=== PATIENT | female | born 1940 | race Caucasian/White ===

== ENCOUNTER → 2016-05-16 | Outpatient (REF) | payer MEDICARE ==
[~2016-05-16] MED LIST: /ALEN70TA OR; /CELE20CA; /CELE20CA OR; /CELE20CA PO; /DULO30CA; /DULO30CA OR; /ESOM40CA; /HALO2TA OR; /LAMO10TA; /LAMO10TA OR; /METO5TA PO; /PANT40TA OR; /QUET10TA PO; /WARF25TA PO; /ZOLP6ER; ABIL2TAB PO; ABIL5TAB OR; ADDE10CA3 OR; ALLE25CA OR; AMBI10TA; AMBI10TA OR; AMBI10TA PO; AMBI12.52 PO; AMBI5TAB; ANEX7.5T PO; ASPI1TAB PO; ASPI81TA83 OR; ATARAX; ATARAX OR; ATIV0.5T OR; ATIV1TAB2; ATIV1TAB2 OR; ATOR1TAB19 PO; BUPR15TA; BUSP30TA; CALC600T7 PO; CALCCHW12 OR; CALCTAB23 PO; CIPR25SS OR; CLON0.5T PO; COLA100C2 OR; CYMB1CAP PO; CYMBALTA OR; DEPA250T3 OR; DEPA500T OR; DEXTROAMPHETAMINE; DIPH2.5L OR; DOXE25CA2; DULO1CAP3 PO; DULO20CA; EC-N500T OR; EFFE75CA75 OR; FERR324T5 OR; FLEXERIL; FLEXERIL PO; GABA-279 PO; GABA800T3 OR; GEOD60CA; HYDR1CRE89 TOP; INVE6TAB3; KLON0.5T OR; KLON1TAB; KLON1TAB OR; KLON1TAB PO; KLON2TAB; KLONOPIN OR; LACT10SO8 OR; LAMI25TA; LAMI25TA OR; LAMICTAL; LAMICTAL PO; LEVO100T PO; LEVO100T5 PO; LIDO5DIS EX; LUNE2TAB OR; LYRI75CA PO; LYRICA PO; METO10TA2 OR; MILKSUS OR; MIRALEX OR; MODA200T PO; MS C15TA2 PO; MS C200T PO; MULTIVIT OR; MULTIVIT PO; NABU750T OR; NEUR600T OR; NEUR800T; NEUR800T OR; NITR0.4S SL; OPAN10TA16 OR; OXYC10TA12 OR; OXYC10TA97 OR; OXYCONTIN; OXYCONTIN OR; PERC5TAB6 PO; PERC5TAB8 OR; PLAV75TA2 OR; PROZ20CA OR; RISP0.5T20 OR; RISP1TAB OR; RISP3TAB16 OR; ROSU10TA OR; SENO8.6T2 PO; SENO8.6T9 PO; SERO1TAB3 PO; SERO200T; SERO50TA PO; SIMV40TA2 OR; SUCR1TA PO; SYNT88TA; SYNT88TA OR; TOPI25TA2 OR; TRAM100T; TRAM50TA2; TRAM50TA2 OR; TRAZ100T; TRAZ100T OR; TRIL150T PO; TYLE325T5 PO; VENL37.5 OR; VIST25CA; VIST25CA OR; VIST50CA OR; VITA100037 PO; VITA250T OR; VITAMIN B COMPLEX WI OR; VITMTA PO; WELL100T2; XANA1TAB2 OR; ZIPR80CAP; ZITH500T PO; ZYPR10TA; ZYPR15TA OR; ZYPR20TA; ZYPR5TAB; [UNRECOGNIZED DRUG - CODE] PO; [UNRECOGNIZED DRUG - OTHER] OR; [UNRECOGNIZED DRUG - OTHER] PO; cymbalta PO; haldol PO
== END ==
LOC: M SMT 17:06
PROVIDERS: ATTEND Urology
DX: Z85.51 Personal history of malignant neoplasm of bladder (principal)

== ENCOUNTER → 2016-06-06 | Outpatient (CLI) | payer MEDICARE ==
[2016-06-06 12:48] LABS: BLOOD UREA NITROGEN 19 MG/DL (7-18); CREATININE FOR GFR 0.64 MG/DL (0.55-1.02); GLOMERULAR FILTRATION RATE > 60.0 (>39)
== END ==
LOC: M SMT 10:17
PROVIDERS: ATTEND Psychiatry & Neurology Neurology
DX: G62.9 Polyneuropathy, unspecified (principal)

== ENCOUNTER → 2016-06-17 | Outpatient (REF) | payer MEDICARE | LOC: M LAB REF 12:17 | PROVIDERS: ATTEND Physician Assistant Medical | DX: R30.0 Dysuria (principal) ==

== ENCOUNTER 2016-08-06 15:06 | Inpatient (IN) | payer MEDICARE ==
[~2016-08-06] VITALS: Ht 154.9 cm; Wt 83.0 kg
[2016-08-06] MEDS ORDERED: LEVO112T2 PO (15:25)
[2016-08-06] MEDS ORDERED: GABA-283 PO (15:25)
[2016-08-06] MEDS ORDERED: DULO30CA PO (15:25)
[2016-08-06] MEDS ORDERED: PRAM0.252 PO (15:25)
[2016-08-06] MEDS ORDERED: ABIL5TAB5 PO (15:25)
[2016-08-06 15:55] LABS: MEAN CORPUSCULAR HGB CONC 31.8 g/dl (32.0-36.5); MEAN CORPUSCULAR VOLUME 91.2 fl (80.0-96.0); RED CELL DISTRIBUTION WIDTH 13.5 % (11.5-14.5); WHITE BLOOD COUNT 7.7 K/mm3 (4.0-10.0)
[2016-08-06 16:06] LABS: METHADONE URINE NEGATIVE (NEGATIVE)
[2016-08-06 16:25] LABS: ALBUMIN 3.3 GM/DL (3.2-5.2); ALBUMIN/GLOBULIN RATIO 1.18 (1.00-1.93); ALKALINE PHOSPHATASE 118 U/L (45-117); ALT/SGPT 45 U/L (12-78); ANION GAP 5 MEQ/L (8-16); AST/SGOT 27 U/L (15-37); BILIRUBIN,DIRECT 0.1 MG/DL (0.0-0.2); BILIRUBIN,TOTAL 0.4 MG/DL (0.2-1.0); BLOOD UREA NITROGEN 19 MG/DL (7-18); CALCIUM LEVEL 8.2 MG/DL (8.8-10.2); CARBON DIOXIDE LEVEL 31 MEQ/L (21-32); CHLORIDE LEVEL 110 MEQ/L (98-107); CREATININE FOR GFR 0.78 MG/DL (0.55-1.02); GLOMERULAR FILTRATION RATE > 60.0 (>39); GLUCOSE, FASTING 115 MG/DL (83-110); POTASSIUM SERUM 3.8 MEQ/L (3.5-5.1); SODIUM LEVEL 146 MEQ/L (136-145); TOTAL PROTEIN 6.1 GM/DL (6.4-8.2)
[2016-08-06] MEDS ORDERED: NS 500 ML IV ONE (16:30)
[2016-08-06] MEDS ORDERED: KETOROLAC 30 MG/ML VIAL (J1885) IV ONE (18:00)
[2016-08-06] MEDS ORDERED: LORazepam 1 MG TAB PO STA (20:40)
[2016-08-06] MEDS ORDERED: clonazePAM 1 MG TAB PO SCH (21:00)
[2016-08-06] MEDS ORDERED: MOM 30ML SUSPENSION UDC PO PRN (21:45)
[2016-08-06] MEDS ORDERED: MAALOX 30 ML SUSP *UDC PO PRN (21:45)
[2016-08-06 22:41] VITALS: BP 123/63
[2016-08-06] MEDS: ATORVASTATIN 10 MG TAB PO SCH (23:43)
[2016-08-06] MEDS: GABAPENTIN 300 MG CAP PO SCH (23:43)
[2016-08-06] MEDS: DULoxetine 30 MG CAP (CYMBALTA) PO SCH (23:43)
[2016-08-06] MEDS: CALCIUM/VITAMIN D 500 MG TAB PO SCH (23:44)
[2016-08-06] MEDS: traZODone 50 MG TAB PO PRN (23:44)
[2016-08-06] MEDS: PRAMIPEXOLE 0.25 MG TAB PO SCH (23:44)
[2016-08-07 00:33] VITALS: BP 126/91
[2016-08-07] MEDS: LEVOTHYROXINE 0.112 MG TAB (112 MCG) PO SCH (06:22)
[2016-08-07 06:53] VITALS: BP 144/67
[2016-08-07] MEDS: PRAMIPEXOLE 0.25 MG TAB PO SCH ×2 (08:48→20:37)
[2016-08-07] MEDS: ACETAMINOPHEN TAB 650MG DOSE (2X325MG) PO PRN ×2 (08:48→20:38)
[2016-08-07] MEDS: ASPIRIN 81 MG ENTERIC TAB PO SCH (08:49)
[2016-08-07] MEDS: MULTIVITAMINS/MINERALS THERAP 1 TAB PO SCH (08:49)
[2016-08-07] MEDS: GABAPENTIN 300 MG CAP PO SCH (08:49)
[2016-08-07] MEDS: DULoxetine 30 MG CAP (CYMBALTA) PO SCH ×2 (08:49→20:36)
[2016-08-07] MEDS: CALCIUM/VITAMIN D 500 MG TAB PO SCH ×2 (08:49→20:36)
[2016-08-07] MEDS ORDERED: clonazePAM 1 MG TAB PO SCH (09:00)
--- NOTE | 2016-08-07 09:20 | ECGEPIP ---
Stationary ECG Study [facility] - ED Test Date: 2016-08-06 Pat Name: JOHN MCCARTHY Department: Room: - Gender: F Patient Accounts Manager: jenna : 1940 Requested By: Treasure Weaver Order Number: [id number] Reading MD: Jacque Gonzalez Measurements Intervals [place] Rate: 75 P: 57 MD: 162 QRS: -50 QRSD: 104 T: 56 QT: 395 QTc: 442 Interpretive Statements SINUS RHYTHM PATTERN CONSISTENT WITH PULMONARY DISEASE LEFT ANTERIOR FASCICULAR BLOCK MINIMAL ST DEPRESSION LESS PRONOUNCED ST CHANGES/DECREASED RATE 10/25/15 Electronically Signed On 08-07-2016 9:19:42 EDT by Jacque Gonzalez
[2016-08-07] MEDS: clonazePAM 0.5 MG TAB PO SCH ×2 (14:01→20:36)
[2016-08-07] MEDS: GABAPENTIN 400 MG CAP PO SCH ×2 (14:01→20:37)
[2016-08-07 18:00] VITALS: BP 128/60
[2016-08-07] MEDS: ATORVASTATIN 10 MG TAB PO SCH (20:35)
[2016-08-08] MEDS: LEVOTHYROXINE 0.112 MG TAB (112 MCG) PO SCH (05:48)
[2016-08-08 06:40] VITALS: BP 109/52
[2016-08-08] MEDS: PRAMIPEXOLE 0.25 MG TAB PO SCH ×2 (08:22→20:00)
[2016-08-08] MEDS: CALCIUM/VITAMIN D 500 MG TAB PO SCH ×2 (08:22→20:00)
[2016-08-08] MEDS: DULoxetine 30 MG CAP (CYMBALTA) PO SCH ×2 (08:22→20:00)
[2016-08-08] MEDS: GABAPENTIN 400 MG CAP PO SCH ×3 (08:22→20:00)
[2016-08-08] MEDS: ASPIRIN 81 MG ENTERIC TAB PO SCH (08:22)
[2016-08-08] MEDS: MULTIVITAMINS/MINERALS THERAP 1 TAB PO SCH (08:23)
[2016-08-08] MEDS: clonazePAM 0.5 MG TAB PO SCH ×2 (08:23→15:29)
--- NOTE | 2016-08-08 10:20 | MHHPE ---
DATE OF ADMISSION: 08/06/2016 The patient states she came to the emergency department because her feet hurt with numbness and tingling. She made numerous statements to staff that she had wanted to and would not continue like this. The patient stated that she took more medicine than usual and her keeps track of her medication because she has a history of overdosing. He discovered the patient had taken one to two extra of her medication and when confronted she stated she took them hoping to . The patient stated she was "going crazy" at home because she cannot physically do things like keep up on housework, drive or go anywhere. She feels she is stressing her . The patient states to me, "I have neuropathy, my feet are tingling and numb". The neuropathy had diminished for a long time, but returned approximately four to five months ago. The patient states many of her admissions are due to her "feeling like she is going to crazy" and stress over her neuropathy. The patient states, "I got worn out and came in to have my medication adjustment". The patient states she also has burning mouth syndrome. She states previously her physician put her on "something else", but it seemed to make things worse and he put her back on Neurontin. She is on Neurontin 300 mg three times a day. She states she took the extra medication just to sleep and now denies suicidal statements. She feels she is causing her a great deal of stress. EDUCATION HISTORY: The patient has a high school education. 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 The patient has 2 children, 46 and 52 years old. MARITAL HISTORY: 54 years. MEDICAL PROBLEMS: She states she has had neuropathy since she was in her 30s. PSYCHIATRIC HISTORY: States she has been in mental hospitals approximately seven times. Review of her medications showed she was on: - Cymbalta 60 mg twice a day - Neurontin 300 mg three times a day The patient states Dr. Tello who was treating her was planning to put her on Elavil, but did not order it. NEUROLOGICAL HISTORY: Positive for neuropathy. DRUG HISTORY: Negative. ALCOHOL HISTORY: Negative. LEGAL HISTORY: Negative. The patient denies hallucinations, delusions, obsessions, compulsions and phobias. No disturbance of speech. No disturbance of thought process. No loose associations. No psychotic thoughts. Judgment and insight are fair. The patient is fully oriented. Mood is low. Affect is tearful. Full fund of knowledge. No disturbance of language. No disturbance of attention or concentration. Recent and remote memory are intact. IMPRESSION: Major depression with neuropathy. PLAN: Increase Neurontin to a higher dose. Consider use of Elavil as per Dr. Tello's suggestion according to patient.
--- NOTE | 2016-08-08 14:09 | IPNPDOC ---
[facility] Progress Note Progress Note DATE OF SERVICE: 08/08/16 HISTORY: 76-year-old female with history of major depression and neuropathy. Complaints about tingling and numbing of her feet and she claims that this problem causes her depression and her anxiety because she feels useless since she is not been able to do anything around the house (house chores) and for that reason she also feels guilty because her is the one who is taking care over those tasks. She says that she hasn't been able to sleep well for a long time, states that she eats well, blames herself constantly for being ill, has poor attention and concentration, psychomotor retardation and she feels that she should end her life because "I cannot go on like this". She is currently on Neurontin 400 mg by mouth 3 times a day and Cymbalta 60 mg by mouth twice a day, Klonopin 1 mg by mouth 3 times a day and aripiprazole 5 mg by mouth daily VITAL SIGNS: See below. NEW TEST RESULTS: None CURRENT MEDICATIONS: See below. MENTAL STATUS EXAMINATION: Patient is a 76-year old female, who is alert, cooperative with interview, with poor eye contact and fair hygiene Speech: Is slow, structured. No tangential and circumstantial Language skills are fair. Thought processes including: Linear, coherent. Thought content: Negative for delusional thoughts, auditory and visual hallucinations, negative for thought insertion. Positive for passive suicidal thoughts negative for homicidal thoughts. Abstract reasoning, and computation: Fair. Description of associations: No loosening of associations. Description of abnormal or psychotic thoughts: Not present. Judgment: For. Insight: Poor. Orientation: Oriented 3. Recent and remote memory: Intact. Attention span and concentration: Poor. Language: Fluid, slow. Average vocabulary. Fund of knowledge: Fair. Mood: "I'm anxious and depressed". Affect: Depressed, sad, anxious. DIAGNOSES: 1. Major depressive disorder with passive suicidal thoughts. 2. Neuropathy. 3. Rule out personality disorder ASSESSMENT: Patient is most likely somatizing. She is extremely concerned about the tingling and numbness in her feet and not much about her depression and anxiety. She will certainly improve with psychotherapy and group attendance, besides medications. MANAGEMENT PLAN: We will contact her neurologist in order to get more information and to be able to help her with her neuropathy problem. TIME SPENT: 30 minutes. Vital Signs Vital Signs Date Time Temp Pulse Resp B/P Pulse Ox O2 Delivery O2 Flow Rate FiO2 08/08/16 06:40 97.8 52 18 109/52 08/06/16 22:41 94 Room Air Current Medications Current Medications Acetaminophen (Tylenol Tab) 650 mg Q6HP PRN PO HEADACHE or DISCOMFORT Last administered on 08/07/16 20:38; Start 08/06/16 at 21:45; Stop 09/05/16 at 21:44 Al Hydrox/Mg Hydrox/Simethicone (Mylanta) 30 ml Q4HP PRN PO HEARTBURN/ INDIGESTION; Start 08/06/16 at 21:45; Stop 09/05/16 at 21:44 Aripiprazole (AbiLIFY) 5 mg DAILY PO Last administered on 08/08/16 08:23; Start 08/07/16 at 09:00; Stop 09/06/16 at 08:59 Aspirin (Ecotrin) 81 mg DAILY PO Last administered on 08/08/16 08:22; Start at 09:00; Stop 09/06/16 at 08:59 Atorvastatin Calcium (Lipitor) 10 mg QHS PO Last administered on 08/07/16 20: 35; Start 08/06/16 at 21:00; Stop 09/05/16 at 20:59 Calcium/Vitamin D (Oscal D) 500 mg BID PO Last administered on 08/08/16 08:22 ; Start 08/06/16 at 21:00; Stop 09/05/16 at 20:59 Clonazepam (KlonoPIN) 1 mg TID PO ; Start 08/06/16 at 21:00; Stop 08/06/16 at 23 :24; Status DC Clonazepam (KlonoPIN) 1 mg TID PO Last administered on 08/07/16 08:49; Start 08/07/16 at 09:00; Stop 08/07/16 at 13:43; Status DC Clonazepam (KlonoPIN) 1.5 mg TID PO Last administered on 08/08/16 08:23; Start 08/07/16 at 16:00; Stop 08/14/16 at 15:59 Duloxetine HCl (Cymbalta) 60 mg BID PO Last administered on 08/08/16 08:22; Start 08/06/16 at 21:00; Stop 09/05/16 at 20:59 Gabapentin (Neurontin) 300 mg TID PO Last administered on 08/07/16 08:49; Start 08/06/16 at 21:00; Stop 08/07/16 at 12:13; Status DC Gabapentin (Neurontin) 400 mg TID PO Last administered on 08/08/16 08:22; Start 08/07/16 at 16:00; Stop 09/06/16 at 15:59 Levothyroxine Sodium (Synthroid) 0.112 mg DAILY@06 PO Last administered on 08/08 05:48; Start 08/07/16 at 06:00; Stop 09/06/16 at 05:59 Magnesium Hydroxide (Milk Of Magnesia) 30 ml DAILYPRN PRN PO CONSTIPATION; Start 08/06/16 at 21:45; Stop 09/05/16 at 21:44 Multivitamins (Theragram-M) 1 tab DAILY PO Last administered on 08/08/16 08:23 ; Start 08/07/16 at 09:00; Stop 09/06/16 at 08:59 Pramipexole Dihydrochloride (Mirapex) 0.25 mg BID PO Last administered on 08:22; Start 08/06/16 at 21:00; Stop 09/05/16 at 20:59 Trazodone HCl (Desyrel) 50 mg QHSP PRN PO INSOMNIA Last administered on 23:44; Start 08/06/16 at 21:45; Stop 09/05/16 at 21:44 Allergies Coded Allergies: Codeine (Verified Adverse Reaction, Mild, NAUSEA, 07/28/12) BEATRICE SNYDER MD Aug 08, 2016 14:09
[2016-08-08 18:00] VITALS: BP 128/86
[2016-08-08] MEDS: ACETAMINOPHEN TAB 650MG DOSE (2X325MG) PO PRN (20:00)
[2016-08-08] MEDS: ATORVASTATIN 10 MG TAB PO SCH (20:00)
[2016-08-08] MEDS: traZODone 50 MG TAB PO PRN (20:02)
--- NOTE | 2016-08-08 21:49 | HPE ---
DATE OF ADMISSION: 08/06/2016 HISTORY OF PRESENT ILLNESS: Please refer to the psychiatric history and evaluation for further details on this admission. This examination and history performed is intended for medical issues which may need treatment, followup or consultation on this 76-year-old female. HPI is being done today. The patient has declined the previous two days. She was either too tired. She was cooperative today. PRIMARY CARE PROVIDER: ALLERGIES: CODEINE. SOCIAL HISTORY: She lives with her . ETOH - she does not drink alcohol. Smokes - she no longer smokes cigarettes. Recreational drug use - none. PAST MEDICAL HISTORY: Bladder cancer. Status post resection. Hyperlipidemia, hyperthyroidism, pelvic fracture, depression. PAST SURGICAL HISTORY: 2015, transurethral resection of bladder tumor (TURBT). Tonsillectomy. Knee replacement. Bilateral cataract surgery. FAMILY HISTORY: Noncontributory. CURRENT MEDICATIONS: - Abilify 5 mg by mouth daily - aspirin 81 mg by mouth daily - atorvastatin 10 mg by mouth at bedtime - calcium with vitamin D one by mouth twice a day - Klonopin 1 mg by mouth three times a day as needed for anxiety - duloxetine 60 mg by mouth twice a day - gabapentin 300 mg by mouth three times a day - levothyroxine sodium 112 mcg by mouth daily - multivitamin one by mouth daily - Mirapex 0.25 mg by mouth twice a day LABORATORY DATA: WBC 7.7, hemoglobin 13, hematocrit 40.9, platelets 287, sodium 146, potassium 3.8, chloride 110, CO2 31, BUN 19, creatinine 0.78, TSH slightly high at 7.16. Will recheck the thyroid profile. May need to adjust her levothyroxine. Urine was positive for benzodiazepines. REVIEW OF SYSTEMS: No complaint of headache. No blurry or double vision. No fever, no chills. No tinnitus, nausea, or difficulty swallowing. No lightheadedness, vertigo. Breasts: No masses. Cardiovascular: No complains of chest pain, shortness of breath, palpitations. Respiratory: No chronic cough, no sputum production. No hemoptysis, no orthopnea, no wheeze. GI: No nausea, no diarrhea, no hematochezia, no melena. No complaints of abdominal pain. No rectal bleeding. : No hematuria, dysuria. Musculoskeletal: Has multijoint arthirtis. Occasional arthritic pain. Ambulates with a walker. Hematological: No history of anemia. Neurological: No history of seizures. Psychological: See psychiatric HPI. PHYSICAL EXAMINATION: 76-year-old cooperative female. No acute distress. Vital signs stable. Height 62.1 inches, weight 83.1 kg, body mass index (BMI) 34.6. Blood pressure 128/60, pulse 62, respirations 18. The patient is alert and oriented times three. Pupils equal and reactive to light. Extraocular movements intact. Cornea and sclera clear. Conjunctiva normal. No facial asymmetry. Pharynx, tongue, and gums pink and moist. Tongue is midline. Neck is supple, without lymphadenopathy. No thyromegaly. No goiter. Carotids 2+ without bruit. Chest clear to auscultation, without wheeze or retraction. Heart is regular. Abdomen benign. Bowel sounds positive. /Rectal: Not done. Extremities: No cyanosis, clubbing, or edema. Peripheral pulses equal and palpable bilaterally. Skin is warm and dry. IMPRESSION AND PLAN: 1. Psychiatric: Plan per psychiatry. 2. History of hypothyroidism. TSH slightly elevated. Check thyroid profile. May no need to adjust her levothyroxine. 3. Hypercholesterolemia. Continue on Lipitor. 4. History of bladder cancer. Continue to followup as outpatient with Dr. Ramos. 5. No acute medical issues.
[2016-08-09] MEDS: LEVOTHYROXINE 0.112 MG TAB (112 MCG) PO SCH (06:11)
[2016-08-09 06:32] VITALS: BP 128/59
[2016-08-09] MEDS: DULoxetine 30 MG CAP (CYMBALTA) PO SCH ×2 (08:00→20:04)
[2016-08-09] MEDS: PRAMIPEXOLE 0.25 MG TAB PO SCH ×2 (08:00→20:04)
[2016-08-09] MEDS: GABAPENTIN 400 MG CAP PO SCH (08:00)
[2016-08-09] MEDS: MULTIVITAMINS/MINERALS THERAP 1 TAB PO SCH (08:00)
[2016-08-09] MEDS: ASPIRIN 81 MG ENTERIC TAB PO SCH (08:00)
[2016-08-09] MEDS: CALCIUM/VITAMIN D 500 MG TAB PO SCH ×2 (08:00→20:04)
[2016-08-09] MEDS: ACETAMINOPHEN TAB 650MG DOSE (2X325MG) PO PRN (09:26)
--- NOTE | 2016-08-09 10:06 | IPNPDOC ---
Subjective Date Seen Subjective Chief Complaint/HPI The patient is a 76-year-old female admitted with a reason for visit of Schizophrenia. Patient reports vaginal pruritus and has reportedly had it in the past. Nurse reports that she done well with this symptom with miconazole vaginal cream. Assessment /Plan Plan/VTE VTE Prophylaxis Ordered?: No Plan Will order miconzaole vaginal cream and do a UA to rule out UTI, do to concern of UTI in her age group, if abnormal or continues despite treatment will reevaluate. GME ATTESTATION My preceptor for this patient encounter was physically present in the building during the encounter and was fully available. As needed, all aspects of the patient interview, examination, medical decision making process, and medical care plan development were reviewed and approved by the preceptor. Preceptor is aware and concurs with the plan as stated in the body of this note and will attest to such by his/her cosignature. VS, I&O, 24H, Fishbone Vital Signs/I&O Vital Signs Date Time Temp Pulse Resp B/P Pulse Ox O2 Delivery O2 Flow Rate FiO2 08/09/16 06:32 97.2 51 20 128/59 08/06/16 22:41 94 Room Air JOSE LUIS ABDALLA DO Aug 09, 2016 10:06
[2016-08-09] MEDS: MICONAZOLE-7 VAGINAL 2% CREAM 47.7 GM PV SCH (10:50)
[2016-08-09] MEDS: GABAPENTIN 300 MG CAP PO SCH ×2 (14:07→21:00)
[2016-08-09 18:00] VITALS: BP 136/94
--- NOTE | 2016-08-09 18:11 | IPNPDOC ---
[facility] Progress Note Progress Note DATE OF SERVICE: 08/09/16 Weight is 76-year-old female with diagnoses of major depressive disorder with suicidal ideation and neuropathy who continues to complain of numbness and tingling in her feet. Today she requested to increase the dose of her medications because she feels uncomfortable. She was dressed in hospital clothes , alert, oriented 3, anxious and demanding. Her mood is depressed and so is her affect. She is not suicidal or homicidal, she is not responding to internal stimuli, she is not hearing voices, she denies thought insertion and denies obsessions and compulsions. She has low energy, anhedonia, lack of interest, poor attention and concentration. She has hopelessness, helplessness, feelings of guilt and worthlessness. The dose of gabapentin was increased to 600 mg by mouth 3 times a day. DIAGNOSES: 1. Major depressive disorder, unspecified 2. Neuropathy 3. . ASSESSMENT: The patient is extremely anxious and agitated because she isn't comfortable with her neuropathy. The dose of gabapentin was increased and hoping that this will help her with this problem. MANAGEMENT PLAN: We will try to establish contact with her , who hasn't been answering her phone calls. Apparently the reason is because they're not in terms of this time. Arrangements will be made for her to follow up as an outpatient and in the meantime she will continue with medications, attending groups and psychotherapy. TIME SPENT: 20 minutes. Vital Signs Vital Signs Date Time Temp Pulse Resp B/P Pulse Ox O2 Delivery O2 Flow Rate FiO2 08/09/16 06:32 97.2 51 20 128/59 08/06/16 22:41 94 Room Air Laboratory Data 24H Labs Laboratory Tests 2 08/09/16 12:43: Urine Amorphous Sediment MODERATEH, Urine Appearance TURBIDH, Urine Color YELLOW , Urine pH 8.0, Urine Specific [place] 1.013, Urine Protein NEGATIVE, Urine Glucose (UA) NEGATIVE, Urine Ketones NEGATIVE, Urine Urobilinogen 0.2, Urine Bilirubin NEGATIVE, Urine Leukocyte Esterase NEGATIVE, Urine Bacteria (Auto) 1+H , Urine Blood NEGATIVE, Urine Calcium Carbonate Cryst(Auto) , Urine Calcium Oxalate Cryst (Auto) , Urine Calcium Phosphate Carole (Auto) , Urine Cellular Casts , Urine Cystine Crystals , Urine Granular Casts (Auto) , Urine Hyaline Casts (Auto) 0, Urine Leucine Crystals , Urine Mucus (Auto) SMALL, Urine Nitrite NEGATIVE, Urine Oval Fat Bodies (Auto) , Urine RBC (Auto) 0, Urine Renal Epithelial Cells , Urine Sperm (Auto) , Urine Squamous Epithelial Cells 0 , Urine Transitional Epithelial Cells , Urine Trichomonas (Auto) , Urine Triple Phosphate Cryst (Auto) , Urine Tyrosine Crystals , Urine Uric Acid Crystals ( Auto) , Urine WBC (Auto) 0, Urine Waxy Casts (Auto) , Urine Yeast-Like Cells ( Auto) Current Medications Current Medications Acetaminophen (Tylenol Tab) 650 mg Q6HP PRN PO HEADACHE or DISCOMFORT Last administered on 08/09/16 09:26; Start 08/06/16 at 21:45; Stop 09/05/16 at 21:44 Al Hydrox/Mg Hydrox/Simethicone (Mylanta) 30 ml Q4HP PRN PO HEARTBURN/ INDIGESTION; Start 08/06/16 at 21:45; Stop 09/05/16 at 21:44 Aripiprazole (AbiLIFY) 5 mg DAILY PO Last administered on 08/09/16 08:00; Start 08/07/16 at 09:00; Stop 09/06/16 at 08:59 Aspirin (Ecotrin) 81 mg DAILY PO Last administered on 08/09/16 08:00; Start at 09:00; Stop 09/06/16 at 08:59 Atorvastatin Calcium (Lipitor) 10 mg QHS PO Last administered on 08/08/16 20: 00; Start 08/06/16 at 21:00; Stop 09/05/16 at 20:59 Calcium/Vitamin D (Oscal D) 500 mg BID PO Last administered on 08/09/16 08:00 ; Start 08/06/16 at 21:00; Stop 09/05/16 at 20:59 Clonazepam (KlonoPIN) 1 mg TID PO ; Start 08/06/16 at 21:00; Stop 08/06/16 at 23 :24; Status DC Clonazepam (KlonoPIN) 1 mg TID PO Last administered on 08/07/16 08:49; Start 08/07/16 at 09:00; Stop 08/07/16 at 13:43; Status DC Clonazepam (KlonoPIN) 1.5 mg TID PO Last administered on 08/08/16 15:29; Start 08/07/16 at 16:00; Stop 08/08/16 at 17:37; Status DC Duloxetine HCl (Cymbalta) 60 mg BID PO Last administered on 08/09/16 08:00; Start 08/06/16 at 21:00; Stop 09/05/16 at 20:59 Gabapentin (Neurontin) 300 mg TID PO Last administered on 08/07/16 08:49; Start 08/06/16 at 21:00; Stop 08/07/16 at 12:13; Status DC Gabapentin (Neurontin) 400 mg TID PO Last administered on 08/09/16 08:00; Start 08/07/16 at 16:00; Stop 08/09/16 at 13:35; Status DC Gabapentin (Neurontin) 600 mg Q8H PO Last administered on 08/09/16 14:07; Start 08/09/16 at 14:00; Stop 09/08/16 at 13:59 Levothyroxine Sodium (Synthroid) 0.112 mg DAILY@06 PO Last administered on 08/09 06:11; Start 08/07/16 at 06:00; Stop 09/06/16 at 05:59 Lorazepam (Ativan) 1 mg Q8HP PRN PO ANXIETY; Start 08/08/16 at 17:45; Stop at 17:44 Magnesium Hydroxide (Milk Of Magnesia) 30 ml DAILYPRN PRN PO CONSTIPATION; Start 08/06/16 at 21:45; Stop 09/05/16 at 21:44 Miconazole Nitrate (Monistat-7) 1 dose DAILY PV Last administered on 08/09/16 10:50; Start 08/09/16 at 09:00; Stop 08/16/16 at 08:59 Multivitamins (Theragram-M) 1 tab DAILY PO Last administered on 08/09/16 08:00 ; Start 08/07/16 at 09:00; Stop 09/06/16 at 08:59 Pramipexole Dihydrochloride (Mirapex) 0.25 mg BID PO Last administered on 08:00; Start 08/06/16 at 21:00; Stop 09/05/16 at 20:59 Trazodone HCl (Desyrel) 50 mg QHSP PRN PO INSOMNIA Last administered on t 20:02; Start 08/06/16 at 21:45; Stop 09/05/16 at 21:44 Allergies Coded Allergies: Codeine (Verified Adverse Reaction, Mild, NAUSEA, 07/28/12) BEATRICE SNYDER MD Aug 09, 2016 18:11
[2016-08-09] MEDS: LORazepam 1 MG TAB PO PRN (19:12)
[2016-08-09] MEDS: ATORVASTATIN 10 MG TAB PO SCH (20:04)
[2016-08-09] MEDS: traZODone 50 MG TAB PO PRN (21:03)
[2016-08-10 06:14] VITALS: BP 113/68
[2016-08-10] MEDS: LEVOTHYROXINE 0.112 MG TAB (112 MCG) PO SCH (06:17)
[2016-08-10] MEDS: GABAPENTIN 300 MG CAP PO SCH ×3 (06:18→20:09)
[2016-08-10] MEDS: PRAMIPEXOLE 0.25 MG TAB PO SCH ×2 (08:34→20:08)
[2016-08-10] MEDS: MULTIVITAMINS/MINERALS THERAP 1 TAB PO SCH (08:34)
[2016-08-10] MEDS: DULoxetine 30 MG CAP (CYMBALTA) PO SCH (08:34)
[2016-08-10] MEDS: CALCIUM/VITAMIN D 500 MG TAB PO SCH ×2 (08:34→20:08)
[2016-08-10] MEDS: ASPIRIN 81 MG ENTERIC TAB PO SCH (08:34)
[2016-08-10] MEDS: MICONAZOLE-7 VAGINAL 2% CREAM 47.7 GM PV SCH (08:36)
[2016-08-10] MEDS: VENLAFAXINE **XR** 75MG CAPSULE PO SCH (13:09)
[2016-08-10] MEDS: LORazepam 1 MG TAB PO PRN (15:37)
--- NOTE | 2016-08-10 16:34 | IPNPDOC ---
[facility] Progress Note Progress Note DATE OF SERVICE: 08/10/16 Evaluated 76-year-old female with history of major depressive disorder and neuropathy. Patient has a long-standing history of depression, has been treated with multiple antidepressants and pain medication. She has a tendency to complain about her physical pain and focus in this subject. She admits that she doesn't talk much about her emotional pain, but that she feels very depressed because she feels useless around her house. She states she blames herself for having her do all the house chores. She cries easily, has depressed mood and affect, fair eye contact, good hygiene. Her speech is not pressured, not tangential and not circumstantial. She is alert and oriented 3, cooperative with interview. Her energy levels are low, she states that she has lost interest in what she used to like doing, reports anhedonia, poor attention and concentration, trouble sleeping mostly because of pain in her pelvic area, psychomotor retardation and anxiety. Denies altered perceptions, delusional thoughts, homicidal thoughts but admits that she has passive suicidal thoughts. Her insight and judgment are poor. Attention span is poor. She is not impulsive. She is not dangerous to others that she could be dangerous to herself because she is very depressed and her judgment and insight are impaired. CURRENT MEDICATIONS: Started tapering bouncing ball, in order to start her on Effexor XR. Gabapentin has been increased to 600 mg by mouth 3 times a day. DIAGNOSES: 1. Major depressive disorder 2. Neuropathy ASSESSMENT: The patient is very dependent and seeks constant attention. She is depressed and anxious and is used to the sick role because that's the way that she has been getting attention throughout the years. MANAGEMENT PLAN: We will contact her neurologist. Her was contacted today and he was the one who provided her neurologist phone number. TIME SPENT: 30 minutes. Vital Signs Vital Signs Date Time Temp Pulse Resp B/P Pulse Ox O2 Delivery O2 Flow Rate FiO2 08/10/16 06:14 97.2 52 18 113/68 Room Air 08/06/16 22:41 94 Current Medications Current Medications Acetaminophen (Tylenol Tab) 650 mg Q6HP PRN PO HEADACHE or DISCOMFORT Last administered on 08/09/16t 09:26; Start 08/06/16 at 21:45; Stop 09/05/16 at 21:44 Al Hydrox/Mg Hydrox/Simethicone (Mylanta) 30 ml Q4HP PRN PO HEARTBURN/ INDIGESTION; Start 08/06/16 at 21:45; Stop 09/05/16 at 21:44 Aripiprazole (AbiLIFY) 5 mg DAILY PO Last administered on 08/10/16 08:34; Start 08/07/16 at 09:00; Stop 09/06/16 at 08:59 Aspirin (Ecotrin) 81 mg DAILY PO Last administered on 08/10/16 08:34; Start at 09:00; Stop 09/06/16 at 08:59 Atorvastatin Calcium (Lipitor) 10 mg QHS PO Last administered on 08/09/16 20: 04; Start 08/06/16 at 21:00; Stop 09/05/16 at 20:59 Calcium/Vitamin D (Oscal D) 500 mg BID PO Last administered on 08/10/16 08:34 ; Start 08/06/16 at 21:00; Stop 09/05/16 at 20:59 Clonazepam (KlonoPIN) 1 mg TID PO ; Start 08/06/16 at 21:00; Stop 08/06/16 at 23 :24; Status DC Clonazepam (KlonoPIN) 1 mg TID PO Last administered on 08/07/16 08:49; Start 08/07/16 at 09:00; Stop 08/07/16 at 13:43; Status DC Clonazepam (KlonoPIN) 1.5 mg TID PO Last administered on 08/08/16 15:29; Start 08/07/16 at 16:00; Stop 08/08/16 at 17:37; Status DC Duloxetine HCl (Cymbalta) 60 mg BID PO Last administered on 08/10/16 08:34; Start 08/06/16 at 21:00; Stop 08/10/16 at 10:14; Status DC Gabapentin (Neurontin) 300 mg TID PO Last administered on 08/07/16 08:49; Start 08/06/16 at 21:00; Stop 08/07/16 at 12:13; Status DC Gabapentin (Neurontin) 400 mg TID PO Last administered on 08/09/16 08:00; Start 08/07/16 at 16:00; Stop 08/09/16 at 13:35; Status DC Gabapentin (Neurontin) 600 mg Q8H PO Last administered on 08/10/16 13:50; Start 08/09/16 at 14:00; Stop 09/08/16 at 13:59 Levothyroxine Sodium (Synthroid) 0.112 mg DAILY@06 PO Last administered on 08/10 06:17; Start 08/07/16 at 06:00; Stop 09/06/16 at 05:59 Lorazepam (Ativan) 1 mg Q8HP PRN PO ANXIETY Last administered on 08/10/16 15: 37; Start 08/08/16 at 17:45; Stop 08/15/16 at 17:44 Magnesium Hydroxide (Milk Of Magnesia) 30 ml DAILYPRN PRN PO CONSTIPATION; Start 08/06/16 at 21:45; Stop 09/05/16 at 21:44 Miconazole Nitrate (Monistat-7) 1 dose DAILY PV Last administered on 08/09/16 10:50; Start 08/09/16 at 09:00; Stop 08/16/16 at 08:59 Multivitamins (Theragram-M) 1 tab DAILY PO Last administered on 08/10/16 08:34 ; Start 08/07/16 at 09:00; Stop 09/06/16 at 08:59 Pramipexole Dihydrochloride (Mirapex) 0.25 mg BID PO Last administered on 08:34; Start 08/06/16 at 21:00; Stop 09/05/16 at 20:59 Trazodone HCl (Desyrel) 50 mg QHSP PRN PO INSOMNIA Last administered on 21:03; Start 08/06/16 at 21:45; Stop 09/05/16 at 21:44 Venlafaxine HCl (Effexor Xr) 150 mg QAM PO Last administered on 08/10/16 13:09; Start 08/10/16 at 09:00; Stop 09/09/16 at 08:59 Allergies Coded Allergies: Codeine (Verified Adverse Reaction, Mild, NAUSEA, 07/28/12) BEATRICE SNYDER MD Aug 10, 2016 16:34
[2016-08-10 18:00] VITALS: BP 120/72
[2016-08-10] MEDS: ATORVASTATIN 10 MG TAB PO SCH (20:09)
[2016-08-10] MEDS: traZODone 50 MG TAB PO PRN (20:09)
[2016-08-11] MEDS: LORazepam 1 MG TAB PO PRN ×2 (02:20→11:26)
[2016-08-11] MEDS: LEVOTHYROXINE 0.112 MG TAB (112 MCG) PO SCH (06:00)
[2016-08-11] MEDS: GABAPENTIN 300 MG CAP PO SCH ×3 (06:00→20:45)
[2016-08-11 06:29] VITALS: BP 148/97
[2016-08-11] MEDS: MICONAZOLE-7 VAGINAL 2% CREAM 47.7 GM PV SCH (08:51)
[2016-08-11] MEDS: ASPIRIN 81 MG ENTERIC TAB PO SCH (08:54)
[2016-08-11] MEDS: VENLAFAXINE **XR** 75MG CAPSULE PO SCH (08:54)
[2016-08-11] MEDS: MULTIVITAMINS/MINERALS THERAP 1 TAB PO SCH (08:54)
[2016-08-11] MEDS: CALCIUM/VITAMIN D 500 MG TAB PO SCH ×2 (08:54→20:45)
[2016-08-11] MEDS: PRAMIPEXOLE 0.25 MG TAB PO SCH ×2 (08:54→20:45)
--- NOTE | 2016-08-11 11:33 | IPNPDOC ---
[facility] Progress Note Progress Note DATE OF SERVICE: 08/11/16 Evaluated 76-year-old female with history of major depressive disorder and neuropathy. She has been previously and multiple medications and when she was admitted she was on Cymbalta 60 mg by mouth twice a day. Yesterday the medication was discontinued and she was started on venlafaxine 150 mg by mouth every morning. She complains of pain in her pelvic and her back. She stated that she started with the neuropathy when she was 32 years old and then the problem disappeared for 8 years and he came back and then, she had a pelvic fracture which has caused a lot of distress in her life, both, physically and emotionally. According to her history she has had a tendency to focus on her physical pain and discomfort and not on her emotional problems. Currently she admits that she feels very guilty because she has not been able to do the house chores are on the house and her is the one who has to do everything. Yesterday she was very sad because it was one of her granddaughter's birthday and she was wondering if she was going to be able to see her or be with her granddaughter again. She has had constant feelings of helplessness, hopelessness and worthlessness besides guilt. CURRENT MEDICATIONS: See below. MENTAL STATUS EXAMINATION: Patient is a 76-year old female, who is dressed in hospital clothes, cooperative with interview, fair eye contact, anxious. Speech: Is not tangential and not circumstantial. Normal in volume, tone and speed.. Language skills are fair. Thought processes including: Linear. Thought content: Positive for negative thoughts about herself and her life and the future. She denies active suicidal ideation but she has passive suicidal ideation like for example: "I wish I wouldn't be here to be a burden to my " . She doesn't have delusional thoughts , she denies any kind of hallucinations and thought insertion . Abstract reasoning, and computation: Difficult because she has problems with keeping up her attention and concentration. Description of associations: No loosening of associations Description of abnormal or psychotic thoughts: Not present Judgment: Poor. Insight: Poor. Orientation: Oriented 3. Recent and remote memory: Fair. Attention span and concentration: Poor. Language: Normal. Fund of knowledge: Fair. Mood: "And very depressed". Affect: Sad, depressed. DIAGNOSES: 1. Major depressive disorder. 2. Neuropathy. . ASSESSMENT: Patient needs to continue hospitalization for psychotherapy and treatment with medications. We will need to titrate dose of venlafaxine and increase her and increase the dose. MANAGEMENT PLAN: Continue hospitalization, contact her neurologist. TIME SPENT: 15 minutes. Vital Signs Vital Signs Date Time Temp Pulse Resp B/P Pulse Ox O2 Delivery O2 Flow Rate FiO2 08/11/16 06:29 96.1 100 18 148/97 08/10/16 06:14 Room Air 08/06/16 22:41 94 Current Medications Current Medications Acetaminophen (Tylenol Tab) 650 mg Q6HP PRN PO HEADACHE or DISCOMFORT Last administered on 08/09/16 09:26; Start 08/06/16 at 21:45; Stop 09/05/16 at 21:44 Al Hydrox/Mg Hydrox/Simethicone (Mylanta) 30 ml Q4HP PRN PO HEARTBURN/ INDIGESTION; Start 08/06/16 at 21:45; Stop 09/05/16 at 21:44 Aripiprazole (AbiLIFY) 5 mg DAILY PO Last administered on 08/11/16 08:54; Start 08/07/16 at 09:00; Stop 09/06/16 at 08:59 Aspirin (Ecotrin) 81 mg DAILY PO Last administered on 08/11/16 08:54; Start at 09:00; Stop 09/06/16 at 08:59 Atorvastatin Calcium (Lipitor) 10 mg QHS PO Last administered on 08/10/16 20: 09; Start 08/06/16 at 21:00; Stop 09/05/16 at 20:59 Calcium/Vitamin D (Oscal D) 500 mg BID PO Last administered on 08/11/16 08:54 ; Start 08/06/16 at 21:00; Stop 09/05/16 at 20:59 Clonazepam (KlonoPIN) 1 mg TID PO ; Start 08/06/16 at 21:00; Stop 08/06/16 at 23 :24; Status DC Clonazepam (KlonoPIN) 1 mg TID PO Last administered on 08/07/16 08:49; Start 08/07/16 at 09:00; Stop 08/07/16 at 13:43; Status DC Clonazepam (KlonoPIN) 1.5 mg TID PO Last administered on 08/08/16 15:29; Start 08/07/16 at 16:00; Stop 08/08/16 at 17:37; Status DC Duloxetine HCl (Cymbalta) 60 mg BID PO Last administered on 08/10/16 08:34; Start 08/06/16 at 21:00; Stop 08/10/16 at 10:14; Status DC Gabapentin (Neurontin) 300 mg TID PO Last administered on 08/07/16 08:49; Start 08/06/16 at 21:00; Stop 08/07/16 at 12:13; Status DC Gabapentin (Neurontin) 400 mg TID PO Last administered on 08/09/16 08:00; Start 08/07/16 at 16:00; Stop 08/09/16 at 13:35; Status DC Gabapentin (Neurontin) 600 mg Q8H PO Last administered on 08/11/16 06:00; Start 08/09/16 at 14:00; Stop 09/08/16 at 13:59 Levothyroxine Sodium (Synthroid) 0.112 mg DAILY@06 PO Last administered on 08/11 06:00; Start 08/07/16 at 06:00; Stop 09/06/16 at 05:59 Lorazepam (Ativan) 1 mg Q8HP PRN PO ANXIETY Last administered on 08/11/16 02: 20; Start 08/08/16 at 17:45; Stop 08/15/16 at 17:44 Magnesium Hydroxide (Milk Of Magnesia) 30 ml DAILYPRN PRN PO CONSTIPATION; Start 08/06/16 at 21:45; Stop 09/05/16 at 21:44 Miconazole Nitrate (Monistat-7) 1 dose DAILY PV Last administered on 08/09/16 10:50; Start 08/09/16 at 09:00; Stop 08/16/16 at 08:59 Multivitamins (Theragram-M) 1 tab DAILY PO Last administered on 08/11/16 08:54 ; Start 08/07/16 at 09:00; Stop 09/06/16 at 08:59 Pramipexole Dihydrochloride (Mirapex) 0.25 mg BID PO Last administered on 08:54; Start 08/06/16 at 21:00; Stop 09/05/16 at 20:59 Trazodone HCl (Desyrel) 50 mg QHSP PRN PO INSOMNIA Last administered on 20:09; Start 08/06/16 at 21:45; Stop 09/05/16 at 21:44 Venlafaxine HCl (Effexor Xr) 150 mg QAM PO Last administered on 08/11/16 08:54; Start 08/10/16 at 09:00; Stop 09/09/16 at 08:59 Allergies Coded Allergies: Codeine (Verified Adverse Reaction, Mild, NAUSEA, 07/28/12) BEATRICE SNYDER MD Aug 11, 2016 11:33
[2016-08-11 16:26] VITALS: BP 118/73
[2016-08-11] MEDS: hydrOXYzine 10 MG TAB PO SCH (18:20)
[2016-08-11] MEDS: LORazepam 1 MG TAB PO SCH (18:20)
[2016-08-11] MEDS: traZODone 50 MG TAB PO PRN (20:44)
[2016-08-11] MEDS: ATORVASTATIN 10 MG TAB PO SCH (20:44)
[2016-08-11] MEDS: ACETAMINOPHEN TAB 650MG DOSE (2X325MG) PO PRN (20:52)
[2016-08-12] MEDS: LORazepam 1 MG TAB PO SCH ×3 (05:44→12:05)
[2016-08-12] MEDS: LEVOTHYROXINE 0.112 MG TAB (112 MCG) PO SCH (05:44)
[2016-08-12] MEDS: GABAPENTIN 300 MG CAP PO SCH ×3 (05:44→20:07)
[2016-08-12] MEDS: ACETAMINOPHEN TAB 650MG DOSE (2X325MG) PO PRN (05:48)
[2016-08-12] MEDS: MICONAZOLE-7 VAGINAL 2% CREAM 47.7 GM PV SCH (08:21)
[2016-08-12] MEDS: hydrOXYzine 10 MG TAB PO SCH (08:23)
[2016-08-12] MEDS: CALCIUM/VITAMIN D 500 MG TAB PO SCH ×2 (08:24→20:07)
[2016-08-12] MEDS: PRAMIPEXOLE 0.25 MG TAB PO SCH ×2 (08:24→20:07)
[2016-08-12] MEDS: ASPIRIN 81 MG ENTERIC TAB PO SCH (08:24)
[2016-08-12] MEDS: MULTIVITAMINS/MINERALS THERAP 1 TAB PO SCH (08:24)
[2016-08-12] MEDS: VENLAFAXINE **XR** 75MG CAPSULE PO SCH (08:24)
--- NOTE | 2016-08-12 10:48 | IPNPDOC ---
[facility] Progress Note Progress Note DATE OF SERVICE: 08/12/16 HISTORY: 76-year-old female who was admitted for depression, suicidal thoughts and neuropathy. The patient has a long-standing history of neuropathy which is a major cause of stress to her. She states that she has neuropathy since she was very young but when she was 32 years old, it disappeared and it came back when she was 40 years old. She suffered a pelvic fracture which is another cause of pain and burning mouth syndrome. VITAL SIGNS: See below. NEW TEST RESULTS: None CURRENT MEDICATIONS: See below. MENTAL STATUS EXAMINATION: Patient is a said before-year old female, who is cooperative with interview, with better eye contact, more cooperative, more verbal, dressed in hospital clothes Speech: Is fluid, structured. Not circumstantial and not tangential Language skills are fair. Thought processes including: Linear. Thought content: Positive for passive suicidal thoughts, helplessness, hopelessness and worthlessness. There is no delusions, no hallucinations. Positive for obsessions around her neuropathy. Abstract reasoning, and computation: Abstract reasoning is fair, computation is poor because she has problems with concentration. Description of associations: There is no loosening of associations. Description of abnormal or psychotic thoughts:Psychotic thoughts are present. Judgment: Poor. Insight: Poor. Orientation: , 3. Recent and remote memory: Recent memory is fair and for the most part of it, her remote memory is good. Attention span and concentration: Poor. Language: Fluid, . Fund of knowledge: Fair Mood: "I'm still very depressed". Affect: Sad, anxious. DIAGNOSES: 1. Major depressive disorder. 2. generalized anxiety disorder. 3. Neuropathy. ASSESSMENT: She needs to continue treatment at the mental health unit. Her antidepressant dose will be increased (Effexor XR 300 mg). Currently she is on 150 mg. Once we increased the dose of her antidepressant, will be able to assess her response to it. MANAGEMENT PLAN: Once she gets stabilized she will be ready for discharge and will continue outpatient treatment with medications and psychotherapy TIME SPENT: 15 minutes. Vital Signs Vital Signs Date Time Temp Pulse Resp B/P Pulse Ox O2 Delivery O2 Flow Rate FiO2 08/12/16 06:57 98.0 78 18 08/11/16 16:26 118/73 08/10/16 06:14 Room Air 08/06/16 22:41 94 Current Medications Current Medications Acetaminophen (Tylenol Tab) 650 mg Q6HP PRN PO HEADACHE or DISCOMFORT Last administered on 08/12/16 05:48; Start 08/06/16 at 21:45; Stop 09/05/16 at 21:44 Al Hydrox/Mg Hydrox/Simethicone (Mylanta) 30 ml Q4HP PRN PO HEARTBURN/ INDIGESTION; Start 08/06/16 at 21:45; Stop 09/05/16 at 21:44 Aripiprazole (AbiLIFY) 5 mg DAILY PO Last administered on 08/12/16 08:23; Start 08/07/16 at 09:00; Stop 09/06/16 at 08:59 Aspirin (Ecotrin) 81 mg DAILY PO Last administered on 08/12/16 08:24; Start at 09:00; Stop 09/06/16 at 08:59 Atorvastatin Calcium (Lipitor) 10 mg QHS PO Last administered on 08/11/16 20: 44; Start 08/06/16 at 21:00; Stop 09/05/16 at 20:59 Calcium/Vitamin D (Oscal D) 500 mg BID PO Last administered on 08/12/16 08:24 ; Start 08/06/16 at 21:00; Stop 09/05/16 at 20:59 Clonazepam (KlonoPIN) 1 mg TID PO ; Start 08/06/16 at 21:00; Stop 08/06/16 at 23 :24; Status DC Clonazepam (KlonoPIN) 1 mg TID PO Last administered on 08/07/16 08:49; Start 08/07/16 at 09:00; Stop 08/07/16 at 13:43; Status DC Clonazepam (KlonoPIN) 1.5 mg TID PO Last administered on 08/08/16 15:29; Start 08/07/16 at 16:00; Stop 08/08/16 at 17:37; Status DC Duloxetine HCl (Cymbalta) 60 mg BID PO Last administered on 08/10/16 08:34; Start 08/06/16 at 21:00; Stop 08/10/16 at 10:14; Status DC Gabapentin (Neurontin) 300 mg TID PO Last administered on 08/07/16 08:49; Start 08/06/16 at 21:00; Stop 08/07/16 at 12:13; Status DC Gabapentin (Neurontin) 400 mg TID PO Last administered on 08/09/16 08:00; Start 08/07/16 at 16:00; Stop 08/09/16 at 13:35; Status DC Gabapentin (Neurontin) 600 mg Q8H PO Last administered on 08/12/16 05:44; Start 08/09/16 at 14:00; Stop 09/08/16 at 13:59 Hydroxyzine HCl (Atarax) 10 mg DAILY PO Last administered on 08/12/16 08:23; Start 08/11/16 at 09:00; Stop 09/10/16 at 08:59 Levothyroxine Sodium (Synthroid) 0.112 mg DAILY@06 PO Last administered on 08/12 05:44; Start 08/07/16 at 06:00; Stop 09/06/16 at 05:59 Lorazepam (Ativan) 1 mg Q6H PO Last administered on 08/12/16 05:44; Start at 18:00; Stop 08/18/16 at 17:59 Lorazepam (Ativan) 1 mg Q8HP PRN PO ANXIETY Last administered on 08/11/16 11: 26; Start 08/08/16 at 17:45; Stop 08/11/16 at 17:29; Status DC Magnesium Hydroxide (Milk Of Magnesia) 30 ml DAILYPRN PRN PO CONSTIPATION; Start 08/06/16 at 21:45; Stop 09/05/16 at 21:44 Miconazole Nitrate (Monistat-7) 1 dose DAILY PV Last administered on 08/09/16 10:50; Start 08/09/16 at 09:00; Stop 08/16/16 at 08:59 Multivitamins (Theragram-M) 1 tab DAILY PO Last administered on 08/12/16 08:24 ; Start 08/07/16 at 09:00; Stop 09/06/16 at 08:59 Pramipexole Dihydrochloride (Mirapex) 0.25 mg BID PO Last administered on 08:24; Start 08/06/16 at 21:00; Stop 09/05/16 at 20:59 Trazodone HCl (Desyrel) 50 mg QHSP PRN PO INSOMNIA Last administered on 20:44; Start 08/06/16 at 21:45; Stop 09/05/16 at 21:44 Venlafaxine HCl (Effexor Xr) 150 mg QAM PO Last administered on 08/12/16 08:24; Start 08/10/16 at 09:00; Stop 09/09/16 at 08:59 Allergies Coded Allergies: Codeine (Verified Adverse Reaction, Mild, NAUSEA, 07/28/12) BEATRICE SNYDER MD Aug 12, 2016 10:48
[2016-08-12] MEDS: LORazepam 0.5 MG TAB PO SCH ×2 (16:26→20:07)
[2016-08-12 18:00] VITALS: BP 133/68
[2016-08-12] MEDS: ATORVASTATIN 10 MG TAB PO SCH (20:07)
[2016-08-12] MEDS: traZODone 50 MG TAB PO PRN (20:07)
[2016-08-13] MEDS: GABAPENTIN 300 MG CAP PO SCH ×3 (06:03→20:01)
[2016-08-13] MEDS: LEVOTHYROXINE 0.112 MG TAB (112 MCG) PO SCH (06:03)
[2016-08-13 06:17] VITALS: BP 120/67
[2016-08-13] MEDS: ASPIRIN 81 MG ENTERIC TAB PO SCH (08:50)
[2016-08-13] MEDS: LORazepam 0.5 MG TAB PO SCH (08:50)
[2016-08-13] MEDS: VENLAFAXINE **XR** 75MG CAPSULE PO SCH (08:50)
[2016-08-13] MEDS: CALCIUM/VITAMIN D 500 MG TAB PO SCH ×2 (08:51→19:59)
[2016-08-13] MEDS: PRAMIPEXOLE 0.25 MG TAB PO SCH ×2 (08:51→19:59)
[2016-08-13] MEDS: MULTIVITAMINS/MINERALS THERAP 1 TAB PO SCH (08:51)
[2016-08-13] MEDS: MICONAZOLE-7 VAGINAL 2% CREAM 47.7 GM PV SCH (09:00)
[2016-08-13] MEDS: ACETAMINOPHEN TAB 650MG DOSE (2X325MG) PO PRN (14:06)
[2016-08-13] MEDS: hydrOXYzine 10 MG TAB PO PRN (15:30)
[2016-08-13 18:00] VITALS: BP 135/78
[2016-08-13] MEDS: LORazepam 1 MG TAB PO SCH (19:59)
[2016-08-13] MEDS: ATORVASTATIN 10 MG TAB PO SCH (19:59)
[2016-08-13] MEDS: traZODone 50 MG TAB PO PRN (20:03)
[2016-08-14] MEDS: ACETAMINOPHEN TAB 650MG DOSE (2X325MG) PO PRN (02:18)
[2016-08-14] MEDS: hydrOXYzine 10 MG TAB PO PRN (04:54)
[2016-08-14] MEDS: GABAPENTIN 300 MG CAP PO SCH ×3 (06:08→20:30)
[2016-08-14] MEDS: LEVOTHYROXINE 0.112 MG TAB (112 MCG) PO SCH (06:08)
[2016-08-14 06:33] VITALS: BP 140/88
[2016-08-14] MEDS: VENLAFAXINE **XR** 75MG CAPSULE PO SCH (07:53)
[2016-08-14] MEDS: PRAMIPEXOLE 0.25 MG TAB PO SCH ×2 (07:53→20:30)
[2016-08-14] MEDS: ASPIRIN 81 MG ENTERIC TAB PO SCH (07:53)
[2016-08-14] MEDS: LORazepam 1 MG TAB PO SCH ×2 (07:54→20:29)
[2016-08-14] MEDS: CALCIUM/VITAMIN D 500 MG TAB PO SCH ×2 (07:54→20:29)
[2016-08-14] MEDS: MULTIVITAMINS/MINERALS THERAP 1 TAB PO SCH (07:54)
[2016-08-14] MEDS: MICONAZOLE-7 VAGINAL 2% CREAM 47.7 GM PV SCH (07:55)
[2016-08-14] MEDS: ARIPiprazole 15 MG TAB (AbiLIFY) PO SCH (07:55)
[2016-08-14] MEDS ORDERED: LIDOCAINE 5% (LIDODERM) PATCH TD ONE (09:45)
--- NOTE | 2016-08-14 11:50 | REP ---
PA and lateral chest: A comparison is 06/05/2014. There is chronic cardiomegaly. The lung velez are clear. The christoph, mediastinum, and bony thorax are unremarkable. There is grade II compression deformity of the L1 vertebral body, unchanged. Impression: Chronic cardiomegaly. Chronic L1 vertebral body compression. No acute cardiopulmonary findings. Signed by Filipe Moody MD 08/14/2016 11:42 A
[2016-08-14] MEDS ORDERED: IBUPROFEN 800 MG TAB PO PRN ×2 (14:15)
[2016-08-14] MEDS: IBUPROFEN 400 MG TAB PO SCH ×3 (14:51→22:32)
[2016-08-14 18:00] VITALS: BP 126/84
[2016-08-14] MEDS: ATORVASTATIN 10 MG TAB PO SCH (20:29)
--- NOTE | 2016-08-14 20:37 | IPNPDOC ---
[facility] Progress Note Progress Note DATE OF SERVICE: 08/14/16 HISTORY: Evaluated 76 bubba old patient with history of Depressive disorder, neuropathy and chronic pain. She stated this morning she had pain in her left upper chest, close to her rib cage. She stated she fell last week but she never reported it to me, not to her and apparently she didn't say anything to the staff. A chest x ray was ordered, a Lidoderm patch and she kept reporting pain. She was offered Ibuprofen for pain. Her states that this has been a long history of pain complaints from Mrs. Garcia. She denied having suicidal thoughts, homicidal thoughts, delusional thoughts, or hallucinations. She has depressed mood and affect. Her insight and judgment are very poor. VITAL SIGNS: See below. DIAGNOSES: 1. MDD 2. R/O conversion disorder 3. R/O Dependant Personality disorder ASSESSMENT:patient needs to gain insight into her illness but she is fixated in the sick role, attention seeking behavior. Needs to attend groups. MANAGEMENT PLAN: continue current treatment until she is stabilized TIME SPENT: 25 minutes. Vital Signs Vital Signs Date Time Temp Pulse Resp B/P Pulse Ox O2 Delivery O2 Flow Rate FiO2 08/14/16 06:33 98.3 84 16 140/88 08/10/16 06:14 Room Air Current Medications Current Medications Acetaminophen (Tylenol Tab) 650 mg Q6HP PRN PO HEADACHE or DISCOMFORT Last administered on 08/14/16 02:18; Start 08/06/16 at 21:45; Stop 08/14/16 at 14:07 ; Status DC Al Hydrox/Mg Hydrox/Simethicone (Mylanta) 30 ml Q4HP PRN PO HEARTBURN/ INDIGESTION Last administered on 08/14/16 12:04; Start 08/06/16 at 21:45; Stop 09/05/16 at 21:44 Aripiprazole (AbiLIFY) 5 mg DAILY PO Last administered on 08/13/16 08:51; Start 08/07/16 at 09:00; Stop 08/13/16 at 10:27; Status DC Aripiprazole (AbiLIFY) 7.5 mg QAM PO Last administered on 08/14/16 07:55; Start 08/14/16 at 09:00; Stop 09/13/16 at 08:59 Aspirin (Ecotrin) 81 mg DAILY PO Last administered on 08/14/16 07:53; Start at 09:00; Stop 09/06/16 at 08:59 Atorvastatin Calcium (Lipitor) 10 mg QHS PO Last administered on 08/13/16 19: 59; Start 08/06/16 at 21:00; Stop 09/05/16 at 20:59 Calcium/Vitamin D (Oscal D) 500 mg BID PO Last administered on 08/14/16 07:54 ; Start 08/06/16 at 21:00; Stop 09/05/16 at 20:59 Clonazepam (KlonoPIN) 1 mg TID PO ; Start 08/06/16 at 21:00; Stop 08/06/16 at 23 :24; Status DC Clonazepam (KlonoPIN) 1 mg TID PO Last administered on 08/07/16 08:49; Start 08/07/16 at 09:00; Stop 08/07/16 at 13:43; Status DC Clonazepam (KlonoPIN) 1.5 mg TID PO Last administered on 08/08/16 15:29; Start 08/07/16 at 16:00; Stop 08/08/16 at 17:37; Status DC Duloxetine HCl (Cymbalta) 60 mg BID PO Last administered on 08/10/16 08:34; Start 08/06/16 at 21:00; Stop 08/10/16 at 10:14; Status DC Gabapentin (Neurontin) 300 mg TID PO Last administered on 08/07/16 08:49; Start 08/06/16 at 21:00; Stop 08/07/16 at 12:13; Status DC Gabapentin (Neurontin) 400 mg TID PO Last administered on 08/09/16 08:00; Start 08/07/16 at 16:00; Stop 08/09/16 at 13:35; Status DC Gabapentin (Neurontin) 600 mg Q8H PO Last administered on 08/14/16 14:04; Start 08/09/16 at 14:00; Stop 09/08/16 at 13:59 Hydroxyzine HCl (Atarax) 10 mg BIDP PRN PO ANXIETY/AGITATION Last administered on 08/14/16 04:54; Start 08/12/16 at 12:45; Stop 09/11/16 at 12:44 Hydroxyzine HCl (Atarax) 10 mg DAILY PO Last administered on 08/12/16 08:23; Start 08/11/16 at 09:00; Stop 08/12/16 at 12:39; Status DC Ibuprofen (Advil) 400 mg 5XD PO Last administered on 08/14/16 18:03; Start at 13:00; Stop 09/13/16 at 12:59 Ibuprofen (Advil) 800 mg Q8HP PRN PO MODERATE PAIN (PS 5-7); Start 08/14/16 at 14:15; Stop 08/14/16 at 14:15; Status DC Ibuprofen (Advil) 800 mg TID PRN PO MODERATE PAIN (PS 5-7); Start 08/14/16 at 14:15; Stop 09/13/16 at 14:14; Status Cancel Levothyroxine Sodium (Synthroid) 0.112 mg DAILY@06 PO Last administered on 08/14 06:08; Start 08/07/16 at 06:00; Stop 09/06/16 at 05:59 Lorazepam (Ativan) 0.5 mg TID PO Last administered on 08/13/16 08:50; Start at 16:00; Stop 08/13/16 at 11:04; Status DC Lorazepam (Ativan) 1 mg BID PO Last administered on 08/14/16 07:54; Start at 21:00; Stop 08/20/16 at 20:59 Lorazepam (Ativan) 1 mg Q6H PO Last administered on 08/12/16 12:05; Start at 18:00; Stop 08/12/16 at 12:40; Status DC Lorazepam (Ativan) 1 mg Q8HP PRN PO ANXIETY Last administered on 08/11/16 11: 26; Start 08/08/16 at 17:45; Stop 08/11/16 at 17:29; Status DC Magnesium Hydroxide (Milk Of Magnesia) 30 ml DAILYPRN PRN PO CONSTIPATION; Start 08/06/16 at 21:45; Stop 09/05/16 at 21:44 Miconazole Nitrate (Monistat-7) 1 dose DAILY PV Last administered on 08/09/16 10:50; Start 08/09/16 at 09:00; Stop 08/16/16 at 08:59 Multivitamins (Theragram-M) 1 tab DAILY PO Last administered on 08/14/16 07:54 ; Start 08/07/16 at 09:00; Stop 09/06/16 at 08:59 Pramipexole Dihydrochloride (Mirapex) 0.25 mg BID PO Last administered on 07:53; Start 08/06/16 at 21:00; Stop 09/05/16 at 20:59 Trazodone HCl (Desyrel) 50 mg QHSP PRN PO INSOMNIA Last administered on 20:03; Start 08/06/16 at 21:45; Stop 09/05/16 at 21:44 Venlafaxine HCl (Effexor Xr) 150 mg QAM PO Last administered on 08/12/16 08:24; Start 08/10/16 at 09:00; Stop 08/12/16 at 12:35; Status DC Venlafaxine HCl (Effexor Xr) 300 mg DAILY PO Last administered on 07:53; Start 08/13/16 at 09:00; Stop 09/12/16 at 08:59 Allergies Coded Allergies: Codeine (Verified Adverse Reaction, Mild, NAUSEA, 07/28/12) BEATRICE SNYDER MD Aug 14, 2016 20:37
[2016-08-14] MEDS: traZODone 50 MG TAB PO PRN (22:31)
[2016-08-15] MEDS: LEVOTHYROXINE 0.112 MG TAB (112 MCG) PO SCH (05:42)
[2016-08-15] MEDS: GABAPENTIN 300 MG CAP PO SCH ×3 (05:42→20:14)
[2016-08-15] MEDS: IBUPROFEN 400 MG TAB PO SCH ×5 (05:43→20:15)
[2016-08-15 06:41] VITALS: BP 120/77
--- NOTE | 2016-08-15 08:19 | REP ---
Left ribs and PA chest: Comparison is from 09:54 a.m. earlier today. Left ribs three views: No rib fracture or other abnormality is identified. 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 This is unchanged. There is atelectasis above the right hemidiaphragm as an interval change. Left lung is clear. There is no pneumothorax, hemothorax or pulmonary contusion. Chronic cardiomegaly is again noted. Thoracic scoliosis convex right is again noted. Impression: Atelectasis above the right hemidiaphragm. Signed by Filipe Moody MD 08/15/2016 08:10 A
[2016-08-15] MEDS: ASPIRIN 81 MG ENTERIC TAB PO SCH (08:39)
[2016-08-15] MEDS: MULTIVITAMINS/MINERALS THERAP 1 TAB PO SCH (08:39)
[2016-08-15] MEDS: CALCIUM/VITAMIN D 500 MG TAB PO SCH ×2 (08:40→20:14)
[2016-08-15] MEDS: ARIPiprazole 15 MG TAB (AbiLIFY) PO SCH (08:41)
[2016-08-15] MEDS: VENLAFAXINE **XR** 75MG CAPSULE PO SCH (08:41)
[2016-08-15] MEDS: LORazepam 1 MG TAB PO SCH ×2 (08:41→20:14)
[2016-08-15] MEDS: MICONAZOLE-7 VAGINAL 2% CREAM 47.7 GM PV SCH (08:41)
[2016-08-15] MEDS: PRAMIPEXOLE 0.25 MG TAB PO SCH ×2 (08:43→20:14)
--- NOTE | 2016-08-15 11:25 | IPNPDOC ---
Subjective Date Seen The patient was seen on 08/15/16. Subjective Chief Complaint/HPI The patient is a 76-year-old female admitted with a reason for visit of Schizophrenia. Events since last encounter Pt has reported Left rib pain. Pt with h/o chronic back pain/pelvic pain, h/o pelvic fracture. Follows with Dr Shah- [facility]. Assessment /Plan Problems (1) Chronic pain Status: Chronic Problem Text: * Pt with h/o chronic back and pelvic pain. Also with h/o rib pain. * Pt w/ h/o pelvic fracture. * Rib XR No rib fracture or other abnormality is identified. * PA Chest. Chronic cardiomegaly. Chronic L1 vertebral body compression. No acute cardiopulmonary findings. * Pt following with SDN- Dr Shah will request copy of note. * Ibuprofen currently 400mg 5xper day as per attending. * Add lidoderm patch to ribs daily. * Request pain mgmt opinion. (2) Hyperlipidemia Status: Chronic Problem Text: * statin. (3) Hypothyroid Status: Chronic Problem Text: * supplement. * Thyroid profile pending. (4) Bladder neoplasm Status: Chronic Problem Text: * H/O TURBT 07/06 * Follows as outpt with Urology Plan/VTE VTE Prophylaxis Ordered?: No (ambulatory) VS, I&O, 24H, Fishbone Vital Signs/I&O Vital Signs Date Time Temp Pulse Resp B/P Pulse Ox O2 Delivery O2 Flow Rate FiO2 08/15/16 06:41 98.5 63 16 120/77 08/10/16 06:14 Room Air Griselda Shanks Aug 15, 2016 11:25
[2016-08-15] MEDS: LIDOCAINE 5% (LIDODERM) PATCH TD SCH (11:32)
[2016-08-15] MEDS: hydrOXYzine 10 MG TAB PO PRN (14:29)
--- NOTE | 2016-08-15 15:13 | IPNPDOC ---
[facility] Progress Note Progress Note DATE OF SERVICE: 08/15/16 HISTORY: 76-year-old female with history of major depressive disorder, neuropathy and conversion disorder. The patient was brought to the emergency room because she has been feeling progressively depressed and anxious over neuropathy problem. She has been on multiple medications previously, has seen multiple doctors for pain, depression, anxiety and neuropathy. She has never been able to achieve control of her symptoms, both psychiatric and physical. According to they are provided by her and her she had 4 miscarriages and they were very traumatic for her. Besides, patient stated that when her son was 14 years old, told her he hated her and that he said it again last year. She stated she had never told anybody about these statements made by her son, but she blames herself for his feelings. She says that her son hated her because whenever she had to be hospitalized he had to daycare of his youngest sister and he resented that because he couldn't be with his friends. The patient reported that her daughter is an adopted daughter because she miscarried her babies. She has a close relationship with her daughter but not with her son who has distanced himself from her. VITAL SIGNS: See below. NEW TEST RESULTS: Chest x-ray is and rib x rays are negative for fractures. CURRENT MEDICATIONS: See below. MENTAL STATUS EXAMINATION: Patient is a 76-year old female, who is alert, cooperative with interview,sad, with good eye contact. Speech: Is and slow, soft spoken. Language skills are fair. Thought processes including: Linear, coherent. Thought content: Negative for suicidal thoughts, negative for homicidal thoughts , negative for delusional thoughts, negative for auditory or visual hallucinations Abstract reasoning, and computation: Fair. Description of associations: Loosening of associations. Description of abnormal or psychotic thoughts: No psychotic thoughts. Judgment: Improving. Insight: Improving. Orientation: Oriented 3. Recent and remote memory: Intact. Attention span and concentration: Poor. She has difficulty concentrating because she states she cannot stop thinking about the numbness and tingling in her feet. Language: Normal. Fund of knowledge: Full. Mood: " I'm still depressed, my rib pain it's almost gone". Affect: Sad. DIAGNOSES: 1. Major depressive disorder, chronic, moderate without suicidal ideation. 2. Conversion disorder. 3. Rule out dependent personality. 4. Anxiety ASSESSMENT: Patient is not a danger to herself or others but she is still depressed, as she has been for several years. She is gaining insight to her illness and personality issues. MANAGEMENT PLAN: Continue with current treatment. Pain management consult was done by [facility]. Will wait for response and recommendations before discharging her home. TIME SPENT: 20 minutes. Vital Signs Vital Signs Date Time Temp Pulse Resp B/P Pulse Ox O2 Delivery O2 Flow Rate FiO2 08/15/16 06:41 98.5 63 16 120/77 08/10/16 06:14 Room Air Current Medications Current Medications Acetaminophen (Tylenol Tab) 650 mg Q6HP PRN PO HEADACHE or DISCOMFORT Last administered on 08/14/16 02:18; Start 08/06/16 at 21:45; Stop 08/14/16 at 14:07 ; Status DC Al Hydrox/Mg Hydrox/Simethicone (Mylanta) 30 ml Q4HP PRN PO HEARTBURN/ INDIGESTION Last administered on 08/14/16 12:04; Start 08/06/16 at 21:45; Stop 09/05/16 at 21:44 Aripiprazole (AbiLIFY) 5 mg DAILY PO Last administered on 08/13/16 08:51; Start 08/07/16 at 09:00; Stop 08/13/16 at 10:27; Status DC Aripiprazole (AbiLIFY) 7.5 mg QAM PO Last administered on 08/15/16 08:41; Start 08/14/16 at 09:00; Stop 09/13/16 at 08:59 Aspirin (Ecotrin) 81 mg DAILY PO Last administered on 08/15/16 08:39; Start at 09:00; Stop 09/06/16 at 08:59 Atorvastatin Calcium (Lipitor) 10 mg QHS PO Last administered on 08/14/16 20: 29; Start 08/06/16 at 21:00; Stop 09/05/16 at 20:59 Calcium/Vitamin D (Oscal D) 500 mg BID PO Last administered on 08/15/16 08:40 ; Start 08/06/16 at 21:00; Stop 09/05/16 at 20:59 Clonazepam (KlonoPIN) 1 mg TID PO ; Start 08/06/16 at 21:00; Stop 08/06/16 at 23 :24; Status DC Clonazepam (KlonoPIN) 1 mg TID PO Last administered on 08/07/16 08:49; Start 08/07/16 at 09:00; Stop 08/07/16 at 13:43; Status DC Clonazepam (KlonoPIN) 1.5 mg TID PO Last administered on 08/08/16 15:29; Start 08/07/16 at 16:00; Stop 08/08/16 at 17:37; Status DC Duloxetine HCl (Cymbalta) 60 mg BID PO Last administered on 08/10/16 08:34; Start 08/06/16 at 21:00; Stop 08/10/16 at 10:14; Status DC Gabapentin (Neurontin) 300 mg TID PO Last administered on 08/07/16 08:49; Start 08/06/16 at 21:00; Stop 08/07/16 at 12:13; Status DC Gabapentin (Neurontin) 400 mg TID PO Last administered on 08/09/16 08:00; Start 08/07/16 at 16:00; Stop 08/09/16 at 13:35; Status DC Gabapentin (Neurontin) 600 mg Q8H PO Last administered on 08/15/16 13:57; Start 08/09/16 at 14:00; Stop 09/08/16 at 13:59 Hydroxyzine HCl (Atarax) 10 mg BIDP PRN PO ANXIETY/AGITATION Last administered on 08/15/16 14:29; Start 08/12/16 at 12:45; Stop 09/11/16 at 12:44 Hydroxyzine HCl (Atarax) 10 mg DAILY PO Last administered on 08/12/16 08:23; Start 08/11/16 at 09:00; Stop 08/12/16 at 12:39; Status DC Ibuprofen (Advil) 400 mg 5XD PO Last administered on 08/15/16 12:34; Start at 13:00; Stop 09/13/16 at 12:59 Ibuprofen (Advil) 800 mg Q8HP PRN PO MODERATE PAIN (PS 5-7); Start 08/14/16 at 14:15; Stop 08/14/16 at 14:15; Status DC Ibuprofen (Advil) 800 mg TID PRN PO MODERATE PAIN (PS 5-7); Start 08/14/16 at 14:15; Stop 09/13/16 at 14:14; Status Cancel Levothyroxine Sodium (Synthroid) 0.112 mg DAILY@06 PO Last administered on 08/15 05:42; Start 08/07/16 at 06:00; Stop 09/06/16 at 05:59 Lidocaine (Lidoderm Patch) 1 patch DAILY TD Last administered on 08/15/16 11: 32; Start 08/15/16 at 09:00; Stop 09/14/16 at 08:59 Lorazepam (Ativan) 0.5 mg TID PO Last administered on 08/13/16 08:50; Start at 16:00; Stop 08/13/16 at 11:04; Status DC Lorazepam (Ativan) 1 mg BID PO Last administered on 08/15/16 08:41; Start at 21:00; Stop 08/20/16 at 20:59 Lorazepam (Ativan) 1 mg Q6H PO Last administered on 08/12/16 12:05; Start at 18:00; Stop 08/12/16 at 12:40; Status DC Lorazepam (Ativan) 1 mg Q8HP PRN PO ANXIETY Last administered on 08/11/16 11: 26; Start 08/08/16 at 17:45; Stop 08/11/16 at 17:29; Status DC Magnesium Hydroxide (Milk Of Magnesia) 30 ml DAILYPRN PRN PO CONSTIPATION; Start 08/06/16 at 21:45; Stop 09/05/16 at 21:44 Miconazole Nitrate (Monistat-7) 1 dose DAILY PV Last administered on 08/09/16 10:50; Start 08/09/16 at 09:00; Stop 08/16/16 at 08:59 Multivitamins (Theragram-M) 1 tab DAILY PO Last administered on 08/15/16 08:39 ; Start 08/07/16 at 09:00; Stop 09/06/16 at 08:59 Non-Formulary Medication ( See Comment Field Below ) REMOVE LIDODERM PATCH DAILY@21 XX ; Start 08/15/16 at 21:00; Stop 09/14/16 at 20:59 Pramipexole Dihydrochloride (Mirapex) 0.25 mg BID PO Last administered on 20:30; Start 08/06/16 at 21:00; Stop 09/05/16 at 20:59 Trazodone HCl (Desyrel) 50 mg QHSP PRN PO INSOMNIA Last administered on 22:31; Start 08/06/16 at 21:45; Stop 09/05/16 at 21:44 Venlafaxine HCl (Effexor Xr) 150 mg QAM PO Last administered on 08/12/16 08:24; Start 08/10/16 at 09:00; Stop 08/12/16 at 12:35; Status DC Venlafaxine HCl (Effexor Xr) 300 mg DAILY PO Last administered on 08:41; Start 08/13/16 at 09:00; Stop 09/12/16 at 08:59 Allergies Coded Allergies: Codeine (Verified Adverse Reaction, Mild, NAUSEA, 07/28/12) BEATRICE SNYDER MD Aug 15, 2016 15:13
[2016-08-15 18:00] VITALS: BP 132/69
[2016-08-15] MEDS: ATORVASTATIN 10 MG TAB PO SCH (20:14)
[2016-08-15] MEDS: traZODone 50 MG TAB PO PRN (20:16)
[2016-08-15] MEDS ORDERED: **NOTE PATIENT COMMENT** MISC XX SCH (21:00)
[2016-08-16] MEDS: hydrOXYzine 10 MG TAB PO PRN (03:49)
[2016-08-16] MEDS: GABAPENTIN 300 MG CAP PO SCH ×2 (05:30→13:27)
[2016-08-16] MEDS: LEVOTHYROXINE 0.112 MG TAB (112 MCG) PO SCH (05:30)
[2016-08-16] MEDS: IBUPROFEN 400 MG TAB PO SCH ×4 (05:31→13:27)
[2016-08-16 06:25] VITALS: BP 132/64
[2016-08-16] MEDS: LIDOCAINE 5% (LIDODERM) PATCH TD SCH (06:57)
[2016-08-16 08:08] LABS: THYROXINE (T4) 11.7 UG/DL (4.5-12.0)
[2016-08-16] MEDS: MICONAZOLE-7 VAGINAL 2% CREAM 47.7 GM PV SCH (08:39)
[2016-08-16] MEDS: CALCIUM/VITAMIN D 500 MG TAB PO SCH (08:41)
[2016-08-16] MEDS: ASPIRIN 81 MG ENTERIC TAB PO SCH (08:42)
[2016-08-16] MEDS: LORazepam 1 MG TAB PO SCH (08:42)
[2016-08-16] MEDS: ARIPiprazole 15 MG TAB (AbiLIFY) PO SCH (08:42)
[2016-08-16] MEDS: PRAMIPEXOLE 0.25 MG TAB PO SCH (08:44)
[2016-08-16] MEDS: MULTIVITAMINS/MINERALS THERAP 1 TAB PO SCH (08:45)
[2016-08-16] MEDS: VENLAFAXINE **XR** 75MG CAPSULE PO SCH (08:45)
[2016-08-16] MEDS ORDERED: ARIP15TAB PO (11:11)
[2016-08-16] MEDS ORDERED: GABA-282 PO (11:13)
[2016-08-16] MEDS ORDERED: VENL75CA PO ×2 (11:30→12:21)
[2016-08-16] MEDS ORDERED: HYDR10T PO (11:32)
[2016-08-16] MEDS ORDERED: TRAZO50TA PO (11:33)
[2016-08-16] MEDS ORDERED: MILKSUS PO (12:07)
[2016-08-16] MEDS ORDERED: MYLASUS16 PO (12:07)
--- NOTE | 2016-08-18 09:37 | DS.PDOC ---
[facility] Discharge Summary Discharge Summary DATE OF ADMISSION: Aug 06, 2016 at 21:36 DATE OF DISCHARGE: Aug 16, 2016 at 13:00 DISCHARGE DIAGNOSES: 1. Major Depressive Disorder, chronic, moderate 2. Anxiety Disorder. 3. Dependant Personality 4. Conversion Disorder REASON FOR ADMISSION: 76 year old female who was admitted for severe depression and suicidal ideation. She has had a longstanding history of neuropathy and chronic pain, due to a pelvic fracture. CONSULTANTS INVOLVED: She declined over a consult that was sent for Pain Mgmt. She said they had seen her before, when she was prteviously hospitalized here and it didn't helpe her. TREATMENT AND PROGRESS ON THE UNIT : According to her , she decompensates around Easter time because she miscarried years ago around this time. When she was admitted she was on 300 mgs. PO TID of Neurontin and she said it didn't help her, so, the dose was increased to 400 mgs. PO TId and she still verbalized she didn't feel relieved, so, it was increased to 600 mgs. PO TID. Her Neurologist was informed and he stated he had told her she had to be patient and git time to the medicne to start working. She came with 60 mgs. PO BID of Cymbalta but she felt very depressed, so it was discontinued and she was started on Effexor XR 150 mgs PO daily and then it was increased to 300 mgs. daily. She was on 4.5 mgs. of Klonopin when she was here and this was tapered and discontinued and left her with 1 mg. PO twice a day of Ativan. She received Trazodone 50 mgs. PO QHS and receive Atarax 10 mgs. PO BID. She was on Abilify 5 mgs PO QHS when she was admitted and this medication was increased to 7.5 mgs. PO QHS. On Monday the . she complained of pain located in her right hemithorax, next to her rib cage. Two imaging studies were ordered and both were negative for soft tissue/bone tissue injuries. She received a lidocaine patch and she said it was not working, so she was started on Motrin 400 mgs. PO x 5 and she reported some improvement. On Monday she requested to be discharged because she said, she understood she was not going to get any better and she had to go home. She had gained some insight into her illness and understood that her unresolved emotional issues also contributed to her pain and neuropathy. She was not suicidal, homicidal or psychotic. HOSPITAL COURSE: Please, see above DISCHARGE ASSESSMENT: She is still depressed and anxious, she still complaints of pain, but she has gained some insight into the connection of her physical and emotional pain. She has learned some tools to handle her anxiety and she has verbalized feelings, emotions and communicated past events that were closely related to her pain, depression and neuropathy. MENTAL STATUS EXAMINATION ON DISCHARGE: Patient is a 76-year old female, who is pleasant, good eye contact, cooperative , with good eye contact. Speech is normal. Language skills are good. Thought processes including: Linear, coherent. Thought content: Negative for suicidal ideation, for homicidal ideation or for psychosis. Positive for obsessions about the numbness and tingling in her feet. Abstract reasoning, and computation: Fair. Description of associations: No loosening. Description of abnormal or psychotic thoughts: No psychotic thoughts. Judgment: Improved. Insight: Improved. Orientation to Oriented x 3. Recent and remote memory: Intact. Attention span and concentration: Good. Language: Normal. Fund of knowledge: Full. Mood: Less depressed and anxious. Affect: Slightly sad and anxious. MEDICATIONS ON DISCHARGE: - Abilify 7.5 mgs. po qhs for depression, Effexor XR 300 mgs. PO QD, Gabapentin 600 mgs. PO TD, Trazodone 50 mgs p[o prn qhs for insomnia, atarax 10 mgs. po bid prn for anxiety. PLAN/FOLLOWUP ARRANGEMENTS: Will continue outpatient treatment The amount of time spent in the coordination of care for this patient was approximately 30 minutes. Vital Signs/I&Os Vital Signs Date Time Temp Pulse Resp B/P (MAP) Pulse Ox O2 Delivery O2 Flow Rate FiO2 08/16/ 06:25 97.2 66 16 132/64 (86) Medications Scheduled Aripiprazole (Aripiprazole) 15 Mg Tab, 7.5 MG PO QAM for MOOD, #10 Aspirin (Aspirin 81) 81 Mg Tab, 81 MG PO DAILY for SUPPLEMENT, (Reported) Atorvastatin Calcium (Atorvastatin Calcium) 10 Mg Tab, 10 MG PO QHS for HYPERLIPIDEMIA, (Reported) Calcium/Vitamin D (Calcium 600+D 600-200 mg-Unit) 1 Tab Tab, 1 TAB PO BID for SUPPLEMENT, (Reported) Gabapentin (Gabapentin) 300 Mg Cap, 600 MG PO Q8H for nuropathy, #14 Levothyroxine Sodium (Synthroid) 112 Mcg Tab, 112 MCG PO DAILY for HYPOTHYROIDISM, (Reported) Multivitamins *[facility] STOCKED* (Thera M Plus *[facility] STOCKED*) 1 Tab Tab, 1 TAB PO DAILY for SUPPLEMENT, (Reported) TAKES IN AFTERNOON Pramipexole Dihydrochloride (Pramipexole Dihydrochlori) 0.25 Mg Tab, 0.25 MG PO BID for RESTLESS LEGS, (Reported) Venlafaxine HCl (Venlafaxine HCl ER) 75 Mg Cap, 300 MG PO DAILY for MOOD, #14 Scheduled PRN Aluminum/Magnesium/Simeth (Mylanta 200-200-20 mg/5Ml) 1 Asiya Asiya, 30 ML PO Q4HP PRN for INDIGESTION, (Reported) Hydroxyzine HCl (Hydroxyzine HCl) 10 Mg Tab, 10 MG PO BIDP PRN for ANXIETY/ AGITATION, #14 Milk Of Magnesia (Milk of Magnesia) 1,200 Mg/15 Ml Asiya, 30 ML PO DAILYPRN PRN for BOWEL CARE/CONSTIPATION, (Reported) Trazodone HCl (Trazodone HCl) 50 Mg Tab, 50 MG PO QHSP PRN for INSOMNIA, #10 Allergies Coded Allergies: Codeine (Verified Adverse Reaction, Mild, NAUSEA, 07/28/12) BEATRICE SNYDER MD Aug 18, 2016 09:37
== END 2016-08-16 13:00 | disposition home or self-care (01) | DRG 885 ==
LOC: M ED 15:40 → M ED INP 21:36 → M PSY 22:41
PROVIDERS: ADMIT Psychiatry & Neurology Child & Adolescent Psychiatry; ATTEND Psychiatry & Neurology Psychiatry
DX: F33.1 Major depressive disorder, recurrent, moderate (principal); Z87.891 Personal history of nicotine dependence; Z88.5 Allergy status to narcotic agent; E78.5 Hyperlipidemia, unspecified; E03.9 Hypothyroidism, unspecified; Z85.51 Personal history of malignant neoplasm of bladder

== ENCOUNTER 2016-08-19 04:30 | Inpatient (IN) | payer MEDICARE ==
[~2016-08-19] VITALS: Ht 162.6 cm; Wt 79.5 kg
[~2016-08-19 04:30] MED LIST changes: +ABIL5TAB5 PO; +ARIP15TAB PO; +DULO30CA PO; +GABA-282 PO; +GABA-283 PO; +HYDR10T PO; +LEVO112T2 PO; +MILKSUS PO; +MYLASUS16 PO; +PRAM0.252 PO; +TRAZO50TA PO; +VENL75CA PO
[2016-08-19 05:58] LABS: MEAN CORPUSCULAR HEMOGLOBIN 31.6 pg (27.0-33.0); MEAN CORPUSCULAR HGB CONC 34.7 g/dl (32.0-36.5); MEAN CORPUSCULAR VOLUME 91.1 fl (80.0-96.0); RED CELL DISTRIBUTION WIDTH 13.8 % (11.5-14.5); WHITE BLOOD COUNT 8.4 K/mm3 (4.0-10.0)
[2016-08-19 06:26] LABS: METHADONE URINE NEGATIVE (NEGATIVE)
[2016-08-19] MEDS ORDERED: LORazepam 1 MG TAB PO ONE (06:30)
[2016-08-19 06:35] LABS: ALBUMIN 3.6 GM/DL (3.2-5.2); ALBUMIN/GLOBULIN RATIO 1.16 (1.00-1.93); ALKALINE PHOSPHATASE 133 U/L (45-117); ALT/SGPT 34 U/L (12-78); ANION GAP 9 MEQ/L (8-16); AST/SGOT 28 U/L (15-37); BILIRUBIN,DIRECT 0.2 MG/DL (0.0-0.2); BILIRUBIN,TOTAL 0.5 MG/DL (0.2-1.0); BLOOD UREA NITROGEN 14 MG/DL (7-18); CALCIUM LEVEL 8.7 MG/DL (8.8-10.2); CARBON DIOXIDE LEVEL 26 MEQ/L (21-32); CHLORIDE LEVEL 108 MEQ/L (98-107); CREATININE FOR GFR 0.68 MG/DL (0.55-1.02); GLOMERULAR FILTRATION RATE > 60.0 (>39); GLUCOSE, FASTING 100 MG/DL (83-110); POTASSIUM SERUM 3.9 MEQ/L (3.5-5.1); SODIUM LEVEL 143 MEQ/L (136-145); TOTAL PROTEIN 6.7 GM/DL (6.4-8.2)
[2016-08-19] MEDS ORDERED: LORazepam 1 MG TAB PO STA (11:22)
[2016-08-19] MEDS ORDERED: HYDR10T PO (14:20)
[2016-08-19] MEDS ORDERED: TRAZ50TA4 PO (14:20)
[2016-08-19] MEDS ORDERED: GABA600T PO (14:20)
[2016-08-19] MEDS ORDERED: VENL150C43 PO (14:20)
[2016-08-19] MEDS ORDERED: ABIL15TA2 PO (14:20)
[2016-08-19] MEDS ORDERED: hydrOXYzine 10 MG TAB PO PRN (14:30)
[2016-08-19] MEDS ORDERED: traZODone 50 MG TAB PO PRN (14:30)
[2016-08-19] MEDS ORDERED: MOM 30ML SUSPENSION UDC PO PRN (14:30)
[2016-08-19] MEDS ORDERED: MAALOX 30 ML SUSP *UDC PO PRN (14:30)
[2016-08-19] MEDS ORDERED: hydrOXYzine 50 MG TAB PO STA (17:00)
[2016-08-19] MEDS: MULTIVITAMINS/MINERALS THERAP 1 TAB PO SCH (17:59)
[2016-08-19] MEDS: VENLAFAXINE **XR** 75MG CAPSULE PO SCH (17:59)
[2016-08-19] MEDS: GABAPENTIN 300 MG CAP PO SCH ×2 (18:00→21:07)
[2016-08-19] MEDS: ASPIRIN 81 MG CHEW TABLET PO SCH (18:00)
[2016-08-19] MEDS: LEVOTHYROXINE 0.112 MG TAB (112 MCG) PO SCH (18:00)
[2016-08-19] MEDS: ARIPiprazole 15 MG TAB (AbiLIFY) PO SCH (18:00)
[2016-08-19] MEDS ORDERED: ARIPiprazole 15 MG TAB (AbiLIFY) PO SCH (21:00)
[2016-08-19] MEDS: PRAMIPEXOLE 0.25 MG TAB PO SCH (21:07)
[2016-08-19] MEDS: ATORVASTATIN 20 MG TAB PO SCH (21:07)
[2016-08-19] MEDS: traZODone 50 MG TAB PO PRN (21:24)
[2016-08-20] MEDS: ACETAMINOPHEN TAB 650MG DOSE (2X325MG) PO PRN (05:38)
[2016-08-20] MEDS: LEVOTHYROXINE 0.112 MG TAB (112 MCG) PO SCH (05:40)
[2016-08-20 06:28] VITALS: BP 121/67
[2016-08-20] MEDS: VENLAFAXINE **XR** 75MG CAPSULE PO SCH (08:04)
[2016-08-20] MEDS: ASPIRIN 81 MG CHEW TABLET PO SCH (08:04)
[2016-08-20] MEDS: GABAPENTIN 300 MG CAP PO SCH ×3 (08:05→20:30)
[2016-08-20] MEDS: ARIPiprazole 15 MG TAB (AbiLIFY) PO SCH (08:05)
[2016-08-20] MEDS: PRAMIPEXOLE 0.25 MG TAB PO SCH ×2 (08:05→20:29)
[2016-08-20] MEDS: MULTIVITAMINS/MINERALS THERAP 1 TAB PO SCH (08:05)
[2016-08-20] MEDS ORDERED: hydrOXYzine 50 MG TAB PO SCH (09:00)
[2016-08-20] MEDS: hydrOXYzine 50 MG TAB PO SCH ×2 (11:52→15:37)
--- NOTE | 2016-08-20 15:05 | MHHPE ---
DATE OF ADMISSION: 08/19/2016 HISTORY OF PRESENT ILLNESS: The patient was discharged from the hospital 08/16/2016, with a discharge diagnosis of major depressive disorder, anxiety disorder, dependent personality and conversion disorder. The patient states, "I've been out of the hospital for five days, actually it's three. I have pain in my pelvis, my feet are asleep, my two fingers are going to sleep. I am a nervous wreck." It was "driving me crazy. The medicine wasn't helping. I asked to leave the hospital." On her previous admission, she got admitted because she said she wanted to . She states she went home and "felt scared" that she would be sent to [place], and her pain had not decreased. She states she thought she could deal with it. She states Dr. Zamora increased her Neurontin, but she is too nervous. She rates it as a 10/10 with her pain as a 9/10. CONSULTANTS INVOLVED: The patient on last admission declined consult that was sent for pain management. Said she had seen her before and it did not help. TREATMENT ON THE UNIT: According to the , she decompensates around Easter time because she miscarried years ago around this time. When she was admitted on 300 mg of Neurontin three times a day, said it did not help, but the dose was increased by Dr. Zamora to 400 three times a day, and then increased to 600 three times a day. Her neurologist was informed, and he stated he had told her to be patient and give time for the medicine to start working. She came with 60 mg twice a day of Cymbalta, and was very depressed. It was discontinued and she was placed on Effexor 150 mg daily and it was increased to 300 mg daily. She was on 4.5 mg of Klonopin and this was tapered and left her with 1 mg twice a day of Ativan. She received trazodone 50 mg by mouth at bedtime and Atarax 10 mg twice a day. She was on Abilify 5 mg at bedtime when she was admitted, and this was increased to 7.5 mg at bedtime. She complained of pain in her right hemithorax next to her rib cage. Two imaging studies were ordered. Both were negative for soft tissue or bone tissue injuries. She received a lidocaine patch and said it was not working. She was started on Motrin 400 mg times five, and she reported some improvement. On Saturday 06/17, she asked to be discharged because she stated she understood she was not going to get any better and had to go home. She gained some insight according to Dr. Zamora that her unresolved emotional issues contributed to her pain and neuropathy. She was in discharge assessment as still being depressed and anxious, complaining of pain, but gaining some insight. She has learned some tools to handle her anxiety according to her discharge summary. MEDICATIONS ON DISCHARGE: - Abilify 15 mg, 7.5 in the morning for mood - aspirin 81 mg for supplement - atorvastatin calcium 10 mg at bedtime for hyperlipidemia - calcium/vitamin D 600/200 units one tablet twice a day for supplement - gabapentin 300 mg capsule 600 mg dosage every eight hours - Synthroid 112 mcg - multivitamin - pramipexole dihydrochloride 0.25 mg three times a day for restless legs - venlafaxine 300 mg daily for mood MENTAL STATUS EXAMINATION: Eye contact is good. Speech shows no abnormalities. Thought processes focus on her anxiety and her pain. No loose associations. No abnormal or psychotic thoughts. Judgment and insight are fair. She is fully oriented. Recent and remote memory intact. Attention and concentration are intact. No disturbance of language. She has a full fund of knowledge. Mood is low and affect is anxious. 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
[2016-08-20 18:00] VITALS: BP 126/72
[2016-08-20] MEDS: ATORVASTATIN 20 MG TAB PO SCH (20:29)
[2016-08-20] MEDS: traZODone 50 MG TAB PO PRN (20:32)
[2016-08-21] MEDS: LEVOTHYROXINE 0.112 MG TAB (112 MCG) PO SCH (06:15)
[2016-08-21 07:01] VITALS: BP 115/59
--- NOTE | 2016-08-21 09:46 | IPN ---
DATE: 08/20/2016 Numerous contacts with Armida Garcia today. I have started her on Atarax and increased it 50 mg three times a day. Patient immediately complaining that the medication does not work. She has done this with numerous other pharmacological interventions. Patient appears very needy and intrusive and constantly looking for more help. No other medications changed at this time. Will treat her as per Dr. Zamora and Dr. Martins. Speech is normal. Thought process intact. No loose associations. Abnormal or psychotic thoughts are absent. Judgment and insight poor. Fully oriented. No disturbance of recent and remote memory. No disturbance of attention and concentration. No disturbance of language. She has a full fund of knowledge. Mood is low. Affect is sad.
[2016-08-21] MEDS: MULTIVITAMINS/MINERALS THERAP 1 TAB PO SCH (10:54)
[2016-08-21] MEDS: ASPIRIN 81 MG CHEW TABLET PO SCH (10:54)
[2016-08-21] MEDS: GABAPENTIN 300 MG CAP PO SCH ×3 (10:54→20:51)
[2016-08-21] MEDS: PRAMIPEXOLE 0.25 MG TAB PO SCH ×2 (10:54→20:51)
[2016-08-21] MEDS: VENLAFAXINE **XR** 75MG CAPSULE PO SCH (10:55)
[2016-08-21] MEDS: ARIPiprazole 10 MG TAB PO SCH (10:56)
[2016-08-21] MEDS: hydrOXYzine 25 MG TAB PO SCH ×2 (10:58→15:13)
[2016-08-21 18:00] VITALS: BP 118/65
[2016-08-21] MEDS: ACETAMINOPHEN TAB 650MG DOSE (2X325MG) PO PRN (18:30)
--- NOTE | 2016-08-21 19:16 | IPN ---
DATE: 08/21/2016 This morning on entering the unit, Ms. Garcia was banging her cane on the nurses station, screaming for medication. She began screaming and cursing at me with numerous insults and accusations. Due to her behavior, I requested that she remain in her room. It is my impression that this patient for her various pain issues should be seen by her outpatient physicians as was planned for her discharge. I increased her Atarax yesterday to 50 mg three times a day as she claims it has not been effective for her anxiety. It is my understanding that she frequently complains about the effectiveness of medications. Due to her aggressive outbursts and screaming, I will also increase her Abilify today to 10 mg daily. It continues to be my impression that this patient should not have been readmitted to the mental health unit, but no other alternative treatment plan was able to be done from the emergency room. MENTAL STATUS EXAMINATION: Speech loud, aggressive, cursing. Thought processes logical. No loose associations. No psychotic thoughts. Judgment poor. Insight poor. She is fully oriented. Recent and remote memory seem intact. Attention and concentration difficult to determine. Full fund of knowledge. Mood angry. Affect angry. IMPRESSION: 1. 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 2. Anxiety. 3. Personality disorder.
[2016-08-21] MEDS: traZODone 50 MG TAB PO PRN (20:51)
[2016-08-21] MEDS: ATORVASTATIN 20 MG TAB PO SCH (20:52)
[2016-08-22] MEDS: LEVOTHYROXINE 0.112 MG TAB (112 MCG) PO SCH (05:04)
[2016-08-22] MEDS: ACETAMINOPHEN TAB 650MG DOSE (2X325MG) PO PRN (05:05)
[2016-08-22 06:36] VITALS: BP 95/55
--- NOTE | 2016-08-22 06:53 | HPE ---
DATE OF ADMISSION: 08/19/2016 HISTORY OF PRESENT ILLNESS: Please refer to psychiatric history and evaluation for further details on this admission. This examination and history is intended for medical issues, which may need treatment, followup or consult on this 76-year-old female who was recently discharged from the inpatient mental health unit on 08/16. ALLERGIES: CODEINE. SOCIAL HISTORY: She lives with her . Ethyl alcohol (EtOH) she states she does not drink alcohol. She no longer smokes cigarettes. She does not use recreational drugs. PAST MEDICAL HISTORY: 1. Bladder cancer status post resection. 2. Hyperlipidemia. 3. Hypothyroidism. 4. History of pelvic fracture. 5. History of peripheral neuropathy. 6. History of depression. 7. History of anxiety. 8. History of hypothyroidism. PAST SURGICAL HISTORY: 1. 2015: Transurethral resection of bladder tumor. 2. Tonsillectomy. 3. Knee replacement. 4. Bilateral cataract surgery. FAMILY HISTORY: Noncontributory. REVIEW OF SYSTEMS: 10-system review was done. Her main complaints were of peripheral neuropathy, for which she takes gabapentin. LABORATORY DATA: CBC was normal. CMP: Sodium was 143, potassium 3.9, chloride 108, CO2 26, BUN 14, creatinine 0.68. TSH was 4.96. OBJECTIVE: A 76-year-old cooperative female in no acute distress. Height 64 inches, weight 81.64 kg. Body mass index (BMI) 30.9. VITAL SIGNS: Blood pressure is 130/72, pulse 90, respirations 20, temperature 96.9. GENERAL: The patient is alert and oriented times three. HEENT: Pupils equal and react to light. Extraocular movement intact. Sclerae clear. Conjunctivae normal. No facial asymmetry. Pharynx, tongue gums pink and moist. Tongue is midline. NECK: Supple without lymphadenopathy. No thyromegaly. No goiter. CHEST: Clear to auscultation without wheeze or retraction. HEART: Regular. ABDOMEN: Benign. Bowel sounds are positive. GENITOURINARY/RECTAL: Not done. EXTREMITIES: Show equal strength, full range of motion. Trace bilateral lower extremity edema. Peripheral pulses positive, equal and palpable bilaterally. IMPRESSION AND PLAN: 1. Psychiatric plan per psychiatry. 2. Hypercholesterolemia. Continue Lipitor. 3. Peripheral neuropathy. Continue Neurontin. It has been increased to 600 three times a day. 4. Hypothyroidism. Continue on 0.112 mg daily. 5. History of bladder cancer. Continue followup as outpatient with Dr. Ramos. No acute medical issues.
[2016-08-22] MEDS: MULTIVITAMINS/MINERALS THERAP 1 TAB PO SCH (08:06)
[2016-08-22] MEDS: ARIPiprazole 10 MG TAB PO SCH (08:06)
[2016-08-22] MEDS: PRAMIPEXOLE 0.25 MG TAB PO SCH ×2 (08:06→20:48)
[2016-08-22] MEDS: VENLAFAXINE **XR** 75MG CAPSULE PO SCH (08:06)
[2016-08-22] MEDS: GABAPENTIN 300 MG CAP PO SCH ×3 (08:06→20:47)
[2016-08-22] MEDS: ASPIRIN 81 MG CHEW TABLET PO SCH (08:06)
[2016-08-22] MEDS: hydrOXYzine 25 MG TAB PO SCH ×3 (08:06→15:50)
[2016-08-22 18:00] VITALS: BP 110/56
[2016-08-22] MEDS: traZODone 50 MG TAB PO PRN (20:48)
[2016-08-22] MEDS: ATORVASTATIN 20 MG TAB PO SCH (20:48)
--- NOTE | 2016-08-22 21:24 | IPNPDOC ---
[facility] Progress Note Progress Note DATE OF SERVICE: 08/22/16 HISTORY: Evaluated 76 year old female with history of Depression, Dependant Personality Disorder, Conversion Disorder. She was dsicharged on Monday, August 15 and re admitted on August 19 because she stated she felt very nervous by being at home. she couldnt think on anything else that was not related to her neuropathy (numbing and tingling on her feet), and she couldnt sleep, was not able to sit at one place, had to get up and pace. Reportedly she said at the Emergency Room she was suicidal. This morning she was evaluated and she said she feels very nervous, she cant sleep, has poor appetite, her attention and concentration are poor, blames herself for being a burden on her , for not being able to drive, to clean the house. Continues to focus on her medical problem and wants an increase on her medication dose. Denies active suicidal thoughts, but admits to passive suicidal thoughts. Denies auditory or visual hallucinations. She says that if she is not going to get increase in her medications, she might as well go home, because she doesnt want to go to [place] for intermodal customer service treatment. The only medication that was increased, was Trazodone, to 150 mgs PO QHS and the dose of Atarax was decreased from 75 mgs. PO TID to 25 mgs. po tid. VITAL SIGNS: See below. NEW TEST RESULTS: None CURRENT MEDICATIONS: See below. MENTAL STATUS EXAMINATION: Patient is a 76-year old female, who is alert, poor eye contact, good hygiene. Speech: Is normal. Language skills are fair. Thought processes including: goal directed. Thought content: Positive for obsessive thoughts about her neuropathy. Passive suicidal thoughts. Abstract reasoning, and computation: Fair. Description of associations: Not loose. Description of abnormal or psychotic thoughts: Not present. Judgment: Poor. Insight: Poor. Orientation: Oriented x 3. Recent and remote memory: Fair. Attention span and concentration: Fair. Language: Normal. Fund of knowledge: Full. Mood:"Im scared". Affect: Anxious. DIAGNOSES: 1. Major Depressive Disorder. 2. Dependant Personality Disorder. 3. Conversion Disorder. ASSESSMENT:Patient is not actively suicidal. She has had thoughts for years and never has acted upon them. Shes very anxious and continues to focus on her neuropathy. She has developed tolerance to many medications because she s been on them for several years. Wont increase the dose, except for Trazodone that was increased to 150 mgs. PO QHS. and Atarax was dereased to 25 mgs. PO TID. MANAGEMENT PLAN: Will encourage patient to continue treatment as an out patient once she overcomes this crisis. TIME SPENT: 25 minutes. Vital Signs Vital Signs Date Time Temp Pulse Resp B/P (MAP) Pulse Ox O2 Delivery O2 Flow Rate FiO2 08/22/16 06:36 96.8 76 20 95/55 (68) 08/19/16 16:07 95 Room Air Current Medications Current Medications Acetaminophen (Tylenol Tab) 650 mg Q6HP PRN PO HEADACHE or DISCOMFORT Last administered on 08/22/16 05:05; Start 08/19/16 at 14:30; Stop 09/18/16 at 14:29 Al Hydrox/Mg Hydrox/Simethicone (Mylanta) 30 ml Q4HP PRN PO HEARTBURN/ INDIGESTION; Start 08/19/16 at 14:30; Stop 09/18/16 at 14:29 Aripiprazole (AbiLIFY) 7.5 mg DAILY PO Last administered on 08/20/16 08:05; Start 08/19/16 at 09:00; Stop 08/21/16 at 09:12; Status DC Aripiprazole (AbiLIFY) 7.5 mg QHS PO ; Start 08/19/16 at 21:00; Stop 08/19/16 at 21:00; Status DC Aripiprazole (AbiLIFY) 10 mg DAILY PO Last administered on 08/22/16 08:06; Start 08/21/16 at 09:00; Stop 09/20/16 at 08:59 Aspirin (Aspirin Chewable) 81 mg DAILY PO Last administered on 08/22/16 08:06; Start 08/19/16 at 09:00; Stop 09/18/16 at 08:59 Atorvastatin Calcium (Lipitor) 10 mg QHS PO Last administered on 08/22/16 20:48 ; Start 08/19/16 at 21:00; Stop 09/18/16 at 20:59 Gabapentin (Neurontin) 600 mg TID PO Last administered on 08/22/16 20:47; Start 08/19/16 at 16:00; Stop 09/18/16 at 15:59 Home Med (Med Rec Complete!) ASDIRECTED XX ; Start 08/19/16 at 14:30; Stop at 14:30; Status DC Hydroxyzine HCl (Atarax) 10 mg BIDP PRN PO ANXIETY/AGITATION Last administered on 08/20/16 14:50; Start 08/19/16 at 14:30; Stop 09/18/16 at 14:29 Hydroxyzine HCl (Atarax) 25 mg TID@0900,1200,1600 PO Last administered on 15:50; Start 08/22/16 at 12:00; Stop 09/21/16 at 11:59 Hydroxyzine HCl (Atarax) 50 mg STAT STAT PO Last administered on 08/19/16 18: 00; Start 08/19/16 at 17:00; Stop 08/19/16 at 17:05; Status DC Hydroxyzine HCl (Atarax) 50 mg TID PO Last administered on 08/20/16 08:42; Start 08/20/16 at 09:00; Stop 08/20/16 at 09:00; Status DC Hydroxyzine HCl (Atarax) 50 mg TID@0900,1200,1600 PO Last administered on 15:37; Start 08/20/16 at 12:00; Stop 08/21/16 at 10:53; Status DC Hydroxyzine HCl (Atarax) 75 mg TID@0900,1200,1600 PO Last administered on 08:06; Start 08/21/16 at 12:00; Stop 08/22/16 at 11:53; Status DC Levothyroxine Sodium (Synthroid) 0.112 mg DAILY@06 PO Last administered on 05:04; Start 08/19/16 at 06:00; Stop 09/18/16 at 05:59 Lorazepam (Ativan) 1 mg STAT STAT PO Last administered on 08/19/16 11:29; Start 08/19/16 at 11:22; Stop 08/19/16 at 11:24; Status DC Magnesium Hydroxide (Milk Of Magnesia) 30 ml DAILYPRN PRN PO CONSTIPATION; Start 08/19/16 at 14:30; Stop 09/18/16 at 14:29 Multivitamins (Theragram-M) 1 tab DAILY PO Last administered on 08/22/16 08:06 ; Start 08/19/16 at 09:00; Stop 09/18/16 at 08:59 Pramipexole Dihydrochloride (Mirapex) 0.25 mg BID PO Last administered on 20:48; Start 08/19/16 at 21:00; Stop 09/18/16 at 20:59 Trazodone HCl (Desyrel) 50 mg QHSP PRN PO INSOMNIA; Start 08/19/16 at 14:30; Stop 08/19/16 at 17:06; Status DC Trazodone HCl (Desyrel) 100 mg QHSP PRN PO INSOMNIA Last administered on 20:51; Start 08/19/16 at 17:15; Stop 08/22/16 at 11:48; Status DC Trazodone HCl (Desyrel) 150 mg QHSP PRN PO INSOMNIA Last administered on 20:48; Start 08/22/16 at 12:00; Stop 09/21/16 at 11:59 Venlafaxine HCl (Effexor Xr) 300 mg DAILY PO Last administered on 08/22/16 08:06; Start 08/19/16 at 09:00; Stop 09/18/16 at 08:59 Allergies Coded Allergies: Codeine (Verified Adverse Reaction, Mild, NAUSEA, 07/28/12) BEATRICE SNYDER MD August 22, 2016 21:24
[2016-08-23 06:28] VITALS: BP 126/69
[2016-08-23] MEDS: LEVOTHYROXINE 0.112 MG TAB (112 MCG) PO SCH (06:32)
[2016-08-23] MEDS: ARIPiprazole 10 MG TAB PO SCH (08:52)
[2016-08-23] MEDS: GABAPENTIN 300 MG CAP PO SCH ×3 (08:52→20:27)
[2016-08-23] MEDS: VENLAFAXINE **XR** 75MG CAPSULE PO SCH (08:52)
[2016-08-23] MEDS: ASPIRIN 81 MG CHEW TABLET PO SCH (08:52)
[2016-08-23] MEDS: MULTIVITAMINS/MINERALS THERAP 1 TAB PO SCH (08:52)
[2016-08-23] MEDS: hydrOXYzine 25 MG TAB PO SCH ×3 (08:52→16:07)
[2016-08-23] MEDS: PRAMIPEXOLE 0.25 MG TAB PO SCH ×2 (08:52→20:27)
[2016-08-23] MEDS: ACETAMINOPHEN TAB 650MG DOSE (2X325MG) PO PRN (13:26)
[2016-08-23 18:00] VITALS: BP 115/77
--- NOTE | 2016-08-23 20:22 | IPNPDOC ---
[facility] Progress Note Progress Note DATE OF SERVICE: 08/23/16 HISTORY: Evaluated 76 year old female with longstanding history of depression, anxiety, conversion disorder, dependant personality and neuropathy. Ptt. was readmitted monday (28) after being discharged 4 days before. She stated feeling suicidal and extremely anxious. she has requested to have her medications dosage increased and the author of this document has told her it is not possible, because she is already on high doses of different medications. She said she wanted to be discharged because all the medication she is taking is not helping her to control the neuropathy and she says she feels depressed because she cant get rid of her neuropathy. On her previous hospitalization, her stated they have been going to different doctors, that she has taken multiple medications in very high doses over the years, and nothing seems to help. Engine Head Repairer was notifies of patients desires of being discharged, but the patient never signed a release of information for SW or any other staff member to have a conversation with her . This afternoon she signed the release and SW was able to speak with who will meet with team tomorrow to discuss patients case. VITAL SIGNS: See below. NEW TEST RESULTS: None CURRENT MEDICATIONS: See below. MENTAL STATUS EXAMINATION: Patient is a 76-year old female, who is alert, oriented, cooperative with poor eye contact,. Speech: Is soft spoken normal in tone, volume and rate Language skills are Normal. Thought processes including: Linear, goal directed. Thought content: Negative fo active suicidal ideation, negative for homicidal ideation, negative for psychotic thoughts, positive for obsessive thoughts about tingling and numbing in her feet. Abstract reasoning, and computation: Fair. Description of associations: Not loose. Description of abnormal or psychotic thoughts: Not present. Judgment: Poor. Insight: Poor. Orientation: Oriented x 3. Recent and remote memory: Intact. Attention span and concentration: Fair. Language: Normal. Fund of knowledge: Full. Mood: "Im depressed. I cant stay still. Im anxious". Affect: sad, anxious. DIAGNOSES: 1. Major Depressive D/ econdary to medical condition. 2. Conversion Disorder. 3. Dependant Personality Disorder. ASSESSMENT:Pt. needs to be stabilized. I dont think shes ready to be discharged but she is not doing what it takes to get better, for example, shes not attending groups. She doenst have the insight to comprehend that she is somatizing her emotional pain and converting it in a series of physical complaints. MANAGEMENT PLAN: Will meet with oncology social work and patients tomorrow to discuss patients situation. TIME SPENT: 20 minutes. Vital Signs Vital Signs Date Time Temp Pulse Resp B/P (MAP) Pulse Ox O2 Delivery O2 Flow Rate FiO2 08/23/16 06:28 97.5 73 18 126/69 (88) 08/19/16 16:07 95 Room Air Laboratory Data 24H Labs Laboratory Tests 2 08/23/16 07:42: Thyroid Stimulating Hormone (TSH) 2.120, Free Thyroxine Index 5.6H, Thyroxine ( T4) 15.0H, Triiodothyronine (T3) Uptake 37 Current Medications Current Medications Acetaminophen (Tylenol Tab) 650 mg Q6HP PRN PO HEADACHE or DISCOMFORT Last administered on 08/23/16 13:26; Start 08/19/16 at 14:30; Stop 09/18/16 at 14:29 Al Hydrox/Mg Hydrox/Simethicone (Mylanta) 30 ml Q4HP PRN PO HEARTBURN/ INDIGESTION; Start 08/19/16 at 14:30; Stop 09/18/16 at 14:29 Aripiprazole (AbiLIFY) 7.5 mg DAILY PO Last administered on 08/20/16 08:05; Start 08/19/16 at 09:00; Stop 08/21/16 at 09:12; Status DC Aripiprazole (AbiLIFY) 7.5 mg QHS PO ; Start 08/19/16 at 21:00; Stop 08/19/16 at 21:00; Status DC Aripiprazole (AbiLIFY) 10 mg DAILY PO Last administered on 08/23/16 08:52; Start 08/21/16 at 09:00; Stop 09/20/16 at 08:59 Aspirin (Aspirin Chewable) 81 mg DAILY PO Last administered on 08/23/16 08:52; Start 08/19/16 at 09:00; Stop 09/18/16 at 08:59 Atorvastatin Calcium (Lipitor) 10 mg QHS PO Last administered on 08/22/16 20:48 ; Start 08/19/16 at 21:00; Stop 09/18/16 at 20:59 Gabapentin (Neurontin) 600 mg TID PO Last administered on 08/23/16 16:07; Start 08/19/16 at 16:00; Stop 09/18/16 at 15:59 Home Med (Med Rec Complete!) ASDIRECTED XX ; Start 08/19/16 at 14:30; Stop at 14:30; Status DC Hydroxyzine HCl (Atarax) 10 mg BIDP PRN PO ANXIETY/AGITATION Last administered on 08/20/16 14:50; Start 08/19/16 at 14:30; Stop 09/18/16 at 14:29 Hydroxyzine HCl (Atarax) 25 mg TID@0900,1200,1600 PO Last administered on 16:07; Start 08/22/16 at 12:00; Stop 09/21/16 at 11:59 Hydroxyzine HCl (Atarax) 50 mg STAT STAT PO Last administered on 08/19/16 18: 00; Start 08/19/16 at 17:00; Stop 08/19/16 at 17:05; Status DC Hydroxyzine HCl (Atarax) 50 mg TID PO Last administered on 08/20/16 08:42; Start 08/20/16 at 09:00; Stop 08/20/16 at 09:00; Status DC Hydroxyzine HCl (Atarax) 50 mg TID@0900,1200,1600 PO Last administered on 15:37; Start 08/20/16 at 12:00; Stop 08/21/16 at 10:53; Status DC Hydroxyzine HCl (Atarax) 75 mg TID@0900,1200,1600 PO Last administered on 08:06; Start 08/21/16 at 12:00; Stop 08/22/16 at 11:53; Status DC Levothyroxine Sodium (Synthroid) 0.112 mg DAILY@06 PO Last administered on 06:32; Start 08/19/16 at 06:00; Stop 09/18/16 at 05:59 Lorazepam (Ativan) 1 mg STAT STAT PO Last administered on 08/19/16 11:29; Start 08/19/16 at 11:22; Stop 08/19/16 at 11:24; Status DC Magnesium Hydroxide (Milk Of Magnesia) 30 ml DAILYPRN PRN PO CONSTIPATION; Start 08/19/16 at 14:30; Stop 09/18/16 at 14:29 Multivitamins (Theragram-M) 1 tab DAILY PO Last administered on 08/23/16 08:52 ; Start 08/19/16 at 09:00; Stop 09/18/16 at 08:59 Pramipexole Dihydrochloride (Mirapex) 0.25 mg BID PO Last administered on 08:52; Start 08/19/16 at 21:00; Stop 09/18/16 at 20:59 Trazodone HCl (Desyrel) 50 mg QHSP PRN PO INSOMNIA; Start 08/19/16 at 14:30; Stop 08/19/16 at 17:06; Status DC Trazodone HCl (Desyrel) 100 mg QHSP PRN PO INSOMNIA Last administered on 20:51; Start 08/19/16 at 17:15; Stop 08/22/16 at 11:48; Status DC Trazodone HCl (Desyrel) 150 mg QHSP PRN PO INSOMNIA Last administered on 20:48; Start 08/22/16 at 12:00; Stop 09/21/16 at 11:59 Venlafaxine HCl (Effexor Xr) 300 mg DAILY PO Last administered on 08/23/16 08:52; Start 08/19/16 at 09:00; Stop 09/18/16 at 08:59 Allergies Coded Allergies: Codeine (Verified Adverse Reaction, Mild, NAUSEA, 07/28/12) BEATRICE SNYDER MD August 23, 2016 20:22
[2016-08-23] MEDS: ATORVASTATIN 20 MG TAB PO SCH (20:28)
[2016-08-23] MEDS: traZODone 50 MG TAB PO PRN (20:29)
[2016-08-24] MEDS: LEVOTHYROXINE 0.112 MG TAB (112 MCG) PO SCH (05:34)
[2016-08-24 07:01] VITALS: BP 123/72
[2016-08-24] MEDS: hydrOXYzine 25 MG TAB PO SCH ×2 (08:17→12:38)
[2016-08-24] MEDS: PRAMIPEXOLE 0.25 MG TAB PO SCH (08:17)
[2016-08-24] MEDS: ASPIRIN 81 MG CHEW TABLET PO SCH (08:17)
[2016-08-24] MEDS: ARIPiprazole 10 MG TAB PO SCH (08:17)
[2016-08-24] MEDS: GABAPENTIN 300 MG CAP PO SCH (08:17)
[2016-08-24] MEDS: VENLAFAXINE **XR** 75MG CAPSULE PO SCH (08:17)
[2016-08-24] MEDS: MULTIVITAMINS/MINERALS THERAP 1 TAB PO SCH (08:17)
[2016-08-24] MEDS ORDERED: HYDR25T PO (13:18)
[2016-08-24] MEDS ORDERED: ARIP10TAB PO (13:18)
[2016-08-24] MEDS ORDERED: VENL75CA PO (13:18)
[2016-08-24] MEDS ORDERED: TRAZO50TA PO (13:18)
--- NOTE | 2016-08-25 11:03 | MHDS ---
DATE OF ADMISSION: 08/19/2016 DATE OF DISCHARGE: 08/24/2016 DISCHARGE DIAGNOSES: 1. 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 2. Dependent personality disorder. 3. Conversion disorder. 4. Generalized anxiety disorder related to major depressive disorder. REASON FOR ADMISSION: The patient was seen at the emergency room on Friday, August 19, 2016 because she claimed she was having suicidal thoughts. She said she was severely depressed and extremely anxious since she was discharged 4 days prior to her admission. The patient has a history of neuropathy that has been treated with gabapentin and many other medications with many other doctors throughout the years, she has a history of burning mouth syndrome, which is also being treated by a neurologist with gabapentin. She has a history of a pelvic fracture that causes her much pain and disables her in a way that she is not able to attend her daily life activities in many ways. For example, she is not able to do all the house chores at home and she constantly blames herself for that because she feels guilty that her has to do it. The patient is not able to realize that much of her physical problems are due to her unresolved emotional problems and she is constantly seeking for attention and has developed a dependency upon people that are close to her, physicians, and medications. She got started with all of these problems more than 50 years ago. She stated that she started feeling that her feet were numb and tingling when she was approximately in her 20s and then it disappeared when she was 32 years old and then the numbness and the tingling came back when she was 40 years old. She is unable to relate those symptoms to her emotional distress but as her , per patient, and according to the history that was provided by her , she had four miscarriages that were very painful to her and all of them were around Easter time. Her states that whenever she gets depressed, it is usually at that time of the year and it happens very frequently. She also stated on a previous visit that she was very hurt when her son was 14 years old and he told her that he hated her. He also told her that last year. She says that she has been holding that pain for several years and that she resents very much that he has not been able to forgive her for being constantly hospitalized and him having to take care of his youngest sister. Mrs. Garcia has requested, on several occasions to increase the dose of her medications but she has been told that it is very risky to increase the dose of all of those medications because we will be putting her health at risk in many ways and it is not recommended. Then she stated that if the rfp writer of this document was not going to increase the dose of those medications, she will be leaving because she did not want to go to [facility] and instead of going to [facility], she preferred to go home. She realized, by herself, that if a short-term hospitalization at the inpatient mental health unit at [facility] was not helping her, she would probably need long-term psychiatric and neurological treatment and she thought that probably the only thing that was available for her was to go to [facility]. But she has been there before and she does not want to go back because she states that she would not be able to keep the pace that they have at [facility] being that is very fast and she is not capable of doing many things because of her pelvic pain and neuropathy. She has stated that she is not suicidal anymore and that she feels that she will not thrive at the inpatient mental health unit and she also says that she does not feel any relief from any medication that she takes even before she ever came to the inpatient mental health unit when she was being seen as an outpatient. Today, the author if this document attended a meeting with her and her after they had already had spoken with the criminal justice social worker. Her was agreeable and supportive and he told her that he will support her if she wanted to stay for two more days at the hospital. But she said that she did not want to. The author of this document and her insisted on the importance of hospitalization for her to learn how to cope with her emotions and to learn how to use certain tools, for example, meditation and yoga in order for her to have better control of pain, emotions and her mind. But she refused to stay. She says she could do those things at home. Her compromised on taking her to a place close to home where they teach how to meditate and how to do yoga, and she compromised to do all what he is able to do in order to stay away from negative thoughts, negative feelings and depression and engage in activities that she finds pleasurable and make her feel well. At the time of her discharge, she was alert, oriented times three, pleasant, cooperative, with good eye contact with good hygiene. Her speech was soft, normal in tone, volume, and rate. Her thought process was linear and coherent. She was goal directed. Her thought content was negative for suicidal ideation, homicidal ideation and delusional thoughts, auditory or visual hallucinations, but continues to be positive for obsessive thoughts regarding the numbing and tingling in her feet. She has no loosening of associations. Her abstract thinking and her attention span was good. Her abstract thinking and computation were good. Her insight and judgment were still poor, but her impulse control was normal and although her insight was still poor, she has gained a little bit of insight during the last couple of days and she has realized that there is no point in increasing the medication dose because no medications have helped her throughout the years and that has made her realize that there is something that she is doing mentally in order to trigger those physical symptoms. She is aware that she has physical illness that justify these symptoms, but she realized that maybe she stays alone at home for longer periods than she should and she keeps thinking about all her depression and illness and realized that makes her feel worse. Her judgment has improved and her insight has improved, although both are still poor, but they have improved in relation to how she was upon admission. At the time of her discharge, she was not a danger to herself or others, she was not suicidal, not homicidal, not psychotic. She was alert and oriented times three. She was discharged on the same medications that she was discharged on the previous date and those medications were Abilify 10 mg by mouth nightly, Atarax 25 mg by mouth twice a day, gabapentin 600 mg by mouth three times a day, Effexor 300 mg daily, trazodone 150 mg by mouth nightly, and her usual medications for her medical illness. She will continue her outpatient treatment with her outside providers, her nearest appointment, her closet appointment is this upcoming Monday, August 29, 2016. She was discharged in stable condition.
== END 2016-08-24 14:00 | disposition home or self-care (01) | DRG 881 ==
LOC: EDBD 04:30 → M ED 05:40 → M ED INP 14:16 → M PSY 16:26 → M ED INP 08-20 15:14 → M PSY 08-20 15:15
PROVIDERS: ADMIT Psychiatry & Neurology Child & Adolescent Psychiatry; ATTEND Psychiatry & Neurology Psychiatry
DX: F32.9 Major depressive disorder, single episode, unspecified (principal); F41.1 Generalized anxiety disorder; F60.7 Dependent personality disorder; F44.6 Conversion disorder with sensory symptom or deficit; E03.9 Hypothyroidism, unspecified; E78.5 Hyperlipidemia, unspecified; Z85.51 Personal history of malignant neoplasm of bladder; G50.9 Disorder of trigeminal nerve, unspecified

== ENCOUNTER 2016-08-28 03:40 | Inpatient (IN) | payer MEDICARE, OTHER ==
[~2016-08-28] VITALS: Ht 152.4 cm; Wt 75.5 kg
[~2016-08-28 03:40] MED LIST changes: +ABIL15TA2 PO; +ARIP10TAB PO; +GABA600T PO; +HYDR25T PO; +TRAZ50TA4 PO; +VENL150C43 PO
[2016-08-28] MEDS ORDERED: LORazepam 2 MG/ML VIAL (J2060) IV STA (07:19)
[2016-08-28] MEDS ORDERED: NS 1,000 ML IV ONE (07:30)
[2016-08-28 07:59] LABS: MEAN CORPUSCULAR HEMOGLOBIN 30.2 pg (27.0-33.0); MEAN CORPUSCULAR HGB CONC 34.2 g/dl (32.0-36.5); MEAN CORPUSCULAR VOLUME 88.3 fl (80.0-96.0); RED CELL DISTRIBUTION WIDTH 13.5 % (11.5-14.5); WHITE BLOOD COUNT 7.6 K/mm3 (4.0-10.0)
[2016-08-28 08:30] LABS: ALBUMIN 3.7 GM/DL (3.2-5.2); ALBUMIN/GLOBULIN RATIO 1.32 (1.00-1.93); ALKALINE PHOSPHATASE 144 U/L (45-117); ALT/SGPT 47 U/L (12-78); ANION GAP 11 MEQ/L (8-16); AST/SGOT 30 U/L (15-37); BILIRUBIN,DIRECT 0.2 MG/DL (0.0-0.2); BILIRUBIN,TOTAL 0.8 MG/DL (0.2-1.0); BLOOD UREA NITROGEN 14 MG/DL (7-18); CALCIUM LEVEL 8.7 MG/DL (8.8-10.2); CARBON DIOXIDE LEVEL 23 MEQ/L (21-32); CHLORIDE LEVEL 107 MEQ/L (98-107); GLOMERULAR FILTRATION RATE > 60.0 (>39); GLUCOSE, FASTING 90 MG/DL (83-110); POTASSIUM SERUM 3.7 MEQ/L (3.5-5.1); SODIUM LEVEL 141 MEQ/L (136-145); TOTAL PROTEIN 6.5 GM/DL (6.4-8.2)
--- NOTE | 2016-08-28 09:34 | REP ---
CT ABDOMEN: HISTORY: Abdominal pain. COMPARISON: 10/26/2015 The opacity seen previously in the lung bases have cleared. There is mild pericardial thickening, status quo. Limited evaluation of the solid intra-abdominal organs and gallbladder show no gross abnormalities. Limited evaluation of the pancreas, adrenal glands and kidneys show no gross abnormalities or significant changes from the prior exam. There is no nephroureterolithiasis, hydronephrosis, or hydroureter. There are no urinary bladder calcifications. There is no free fluid or free air in the abdomen or pelvis. Limited evaluation of the intra-abdominal and intrapelvic bowel loops and their mesenteries show no gross abnormalities. The appendix is well visualized and is unremarkable. Once again, there is an incidental lipoma/increased amount of fat in the right inguinal region, possibly an adipose containing inguinal hernia, but this needs to be correlated clinically. It is for the most part obscured by spray artifact from previous pelvic ORIF. IMPRESSION: No evidence of acute disease. Signed by Eliazar Hernandez DO 08/28/2016 09:59 A
[2016-08-28 09:55] LABS: METHADONE URINE NEGATIVE (NEGATIVE)
--- NOTE | 2016-08-28 10:15 | REP ---
ABDOMEN, FLAT PLATE, KUB: HISTORY: Pain. COMPARISON: 10/30/2013 FINDINGS: KUB shows the intestinal gas pattern to be nonspecific. The organ silhouettes insofar as delineated are unremarkable. There is no evidence of free intraperitoneal air. IMPRESSION: Nonspecific. Signed by Eliazar Hernandez DO 08/28/2016 10:24 A
[2016-08-28] MEDS ORDERED: LORazepam 0.5 MG TAB PO ONE ×2 (12:00→14:30)
[2016-08-28] MEDS ORDERED: ABIL1TAB5 PO (12:50)
[2016-08-28] MEDS ORDERED: TRAZ150T14 PO (12:50)
[2016-08-28] MEDS ORDERED: VENL75CA PO (12:50)
[2016-08-28] MEDS ORDERED: HYDR25T PO (12:50)
[2016-08-28 15:47] VITALS: BP 107/69
[2016-08-28] MEDS: CALCIUM/VITAMIN D 500 MG TAB PO SCH (20:45)
[2016-08-28] MEDS: ATORVASTATIN 10 MG TAB PO SCH (20:47)
[2016-08-28] MEDS: traZODone 50 MG TAB PO SCH (20:48)
[2016-08-28] MEDS: hydrOXYzine 25 MG TAB PO SCH (20:51)
[2016-08-28] MEDS: PRAMIPEXOLE 0.25 MG TAB PO SCH (20:52)
[2016-08-28] MEDS: GABAPENTIN 300 MG CAP PO SCH (20:52)
[2016-08-29] MEDS: LEVOTHYROXINE 0.112 MG TAB (112 MCG) PO SCH (06:19)
[2016-08-29 07:00] VITALS: BP 128/73
[2016-08-29] MEDS: MULTIVITAMINS/MINERALS THERAP 1 TAB PO SCH (08:05)
[2016-08-29] MEDS: CALCIUM/VITAMIN D 500 MG TAB PO SCH ×2 (08:06→21:16)
[2016-08-29] MEDS: GABAPENTIN 300 MG CAP PO SCH ×3 (08:06→21:00)
[2016-08-29] MEDS: ASPIRIN 81 MG ENTERIC TAB PO SCH (08:06)
[2016-08-29] MEDS: hydrOXYzine 25 MG TAB PO SCH ×2 (08:06→21:16)
[2016-08-29] MEDS: PRAMIPEXOLE 0.25 MG TAB PO SCH ×2 (08:06→21:00)
[2016-08-29] MEDS: VENLAFAXINE **XR** 75MG CAPSULE PO SCH (08:06)
[2016-08-29] MEDS ORDERED: LORazepam 2 MG TAB PO STA (08:49)
[2016-08-29] MEDS ORDERED: ARIPiprazole 10 MG TAB PO SCH (09:00)
[2016-08-29] MEDS: **PENDING PPD ENTRY XX SCH (09:00)
[2016-08-29] MEDS: LORazepam 1 MG TAB PO PRN ×2 (14:51→20:48)
[2016-08-29 18:00] VITALS: BP 116/56
[2016-08-29] MEDS: MAALOX 30 ML SUSP *UDC PO PRN (18:55)
--- NOTE | 2016-08-29 19:43 | MHHPEPDOC ---
[facility] History & Physical History and Physical DATE OF ADMISSION: August 28, 2016 at 14:36 LEGAL STATUS AT ADMISSION: 9.39 CHIEF COMPLAINT: Patient states she cant stand the tingling and numbness in her hands and feet. Cries and screams, displays angry and agitated behavior. HISTORY OF THE PRESENT ILLNESS: Patient is a 76-year-old female, who is known for Major Depression, Anxiety, Conversion Disorder, Dependant Personality Disorder, who has been recently discharged from the Unit because she wanted to go. The same thing happened previously, when she decided to leave. Twice she has refused the pain management consult and she has stated she is not going to take any drugs, "because thats the only thing they offer to you". Patient is manipulative, has attention seeking behavior, medication seeking behavior, poor insight, poor judgement. PSYCHIATRIC REVIEW OF SYSTEMS: Affective: Hopeless, helpless, tearful, angry, irritable Anxiety: High Trauma: History of multiple miscarriages. Psychosis: Negative. Personally: Dependant personality. PAST PSYCHIATRIC HISTORY: Prior Psychiatric Disorder: History of multiple psychiatric admissions for the same complaints. She has had three admissions during the last month. Uses her physical complaints to come into the Unit. She has been diagnosed as a schizophrenic previously but she doesnt meet the criteria. She has very poor coping skills and is very emotionally inmature. Outpatient Treatment: . Suicidal/Self injurious: . Psychotropic Medication History: Abilify; Trazodone, Venlafaxine, Ativan, Atarax ALLERGIES: Please see below. FAMILY PSYCHIATRIC HISTORY: Negative as per patient SOCIAL HISTORY: Early Relations/development: She denies previous trauma/childhood abuse. Sibling order: Not assessed Paternal relationships: Close to both parents. Denies neglect or abuse. Education: High school diploma Occupational: Is not currently working. Disability. Legal: Denies Martial: . Economic: her works and supports her. She is disabled. Supports: Spouse Abuse/trauma: Denies SUBSTANCE ABUSE HISTORY: Denies. PAST MEDICAL/SURGICAL HISTORY: 1. History of pelvic fracture. 2. History of neuropathy. VITAL SIGNS: Stable MENTAL STATUS EXAMINATION: General appearance: Patient is a 76-year old female, who is alert, uncooperative , agitated/aggressive/demanding, laying on the floor Speech: Normal. Thought processes: Linear, coherent. Not disorganized. Thought content: Positivve for ideas of helplessness, hopelessness, guilt, worthlessness, obsessive thoughts regarding pain in her pelvis and tingling and numbness in her hands and feet.. Abstract reasoning and computation: Unable to assess. Patient is too agitated. Description of associations: Not loose. Description of abnormal or psychotic thoughts: Obsessions present about numbness and tingling in her hands and feet. Judgment: Extremely poo Insight: Extremely poor. Orientation: Oriented to place and persona but not to date and time. Recent and remote memory: Poor. Attention span and concentration: Poor. Fund of knowledge: Unable to assess. Mood: "I dont know what do do about this (pointing at her hands and feet, yelling)." Affect: Depressed, angry, anxious. DIAGNOSES: 1. 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 Conversion Disorder. 3. Dependant Personality Disorder. 4. R/O Delusional Disorder ASSESSMENT: Patient is displaying very inmature coping skills, has regressed and certainly she is behaving like a young child. This morning she lowered herself to the floor and sat at a corner in the middle of the hallway, for no reason at all. Feliciano she was prompted to stand up, she decided to lay on the floor. She has been extremely angry. She was told she is going to [place] as she was told on her previous admission. She requires a higher level of care and half-way treatment for therapy. her insight is extremely poor and so is her judgement. today, she displayed very poor impulse control. through the years she has been with multiple Doctors, and has taken many medication on very juan carlos doses, always for neuropathy, pain and anxiety. Most likely she has become tolerant to all these medications and even on high doses, she doesnt respond well. PROBLEM LIST: 1. Depression. 2. Anxiety 3. Poor coping skills INITIAL TREATMENT PLAN: 1. Patient was admitted on a 9.39 2. Complete history was obtained. 3. With patients permission, family will be contacted and database will be expanded. 4. Patients medication regimen will be reviewed and changed accordingly. 5. Patient will be provided with protected environment. 6. Patient will be treated with individual, group, and milieu therapies. 7. Patient will receive supportive psych-education. 8. Discharge planning will commence immediately. 9. Outpatient follow-up treatment will be strongly recommended. 10. The initial treatment plan will focus initially on: * Depression. * Risk for suicide. * Substance abuse. ESTIMATED LENGTH OF STAY: - DAYS. TIME SPENT COUNSELING AND COORDINATING INITIAL CARE: minutes. Medications Scheduled Aripiprazole (Abilify) 10 Mg Tab, 10 MG PO DAILY, (Reported) Aspirin (Aspirin 81) 81 Mg Tab, 81 MG PO DAILY for SUPPLEMENT, (Reported) Atorvastatin Calcium (Atorvastatin Calcium) 10 Mg Tab, 10 MG PO QHS for HYPERLIPIDEMIA, (Reported) Calcium/Vitamin D (Calcium 600+D 600-200 mg-Unit) 1 Tab Tab, 1 TAB PO BID for SUPPLEMENT, (Reported) Gabapentin (Gabapentin) 600 Mg Tab, 600 MG PO TID, (Reported) Hydroxyzine HCl (Hydroxyzine HCl) 25 Mg Tab, 75 MG PO TID, (Reported) Levothyroxine Sodium (Synthroid) 112 Mcg Tab, 112 MCG PO DAILY for HYPOTHYROIDISM, (Reported) Multivitamins *[facility] STOCKED* (Thera M Plus *[facility] STOCKED*) 1 Tab Tab, 1 TAB PO DAILY for SUPPLEMENT, (Reported) TAKES IN AFTERNOON Pramipexole Dihydrochloride (Pramipexole Dihydrochlori) 0.25 Mg Tab, 0.25 MG PO BID for RESTLESS LEGS, (Reported) Venlafaxine HCl (Venlafaxine HCl ER) 75 Mg Cap, 300 MG PO DAILY, (Reported) Scheduled PRN Trazodone HCl (Trazodone HCl) 150 Mg Tab, 150 MG PO QHS PRN for INSOMNIA, ( Reported) Allergies Coded Allergies: Codeine (Verified Adverse Reaction, Mild, NAUSEA, 07/28/12) BEATRICE SNYDER MD August 29, 2016 19:43
[2016-08-29] MEDS: traZODone 50 MG TAB PO SCH (20:48)
[2016-08-29] MEDS: ATORVASTATIN 10 MG TAB PO SCH (21:15)
[2016-08-29] MEDS: ARIPiprazole 10 MG TAB PO SCH (21:16)
[2016-08-30] MEDS: LEVOTHYROXINE 0.112 MG TAB (112 MCG) PO SCH (05:42)
[2016-08-30 06:27] VITALS: BP 125/56
[2016-08-30] MEDS: GABAPENTIN 300 MG CAP PO SCH ×3 (08:58→20:40)
[2016-08-30] MEDS: MULTIVITAMINS/MINERALS THERAP 1 TAB PO SCH (08:58)
[2016-08-30] MEDS: ASPIRIN 81 MG ENTERIC TAB PO SCH (08:58)
[2016-08-30] MEDS: ARIPiprazole 10 MG TAB PO SCH ×2 (08:58→20:40)
[2016-08-30] MEDS: VENLAFAXINE **XR** 75MG CAPSULE PO SCH (08:58)
[2016-08-30] MEDS: LORazepam 1 MG TAB PO PRN ×2 (08:59→15:53)
[2016-08-30] MEDS: CALCIUM/VITAMIN D 500 MG TAB PO SCH ×2 (08:59→20:40)
[2016-08-30] MEDS: hydrOXYzine 25 MG TAB PO SCH ×2 (09:00→20:40)
[2016-08-30] MEDS: PRAMIPEXOLE 0.25 MG TAB PO SCH ×2 (09:00→20:40)
[2016-08-30] MEDS: **PENDING PPD ENTRY XX SCH (09:03)
[2016-08-30] MEDS ORDERED: TUBERCULIN PPD 5 UNITS/0.1 ML ID ONE (10:00)
--- NOTE | 2016-08-30 12:15 | MHIPNPDOC ---
[facility] Progress Note Progress Note DATE OF SERVICE: 08/30/16 INTERVAL HISTORY: Medication Side effects: She denies medication side effects but she claims that these don't help her with her pain and neuropathy. She states that she is anxious. Behavior: Has been calm, laying in bed for most of the time, quiet. Group Attendance: Irregular group attendance Psychiatric Symptom change: Continues to be depressed but she hasn't complained much about her pain and neuropathy VITAL SIGNS: See below. NEW TEST RESULTS: See below CURRENT MEDICATIONS: See below. MENTAL STATUS EXAMINATION: General: Alert, laying in bed, dressed in hospital clothes, disheveled with poor eye contact Speech: Normal, soft spoken Thought processes: Organized, coherent. Thought content: Negative for suicidal ideation, negative for homicidal ideation , negative for delusional thoughts, negative for auditory or visual hallucinations, positive for obsessive thoughts regarding her neuropathy and with a question that she asks herself constantly "how am I going to go to [place]" Abstract reasoning, and computation: Fair Description of associations:Not loose Description of abnormal or psychotic thoughts:Not presents Judgment: Poor Insight: Poor Orientation:Oriented x 3 Recent and remote memory: Intact Attention span and concentration: Poor Fund of knowledge: Full Mood: "I feel depressed" Affect: Sad, depressed. DIAGNOSES: 1. Major Depressive disorder secondary to Medical condition. 2. Conversion Disorder. 3. Dependant Personality D/O. ASSESSMENT:Patient is complaining less of her physical ailments, but she still says she has an upset stomach, although she denies pain, nausea, vomiting or diarrhea. She continues to be depressed but she is not suicidal, she is beginning to realize that she will have to go to [place] and she doesn't like that idea. MANAGEMENT PLAN: will continue on same medications and will continue arrangements to transfer her to [place] for shelter treatment. Medications:Abilify, Venlafaxine, Ativan, Trazodone, Gabapentin. Psychotherapy:Will encourage her to attend groups regularly Social: will encourage her to engage more with her peers. Misc: None Disposition: Will continue with the same medications and transfer plan to [place]. TIME SPENT: 15 minutes. Vital Signs Vital Signs Date Time Temp Pulse Resp B/P (MAP) Pulse Ox O2 Delivery O2 Flow Rate FiO2 08/30/16 06:27 98.9 78 18 125/56 (79) 08/28/16 15:22 93 08/28/16 08:10 Room Air Current Medications Current Medications Acetaminophen (Tylenol Tab) 650 mg Q6HP PRN PO HEADACHE or DISCOMFORT; Start at 16:45; Stop 09/27/16 at 16:44 Al Hydrox/Mg Hydrox/Simethicone (Mylanta) 30 ml Q4HP PRN PO HEARTBURN/ INDIGESTION Last administered on 08/29/16 18:55; Start 08/28/16 at 16:45; Stop at 16:44 Aripiprazole (AbiLIFY) 10 mg BID PO Last administered on 08/30/16 08:58; Start 08/29/16 at 21:00; Stop 09/28/16 at 08:59 Aripiprazole (AbiLIFY) 10 mg DAILY PO ; Start 08/29/16 at 09:00; Stop 08/29/16 at 10:06; Status DC Aspirin (Ecotrin) 81 mg DAILY PO Last administered on 08/30/16 08:58; Start 08/29/16 at 09:00; Stop 09/28/16 at 08:59 Atorvastatin Calcium (Lipitor) 10 mg QHS PO Last administered on 08/29/16 21:15 ; Start 08/28/16 at 21:00; Stop 09/27/16 at 20:59 Calcium/Vitamin D (Oscal D) 500 mg BID PO Last administered on 08/30/16 08:59; Start 08/28/16 at 21:00; Stop 09/27/16 at 20:59 Gabapentin (Neurontin) 600 mg TID PO Last administered on 08/30/16 08:58; Start 08/28/16 at 21:00; Stop 09/27/16 at 20:59 Home Med (Med Rec Complete!) ASDIRECTED XX ; Start 08/28/16 at 13:00; Stop at 13:00; Status DC Hydroxyzine HCl (Atarax) 75 mg BID PO Last administered on 08/29/16 21:16; Start 08/28/16 at 21:00; Stop 09/27/16 at 20:59 Levothyroxine Sodium (Synthroid) 0.112 mg DAILY@06 PO Last administered on 05:42; Start 08/29/16 at 06:00; Stop 09/28/16 at 05:59 Lorazepam (Ativan) 1 mg Q6HP PRN PO ANXIETY Last administered on 08/30/16 08:59 ; Start 08/29/16 at 09:00; Stop 09/05/16 at 08:59 Lorazepam (Ativan) 1 mg STAT STAT IV Last administered on 08/28/16 08:00; Start 08/28/16 at 07:19; Stop 08/28/16 at 07:21; Status DC Lorazepam (Ativan) 2 mg STAT STAT PO Last administered on 08/29/16 09:01; Start 08/29/16 at 08:49; Stop 08/29/16 at 08:51; Status DC Magnesium Hydroxide (Milk Of Magnesia) 30 ml DAILYPRN PRN PO CONSTIPATION; Start 08/28/16 at 16:45; Stop 09/27/16 at 16:44 Multivitamins (Theragram-M) 1 tab DAILY PO Last administered on 08/30/16 08:58 ; Start 08/29/16 at 09:00; Stop 09/28/16 at 08:59 Non-Formulary Medication ( See Comment Field Below ) SEE COMMENTS SECTION 1T @10 XX ; Start 08/31/16 at 10:00; Stop 08/31/16 at 10:00; Status DC Non-Formulary Medication ( See Comment Field Below ) SEE LABEL COMMENTS DAILY XX ; Start 08/29/16 at 09:00; Stop 09/28/16 at 08:59 Polyethylene Glycol (Miralax) 1 pkt DAILYPRN PRN PO CONSTIPATION; Start at 21:30; Stop 09/27/16 at 21:29 Pramipexole Dihydrochloride (Mirapex) 0.25 mg BID PO ; Start 08/28/16 at 21:00; Stop 09/27/16 at 20:59 Trazodone HCl (Desyrel) 150 mg QHS PO Last administered on 08/29/16 20:48; Start 08/28/16 at 21:00; Stop 09/27/16 at 20:59 Venlafaxine HCl (Effexor Xr) 300 mg DAILY PO Last administered on 08/30/16 08:58; Start 08/29/16 at 09:00; Stop 09/28/16 at 08:59 Allergies Coded Allergies: Codeine (Verified Adverse Reaction, Mild, NAUSEA, 07/28/12) BEATRICE SNYDER MD August 30, 2016 12:15
[2016-08-30 18:29] VITALS: BP 108/57
[2016-08-30] MEDS: ATORVASTATIN 10 MG TAB PO SCH (20:38)
[2016-08-30] MEDS: traZODone 50 MG TAB PO SCH (20:40)
[2016-08-31 06:13] VITALS: BP 101/51
[2016-08-31] MEDS: LEVOTHYROXINE 0.112 MG TAB (112 MCG) PO SCH (07:07)
[2016-08-31] MEDS: CALCIUM/VITAMIN D 500 MG TAB PO SCH ×2 (08:25→20:24)
[2016-08-31] MEDS: GABAPENTIN 300 MG CAP PO SCH ×3 (08:25→20:24)
[2016-08-31] MEDS: hydrOXYzine 25 MG TAB PO SCH ×2 (08:25→20:24)
[2016-08-31] MEDS: MULTIVITAMINS/MINERALS THERAP 1 TAB PO SCH (08:25)
[2016-08-31] MEDS: ASPIRIN 81 MG ENTERIC TAB PO SCH (08:25)
[2016-08-31] MEDS: ARIPiprazole 10 MG TAB PO SCH (08:26)
[2016-08-31] MEDS: LORazepam 1 MG TAB PO PRN ×2 (08:26→16:22)
[2016-08-31] MEDS: VENLAFAXINE **XR** 75MG CAPSULE PO SCH (08:27)
[2016-08-31] MEDS: PRAMIPEXOLE 0.25 MG TAB PO SCH ×2 (08:27→20:24)
[2016-08-31] MEDS: **PENDING PPD ENTRY XX SCH (09:00)
[2016-08-31] MEDS ORDERED: PPD DOCUMENTATION ENTRY MISC XX SCH (10:00)
[2016-08-31 11:30] VITALS: BP 101/51
--- NOTE | 2016-08-31 13:36 | MHIPNPDOC ---
[facility] Progress Note Progress Note DATE OF SERVICE: 08/31/16 INTERVAL HISTORY: Medication Side effects: Continues reporting that she has no relief with pain medications, antidepressants and anti-anxiety medications. Behavior: She has been calmer, less demanding, less angry and aggressive Group Attendance: She fails to attend groups and although sometimes she attends , she leaves before the group and Psychiatric Symptom change: Continues to be depressed and anxious, and although she is still complaining about aches and pains, the frequency of those complaints has decreased. She continues to feel hopeless, helpless, worthless, guilty, low energy levels and suicidal thoughts. VITAL SIGNS: See below. NEW TEST RESULTS: See below CURRENT MEDICATIONS: See below. MENTAL STATUS EXAMINATION: General: Alert, dressed in hospital clothes, good eye contact, cooperative Speech: Normal, soft spoken Thought processes: Intact, organized Thought content: Negative for auditory and visual hallucinations, negative for suicidal thoughts, positive for passive suicidal ideation. Abstract reasoning, and computation: Poor Description of associations: Not loose Description of abnormal or psychotic thoughts: Not present Judgment: Poor Insight: Poor Orientation: Oriented 3 Recent and remote memory: Fair Attention span and concentration: Poor Fund of knowledge: Fair Mood: "I'm very depressed" Affect: Sad, depressed, anxious DIAGNOSES: 1. 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 Conversion disorder. 3. Dependent personality disorder. ASSESSMENT: Patient continues to be very depressed and expressed passive suicidal ideation, her level of anxiety is extremely high, she is tearful, worries all the time about her future, blames herself for not being able to live a normal life. Will increase Abilify today to 15 mg by mouth daily at bedtime but she will continue taking 10 mg by mouth every morning. Will continue to make arrangements for her to be transferred to [place]. MANAGEMENT PLAN: Medications: Abilify 15 mg by mouth daily at bedtime and 10 mg by mouth every morning, Venlafaxine 300 mgs. PO QD, Gabapentin 600 mg by mouth 3 times a day, Ativan 1 mg by mouth 3 times a day when necessary for anxiety and agitation, Atarax 75 mg by mouth twice a day, Trazodone 50 mgs. PO BID Psychotherapy: We'll continue to encourage her to attend groups Social: Will continue encouraging to interact with peers and staff Misc: None Disposition: Will continue at the inpatient mental health unit until a bed becomes available at [place] TIME SPENT: 20 minutes. Vital Signs Vital Signs Date Time Temp Pulse Resp B/P (MAP) Pulse Ox O2 Delivery O2 Flow Rate FiO2 08/31/16 06:13 98.2 61 18 101/51 (68) Room Air 08/28/16 15:22 93 Current Medications Current Medications Acetaminophen (Tylenol Tab) 650 mg Q6HP PRN PO HEADACHE or DISCOMFORT; Start at 16:45; Stop 09/27/16 at 16:44 Al Hydrox/Mg Hydrox/Simethicone (Mylanta) 30 ml Q4HP PRN PO HEARTBURN/ INDIGESTION Last administered on 08/29/16 18:55; Start 08/28/16 at 16:45; Stop at 16:44 Aripiprazole (AbiLIFY) 10 mg BID PO Last administered on 08/31/16 08:26; Start 08/29/16 at 21:00; Stop 09/28/16 at 08:59 Aripiprazole (AbiLIFY) 10 mg DAILY PO ; Start 08/29/16 at 09:00; Stop 08/29/16 at 10:06; Status DC Aspirin (Ecotrin) 81 mg DAILY PO Last administered on 08/31/16 08:25; Start at 09:00; Stop 09/28/16 at 08:59 Atorvastatin Calcium (Lipitor) 10 mg QHS PO Last administered on 08/30/16 20:38 ; Start 08/28/16 at 21:00; Stop 09/27/16 at 20:59 Calcium/Vitamin D (Oscal D) 500 mg BID PO Last administered on 08/31/16 08:25 ; Start 08/28/16 at 21:00; Stop 09/27/16 at 20:59 Gabapentin (Neurontin) 600 mg TID PO Last administered on 08/31/16 08:25; Start 08/28/16 at 21:00; Stop 09/27/16 at 20:59 Home Med (Med Rec Complete!) ASDIRECTED XX ; Start 08/28/16 at 13:00; Stop at 13:00; Status DC Hydroxyzine HCl (Atarax) 75 mg BID PO Last administered on 08/31/16 08:25; Start 08/28/16 at 21:00; Stop 09/27/16 at 20:59 Levothyroxine Sodium (Synthroid) 0.112 mg DAILY@06 PO Last administered on 08/31 07:07; Start 08/29/16 at 06:00; Stop 09/28/16 at 05:59 Lorazepam (Ativan) 1 mg Q6HP PRN PO ANXIETY Last administered on 08/31/16 08: 26; Start 08/29/16 at 09:00; Stop 09/05/16 at 08:59 Lorazepam (Ativan) 1 mg STAT STAT IV Last administered on 08/28/16 08:00; Start 08/28/16 at 07:19; Stop 08/28/16 at 07:21; Status DC Lorazepam (Ativan) 2 mg STAT STAT PO Last administered on 08/29/16 09:01; Start 08/29/16 at 08:49; Stop 08/29/16 at 08:51; Status DC Magnesium Hydroxide (Milk Of Magnesia) 30 ml DAILYPRN PRN PO CONSTIPATION; Start 08/28/16 at 16:45; Stop 09/27/16 at 16:44 Multivitamins (Theragram-M) 1 tab DAILY PO Last administered on 08/31/16 08:25 ; Start 08/29/16 at 09:00; Stop 09/28/16 at 08:59 Non-Formulary Medication ( See Comment Field Below ) SEE COMMENTS SECTION 1T @10 XX ; Start 08/31/16 at 10:00; Stop 08/31/16 at 10:00; Status DC Non-Formulary Medication ( See Comment Field Below ) SEE LABEL COMMENTS DAILY XX ; Start 08/29/16 at 09:00; Stop 09/28/16 at 08:59 Polyethylene Glycol (Miralax) 1 pkt DAILYPRN PRN PO CONSTIPATION; Start at 21:30; Stop 09/27/16 at 21:29 Pramipexole Dihydrochloride (Mirapex) 0.25 mg BID PO Last administered on 08:27; Start 08/28/16 at 21:00; Stop 09/27/16 at 20:59 Trazodone HCl (Desyrel) 150 mg QHS PO Last administered on 08/30/16 20:40; Start 08/28/16 at 21:00; Stop 09/27/16 at 20:59 Venlafaxine HCl (Effexor Xr) 300 mg DAILY PO Last administered on 08:27; Start 08/29/16 at 09:00; Stop 09/28/16 at 08:59 Allergies Coded Allergies: Codeine (Verified Adverse Reaction, Mild, NAUSEA, 07/28/12) BEATRICE SNYDER MD August 31, 2016 13:36
[2016-08-31 18:00] VITALS: BP 98/56
[2016-08-31] MEDS: ARIPiprazole 15 MG TAB (AbiLIFY) PO SCH (20:23)
[2016-08-31] MEDS: ATORVASTATIN 10 MG TAB PO SCH (20:23)
[2016-08-31] MEDS: traZODone 50 MG TAB PO SCH (20:24)
[2016-08-31] MEDS: MIRALAX *UNIT DOSE* 17GM PACKET PO PRN (20:52)
[2016-09-01] MEDS: ACETAMINOPHEN TAB 650MG DOSE (2X325MG) PO PRN ×2 (06:09→19:43)
[2016-09-01] MEDS: LEVOTHYROXINE 0.112 MG TAB (112 MCG) PO SCH (06:28)
[2016-09-01 06:37] VITALS: BP 157/70
--- NOTE | 2016-09-01 07:08 | HPE ---
DATE OF ADMISSION: 08/28/2016 HISTORY OF PRESENT ILLNESS: Please refer to psychiatric history and evaluation for further details on this admission. This examination and history performed 08/28/2016 is intended for medical issues which may need treatment, followup, or consultation on this 76-year-old female who was recently discharged from the inpatient mental health unit. ALLERGIES: CODEINE. SOCIAL HISTORY: She lives with her . ETOH: She does not drink alcohol. She no longer smokes cigarettes. She does not use recreational drugs. PAST MEDICAL HISTORY: 1. Bladder cancer status post resection. 2. Hyperlipidemia. 3. Hypothyroidism. 4. History of pelvic fracture. 5. History of peripheral neuropathy. 6. History of depression. 7. History of anxiety. 8. History of hypothyroidism. 9. History of constipation. PAST SURGICAL HISTORY: 1. In 2014, transurethral resection of bladder tumor. 2. Tonsillectomy. 3. Knee replacement. 4. Bilateral cataract surgery. FAMILY HISTORY: Noncontributory. LABORATORY STUDIES: CBC was normal. Electrolytes were normal. BUN and creatinine were 14 and 0.70. TSH was 1.39. Toxicology was negative. CT of the abdomen and pelvis was negative. HOME MEDICATIONS: - Abilify 10 mg by mouth daily - aspirin 81 mg by mouth daily - atorvastatin 10 mg by mouth daily - calcium with vitamin D 600 one by mouth twice a day - gabapentin 600 mg by mouth three times a day - hydroxyzine 75 mg by mouth three times a day - levothyroxine 112 mcg by mouth daily - multivitamin one by mouth daily - pramipexole dihydrochloride 0.25 mg by mouth twice a day for restless legs - trazodone 150 mg by mouth at bedtime as needed for insomnia - Effexor ER 300 mg by mouth daily REVIEW OF SYSTEMS: Ten systems review was done. Her main complaints were of her continued peripheral neuropathy for which she takes gabapentin, and intermittent constipation and she would like MiraLAX which we will order. PHYSICAL EXAMINATION: A 76-year-old female in no acute distress. VITAL SIGNS: Height 64 inches, weight 81 kg, body mass index (BMI) 30.9. Blood pressure 128/70, pulse 88, respirations 18, temperature 98. GENERAL: The patient is awake, alert and oriented times three. HEENT: Pupils are equal and reactive to light. Extraocular muscles intact. Cornea and sclerae clear. Conjunctiva is normal. No facial asymmetry. Pharynx, tongue and gums pink and moist. Tongue is midline. NECK: Supple without lymphadenopathy. No thyromegaly. No goiter. Carotids 2+ without bruit. CHEST: Clear to auscultation without wheeze or retraction. HEART: Regular. ABDOMEN: Benign. Bowel sounds positive. GENITOURINARY/RECTAL: Not done. EXTREMITIES: Show equal strength with full range of motion. No clubbing, cyanosis, and edema. Peripheral pulses are equal and palpable bilaterally. SKIN: Warm and dry. IMPRESSION AND PLAN: 1. Psychiatric plan per psychiatry. 2. Peripheral neuropathy. Continue Neurontin. 3. Hypercholesterolemia. Continue Lipitor. 4. Hypothyroidism. Continue levothyroxine. 5. Constipation. MiraLAX 17 grams by mouth daily as needed for constipation. 6. History of bladder cancer. Continues to followup as outpatient with Dr. Ramos. No acute medical issues.
[2016-09-01] MEDS: MULTIVITAMINS/MINERALS THERAP 1 TAB PO SCH (08:44)
[2016-09-01] MEDS: ASPIRIN 81 MG ENTERIC TAB PO SCH (08:45)
[2016-09-01] MEDS: hydrOXYzine 25 MG TAB PO SCH ×2 (08:45→21:54)
[2016-09-01] MEDS: ARIPiprazole 10 MG TAB PO SCH (08:45)
[2016-09-01] MEDS: PRAMIPEXOLE 0.25 MG TAB PO SCH ×2 (08:45→21:53)
[2016-09-01] MEDS: VENLAFAXINE **XR** 75MG CAPSULE PO SCH (08:45)
[2016-09-01] MEDS: GABAPENTIN 300 MG CAP PO SCH ×3 (08:45→21:53)
[2016-09-01] MEDS: **PENDING PPD ENTRY XX SCH (08:46)
[2016-09-01] MEDS: CALCIUM/VITAMIN D 500 MG TAB PO SCH ×2 (08:47→21:00)
--- NOTE | 2016-09-01 10:09 | MHIPNPDOC ---
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 She has had 3 admissions in less than one month and during the last 2 admissions she insisted on being discharged and she came back 3 days later with the same complaints but more depressed. She constantly blames herself for not being able to do what she has to do at home due to her pain and neuropathy. She requires long-term treatment hospitalization, because she needs psychotherapy and she is currently on a waiting list in order to be transferred to [place]. VITAL SIGNS: See below. NEW TEST RESULTS: None. CURRENT MEDICATIONS: See below. MENTAL STATUS EXAMINATION: Patient is a 76-year old female, who is alert, with good eye contact, dressed in hospital clothes. Speech: Is normal. Language skills are fair. Thought processes including: Intact. Thought content: Negative for auditory or visual hallucinations, negative for delusions, positive for passive suicidal ideation, positive for obsessive thoughts regarding her medical problems, negative for homicidal ideation . Abstract reasoning, and computation: Fair. Description of associations: Not loose. Description of abnormal or psychotic thoughts: Not present. Judgment: Poor. Insight: Poor. Orientation: Oriented 3. Recent and remote memory: Intact. Attention span and concentration: Limited. Language: Normal. Fund of knowledge: Full. Mood: Depressed. Affect: And sad, anxious, depressed. DIAGNOSES: 1. 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 2. Conversion disorder. 3. Dependent personality disorder. ASSESSMENT: Patient is very depressed and anxious, because she worries about how her life is going to be at [place]. She can't stop worrying, and multiple efforts have been made to teach her about cognitive distortions and learn how to control, low and change negative thoughts, but she doesn't give credit to therapy, she refuses to attend groups in a regular fashion and everything she wants our medications, although she already has noticed medications are not helping her control her pain, depression and anxiety. For that reason is that she needs to go for long-term treatment and hospitalization at [place], for her to receive psychotherapy daily. MANAGEMENT PLAN: Continue to make arrangements to transfer her to [place]. Will continue current medication treatment and will encourage her to attend groups once again. TIME SPENT: 20 minutes. Vital Signs Vital Signs Date Time Temp Pulse Resp B/P (MAP) Pulse Ox O2 Delivery O2 Flow Rate FiO2 09/01/16 06:37 97.2 89 20 157/70 (99) 08/31/16 18:00 Room Air 08/31/16 11:30 93 Current Medications Current Medications Acetaminophen (Tylenol Tab) 650 mg Q6HP PRN PO HEADACHE or DISCOMFORT Last administered on 09/01/16 06:09; Start 08/28/16 at 16:45; Stop 09/27/16 at 16:44 Al Hydrox/Mg Hydrox/Simethicone (Mylanta) 30 ml Q4HP PRN PO HEARTBURN/ INDIGESTION Last administered on 08/29/16 18:55; Start 08/28/16 at 16:45; Stop at 16:44 Aripiprazole (AbiLIFY) 10 mg BID PO Last administered on 08/31/16 08:26; Start 08/29/16 at 21:00; Stop 08/31/16 at 13:38; Status DC Aripiprazole (AbiLIFY) 10 mg DAILY PO ; Start 08/29/16 at 09:00; Stop 08/29/16 at 10:06; Status DC Aripiprazole (AbiLIFY) 10 mg QAM PO Last administered on 09/01/16 08:45; Start 09/01/16 at 09:00; Stop 09/28/16 at 08:59 Aripiprazole (AbiLIFY) 15 mg QHS PO Last administered on 08/31/16 20:23; Start 08/31/16 at 21:00; Stop 09/30/16 at 20:59 Aspirin (Ecotrin) 81 mg DAILY PO Last administered on 09/01/16 08:45; Start at 09:00; Stop 09/28/16 at 08:59 Atorvastatin Calcium (Lipitor) 10 mg QHS PO Last administered on 08/31/16 20: 23; Start 08/28/16 at 21:00; Stop 09/27/16 at 20:59 Calcium/Vitamin D (Oscal D) 500 mg BID PO Last administered on 09/01/16 08:47 ; Start 08/28/16 at 21:00; Stop 09/27/16 at 20:59 Gabapentin (Neurontin) 600 mg TID PO Last administered on 09/01/16 08:45; Start 08/28/16 at 21:00; Stop 09/27/16 at 20:59 Home Med (Med Rec Complete!) ASDIRECTED XX ; Start 08/28/16 at 13:00; Stop at 13:00; Status DC Hydroxyzine HCl (Atarax) 75 mg BID PO Last administered on 09/01/16 08:45; Start 08/28/16 at 21:00; Stop 09/27/16 at 20:59 Levothyroxine Sodium (Synthroid) 0.112 mg DAILY@06 PO Last administered on 09/01 06:28; Start 08/29/16 at 06:00; Stop 09/28/16 at 05:59 Lorazepam (Ativan) 1 mg Q6HP PRN PO ANXIETY Last administered on 08/31/16 16: 22; Start 08/29/16 at 09:00; Stop 09/05/16 at 08:59 Lorazepam (Ativan) 1 mg STAT STAT IV Last administered on 08/28/16 08:00; Start 08/28/16 at 07:19; Stop 08/28/16 at 07:21; Status DC Lorazepam (Ativan) 2 mg STAT STAT PO Last administered on 08/29/16 09:01; Start 08/29/16 at 08:49; Stop 08/29/16 at 08:51; Status DC Magnesium Hydroxide (Milk Of Magnesia) 30 ml DAILYPRN PRN PO CONSTIPATION; Start 08/28/16 at 16:45; Stop 09/27/16 at 16:44 Multivitamins (Theragram-M) 1 tab DAILY PO Last administered on 09/01/16 08:44 ; Start 08/29/16 at 09:00; Stop 09/28/16 at 08:59 Non-Formulary Medication ( See Comment Field Below ) SEE COMMENTS SECTION 1T @10 XX ; Start 08/31/16 at 10:00; Stop 08/31/16 at 10:00; Status DC Non-Formulary Medication ( See Comment Field Below ) SEE LABEL COMMENTS DAILY XX ; Start 08/29/16 at 09:00; Stop 09/28/16 at 08:59 Polyethylene Glycol (Miralax) 1 pkt DAILYPRN PRN PO CONSTIPATION Last administered on 08/31/16 20:52; Start 08/28/16 at 21:30; Stop 09/27/16 at 21:29 Pramipexole Dihydrochloride (Mirapex) 0.25 mg BID PO Last administered on 08:45; Start 08/28/16 at 21:00; Stop 09/27/16 at 20:59 Trazodone HCl (Desyrel) 150 mg QHS PO Last administered on 08/31/16 20:24; Start 08/28/16 at 21:00; Stop 09/27/16 at 20:59 Venlafaxine HCl (Effexor Xr) 300 mg DAILY PO Last administered on 08:45; Start 08/29/16 at 09:00; Stop 09/28/16 at 08:59 Allergies Coded Allergies: Codeine (Verified Adverse Reaction, Mild, NAUSEA, 07/28/12) BEATRICE SNYDER MD September 01, 2016 10:09
[2016-09-01] MEDS: LORazepam 1 MG TAB PO PRN ×2 (15:36→21:56)
[2016-09-01 18:00] VITALS: BP 121/73
[2016-09-01] MEDS: MOM 30ML SUSPENSION UDC PO PRN (19:23)
[2016-09-01] MEDS: ATORVASTATIN 10 MG TAB PO SCH (21:54)
[2016-09-01] MEDS: traZODone 50 MG TAB PO SCH (21:54)
[2016-09-01] MEDS: ARIPiprazole 15 MG TAB (AbiLIFY) PO SCH (21:54)
[2016-09-02] MEDS: LEVOTHYROXINE 0.112 MG TAB (112 MCG) PO SCH (06:14)
[2016-09-02 06:16] VITALS: BP 98/53
[2016-09-02] MEDS: hydrOXYzine 25 MG TAB PO SCH ×2 (08:58→20:24)
[2016-09-02] MEDS: VENLAFAXINE **XR** 75MG CAPSULE PO SCH (08:58)
[2016-09-02] MEDS: MULTIVITAMINS/MINERALS THERAP 1 TAB PO SCH (08:58)
[2016-09-02] MEDS: GABAPENTIN 300 MG CAP PO SCH ×3 (08:58→20:23)
[2016-09-02] MEDS: ARIPiprazole 10 MG TAB PO SCH (08:58)
[2016-09-02] MEDS: PRAMIPEXOLE 0.25 MG TAB PO SCH ×2 (08:58→20:23)
[2016-09-02] MEDS: ASPIRIN 81 MG ENTERIC TAB PO SCH (08:58)
[2016-09-02] MEDS: LORazepam 1 MG TAB PO PRN ×2 (08:59→15:28)
[2016-09-02] MEDS: **PENDING PPD ENTRY XX SCH (09:00)
--- NOTE | 2016-09-02 09:29 | IPNPDOC ---
Subjective Date Seen The patient was seen on 09/02/16. Subjective Chief Complaint/HPI The patient is a 76-year-old female admitted with a reason for visit of Unspecified Depressive Disorder. Events since last encounter I am requested to reevaluate the patient as per nursing in regards to constipation and urinary incontinence. The patient has been complaining of constipation, according to nursing she had an episode of incontinence. She also had an episode of urinary incontinence. She has been using bowel care including magnesia and MiraLAX. She states she does have some lower abdominal discomfort. She has chronic pelvic pain with h/o pelvic fracture. She follows with Dr Shah for LE pain and is taking Gabapentin. She has been eating and drinking. No nausea, vomiting. No urinary complaints, dysuria, hematuria, frequency or urgency. Pulmonary: Denies: Dyspnea, Cough Cardiovascular: Denies: Chest Pain, Palpitations, Orthopnea, Paroxysmal Noc. Dyspnea, Lt Headedness Gastrointestinal: Reports: Abdominal Pain (chronic pelvic pain. ), Denies: Nausea, Vomiting, Diarrhea, Constipation Genitourinary: Reports: Incontinence Objective Physical Examination General Exam: Positive: Alert Eye Exam: Positive: PERRLA ENT Exam: Positive: Atraumatic Neck Exam: Positive: Supple, Negative: JVD, thyromegaly Chest Exam: Positive: Clear to auscultation, Normal air movement Heart Exam: Positive: Rate Normal, Regular Rhythm, Normal S1, Normal S2, Negative: Murmurs, Rubs Abdomen Exam: Positive: Normal bowel sounds, Soft, Tenderness (mild TTP suprapubic area. ), Negative: Hepatospenomegaly Skin Exam: Positive: Nl turgor and temperature Assessment /Plan Problems (1) Constipation Status: Chronic Problem Text: * AXR 08/28/16 KUB shows the intestinal gas pattern to be nonspecific. The organ silhouettes insofar as delineated are unremarkable. There is no evidence of free intraperitoneal air. * CT A/P 08/28/16 No evidence of acute disease. * Continue with MiraLAX daily as needed * Add Colace 100 mg by mouth twice a day * Continue with milk of magnesia daily as needed. * Check abdominal x-ray. (2) Chronic pain Status: Chronic Problem Text: * Patient remains on gabapentin 600 mg 3 times a day. * Pt continues to report chronic pain. * Continue with Tylenol as needed. * Request pain mgmt opinion. (3) Hypothyroid Status: Chronic Problem Text: * Continue supplement (4) Bladder neoplasm Status: Chronic Problem Text: * H/O Bladder Ca. * Follows as outpatient with urology, Dr. Bradford. * Urine cytology negative 05/10 (5) Urinary incontinence Problem Text: * UA/urine culture * Update CBC/CMP (6) Hyperlipidemia Status: Chronic Problem Text: * Continue statin/ASA Plan/VTE VTE Prophylaxis Ordered?: No (ambulatory) VS, I&O, 24H, Fishbone Vital Signs/I&O Vital Signs Date Time Temp Pulse Resp B/P (MAP) Pulse Ox O2 Delivery O2 Flow Rate FiO2 09/02/16 06:16 97.8 57 20 98/53 (68) 08/31/16 18:00 Room Air 08/31/16 11:30 93 Griselda Shanks September 02, 2016 09:29
[2016-09-02] MEDS ORDERED: LR 1,000 ML IV ONE (10:00)
[2016-09-02] MEDS: MIRALAX *UNIT DOSE* 17GM PACKET PO PRN (10:26)
[2016-09-02] MEDS: DOCUSATE SODIUM 100 MG CAP PO SCH ×2 (10:26→20:23)
[2016-09-02 10:41] LABS: MEAN CORPUSCULAR HEMOGLOBIN 30.4 pg (27.0-33.0); MEAN CORPUSCULAR HGB CONC 33.4 g/dl (32.0-36.5); MEAN CORPUSCULAR VOLUME 91.3 fl (80.0-96.0); RED CELL DISTRIBUTION WIDTH 13.7 % (11.5-14.5); WHITE BLOOD COUNT 5.4 K/mm3 (4.0-10.0)
[2016-09-02 10:57] LABS: ALBUMIN 3.3 GM/DL (3.2-5.2); ALBUMIN/GLOBULIN RATIO 1.18 (1.00-1.93); ALKALINE PHOSPHATASE 119 U/L (45-117); ALT/SGPT 46 U/L (12-78); ANION GAP 7 MEQ/L (8-16); AST/SGOT 38 U/L (15-37); BILIRUBIN,TOTAL 0.3 MG/DL (0.2-1.0); BLOOD UREA NITROGEN 20 MG/DL (7-18); CALCIUM LEVEL 8.8 MG/DL (8.8-10.2); CARBON DIOXIDE LEVEL 27 MEQ/L (21-32); CHLORIDE LEVEL 109 MEQ/L (98-107); GLOMERULAR FILTRATION RATE > 60.0 (>39); GLUCOSE, FASTING 101 MG/DL (83-110); POTASSIUM SERUM 4.4 MEQ/L (3.5-5.1); SODIUM LEVEL 143 MEQ/L (136-145); TOTAL PROTEIN 6.1 GM/DL (6.4-8.2)
[2016-09-02] MEDS: CALCIUM/VITAMIN D 500 MG TAB PO SCH ×2 (11:44→20:23)
--- NOTE | 2016-09-02 11:49 | REP ---
KUB: Two views. HISTORY: Constipation and abdominal pain. COMPARISON STUDY: Aug 28 2016. FINDINGS: Bowel gas pattern is unremarkable with air and stool in a nondistended colon. No small bowel dilation is seen. There is a levoconvex curvature in the lumbar spine along with degenerative spondylosis changes as before. Psoas margins are symmetric. Old post-traumatic changes are noted in the anterior pelvis with orthopedic fixation devices in place as before. IMPRESSION: Unremarkable bowel gas pattern. No evidence of obstruction. Signed by Mario Franco MD 09/02/2016 12:57 P
[2016-09-02 18:00] VITALS: BP 97/52
--- NOTE | 2016-09-02 19:50 | REP ---
CT study of the lumbar spine without contrast: History: Back pain. New onset of loss of bowel and bladder control. Comparison MRI study is from 10/28/2013. Technique: Helical scanning is acquired and 4 mm axial images are reviewed at bone and soft-tissue window settings. Coronal and sagittal multiplanar re-formation images are generated and reviewed. CT findings: There is a moderate levoconvex rotoscoliotic curve in the lumbar spine. There is advanced degenerative spondylosis with degenerative disc narrowing and multilevel vacuum phenomena. There is anterior wedging at L1 and T12 with approximately 40% loss of vertebral body height at these two levels. This is unchanged from the comparison MRI study of 10/28/2013. No new compression fracture deformity is seen. No bony destructive lesion is appreciated. There is osteoarthritic facet disease in the lumbar spine at L5-S1, L4-55, and L3-4. At L4-5, there is moderate degree of central canal stenosis. This is due to diffuse disc bulging, developmentally short pedicles, and facet and ligamentum flavum hypertrophy. This appears more prominent at L4-5 than on the comparison MRI study 2013. At L3-4, there are similar but less pronounced changes with mild central canal stenosis. At L2-3, there is mild central canal stenosis due to the same factors. L1-2, there is posterior disc bulging and calcification. Canal size is borderline. At T12-L1, there is some posterior osteophytic ridging and disc bulging producing mild central canal stenosis unchanged. There is neural foraminal narrowing on the left at L5-S1. There is a mild grade 1 L5-S1 spondylolisthesis measuring 5 mm unchanged from the prior study. Impression: Advanced degenerative spondylosis changes with multi level central canal stenosis most pronounced at L4-5. This appears more prominent than on the prior MRI study of 10/28/2013. Scoliosis is seen. Mild stable wedge compression deformities are noted at T12 and L1. Signed by Mario Franco MD 09/02/2016 08:53 P
[2016-09-02] MEDS: traZODone 50 MG TAB PO SCH (20:23)
[2016-09-02] MEDS: AMITRIPTYLINE 10 MG TAB PO SCH (20:23)
[2016-09-02] MEDS: ATORVASTATIN 10 MG TAB PO SCH (20:23)
[2016-09-02] MEDS: ACETAMINOPHEN TAB 650MG DOSE (2X325MG) PO PRN (20:23)
[2016-09-02] MEDS: ARIPiprazole 15 MG TAB (AbiLIFY) PO SCH (20:24)
--- NOTE | 2016-09-02 21:44 | IPN ---
DATE: 09/02/2016 SUBJECTIVE: The patient is a 76-year-old female with history of major depressive disorder secondary to medical condition, conversion disorder, and dependent personality who tends to focus on her physical problems which are neuropathy and pelvic pain. This morning, the physician research program assistant ([employer]) ordered x-rays from her pelvis because she was complaining that she was incontinent and that she has been constipated. Her x-rays are normal, and it was recommended that she will use Colace for that, but she continues to complain about her physical problems including constipation, incontinence, tingling, numbing, pelvic pain, back pain. She says that she does not want to go to [place] to her long treatment hospitalization, but when she had her administrative hearing a couple of days ago, she stated that she was going to go because she knew that she could not go back home. Today, she says that she has not spoken to her because she is embarrassed and she feels that she has deceived him because she could not stay longer at home and ended up coming back to the hospital. She says she does not have any psychiatric problems and she does not need to go to [place], that her problems are physical or medical, the numbing, the tingling and the pain. She refuses to acknowledge that there is a connection between her physical and medical problems and her psychiatric problems. She states that her depression and her anxiety are a consequence of her medical problems and that can certainly happen, but the problem is that she does not want to attend groups. She does not want to do psychotherapy, and she believes that only medications are going to help her. All the medications that she has taken and that she continues to take are not helping her much with pain. During the last two hospitalizations, consults were going to be sent for pain management, but she refused during the last hospitalization because she said that she has seen them before and they have not done other things that offer her "drugs" and that she was not going to take that type of medication. She reports sleeping well, eating as much as she can, and she explains that she is forcing herself to eat although she does not eat everything that is in the tray. She reports feelings of guilt, blame, and this is in regards to her condition because she feels responsible of her 's happiness and him having to do all the house chores that she should be helping him do. She denies active suicidal ideation, but she says that sometimes she would prefer not to exist because she feels like a burden to her . She asks if she can be transferred to a group home instead of going to [place], and the author of this document explained to her that she needs to go to [place] because her anxiety level is extremely high and her depression is very strong, and that she needs long-term treatment in order to benefit from daily psychotherapy which cannot be provided here because this is a short-term treatment. When the author of this document asked her why does she want to go to a group home, she said that they will be able to take care of her. When I asked her why a group home and why not home as a choice, she kept silent and then started crying. Today, she was seen in her room, lying in bed, disheveled, and with poor eye contact. Her speech was normal. Her mood was depressed. Her affect was depressed. Her thought content was intact. Her thought content was positive for feelings of worthlessness, helplessness, hopelessness, guilt, shame, and positive for passive suicidal thoughts. It was negative for auditory, visual hallucinations or for delusions. Her attention and concentration are fair. Her insight, judgment are very poor. Her impulse control has improved. Her recent and remote memory are intact. Her fund of knowledge is full. At this time, she does not present with homicidal ideation. She is not delusional and she is not psychotic, but continues to be severely depressed, and for that reason she needs to continue to be at the hospital until she gets transferred to [place]. Her lack of insight and poor judgment make her a candidate for long-term treatment and hospitalization because she does not see the connection between depression, anxiety and physical illness or vice-versa. She is extremely depressed, and she is still saying that she does not have a psychiatric problem. She will continue on the same medications and we will reevaluate over the weekend, and we will see how continues to be on Monday, and will continue to arrange transfer to [place] for long-term treatment.
[2016-09-03 06:37] VITALS: BP 123/53
[2016-09-03] MEDS: LEVOTHYROXINE 0.112 MG TAB (112 MCG) PO SCH (06:41)
[2016-09-03] MEDS: MULTIVITAMINS/MINERALS THERAP 1 TAB PO SCH (08:30)
[2016-09-03] MEDS: ASPIRIN 81 MG ENTERIC TAB PO SCH (08:30)
[2016-09-03] MEDS: ARIPiprazole 10 MG TAB PO SCH (08:30)
[2016-09-03] MEDS: GABAPENTIN 300 MG CAP PO SCH ×3 (08:30→20:11)
[2016-09-03] MEDS: DOCUSATE SODIUM 100 MG CAP PO SCH ×2 (08:30→20:11)
[2016-09-03] MEDS: VENLAFAXINE **XR** 75MG CAPSULE PO SCH (08:30)
[2016-09-03] MEDS: PRAMIPEXOLE 0.25 MG TAB PO SCH ×2 (08:31→20:11)
[2016-09-03] MEDS: LORazepam 1 MG TAB PO PRN ×2 (08:31→14:52)
[2016-09-03] MEDS: hydrOXYzine 25 MG TAB PO SCH ×2 (08:31→20:11)
[2016-09-03] MEDS: AMITRIPTYLINE 10 MG TAB PO SCH ×2 (08:31→20:11)
[2016-09-03] MEDS: CALCIUM/VITAMIN D 500 MG TAB PO SCH ×2 (08:31→20:11)
[2016-09-03] MEDS: **PENDING PPD ENTRY XX SCH (08:33)
[2016-09-03] MEDS: MOM 30ML SUSPENSION UDC PO PRN (11:22)
[2016-09-03 18:00] VITALS: BP 95/54
[2016-09-03 19:01] LABS: ANION GAP 8 MEQ/L (8-16); BLOOD UREA NITROGEN 20 MG/DL (7-18); CALCIUM LEVEL 8.6 MG/DL (8.8-10.2); CARBON DIOXIDE LEVEL 27 MEQ/L (21-32); CHLORIDE LEVEL 107 MEQ/L (98-107); CREATININE FOR GFR 0.91 MG/DL (0.55-1.02); GLOMERULAR FILTRATION RATE > 60.0 (>39); GLUCOSE, FASTING 139 MG/DL (83-110); POTASSIUM SERUM 3.9 MEQ/L (3.5-5.1); SODIUM LEVEL 142 MEQ/L (136-145)
[2016-09-03 19:33] LABS: BASO % 0.3 % (0.0-1.0); EOS # 0.3 K/mm3 (0.0-0.50); EOS % 2.6 % (0.0-3.0); LARGE UNSTAINED CELL # 0.1 K/mm3 (0.0-0.4); LARGE UNSTAINED CELL % 0.6 % (0.0-4.0); LYMPH # 1.8 K/mm3 (1.5-4.5); LYMPH % 14.5 % (24.0-44.0); MEAN CORPUSCULAR HEMOGLOBIN 30.7 pg (27.0-33.0); MEAN CORPUSCULAR HGB CONC 33.1 g/dl (32.0-36.5); MEAN CORPUSCULAR VOLUME 92.9 fl (80.0-96.0); MONO # 0.5 K/mm3 (0.0-0.8); MONO % 3.8 % (0.0-5.0); NEUTROPHILS # 9.8 K/mm3 (1.8-7.7); NEUTROPHILS % 78.1 % (36.0-66.0); PLATELET COUNT, AUTOMATED 384 k/mm3 (150-450); RED CELL DISTRIBUTION WIDTH 13.6 % (11.5-14.5); WHITE BLOOD COUNT 12.5 K/mm3 (4.0-10.0)
[2016-09-03] MEDS: ARIPiprazole 15 MG TAB (AbiLIFY) PO SCH (20:11)
[2016-09-03] MEDS: traZODone 50 MG TAB PO SCH (20:11)
[2016-09-03] MEDS: ATORVASTATIN 10 MG TAB PO SCH (20:11)
[2016-09-03] MEDS: AUGMENTIN 500 MG TAB PO SCH (20:13)
[2016-09-03 20:17] LABS: ERYTHROCYTE SEDIMENTATION RATE 8 mm/hr (0-30)
--- NOTE | 2016-09-03 22:53 | IPN ---
DATE: 09/03/2016 I was called by inpatient mental health unit nursing staff regarding patient's new hematuria. The patient is a 76-year-old female admitted to inpatient mental health unit for depressive disorder. The patient developed abdominal pain. On the day of admission, 08/28/2016, CT of the abdomen and pelvis were performed, which did not show any significant abnormalities. For the past few days, the patient has been complaining about urinary symptoms. UA was obtained on 09/02/2016, which showed positive for 26 WBC and 1+ bacteria, negative nitrates, and there is no blood and no significant red blood cells noted. After I went to see the patient and examine the patient, the patient still has some visible blood on the tissue after urination. There is no gross hematuria in the toilet bowl, there is some pinkish color from the urine. Repeat UA to see for hematuria evaluation, which came back too many to count WBC. Repeat urine culture was also obtained. I also reviewed the patient's medical record and the patient has had urinary tract infections multiple times in the past. Most recent positive urine culture was from October 2015. The patient grew Proteus and Staphylococcus epidermidis. The bacteria showed some significant resistance. After evaluating the patient's sensitivities, I started the patient on Augmentin for empiric treatment while following the most current urinary cultures. The patient does have a history of bladder cancer, which was followed by Dr. Bradford in the past. I ordered urine cytology; however, currently we do not have pathology available to read the samples. During the encounter, the patient has a temperature of 98.4, pulse is 52, respirations 18, blood pressure is 123/53. Yesterday, around 6:00 p.m., the patient had a temperature of 100.4 with a blood pressure of 97/52. We will follow the renal ultrasound. The patient is not on any type of anticoagulation.
[2016-09-04] MEDS: LEVOTHYROXINE 0.112 MG TAB (112 MCG) PO SCH (06:00)
[2016-09-04] MEDS: AUGMENTIN 500 MG TAB PO SCH ×2 (06:00→17:29)
[2016-09-04 06:42] VITALS: BP 112/57
[2016-09-04] MEDS: GABAPENTIN 300 MG CAP PO SCH ×3 (08:26→20:34)
[2016-09-04] MEDS: PRAMIPEXOLE 0.25 MG TAB PO SCH ×2 (08:26→20:33)
[2016-09-04] MEDS: hydrOXYzine 25 MG TAB PO SCH ×2 (08:26→20:33)
[2016-09-04] MEDS: ASPIRIN 81 MG ENTERIC TAB PO SCH (08:26)
[2016-09-04] MEDS: DOCUSATE SODIUM 100 MG CAP PO SCH ×2 (08:26→20:33)
[2016-09-04] MEDS: AMITRIPTYLINE 10 MG TAB PO SCH ×2 (08:26→20:33)
[2016-09-04] MEDS: VENLAFAXINE **XR** 75MG CAPSULE PO SCH (08:26)
[2016-09-04] MEDS: MULTIVITAMINS/MINERALS THERAP 1 TAB PO SCH (08:26)
[2016-09-04] MEDS: ARIPiprazole 10 MG TAB PO SCH (08:26)
[2016-09-04] MEDS: CALCIUM/VITAMIN D 500 MG TAB PO SCH ×2 (08:26→20:33)
[2016-09-04] MEDS: LORazepam 1 MG TAB PO PRN ×2 (09:23→15:40)
[2016-09-04] MEDS ORDERED: TUBERCULIN PPD 5 UNITS/0.1 ML ID SCH (10:00)
--- NOTE | 2016-09-04 10:49 | REP ---
RENAL ULTRASOUND: Real-time sonographic evaluation of the kidneys performed. The study is somewhat limited due to patient body habitus. Right kidney measures 10.0 x 4.9 x 4.6 cm and left kidney 11.2 x 5.2 x 4.4 cm. The kidneys are somewhat echogenic suggesting medical renal disease. There is no hydronephrosis bilaterally. There is no gross mass or calculus. IMPRESSION: Limited exam due to patient body habitus. No hydronephrosis or definite mass. No definite calculus. Signed by Filipe Burr MD 09/04/2016 07:53 P
[2016-09-04 18:00] VITALS: BP 105/58
[2016-09-04] MEDS ORDERED: NYSTATIN 100,000 UNITS/GM TOPICAL PWD 15 GM TOP PRN (18:30)
[2016-09-04] MEDS: ATORVASTATIN 10 MG TAB PO SCH (20:33)
[2016-09-04] MEDS: ARIPiprazole 15 MG TAB (AbiLIFY) PO SCH (20:33)
[2016-09-04] MEDS: traZODone 50 MG TAB PO SCH (20:34)
[2016-09-05] MEDS: AUGMENTIN 500 MG TAB PO SCH (06:07)
[2016-09-05] MEDS: LEVOTHYROXINE 0.112 MG TAB (112 MCG) PO SCH (06:07)
[2016-09-05 07:03] VITALS: BP 121/63
[2016-09-05] MEDS: MULTIVITAMINS/MINERALS THERAP 1 TAB PO SCH (08:12)
[2016-09-05] MEDS: ASPIRIN 81 MG ENTERIC TAB PO SCH (08:12)
[2016-09-05] MEDS: CALCIUM/VITAMIN D 500 MG TAB PO SCH ×2 (08:12→20:00)
[2016-09-05] MEDS: ARIPiprazole 10 MG TAB PO SCH (08:12)
[2016-09-05] MEDS: hydrOXYzine 25 MG TAB PO SCH ×2 (08:12→20:00)
[2016-09-05] MEDS: GABAPENTIN 300 MG CAP PO SCH ×3 (08:12→20:00)
[2016-09-05] MEDS: DOCUSATE SODIUM 100 MG CAP PO SCH ×2 (08:12→20:01)
[2016-09-05] MEDS: AMITRIPTYLINE 10 MG TAB PO SCH ×2 (08:12→20:00)
[2016-09-05] MEDS: VENLAFAXINE **XR** 75MG CAPSULE PO SCH (08:12)
[2016-09-05] MEDS: PRAMIPEXOLE 0.25 MG TAB PO SCH ×2 (08:12→20:00)
[2016-09-05] MEDS: LORazepam 1 MG TAB PO PRN (09:32)
[2016-09-05] MEDS: CEFDINIR 300 MG CAP (OMNICEF) PO SCH ×2 (13:08→20:00)
[2016-09-05 14:06] VITALS: BP 100/68
--- NOTE | 2016-09-05 14:51 | IPNPDOC ---
Subjective Date Seen The patient was seen on 09/05/16. Subjective Chief Complaint/HPI The patient is a 76-year-old female admitted with a reason for visit of Unspecified Depressive Disorder. Events since last encounter Following up with Pt re urinary issues. No concerns from Pt at this time. ENT: Denies: Head Aches, Dysphagia Pulmonary: Denies: Dyspnea, Cough Cardiovascular: Denies: Chest Pain, Palpitations, Orthopnea, Paroxysmal Noc. Dyspnea, Lt Headedness Gastrointestinal: Denies: Nausea, Vomiting, Abdominal Pain, Diarrhea, Constipation Genitourinary: Denies: Dysuria, Frequency, Incontinence, Retention Objective Physical Examination General Exam: Positive: Alert Eye Exam: Positive: PERRLA ENT Exam: Positive: Atraumatic Neck Exam: Positive: Supple, Negative: JVD, thyromegaly Chest Exam: Positive: Clear to auscultation, Normal air movement Heart Exam: Positive: Rate Normal, Regular Rhythm, Normal S1, Normal S2, Negative: Murmurs, Rubs Abdomen Exam: Positive: Normal bowel sounds, Soft, Negative: Tenderness, Hepatospenomegaly, Mass, Hernia Skin Exam: Positive: Nl turgor and temperature Assessment /Plan Problems (1) Constipation Status: Chronic Problem Text: * AXR 08/28/16 KUB shows the intestinal gas pattern to be nonspecific. The organ silhouettes insofar as delineated are unremarkable. There is no evidence of free intraperitoneal air. * CT A/P 08/28/16 No evidence of acute disease. * Continue with MiraLAX daily as needed * Colace 100 mg by mouth twice a day * Continue with milk of magnesia daily as needed. * abdominal x-ray 09/02 Unremarkable bowel gas pattern. No evidence of obstruction. . (2) Chronic pain Status: Chronic Problem Text: * Patient remains on gabapentin 600 mg 3 times a day. * Pt continues to report chronic pain. * Continue with Tylenol as needed. * Appreciate pain mgmt opinion. 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 This appears more prominent than on the prior MRI study of 10/28/2013. Scoliosis is seen. Mild stable wedge compression deformities are noted at T12 and L1 (3) Hypothyroid Status: Chronic Problem Text: * Continue supplement (4) Bladder neoplasm Status: Chronic Problem Text: * H/O Bladder Ca. * Follows as outpatient with urology, Dr. Bradford. * Urine cytology negative 05/10 (5) Hyperlipidemia Status: Chronic Problem Text: * Continue statin/ASA (6) UTI (urinary tract infection) Status: Acute Problem Text: * UC 09/05 * Sensitivities reviewed. Augmentin d/cd. Pt started on Cefdinir 300mg BID D1/10 Organism 1 ESCHERICHIA COLI COLONY COUNT >100,000 CFU/ml Organism 2 PROTEUS MIRABILIS COLONY COUNT >100,000 CFU/ml Plan/VTE VTE Prophylaxis Ordered?: No (ambulatory) VS, I&O, 24H, Fishbone Vital Signs/I&O Vital Signs Date Time Temp Pulse Resp B/P (MAP) Pulse Ox O2 Delivery O2 Flow Rate FiO2 09/05/16 14:06 98.8 80 16 100/68 (79) 08/31/16 18:00 Room Air 08/31/16 11:30 93 Laboratory Data Microbiology Microbiology 09/03/16 Urine Culture - Preliminary, Resulted Escherichia Coli Proteus Mirabilis 09/02/16 Urine Culture - Preliminary, Resulted Escherichia Coli Proteus Mirabilis Griselda Shanks September 05, 2016 14:51
[2016-09-05] MEDS: traZODone 50 MG TAB PO SCH (20:00)
[2016-09-05] MEDS: ARIPiprazole 15 MG TAB (AbiLIFY) PO SCH (20:00)
[2016-09-05] MEDS: ATORVASTATIN 10 MG TAB PO SCH (20:00)
--- NOTE | 2016-09-05 21:11 | MHIPNPDOC ---
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 Patient states she doesntwant to go to [place] because "I want to go home, I dont want to leave my of 54 years, I know what is to be there, I wont bee able to keep up with their demands". Patient says she doesnt have psychiatric disorder, has never been depressed, is not depressed, is not anxious. Patient was reminded she has come in numerous occasions to the Emergency Department saying that she is very depressed and suicidal and has said numerous times that she is depressed and anxious. She has denied today that she has been crying, while all the staff has seen her depressed, laying in bed, crying and sobbing since she realized she was going to [place] and has tried to convince the author of this document that she doesnt need to go there, that she is not depressed. She has been told she is going to be transferred there because she needs a higher level of care but she perseverates on how mean they are there. She asked about her rights and that she needs to talk to the charge master analyst and she was told that she was here and that she (patient) told her she accepted going to [place] because she had no other place to go. This time, she denied seeing the Electrical Designer and then, she said she doesnt remember seeing her ( twice). Patient continues to be in denial of her psychiatric problems, her mood is depressed, her affect is angry/irritable/ depressed. Her insight and judgment are extremely poor. Her atention and concentration are very poor, her memory is fair, shes oriented x 3 and continues to complaint of her medical problems. ASSESSMENT:Patient is very ill, she continues to focus on her medical problems, doesnt want to acknowledge her psychiatric problems, continues to worry about her future with cognitive distortions and negative thoughts. MANAGEMENT PLAN: Will continue to encourage her to attend groups and participate until her mood and affect improve. If she really improves, she could be discharged home but if she doesnt try her best, if she doesnt attend groups and if her mood and affect do not improve, she will need to be transferred to [place] TIME SPENT: 30 minutes. Vital Signs Vital Signs Date Time Temp Pulse Resp B/P (MAP) Pulse Ox O2 Delivery O2 Flow Rate FiO2 09/05/16 14:06 98.8 80 16 100/68 (79) 08/31/16 18:00 Room Air 08/31/16 11:30 93 Current Medications Current Medications Acetaminophen (Tylenol Tab) 650 mg Q6HP PRN PO HEADACHE or DISCOMFORT Last administered on 09/02/16 20:23; Start 08/28/16 at 16:45; Stop 09/27/16 at 16:44 Al Hydrox/Mg Hydrox/Simethicone (Mylanta) 30 ml Q4HP PRN PO HEARTBURN/ INDIGESTION Last administered on 08/29/16 18:55; Start 08/28/16 at 16:45; Stop at 16:44 Amitriptyline HCl (Elavil) 10 mg BID PO Last administered on 09/05/16 20:00; Start 09/02/16 at 21:00; Stop 10/02/16 at 20:59 Amoxicillin/ Clavulanate Potassium (Augmentin) 500 mg Q12H PO Last administered on 09/05/16 06:07; Start 09/03/16 at 18:00; Stop 09/05/16 at 12:05 ; Status DC Aripiprazole (AbiLIFY) 10 mg BID PO Last administered on 08/31/16 08:26; Start 08/29/16 at 21:00; Stop 08/31/16 at 13:38; Status DC Aripiprazole (AbiLIFY) 10 mg DAILY PO ; Start 08/29/16 at 09:00; Stop 08/29/16 at 10:06; Status DC Aripiprazole (AbiLIFY) 10 mg QAM PO Last administered on 09/05/16 08:12; Start 09/01/16 at 09:00; Stop 09/28/16 at 08:59 Aripiprazole (AbiLIFY) 15 mg QHS PO Last administered on 09/05/16 20:00; Start 08/31/16 at 21:00; Stop 09/30/16 at 20:59 Aspirin (Ecotrin) 81 mg DAILY PO Last administered on 09/05/16 08:12; Start at 09:00; Stop 09/28/16 at 08:59 Atorvastatin Calcium (Lipitor) 10 mg QHS PO Last administered on 09/05/16 20: 00; Start 08/28/16 at 21:00; Stop 09/27/16 at 20:59 Calcium/Vitamin D (Oscal D) 500 mg BID PO Last administered on 09/05/16 20:00 ; Start 08/28/16 at 21:00; Stop 09/27/16 at 20:59 Cefdinir (Omnicef) 300 mg BID PO Last administered on 09/05/16 20:00; Start at 09:00; Stop 09/09/16 at 08:59 Docusate Sodium (Colace) 100 mg BID PO Last administered on 09/05/16 08:12; Start 09/02/16 at 09:00; Stop 10/02/16 at 08:59 Gabapentin (Neurontin) 600 mg TID PO Last administered on 09/05/16 20:00; Start 08/28/16 at 21:00; Stop 09/27/16 at 20:59 Home Med (Med Rec Complete!) ASDIRECTED XX ; Start 08/28/16 at 13:00; Stop at 13:00; Status DC Hydroxyzine HCl (Atarax) 75 mg BID PO Last administered on 09/05/16 20:00; Start 08/28/16 at 21:00; Stop 09/27/16 at 20:59 Levothyroxine Sodium (Synthroid) 0.112 mg DAILY@06 PO Last administered on 09/05 06:07; Start 08/29/16 at 06:00; Stop 09/28/16 at 05:59 Lorazepam (Ativan) 1 mg Q6HP PRN PO ANXIETY Last administered on 09/05/16 09: 32; Start 08/29/16 at 09:00; Stop 09/11/16 at 08:59 Lorazepam (Ativan) 1 mg STAT STAT IV Last administered on 08/28/16 08:00; Start 08/28/16 at 07:19; Stop 08/28/16 at 07:21; Status DC Lorazepam (Ativan) 2 mg STAT STAT PO Last administered on 08/29/16 09:01; Start 08/29/16 at 08:49; Stop 08/29/16 at 08:51; Status DC Magnesium Hydroxide (Milk Of Magnesia) 30 ml DAILYPRN PRN PO CONSTIPATION Last administered on 09/03/16 11:22; Start 08/28/16 at 16:45; Stop 09/27/16 at 16:44 Multivitamins (Theragram-M) 1 tab DAILY PO Last administered on 09/05/16 08:12 ; Start 08/29/16 at 09:00; Stop 09/28/16 at 08:59 Non-Formulary Medication ( See Comment Field Below ) SEE COMMENTS SECTION 1T @10 XX ; Start 08/31/16 at 10:00; Stop 08/31/16 at 10:00; Status DC Non-Formulary Medication ( See Comment Field Below ) SEE LABEL COMMENTS DAILY XX ; Start 08/29/16 at 09:00; Stop 09/04/16 at 08:31; Status DC Non-Formulary Medication ( See Comment Field Below ) SEE LABEL COMMENTS SECTION 1T@10 XX ; Start 09/06/16 at 10:00; Stop 09/06/16 at 23:59 Nystatin (Mycostatin Powder, Nystop) 1 dose BIDP PRN TOP RASH Last administered on 09/04/16 20:36; Start 09/04/16 at 18:30; Stop 10/04/16 at 18:29 Polyethylene Glycol (Miralax) 1 pkt DAILYPRN PRN PO CONSTIPATION Last administered on 09/02/16 10:26; Start 08/28/16 at 21:30; Stop 09/27/16 at 21:29 Pramipexole Dihydrochloride (Mirapex) 0.25 mg BID PO Last administered on 20:00; Start 08/28/16 at 21:00; Stop 09/27/16 at 20:59 Trazodone HCl (Desyrel) 150 mg QHS PO Last administered on 09/05/16 20:00; Start 08/28/16 at 21:00; Stop 09/27/16 at 20:59 Tuberculin PPD (Aplisol, Ppd) 5 units 1T@10 ID Last administered on 09/04/16 09:21; Start 09/04/16 at 10:00; Stop 09/04/16 at 23:59; Status DC Venlafaxine HCl (Effexor Xr) 300 mg DAILY PO Last administered on t 08:12; Start 08/29/16 at 09:00; Stop 09/28/16 at 08:59 Allergies Coded Allergies: Codeine (Verified Adverse Reaction, Mild, NAUSEA, 07/28/12) BEATRICE SNYDER MD September 05, 2016 21:11
[2016-09-06] MEDS: LEVOTHYROXINE 0.112 MG TAB (112 MCG) PO SCH (06:02)
[2016-09-06 06:46] VITALS: BP 97/53
[2016-09-06] MEDS: hydrOXYzine 25 MG TAB PO SCH ×2 (08:20→20:17)
[2016-09-06] MEDS: ARIPiprazole 10 MG TAB PO SCH ×2 (08:20→20:17)
[2016-09-06] MEDS: ASPIRIN 81 MG ENTERIC TAB PO SCH (08:20)
[2016-09-06] MEDS: PRAMIPEXOLE 0.25 MG TAB PO SCH ×2 (08:20→20:16)
[2016-09-06] MEDS: GABAPENTIN 300 MG CAP PO SCH ×3 (08:20→20:17)
[2016-09-06] MEDS: CALCIUM/VITAMIN D 500 MG TAB PO SCH ×2 (08:20→20:16)
[2016-09-06] MEDS: CEFDINIR 300 MG CAP (OMNICEF) PO SCH ×2 (08:20→20:17)
[2016-09-06] MEDS: VENLAFAXINE **XR** 75MG CAPSULE PO SCH (08:20)
[2016-09-06] MEDS: LORazepam 1 MG TAB PO PRN ×2 (08:20→15:49)
[2016-09-06] MEDS: MULTIVITAMINS/MINERALS THERAP 1 TAB PO SCH (08:20)
[2016-09-06] MEDS: AMITRIPTYLINE 10 MG TAB PO SCH ×2 (08:20→20:17)
[2016-09-06] MEDS: DOCUSATE SODIUM 100 MG CAP PO SCH ×2 (08:23→20:19)
--- NOTE | 2016-09-06 09:14 | CR.PDOC ---
[facility] Pain Clinic Consultation General Date of Consultation: 09/02/16 Consultation Report For: Griselda Shanks Chief Complaint The patient is a 76-year-old female admitted with a reason for visit of Unspecified Depressive Disorder. Pain management is asked to see Mrs. العراقي for further evaluation of pelvic area pain and back pain. History of Present Illness Armida Garcia is a 76-year-old female who has been readmitted to inpatient mental health. Mrs. Garcia has a long-standing history of back and pelvic area pain. I did review her last admission notes, and the discussion regarding her fixation upon her pain. Upon meeting the patient today. She is seated at the edge of her bed and has been incontinent of urine. She reports that her pain is centered at the low back and across the hips as well as at the Center pubic bone. She also reports a burning numbness in both feet. He states that this pain makes it difficult for her to walk and to go about activities of daily living. She reports she has been having increasing difficulty with loss of bladder control. States that she cannot tell when she needs to urinate. Denies any loss of bowel control. Rates her pain level as a 6-8/10 depending on activity. States that walking makes the pain worse. Home Medications Scheduled Aripiprazole (Abilify) 10 Mg Tab, 10 MG PO DAILY, (Reported) Aspirin (Aspirin 81) 81 Mg Tab, 81 MG PO DAILY for SUPPLEMENT, (Reported) Atorvastatin Calcium (Atorvastatin Calcium) 10 Mg Tab, 10 MG PO QHS for HYPERLIPIDEMIA, (Reported) Calcium/Vitamin D (Calcium 600+D 600-200 mg-Unit) 1 Tab Tab, 1 TAB PO BID for SUPPLEMENT, (Reported) Gabapentin (Gabapentin) 600 Mg Tab, 600 MG PO TID, (Reported) Hydroxyzine HCl (Hydroxyzine HCl) 25 Mg Tab, 75 MG PO TID, (Reported) Levothyroxine Sodium (Synthroid) 112 Mcg Tab, 112 MCG PO DAILY for HYPOTHYROIDISM, (Reported) Multivitamins *[facility] STOCKED* (Thera M Plus *[facility] STOCKED*) 1 Tab Tab, 1 TAB PO DAILY for SUPPLEMENT, (Reported) TAKES IN AFTERNOON Pramipexole Dihydrochloride (Pramipexole Dihydrochlori) 0.25 Mg Tab, 0.25 MG PO BID for RESTLESS LEGS, (Reported) Venlafaxine HCl (Venlafaxine HCl ER) 75 Mg Cap, 300 MG PO DAILY, (Reported) Scheduled PRN Trazodone HCl (Trazodone HCl) 150 Mg Tab, 150 MG PO QHS PRN for INSOMNIA, ( Reported) Allergies Coded Allergies: Codeine (Verified Adverse Reaction, Mild, NAUSEA, 07/28/12) Past Medical History Medical History 1. Lower extremity peripheral neuropathy 2. History of pelvic fracture Social History Social History Denies tobacco, alcohol, or illicit substance abuse. Lives with her who is reported as supportive Review of Systems Subjective Constitutional: Reports: weakness HEENT: Denies: head aches Pulmonary: Denies: cough, dyspnea Cardiovascular: Denies: chest pain, edema, palpitations Gastrointestinal: Denies: loss of bowel control Genitourinary: Reports: urinary incontinence, loss of bladder control Endocrine: Denies: Diabetes mellitus Musculoskeletal: Reports: other (back pain with radiation to hips) Neurological: Reports: other (loss of sensation and burning in the feet) Physical Examination Physical Examination Vital Signs/I&O Vital Signs Date Time Temp Pulse Resp B/P (MAP) Pulse Ox O2 Delivery O2 Flow Rate FiO2 09/06/16 06:46 98.2 64 20 97/53 (68) 08/31/16 18:00 Room Air 08/31/16 11:30 93 General Exam: Positive: other (seated at edge of the bed, pajamas soaked with urine) ENT EXAM: Positive: normocephalic Neck Exam: Positive: Full range of motion Abdominal Exam: Positive: Normal bowel sounds, Nondistended, Other (tender over suprapubic region) Extremity Exam: Positive: Edema (none) Skin Exam: Positive: Warm, Dry Neuro Exam: Positive: Other (poor balance. GAit is stepping in nature) Psych Exam: Positive: Alert and oriented x 3 (intermittantly weepy) Musculoskeletal able to rise to standing position. Reports mild tenderness with palpation over lumbosacral axis. No tenderness over bilateral sacraliliac joints. Muscle strength 5/5 bilateral upper and lower extremities Assessment 1. Chronic low back pain/lumbago 2. lower extremity peripheral neuropathy Recommendation and Plan Will order CT of lumbar spine to evaluate for spondylithesis and any new lumbar pathology. Discussed with the patient the need to participate in her mental health therapy and various nonpharmacological therapies for pain control, such as meditation and Yoga. Recommend use of gabapentin for neuropathy control. Thank you CAMI Caldwell, for allowing us to participate in the care of your patient, Armida Garcia. Should you have any questions we will be glad to discuss this with you at any time please contact us here at the pain center at [phone]. Carolann Villanueva September 06, 2016 09:14
[2016-09-06] MEDS ORDERED: PPD DOCUMENTATION ENTRY MISC XX SCH (10:00)
[2016-09-06 11:42] VITALS: BP 123/69
--- NOTE | 2016-09-06 16:15 | MHIPNPDOC ---
[facility] Progress Note Progress Note DATE OF SERVICE: 09/06/16 HISTORY: Mrs. Miranda is a 76-year-old female with history of major depressive disorder secondary to medical condition, conversion disorder and dependent personality disorder. The patient was seen in her room, dressed in hospital clothes, with fair eye contact and a more cooperative attitude than yesterday. Her speech is normal. Her thought process is intact and her thought content is negative for homicidal ideation, negative for delusions, negative for auditory and visual hallucinations, negative for active suicidal thoughts, positive for hopelessness , helplessness, worthlessness, shame, guilt and passive suicidal thoughts. Attention and concentration are fair, recent and remote memory are fair, abstract thinking is limited, computation is limited, insight and judgment are poor. Impulse control is fair. She has requested to stop all her medications because she doesn't feel any better and she received counseling as of why it is not possible to discontinue all her medications at once, because she needs them and because she could go into withdrawal by abrupt discontinuation. She accepted that the author of this document will slowly decrease some of the medications that she is taking to wean her off and will introduce other medications instead for her neuropathy. DIAGNOSES: As above ASSESSMENT: She needs to continue on the inpatient mental health unit until she gets transferred to [place]. If she consistently attends groups and improves her mood and attitude, and decision could be taken not to send her to [place]. She was counseled one more time that if she is consistent with group attendance, behavior modification, therapy and if the depression symptoms subside, he will be discharged home instead of being discharged to [place]. MANAGEMENT PLAN: As above. T minutes. Vital Signs Vital Signs Date Time Temp Pulse Resp B/P (MAP) Pulse Ox O2 Delivery O2 Flow Rate FiO2 09/06/16 11:42 98.6 90 18 123/69 (87) 08/31/16 18:00 Room Air 08/31/16 11:30 93 Current Medications Current Medications Acetaminophen (Tylenol Tab) 650 mg Q6HP PRN PO HEADACHE or DISCOMFORT Last administered on 09/02/16t 20:23; Start 08/28/16 at 16:45; Stop 09/27/16 at 16:44 Al Hydrox/Mg Hydrox/Simethicone (Mylanta) 30 ml Q4HP PRN PO HEARTBURN/ INDIGESTION Last administered on 08/29/16 18:55; Start 08/28/16 at 16:45; Stop at 16:44 Amitriptyline HCl (Elavil) 10 mg BID PO Last administered on 09/06/16 08:20; Start 09/02/16 at 21:00; Stop 10/02/16 at 20:59 Amoxicillin/ Clavulanate Potassium (Augmentin) 500 mg Q12H PO Last administered on 09/05/16 06:07; Start 09/03/16 at 18:00; Stop 09/05/16 at 12:05 ; Status DC Aripiprazole (AbiLIFY) 5 mg QAM PO ; Start 09/07/16 at 09:00; Stop 10/07/16 at 08:59 Aripiprazole (AbiLIFY) 10 mg BID PO Last administered on 08/31/16 08:26; Start 08/29/16 at 21:00; Stop 08/31/16 at 13:38; Status DC Aripiprazole (AbiLIFY) 10 mg DAILY PO ; Start 08/29/16 at 09:00; Stop 08/29/16 at 10:06; Status DC Aripiprazole (AbiLIFY) 10 mg QAM PO Last administered on 09/06/16 08:20; Start 09/01/16 at 09:00; Stop 09/06/16 at 13:44; Status DC Aripiprazole (AbiLIFY) 10 mg QHS PO ; Start 09/06/16 at 21:00; Stop 10/06/16 at 20:59 Aripiprazole (AbiLIFY) 15 mg QHS PO Last administered on 09/05/16 20:00; Start 08/31/16 at 21:00; Stop 09/06/16 at 13:42; Status DC Aspirin (Ecotrin) 81 mg DAILY PO Last administered on 09/06/16 08:20; Start at 09:00; Stop 09/28/16 at 08:59 Atorvastatin Calcium (Lipitor) 10 mg QHS PO Last administered on 09/05/16 20: 00; Start 08/28/16 at 21:00; Stop 09/27/16 at 20:59 Calcium/Vitamin D (Oscal D) 500 mg BID PO Last administered on 09/06/16 08:20 ; Start 08/28/16 at 21:00; Stop 09/27/16 at 20:59 Cefdinir (Omnicef) 300 mg BID PO Last administered on 09/06/16 08:20; Start at 09:00; Stop 09/09/16 at 08:59 Docusate Sodium (Colace) 100 mg BID PO Last administered on 09/05/16 08:12; Start 09/02/16 at 09:00; Stop 10/02/16 at 08:59 Gabapentin (Neurontin) 300 mg TID PO Last administered on 09/06/16 15:37; Start 09/06/16 at 16:00; Stop 10/06/16 at 15:59 Gabapentin (Neurontin) 600 mg TID PO Last administered on 09/06/16 08:20; Start 08/28/16 at 21:00; Stop 09/06/16 at 13:42; Status DC Home Med (Med Rec Complete!) ASDIRECTED XX ; Start 08/28/16 at 13:00; Stop at 13:00; Status DC Hydroxyzine HCl (Atarax) 75 mg BID PO Last administered on 09/06/16 08:20; Start 08/28/16 at 21:00; Stop 09/27/16 at 20:59 Levothyroxine Sodium (Synthroid) 0.112 mg DAILY@06 PO Last administered on 09/06 06:02; Start 08/29/16 at 06:00; Stop 09/28/16 at 05:59 Lorazepam (Ativan) 1 mg Q6HP PRN PO ANXIETY Last administered on 09/06/16 15: 49; Start 08/29/16 at 09:00; Stop 09/11/16 at 08:59 Lorazepam (Ativan) 1 mg STAT STAT IV Last administered on 08/28/16 08:00; Start 08/28/16 at 07:19; Stop 08/28/16 at 07:21; Status DC Lorazepam (Ativan) 2 mg STAT STAT PO Last administered on 08/29/16 09:01; Start 08/29/16 at 08:49; Stop 08/29/16 at 08:51; Status DC Magnesium Hydroxide (Milk Of Magnesia) 30 ml DAILYPRN PRN PO CONSTIPATION Last administered on 09/03/16 11:22; Start 08/28/16 at 16:45; Stop 09/27/16 at 16:44 Multivitamins (Theragram-M) 1 tab DAILY PO Last administered on 09/06/16 08:20 ; Start 08/29/16 at 09:00; Stop 09/28/16 at 08:59 Non-Formulary Medication ( See Comment Field Below ) SEE COMMENTS SECTION 1T @10 XX ; Start 08/31/16 at 10:00; Stop 08/31/16 at 10:00; Status DC Non-Formulary Medication ( See Comment Field Below ) SEE LABEL COMMENTS DAILY XX ; Start 08/29/16 at 09:00; Stop 09/04/16 at 08:31; Status DC Non-Formulary Medication ( See Comment Field Below ) SEE LABEL COMMENTS SECTION 1T@10 XX Last administered on 09/06/16 10:00; Start 09/06/16 at 10:00 ; Stop 09/06/16 at 23:59 Nystatin (Mycostatin Powder, Nystop) 1 dose BIDP PRN TOP RASH Last administered on 09/04/16 20:36; Start 09/04/16 at 18:30; Stop 10/04/16 at 18:29 Polyethylene Glycol (Miralax) 1 pkt DAILYPRN PRN PO CONSTIPATION Last administered on 09/02/16 10:26; Start 08/28/16 at 21:30; Stop 09/27/16 at 21:29 Pramipexole Dihydrochloride (Mirapex) 0.25 mg BID PO Last administered on 08:20; Start 08/28/16 at 21:00; Stop 09/27/16 at 20:59 Trazodone HCl (Desyrel) 150 mg QHS PO Last administered on 09/05/16 20:00; Start 08/28/16 at 21:00; Stop 09/27/16 at 20:59 Tuberculin PPD (Aplisol, Ppd) 5 units 1T@10 ID Last administered on 09/04/16 09:21; Start 09/04/16 at 10:00; Stop 09/04/16 at 23:59; Status DC Venlafaxine HCl (Effexor Xr) 300 mg DAILY PO Last administered on t 08:20; Start 08/29/16 at 09:00; Stop 09/28/16 at 08:59 Allergies Coded Allergies: Codeine (Verified Adverse Reaction, Mild, NAUSEA, 07/28/12) BEATRICE SNYDER MD September 06, 2016 16:15
[2016-09-06 18:28] VITALS: BP 128/72
[2016-09-06] MEDS: ATORVASTATIN 10 MG TAB PO SCH (20:16)
[2016-09-06] MEDS: traZODone 50 MG TAB PO SCH (20:17)
[2016-09-07] MEDS: LEVOTHYROXINE 0.112 MG TAB (112 MCG) PO SCH (06:05)
[2016-09-07 06:45] VITALS: BP 110/53
[2016-09-07] MEDS: CEFDINIR 300 MG CAP (OMNICEF) PO SCH ×2 (08:05→20:14)
[2016-09-07] MEDS: AMITRIPTYLINE 10 MG TAB PO SCH ×2 (08:05→20:14)
[2016-09-07] MEDS: CALCIUM/VITAMIN D 500 MG TAB PO SCH ×2 (08:05→20:14)
[2016-09-07] MEDS: GABAPENTIN 300 MG CAP PO SCH ×3 (08:06→20:15)
[2016-09-07] MEDS: ASPIRIN 81 MG ENTERIC TAB PO SCH (08:06)
[2016-09-07] MEDS: hydrOXYzine 25 MG TAB PO SCH ×2 (08:06→20:14)
[2016-09-07] MEDS: PRAMIPEXOLE 0.25 MG TAB PO SCH ×2 (08:06→20:15)
[2016-09-07] MEDS: VENLAFAXINE **XR** 75MG CAPSULE PO SCH (08:06)
[2016-09-07] MEDS: DOCUSATE SODIUM 100 MG CAP PO SCH ×2 (08:06→20:15)
[2016-09-07] MEDS: MULTIVITAMINS/MINERALS THERAP 1 TAB PO SCH (08:06)
[2016-09-07] MEDS: LORazepam 1 MG TAB PO PRN ×2 (08:06→15:49)
[2016-09-07 14:00] VITALS: BP 112/60
[2016-09-07] MEDS: ATORVASTATIN 10 MG TAB PO SCH (20:14)
[2016-09-07] MEDS: traZODone 50 MG TAB PO SCH (20:15)
[2016-09-07] MEDS: ARIPiprazole 10 MG TAB PO SCH (20:16)
--- NOTE | 2016-09-07 22:30 | IPN ---
DATE: 09/07/2016 76-year-old female with history of major depressive disorder secondary to medical condition, conversion disorder, and dependent personality disorder. As per patient, she stated being very upset because someone told her that she was not attending all groups and sometimes she left them. She wanted to know who has said something like that to her , because she perseverates is going regularly to all groups. She says that now her will not believe her because he thought she was attending groups and now he will think that she is a liar. She was told that she is not attending yoga groups and she is not attending the meditation group, but she says that that is nonsense, that she does not find any reason to attend them. She was educated once again as to the benefits of meditation and yoga, not only for her mental problems, but also for her physical and medical problems since yoga and meditation will decrease the level of pain that effects her. She continues to manifest severe preoccupation as to when she is going to be transferred to [place] and she was told, once again, that this is a process and it depends if she improves her mood, her affect, and also her medical problems through group attendance and having a more cooperative and positive outlook to her current hospitalization. Since yesterday, she has been on gabapentin 300 mg by mouth three times a day, her Abilify was also decreased, and Atarax was decreased because she said yesterday that she did not feel that the medications were helping her at all. She has stated this several times, but unfortunately she becomes aware of that fact and then she has changed her mind after 24-48 hours. Today, she did not complain about pain, but she expressed that she is extremely stressed out about the possibility of going to [place]. She was reminded once again that if she attends groups and if she improves, she can be discharged home instead of going to [place], but that we need to see that these changes are consistent and that she is doing this over a several week period of time. She was seen dressed in hospital clothes, less depressed than previous days, less angry, less irritable. Her eye contact is good, her speech is normal, her thought process is intact, and her thought content is positive for helplessness, hopelessness, worthlessness, and continuous preoccupation about her transfer to [place]. She has stopped focusing on her tingling and numbness in her feet and has switched to worrying about her transfer to [place]. Her attention and concentration are poor because she is anxious and she cannot keep her mind away from her current situation, her remote and recent memory are intact, her fund of knowledge is good, she is not responding to internal stimuli, she has no delusional thoughts. Her insight and judgment continues to be extremely poor, but her impulse control is slowly improving. She has denied suicidal ideation, homicidal ideation, and psychotic thoughts, but she is still very depressed and her poor judgment and her poor insight certainly contribute to her being a danger to herself. She will continue on the same treatment plan. Will try to decrease her medications slowly, will continue to provide her with supportive psychotherapy, and will continue to encourage her to attend groups and interact more with staff and peers. As per management, arrangements are still being made for her to be transferred to [place] if she does not show consistency with her group attendance and if she does not improve in regards to her psychiatric and medical condition. Will followup.
[2016-09-08] MEDS: LEVOTHYROXINE 0.112 MG TAB (112 MCG) PO SCH (05:52)
[2016-09-08 06:46] VITALS: BP 136/55
[2016-09-08 07:05] VITALS: BP 136/55
[2016-09-08] MEDS: GABAPENTIN 300 MG CAP PO SCH ×3 (08:17→21:00)
[2016-09-08] MEDS: MULTIVITAMINS/MINERALS THERAP 1 TAB PO SCH (08:17)
[2016-09-08] MEDS: ASPIRIN 81 MG ENTERIC TAB PO SCH (08:17)
[2016-09-08] MEDS: VENLAFAXINE **XR** 75MG CAPSULE PO SCH (08:17)
[2016-09-08] MEDS: hydrOXYzine 25 MG TAB PO SCH ×2 (08:18→21:00)
[2016-09-08] MEDS: LORazepam 1 MG TAB PO PRN ×3 (08:18→23:47)
[2016-09-08] MEDS: AMITRIPTYLINE 10 MG TAB PO SCH ×2 (08:18→21:00)
[2016-09-08] MEDS: CEFDINIR 300 MG CAP (OMNICEF) PO SCH ×2 (08:18→21:00)
[2016-09-08] MEDS: CALCIUM/VITAMIN D 500 MG TAB PO SCH ×2 (08:18→21:00)
[2016-09-08] MEDS: PRAMIPEXOLE 0.25 MG TAB PO SCH ×2 (08:18→21:00)
[2016-09-08] MEDS: DOCUSATE SODIUM 100 MG CAP PO SCH ×2 (08:19→21:00)
[2016-09-08 14:46] VITALS: BP 125/77
[2016-09-08 18:00] VITALS: BP 112/56
[2016-09-08] MEDS: traZODone 50 MG TAB PO SCH (19:58)
[2016-09-08] MEDS: ATORVASTATIN 10 MG TAB PO SCH (21:00)
[2016-09-08] MEDS: ARIPiprazole 10 MG TAB PO SCH (21:00)
[2016-09-09] MEDS: LEVOTHYROXINE 0.112 MG TAB (112 MCG) PO SCH (05:45)
[2016-09-09 06:39] VITALS: BP 111/66
[2016-09-09] MEDS: LORazepam 1 MG TAB PO PRN ×3 (07:15→20:28)
[2016-09-09] MEDS: ASPIRIN 81 MG ENTERIC TAB PO SCH (09:08)
[2016-09-09] MEDS: carBAMazepine XR 200 MG TAB PO SCH ×2 (09:08→15:48)
[2016-09-09] MEDS: DOCUSATE SODIUM 100 MG CAP PO SCH ×3 (09:08→20:29)
[2016-09-09] MEDS: SERTRALINE HCL 25 MG TABLET PO SCH (09:08)
[2016-09-09] MEDS: CALCIUM/VITAMIN D 500 MG TAB PO SCH ×2 (09:08→20:21)
[2016-09-09] MEDS: hydrOXYzine 25 MG TAB PO SCH ×2 (09:08→20:21)
[2016-09-09] MEDS: MULTIVITAMINS/MINERALS THERAP 1 TAB PO SCH (09:08)
[2016-09-09 13:53] VITALS: BP 107/59
[2016-09-09] MEDS ORDERED: LORazepam 1 MG TAB PO STA (16:26)
[2016-09-09] MEDS: IBUPROFEN 600 MG TAB PO SCH (17:26)
[2016-09-09] MEDS: ARIPiprazole 15 MG TAB (AbiLIFY) PO SCH (20:21)
[2016-09-09] MEDS: ATORVASTATIN 10 MG TAB PO SCH (20:21)
[2016-09-09] MEDS: MIRTAZAPINE 15 MG TAB PO SCH (20:22)
[2016-09-09] MEDS: carBAMazepine XR 100 MG TAB PO SCH (20:24)
[2016-09-10 06:11] VITALS: BP 106/64
[2016-09-10] MEDS: IBUPROFEN 600 MG TAB PO SCH ×4 (06:18→18:02)
[2016-09-10] MEDS: LEVOTHYROXINE 0.112 MG TAB (112 MCG) PO SCH (06:18)
[2016-09-10 06:47] VITALS: BP 106/64
[2016-09-10] MEDS: ASPIRIN 81 MG ENTERIC TAB PO SCH (08:33)
[2016-09-10] MEDS: MULTIVITAMINS/MINERALS THERAP 1 TAB PO SCH (08:33)
[2016-09-10] MEDS: carBAMazepine XR 100 MG TAB PO SCH ×3 (08:33→20:16)
[2016-09-10] MEDS: ARIPiprazole 10 MG TAB PO SCH (08:33)
[2016-09-10] MEDS: DOCUSATE SODIUM 100 MG CAP PO SCH ×2 (08:33→20:15)
[2016-09-10] MEDS: SERTRALINE HCL 25 MG TABLET PO SCH (08:34)
[2016-09-10] MEDS: CALCIUM/VITAMIN D 500 MG TAB PO SCH ×2 (08:34→20:16)
[2016-09-10] MEDS: hydrOXYzine 25 MG TAB PO SCH ×2 (08:34→20:16)
[2016-09-10] MEDS ORDERED: LORazepam 0.5 MG TAB PO ONE (09:45)
[2016-09-10 10:26] VITALS: BP 106/64
--- NOTE | 2016-09-10 12:37 | IPN ---
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 The patient was evaluated this afternoon in her bedroom, and she stated that this author was right, that she could not go home, as she was in terrible pain, that her feet were aching more than ever. She requested to have one more dose of Ativan, because she was extremely anxious. She said that she has not been able to sleep well, because she continues to think about her transfer to [place], and she cannot bear the idea of going to "that place." At the time of the evaluation, the patient was sitting on her bed with good eye contact, dressed in hospital clothes with normal speech, intact thought process, and thought content perseverating around physical pain, tingling, numbness in her feet. Her mood and affect were anxious/depressed. Her memory, remote and recent are intact. Her attention and concentration are fair. Her fund of knowledge is fair. Her insight and judgment continue to be very poor. ASSESSMENT: The patient continues to be extremely anxious, slightly less depressed, and manipulative. Her medications were adjusted last night, and venlafaxine was discontinued, and she was started on Zoloft. Instead of gabapentin, she is taking now Tegretol 300 mg by mouth three times a day. She continues to take Ativan for anxiety, and trazodone was discontinued, and instead Remeron was added to her regimen. In spite of all these medication adjustments, she continues to complain of pain and continues to be continuously focused on her pain problem. From what this author is concerned, she attended groups today, and she stated that she is determined to attend groups to avoid being transferred to [place]. The patient's case is difficult, because she does not want to think that her physical pain is in part caused by her unresolved emotional problems, and she does not want to work on her emotional problems, so if she continues with this attitude, the most likely outcome is that her physical and medical problems will increase, and she will continue to feel depressed and anxious. It is for that reason that this author has insisted that she has to continue attending groups, not only one or two, but all of them. dairy husbandry worker has also made emphasis on this aspect, and she has been told that if she improves, if she attends groups, if her depression and anxiety decrease, then this will be taken into consideration in order to avoid the transfer to [place], but if she continues to not attend groups and not willing to work on her emotional issues, and there is no improvement, then she will be transferred to [place]. At this time of this evaluation, the patient was not in danger to others, but she continues to be a danger to herself, because she is not able to control her thoughts, and she goes from severe anxiety to severe depression. We will continue to observe and monitor closely, provide support, encourage her to continue attending groups, and to work on her emotional problems. Will follow.
[2016-09-10 14:36] VITALS: BP 132/77
[2016-09-10] MEDS: LORazepam 1 MG TAB PO PRN ×2 (16:51→22:53)
[2016-09-10] MEDS: ARIPiprazole 15 MG TAB (AbiLIFY) PO SCH (20:16)
[2016-09-10] MEDS: MIRTAZAPINE 15 MG TAB PO SCH (20:16)
[2016-09-10] MEDS: ATORVASTATIN 10 MG TAB PO SCH (20:16)
[2016-09-11] MEDS: LEVOTHYROXINE 0.112 MG TAB (112 MCG) PO SCH (06:00)
[2016-09-11] MEDS: IBUPROFEN 600 MG TAB PO SCH ×4 (06:00→18:00)
[2016-09-11 06:26] VITALS: BP 148/88
[2016-09-11] MEDS: DOCUSATE SODIUM 100 MG CAP PO SCH ×2 (08:04→20:05)
[2016-09-11] MEDS: carBAMazepine XR 100 MG TAB PO SCH ×3 (08:07→20:05)
[2016-09-11] MEDS: SERTRALINE HCL 25 MG TABLET PO SCH (08:07)
[2016-09-11] MEDS: MULTIVITAMINS/MINERALS THERAP 1 TAB PO SCH (08:07)
[2016-09-11] MEDS: ARIPiprazole 10 MG TAB PO SCH (08:07)
[2016-09-11] MEDS: CALCIUM/VITAMIN D 500 MG TAB PO SCH ×2 (08:07→20:05)
[2016-09-11] MEDS: ASPIRIN 81 MG ENTERIC TAB PO SCH (08:07)
[2016-09-11] MEDS: hydrOXYzine 25 MG TAB PO SCH ×2 (08:07→20:05)
[2016-09-11] MEDS: LORazepam 1 MG TAB PO PRN ×2 (09:03→15:02)
[2016-09-11 14:12] VITALS: BP 130/86
[2016-09-11] MEDS: ATORVASTATIN 10 MG TAB PO SCH (20:05)
[2016-09-11] MEDS: MIRTAZAPINE 15 MG TAB PO SCH (20:06)
[2016-09-11] MEDS: ARIPiprazole 15 MG TAB (AbiLIFY) PO SCH (20:06)
[2016-09-11 21:42] VITALS: BP 118/74
[2016-09-12] MEDS: ACETAMINOPHEN TAB 650MG DOSE (2X325MG) PO PRN ×2 (03:03→09:55)
[2016-09-12] MEDS: IBUPROFEN 600 MG TAB PO SCH ×5 (05:00→23:17)
[2016-09-12] MEDS: LEVOTHYROXINE 0.112 MG TAB (112 MCG) PO SCH (05:01)
[2016-09-12 06:26] VITALS: BP 136/81
--- NOTE | 2016-09-12 07:54 | IPN ---
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 This morning, Mrs. Garcia was seen in her room because she was screaming and yelling complaining that she had a lot of pain. But instead of asking for pain medication, she kept asking for Ativan. This author explained to her that Ativan is not a pain medication. However, she kept sobbing, crying, and yelling and saying that her has given up on her, that he has been at the inpatient mental health unit on Monday night and he had told her that he has had it. That he was leaving and that she was sure that this time he was not going to come back to see her. She kept wondering when was she going to go to [place] and complaining about it and trying to persuade me not to send her to [place]. She became so agitated that this author had to administer 1.5 mg of Ativan. She was able to calm down with the medication, she fell asleep, but again at 3-o'clock in the afternoon, she kept insisting on having another Ativan and this author explained to her that she was not going to get another pill, that these pills were only when somebody was extremely anxious and that they were not meant to treat pain. This author explained once again she is taking Tegretol for the neuropathy and she is also having Ibuprofen every 6 hours for pain. Her impulse control, judgment and insight are extremely poor, she has continued to regress in order to seek attention and in order to manipulate the staff to give her medications. But she does not realize that by doing all of this, she is just putting herself in a very bad position because if she so unstable, she will end up going to [place], which is what she does not want. This author and social work associate has explained to her that if she tried her best and if she improved, she could avoid going to [place], but she is not trying her best, she is getting more and more anxious and more depressed and unfortunately she cannot receive more medications because of her age and because she is frail and because the medications that she is asking for are not indicated for pain. They are indicated for anxiety. Will followup.
[2016-09-12 07:57] VITALS: BP 177/129
[2016-09-12 08:10] VITALS: BP 111/70
[2016-09-12] MEDS ORDERED: ONDANSETRON 4 MG TAB (S0181) PO ONE (08:15)
--- NOTE | 2016-09-12 08:35 | IPNPDOC ---
Subjective Date Seen The patient was seen on 09/12/16. Subjective Chief Complaint/HPI The patient is a 76-year-old female admitted with a reason for visit of Unspecified Depressive Disorder. Events since last encounter Requested to evaluate the patient related to left wrist pain. The patient states she got out of bed to go to the bathroom and she lost her balance in the bathroom and fell. She is currently sitting in a wheelchair at the bedside. She is complaining of left sided/frontal head pain. She denies loss of consciousness. She states she did hit her head. She is reporting nausea, no vomiting. No vision changes, dizziness, vertigo, dysarthria or dysphagia. She states she fell on her left side and she is complaining of left wrist pain. She denies any pain otherwise. She reports no neck pain or low back pain. No hip pain. She is able to get out of the wheelchair with assistance and lie down in bed. She denies shortness of breath, chest pain and heaviness tightness or pressure. She denies abdominal pain. She has not had any diarrhea. As per nursing, she had apparently refused some of her medications for the past 2 days over the weekend. She did not eat yesterday. Objective Physical Examination General Exam: Positive: Alert Eye Exam: Positive: PERRLA ENT Exam: Positive: Atraumatic, Mucous membr. moist/pink, Pharynx Normal, Tongue Midline Neck Exam: Positive: Supple, Negative: JVD, thyromegaly Chest Exam: Positive: Clear to auscultation, Normal air movement Heart Exam: Positive: Rate Normal, Regular Rhythm, Normal S1, Normal S2, Negative: Murmurs, Rubs Abdomen Exam: Positive: Normal bowel sounds, Soft, Negative: Tenderness, Hepatospenomegaly, Mass, Hernia Extremity Exam: Positive: Normal pulses, Negative: Clubbing, Cyanosis, Edema Skin Exam: Positive: Nl turgor and temperature Psych Exam: Positive: Oriented x 3 Assessment /Plan Problems (1) Fall Status: Acute Problem Text: * Pt apparently refusing some of her meds over the weekend, and did not eat yesterday per nursing. * VS this AM 136/81, HR 83, RR 18 T 97.4 * VS after getting back to bed: BP 111/70, HR 76, O2 sat 95% RA, T 97.5. * Update CBC/CMP * UA/urine culture * Update EKG. * Request x-ray of left forearm/left wrist. Results indicate Colles fracture- Spoke to Quentin Parra NP, Dr March will evaluate Pt. * Check CT scan brain. * Fall precautions. * I/O * Orthostatic vital signs every shift. * PT eval and treat for unsteady gait. Patient does not use any assistive devices at this time. (2) UTI (urinary tract infection) Status: Acute Problem Text: * UC 09/05 * Sensitivities reviewed. Augmentin d/cd. Pt started on Cefdinir 300mg BID 09/05- 09/08 * Changed to Nitrofurantoin 09/11. Organism 1 ESCHERICHIA COLI COLONY COUNT >100,000 CFU/ml Organism 2 PROTEUS MIRABILIS COLONY COUNT >100,000 CFU/ml (3) Constipation Status: Chronic Problem Text: * AXR 08/28/16 KUB shows the intestinal gas pattern to be nonspecific. The organ silhouettes insofar as delineated are unremarkable. There is no evidence of free intraperitoneal air. * CT A/P 08/28/16 No evidence of acute disease. * Continue with MiraLAX daily as needed * Colace 100 mg by mouth twice a day * Continue with milk of magnesia daily as needed. * abdominal x-ray 09/02 Unremarkable bowel gas pattern. No evidence of obstruction. . (4) Chronic pain Status: Chronic Problem Text: * Patient remains on gabapentin 600 mg 3 times a day. * Pt continues to report chronic pain. * Continue with Tylenol as needed. * Appreciate pain mgmt opinion. 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 This appears more prominent than on the prior MRI study of 10/28/2013. Scoliosis is seen. Mild stable wedge compression deformities are noted at T12 and L1 (5) Hypothyroid Status: Chronic Problem Text: * Continue supplement (6) Bladder neoplasm Status: Chronic Problem Text: * H/O Bladder Ca. * Follows as outpatient with urology, Dr. Bradford. * Urine cytology negative 05/10 (7) Hyperlipidemia Status: Chronic Problem Text: * Continue statin/ASA Plan/VTE VTE Prophylaxis Ordered?: No (ambulatory) VS, I&O, 24H, Fishbone Vital Signs/I&O Vital Signs Date Time Temp Pulse Resp B/P (MAP) Pulse Ox O2 Delivery O2 Flow Rate FiO2 09/12/16 08:10 76 18 111/70 (84) 95 Room Air 09/12/16 07:57 97.5 Laboratory Data 24H LABS Laboratory Tests 2 09/12/16 08:18: Microbiology Microbiology 09/03/16 Urine Culture - Final, Complete Escherichia Coli Proteus Mirabilis Enterococcus Faecalis Aerococcus Urinae 09/02/16 Urine Culture - Final, Complete Escherichia Coli Proteus Mirabilis Enterococcus Faecalis Griselda Shanks September 12, 2016 08:35
--- NOTE | 2016-09-12 09:07 | REP ---
Clinical: Trauma. Fall. Technique: AP and lateral views of the left forearm. Findings: Comminuted Colles' fracture of the distal radius is appreciated with posterior angulation. Remainder of the forearm appears relatively normal and without further acute fracture dislocation. Impression: Comminuted Colles' fracture of the distal radius. Signed by Humble Mckinley MD 09/12/2016 08:58 A
--- NOTE | 2016-09-12 09:09 | REP ---
Clinical: Trauma. Fall. Technique: AP, lateral, bilateral oblique views of the left wrist. Findings: A comminuted Colles' fracture of the distal radius is appreciated with posterior angulation. Acute ulnar styloid fracture is also identified. Overlying soft tissue swelling noted. The carpal bones appear intact. Underline age-related osteopenia and degenerative changes noted. Impression: Acute comminuted Colles' fracture of the distal radius and ulnar styloid fracture. Signed by Humble Mckinley MD 09/12/2016 08:59 A
--- NOTE | 2016-09-12 09:15 | REP ---
CT HEAD WITHOUT CONTRAST: HISTORY: Fall. COMPARISON: 10/25/2015. An area of decreased attentuation is present in the left basal ganglia. This presents an old lacunar infarction. Areas of decreased attentuation are present in the periventricular white matter. This represents small vessel ischemic disease. There is no intraparenchymal hemorrhage, mass, or midline shift. The ventricular system and cortical sulci are dilated consistent with minimal volume loss. There is no extracerebral collection. There is no fracture. The visualized sinuses are clear. IMPRESSION: 1. Old left basal ganglia lacunar infarction. 2. Small vessel ischemic disease. 3. Minimal volume loss. Signed by Mason Coronel MD 09/12/2016 10:44 A
[2016-09-12 09:32] LABS: ALBUMIN 3.6 GM/DL (3.2-5.2); ALBUMIN/GLOBULIN RATIO 1.38 (1.00-1.93); ALKALINE PHOSPHATASE 114 U/L (45-117); ALT/SGPT 39 U/L (12-78); ANION GAP 12 MEQ/L (8-16); AST/SGOT 26 U/L (15-37); BILIRUBIN,TOTAL 0.6 MG/DL (0.2-1.0); BLOOD UREA NITROGEN 18 MG/DL (7-18); CALCIUM LEVEL 8.9 MG/DL (8.8-10.2); CARBON DIOXIDE LEVEL 23 MEQ/L (21-32); CHLORIDE LEVEL 109 MEQ/L (98-107); CREATININE FOR GFR 0.72 MG/DL (0.55-1.02); GLOMERULAR FILTRATION RATE > 60.0 (>39); GLUCOSE, FASTING 112 MG/DL (83-110); POTASSIUM SERUM 3.9 MEQ/L (3.5-5.1); SODIUM LEVEL 144 MEQ/L (136-145); TOTAL PROTEIN 6.2 GM/DL (6.4-8.2)
[2016-09-12] MEDS: MULTIVITAMINS/MINERALS THERAP 1 TAB PO SCH (09:35)
[2016-09-12] MEDS: ARIPiprazole 10 MG TAB PO SCH (09:35)
[2016-09-12] MEDS: NITROFURANTOIN (MACROBID) 100 MG CAP PO SCH ×2 (09:35→20:02)
[2016-09-12] MEDS: DOCUSATE SODIUM 100 MG CAP PO SCH ×2 (09:36→20:02)
[2016-09-12] MEDS: SERTRALINE HCL 25 MG TABLET PO SCH (09:36)
[2016-09-12] MEDS: ASPIRIN 81 MG ENTERIC TAB PO SCH (09:36)
[2016-09-12] MEDS: CALCIUM/VITAMIN D 500 MG TAB PO SCH ×2 (09:36→20:02)
[2016-09-12] MEDS: hydrOXYzine 25 MG TAB PO SCH ×2 (09:36→20:03)
[2016-09-12] MEDS: carBAMazepine XR 100 MG TAB PO SCH ×3 (09:37→20:02)
[2016-09-12] MEDS ORDERED: LORazepam 0.5 MG TAB PO ONE (09:45)
[2016-09-12 09:48] LABS: BASO % 0.9 % (0.0-1.0); EOS # 0.2 K/mm3 (0.0-0.50); EOS % 3.1 % (0.0-3.0); LARGE UNSTAINED CELL # 0.1 K/mm3 (0.0-0.4); LARGE UNSTAINED CELL % 1.9 % (0.0-4.0); LYMPH # 1.1 K/mm3 (1.5-4.5); LYMPH % 22.4 % (24.0-44.0); MEAN CORPUSCULAR HEMOGLOBIN 30.1 pg (27.0-33.0); MEAN CORPUSCULAR HGB CONC 32.8 g/dl (32.0-36.5); MONO # 0.3 K/mm3 (0.0-0.8); NEUTROPHILS # 3.4 K/mm3 (1.8-7.7); NEUTROPHILS % 66.6 % (36.0-66.0); PLATELET COUNT, AUTOMATED 325 k/mm3 (150-450); RED CELL DISTRIBUTION WIDTH 13.2 % (11.5-14.5); WHITE BLOOD COUNT 5.1 K/mm3 (4.0-10.0)
--- NOTE | 2016-09-12 10:03 | IPNPDOC ---
Subjective Date Seen The patient was seen on 09/12/16. Subjective Chief Complaint/HPI The patient is a 76-year-old female admitted with a reason for visit of Unspecified Depressive Disorder. Events since last encounter Discussing with Pt regarding left wrist fracture. Orthopedics consulted. Pt states she is now having pain Left lateral rib area. Painful to touch. Denies any hip, LE pain. Objective Physical Examination General Exam: Positive: Alert Eye Exam: Positive: PERRLA ENT Exam: Positive: Atraumatic, Mucous membr. moist/pink, Pharynx Normal, Tongue Midline Neck Exam: Positive: Supple, Negative: JVD, thyromegaly Chest Exam: Positive: Clear to auscultation, Normal air movement Heart Exam: Positive: Rate Normal, Regular Rhythm, Normal S1, Normal S2, Negative: Murmurs, Rubs Abdomen Exam: Positive: Normal bowel sounds, Soft, Negative: Tenderness, Hepatospenomegaly, Mass, Hernia Extremity Exam: Positive: Normal pulses, Negative: Clubbing, Cyanosis, Edema Skin Exam: Positive: Nl turgor and temperature Psych Exam: Positive: Oriented x 3 Assessment /Plan Problems (1) Wrist fracture, left Problem Text: * XR results discussed with pt, attending aware. * Orthopedics consulted. Dr March will evaluate, spoke with Quentin Parra NP. * temporary splint applied, Tylenol given, ice applied. * Pt resting in bed. (2) Fall Status: Acute Problem Text: * Pt apparently refusing some of her meds over the weekend, and did not eat yesterday per nursing. * VS this AM 136/81, HR 83, RR 18 T 97.4 * VS after getting back to bed: BP 111/70, HR 76, O2 sat 95% RA, T 97.5. * Update CBC/CMP * UA/urine culture * Update EKG. * Check XR ribs B/L. * XR left wrist. Results indicate Colles fracture- Spoke to Quentin Parra NP, Dr March will evaluate Pt. See above. * CT scan brain. No acute changes. * Also check XR ribs as pt c/o Left lateral rib pain currently. * Fall precautions. * I/O * Orthostatic vital signs every shift. * PT eval and treat for unsteady gait. Patient does not use any assistive devices at this time. (3) UTI (urinary tract infection) Status: Acute Problem Text: * UC 09/05 * Sensitivities reviewed. Augmentin d/cd. Pt started on Cefdinir 300mg BID 09/05- 09/08 * Changed to Nitrofurantoin 09/11. Organism 1 ESCHERICHIA COLI COLONY COUNT >100,000 CFU/ml Organism 2 PROTEUS MIRABILIS COLONY COUNT >100,000 CFU/ml (4) Constipation Status: Chronic Problem Text: * AXR 08/28/16 KUB shows the intestinal gas pattern to be nonspecific. The organ silhouettes insofar as delineated are unremarkable. There is no evidence of free intraperitoneal air. * CT A/P 08/28/16 No evidence of acute disease. * Continue with MiraLAX daily as needed * Colace 100 mg by mouth twice a day * Continue with milk of magnesia daily as needed. * abdominal x-ray 09/02 Unremarkable bowel gas pattern. No evidence of obstruction. . (5) Chronic pain Status: Chronic Problem Text: * Pt continues to report chronic pain. * Continue with Tylenol as needed. * Appreciate pain mgmt opinion. 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 This appears more prominent than on the prior MRI study of 10/28/2013. Scoliosis is seen. Mild stable wedge compression deformities are noted at T12 and L1 (6) Hypothyroid Status: Chronic Problem Text: * Continue supplement (7) Bladder neoplasm Status: Chronic Problem Text: * H/O Bladder Ca. * Follows as outpatient with urology, Dr. Bradford. * Urine cytology negative 05/10 (8) Hyperlipidemia Status: Chronic Problem Text: * Continue statin/ASA (9) Rib pain Problem Text: * XR ribs requested. * XR indicates non displaced left 7th rib fracture * Possible Rt fifth rib fracture. * Fall precautions * sitter * Add I/S * above discussed with Dr Bangura Plan/VTE VTE Prophylaxis Ordered?: No (ambulatory) VS, I&O, 24H, Fishbone Vital Signs/I&O Vital Signs Date Time Temp Pulse Resp B/P (MAP) Pulse Ox O2 Delivery O2 Flow Rate FiO2 09/12/16 08:10 76 18 111/70 (84) 95 Room Air 09/12/16 07:57 97.5 Laboratory Data 24H LABS Laboratory Tests 2 09/12/16 08:18: Bedside Glucose (Misc Panel) 114H 5/22/17 08:31: White Blood Count 5.1, Red Blood Count 4.57, Hemoglobin 13.8, Hematocrit 42.0, Mean Corpuscular Volume 92.0, Mean Corpuscular Hemoglobin 30.1, Mean Corpuscular Hemoglobin Concent 32.8, Red Cell Distribution Width 13.2, Platelet Count 325, Neutrophils (%) (Auto) 66.6H, Lymphocytes (%) (Auto) 22.4L, Monocytes (%) (Auto) 5.0, Eosinophils (%) (Auto) 3.1H, Basophils (%) (Auto) 0.9 , Neutrophils # (Auto) 3.4, Lymphocytes # (Auto) 1.1L, Monocytes # (Auto) 0.3, Eosinophils # (Auto) 0.2, Basophils # (Auto) 0.0, Large Unclassified Cells % 1.9 , Large Unclassified Cells # 0.1, Anion Gap 12, Glomerular Filtration Rate > 60.0, Blood Urea Nitrogen 18, Creatinine 0.72, Sodium Level 144, Potassium Level 3.9, Chloride Level 109H, Carbon Dioxide Level 23, Calcium Level 8.9, Aspartate Amino Transf (AST/SGOT) 26, Alanine Aminotransferase (ALT/SGPT) 39, Alkaline Phosphatase 114, Total Bilirubin 0.6, Total Protein 6.2L, Albumin 3.6, Albumin/Globulin Ratio 1.38 CBC/BMP Laboratory Tests 09/12/16 08:31 Red Blood Count 4.57, Mean Corpuscular Volume 92.0, Mean Corpuscular Hemoglobin 30.1, Mean Corpuscular Hemoglobin Concent 32.8, Red Cell Distribution Width 13.2 , Neutrophils (%) (Auto) 66.6 H, Lymphocytes (%) (Auto) 22.4 L, Monocytes (%) ( Auto) 5.0, Eosinophils (%) (Auto) 3.1 H, Basophils (%) (Auto) 0.9, Neutrophils # (Auto) 3.4, Lymphocytes # (Auto) 1.1 L, Monocytes # (Auto) 0.3, Eosinophils # (Auto) 0.2, Basophils # (Auto) 0.0, Calcium Level 8.9, Aspartate Amino Transf ( AST/SGOT) 26, Alanine Aminotransferase (ALT/SGPT) 39, Alkaline Phosphatase 114, Total Bilirubin 0.6, Total Protein 6.2 L, Albumin 3.6 Microbiology Microbiology 09/03/16 Urine Culture - Final, Complete Escherichia Coli Proteus Mirabilis Enterococcus Faecalis Aerococcus Urinae 09/02/16 Urine Culture - Final, Complete Escherichia Coli Proteus Mirabilis Enterococcus Faecalis Griselda Shanks September 12, 2016 10:03
--- NOTE | 2016-09-12 11:06 | REP ---
Clinical: Status post fall. Rib pain. Technique: Frontal view of the chest with multiple views of the bilateral hemithoraces. Findings: There is a nondisplaced fracture involving the lateral aspect of the left seventh rib. There is a suspected nondisplaced fracture involving the lateral aspect of the right fifth rib. More subtle injuries cannot be excluded. Trace basilar atelectasis (left greater than right) is suggested. No pneumothorax. Mediastinum and cardiac silhouette are stable. Impression: Nondisplaced left 7th rib fracture and possible nondisplaced right fifth rib fracture. Trace basilar atelectasis. Signed by Humble Mckinley MD 09/12/2016 10:57 A
[2016-09-12] MEDS: LORazepam 1 MG TAB PO PRN ×2 (12:25→22:51)
--- NOTE | 2016-09-12 13:20 | CR ---
DATE OF CONSULTATION: 09/12/2016 Consultation for Griselda Shanks. This is a 76-year-old woman who had a fall earlier today while in the inpatient psychiatric unit. She sustained a left distal radius fracture that was displaced and angulated. I was asked to evaluate her for this. Her past medical history includes bladder cancer resection, hyperlipidemia, hypothyroidism, pelvic fracture, peripheral neuropathy, depression, anxiety, hypothyroidism, and constipation. PAST SURGICAL HISTORY: Includes bladder tumor resection, tonsillectomy, knee replacement, bilateral cataract surgery. FAMILY HISTORY: Is noncontributory. REVIEW OF SYSTEMS: Is as noted above. HOME MEDICATIONS: Include: - Abilify - aspirin - atorvastatin - calcium - gabapentin - hydroxyzine - levothyroxine - multivitamin - trazodone - Effexor - pramipexole dihydrochloride PHYSICAL EXAMINATION: She is alert, oriented, in no acute distress. She does have some deformity of her left wrist. She has significant decreased range of motion of her fingers but reports intact sensation throughout her fingertips. She has no open wounds. No obvious injury involving the forearm, elbow, upper arm, etc. She has significant tenderness around her distal radius. Radiographs are reviewed, and they demonstrate a dorsally angulated and displaced distal radius fracture with an ulnar styloid fracture. IMPRESSION: Is a 76-year-old with a the left Colles fracture, status post fall. Appears to be extraarticular. RECOMMENDATIONS: I talked to her about the options of pinning, plating, external fixator, or closed reduction. She did not want to go through any surgery. She wanted to try the closed reduction. So, I have consented her for this and explained the nature of it and the risks of malunion, nonunion, loss of reduction, stiffness, need for further surgery, among others. Under sterile conditions, I injected 10 mL of 1% plain lidocaine dorsally on the wrist and at the fracture site, performing a hematoma block. After several minutes, I put her fingers in finger traps and some weight over the upper arm and put some distraction across this. I then performed a reduction maneuver, putting volarly-directed force on the distal radius, and this seemed to clinically reduce the wrist quite well. She was able to move her fingers quite well after this. A long-arm sugar-tong splint was then applied and pinned, and this was molded with some volarly-directed force and ulnar deviation. Overall, the reduction seemed to be clinically quite good. She was more comfortable following this. She was moving her fingers quite normally. Had intact sensation. She has good perfusion of her fingers. X-ray is pending AP and lateral of the wrist. RECOMMENDATIONS: 1. Elevate. Range of motion of fingers but really no use of the hand for any pushing, pulling, lifting. 2. Followup in the orthopedic office in 7-10 days with repeat x-ray her wrist; and if she is still in the hospital, then please call us so I can take a look at her here and get a repeat x-ray here. 3. Pain medication has been ordered in the form of [place]. 4. If she has any further issues, please do not hesitate to contact us, if there are cast problems or neurovascular changes, etc.
--- NOTE | 2016-09-12 13:52 | ECGEPIP ---
Stationary ECG Study [facility] Test Date: 2016-09-12 Pat Name: JOHN MCCARTHY Department: Room: [place] [address] Gender: F Lab Specialist: NIRALI : [id number] Requested By: Griselda Shanks Order Number: [id number] Reading MD: Jose Aguilera Measurements Intervals [place] Rate: 84 P: 61 SC: 160 QRS: -46 QRSD: 101 T: 52 QT: 392 QTc: 465 Interpretive Statements SINUS RHYTHM LEFT ANTERIOR FASCICULAR BLOCK Low limb voltage with prominent R waves in the right precordial leads, and persistent S waves in V5 and V6; pulmonary disease. Rule out prior posterior wall [place]. Nonspecific ST/T-wave abnormalities Other than faster rate, no significant change from 08/06/16. Electronically Signed On 09-12-2016 13:51:33 EDT by Jose Aguilera
--- NOTE | 2016-09-12 13:54 | REP ---
Clinical: Post reduction. Technique: AP and lateral views of the left wrist. Findings: The patient is status post closed reduction for comminuted Colles' fracture of the distal radius and ulnar styloid fracture. Underlying age-related osteopenia and degenerative changes noted. Impression: Status post reduction. Signed by Humble Mckinley MD 09/12/2016 01:46 P
[2016-09-12] MEDS: NORCO, ANEXSIA 5/325MG TABLET (HYDROcodone/ACETAMINOPHEN) PO PRN ×2 (14:00→18:35)
--- NOTE | 2016-09-12 14:31 | MHIPNPDOC ---
[facility] Progress Note Progress Note DATE OF SERVICE: 09/12/16 INTERVAL HISTORY: Medication Side effects: Denies medication side effects except for the fact that she says that they're not working but she has been on different medications and she always states that they're working. Behavior: She has been compliant, and she has been following directions after she fell this morning in the shower. Initially she was extremely agitated and she was in pain, but after the pain medication and tranquilizer was administered , she was able to calm down, relax and sleep Group Attendance: She has been attending groups although today she couldn't because she had to go for x-rays and then she went for a closed reduction of any over for her fractured wrist (Colle's fracture) Psychiatric Symptom change: Her anxiety level increased today after she fell in the shower because she was being severe pain due to her wrist and ribs fractured VITAL SIGNS: See below. NEW TEST RESULTS: See below CURRENT MEDICATIONS: See below. MENTAL STATUS EXAMINATION: General: Appears disheveled, dressed in hospital clothes, tearful, in distress with good eye contact Speech: Normal after she was able to calm down. Initially due to agitation she was extremely loud and Yelling. Thought processes: Intact Thought content: Negative for homicidal ideation, negative for psychotic or delusional thoughts, negative for auditory and visual hallucinations and negative for active suicidal thoughts, but is positive for passive suicidal thoughts. Perseverates about feelings of hopelessness, helplessness, pain and worries continuously about [facility] transfer plan. Abstract reasoning, and computation: Fair Description of associations: Not loose Description of abnormal or psychotic thoughts: Not present Judgment: Poor Insight: Poor Orientation: Oriented 3 Recent and remote memory: Fair Attention span and concentration: Distractible today due to pain secondary to wrist and ribs fractures Fund of knowledge: Adequate Mood: Anxious Affect: And tearful DIAGNOSES: 1. 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 2. Conversion disorder. 3. 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 ASSESSMENT: Patient needs to be on one-to-one observation with a sitter because she continues to get up from bed in spite of being advised not to do so without asking for help. She recently fell in the shower and it is not safe for her to get up and pace in her room or around the hallway without somebody helping her. CT scan shows an old lacunar infarct and in her previous visits and reports it was never addressed. MANAGEMENT PLAN: Medications: Will continue current medications Psychotherapy: Will continue to encourage her to attend groups Social: Will encourage her to interact with other peers Misc: None Disposition: Pending transfer to [facility] unless patient becomes less depressed and less anxious and shows that she is capable of going home and coping with her medical illness that causes her some much distress. TIME SPENT: 25 minutes Vital Signs Vital Signs Date Time Temp Pulse Resp B/P (MAP) Pulse Ox O2 Delivery O2 Flow Rate FiO2 09/12/16 14:00 16 09/12/16 08:10 76 111/70 (84) 95 Room Air 09/12/16 07:57 97.5 Laboratory Data 24H Labs Laboratory Tests 2 09/12/16 08:18: Bedside Glucose ([facility]) 114H 09/12/16 08:31: White Blood Count 5.1, Red Blood Count 4.57, Hemoglobin 13.8, Hematocrit 42.0, Mean Corpuscular Volume 92.0, Mean Corpuscular Hemoglobin 30.1, Mean Corpuscular Hemoglobin Concent 32.8, Red Cell Distribution Width 13.2, Platelet Count 325, Neutrophils (%) (Auto) 66.6H, Lymphocytes (%) (Auto) 22.4L, Monocytes (%) (Auto) 5.0, Eosinophils (%) (Auto) 3.1H, Basophils (%) (Auto) 0.9 , Neutrophils # (Auto) 3.4, Lymphocytes # (Auto) 1.1L, Monocytes # (Auto) 0.3, Eosinophils # (Auto) 0.2, Basophils # (Auto) 0.0, Large Unclassified Cells % 1.9 , Large Unclassified Cells # 0.1, Anion Gap 12, Glomerular Filtration Rate > 60.0, Blood Urea Nitrogen 18, Creatinine 0.72, Sodium Level 144, Potassium Level 3.9, Chloride Level 109H, Carbon Dioxide Level 23, Calcium Level 8.9, Aspartate Amino Transf (AST/SGOT) 26, Alanine Aminotransferase (ALT/SGPT) 39, Total Creatine Kinase 107, Alkaline Phosphatase 114, Total Bilirubin 0.6, Total Protein 6.2L, Albumin 3.6, Creatine Kinase MB 1.8, Creatine Kinase MB Relative Index 1.68, Troponin I < 0.02, Albumin/Globulin Ratio 1.38 09/12/16 13:10: Urine Appearance HAZY, Urine Color HARPAL, Urine pH 6.0, Urine Specific [place] 1.023, Urine Protein NEGATIVE, Urine Glucose (UA) NEGATIVE, Urine Ketones 2+H, Urine Urobilinogen 0.2, Urine Bilirubin NEGATIVE, Urine Leukocyte Esterase TRACEH, Urine Blood NEGATIVE, Urine Nitrite NEGATIVE, Urine WBC (Auto) 6H, Urine RBC (Auto) 1, Urine Hyaline Casts (Auto) 0, Urine Bacteria (Auto) NEGATIVE , Urine Squamous Epithelial Cells 6, Urine Amorphous Sediment SMALLH, Urine Mucus (Auto) SMALL, Urine Sperm (Auto) CBC/BMP Laboratory Tests 09/12/16 08:31 Red Blood Count 4.57, Mean Corpuscular Volume 92.0, Mean Corpuscular Hemoglobin 30.1, Mean Corpuscular Hemoglobin Concent 32.8, Red Cell Distribution Width 13.2 , Neutrophils (%) (Auto) 66.6 H, Lymphocytes (%) (Auto) 22.4 L, Monocytes (%) ( Auto) 5.0, Eosinophils (%) (Auto) 3.1 H, Basophils (%) (Auto) 0.9, Neutrophils # (Auto) 3.4, Lymphocytes # (Auto) 1.1 L, Monocytes # (Auto) 0.3, Eosinophils # (Auto) 0.2, Basophils # (Auto) 0.0, Calcium Level 8.9, Aspartate Amino Transf ( AST/SGOT) 26, Alanine Aminotransferase (ALT/SGPT) 39, Total Creatine Kinase 107 , Alkaline Phosphatase 114, Total Bilirubin 0.6, Total Protein 6.2 L, Albumin 3.6 Current Medications Current Medications Acetaminophen (Tylenol Tab) 650 mg Q6HP PRN PO HEADACHE or DISCOMFORT Last administered on 09/12/16 09:55; Start 08/28/16 at 16:45; Stop 09/27/16 at 16:44 Acetaminophen/ Hydrocodone Bitart ([place], Anexsia 5/325) 1 tab Q4HP PRN PO MILD /MODERATE PAIN (PS 1-7) Last administered on 09/12/16 14:00; Start 09/12/16 at 12:45; Stop 09/19/16 at 12:44 Al Hydrox/Mg Hydrox/Simethicone (Mylanta) 30 ml Q4HP PRN PO HEARTBURN/ INDIGESTION Last administered on 08/29/16 18:55; Start 08/28/16 at 16:45; Stop at 16:44 Amitriptyline HCl (Elavil) 10 mg BID PO Last administered on 09/08/16 08:18; Start 09/02/16 at 21:00; Stop 09/08/16 at 23:30; Status DC Amoxicillin/ Clavulanate Potassium (Augmentin) 500 mg Q12H PO Last administered on 09/05/16 06:07; Start 09/03/16 at 18:00; Stop 09/05/16 at 12:05 ; Status DC Aripiprazole (AbiLIFY) 5 mg QAM PO Last administered on 09/09/16 09:08; Start 09/07/16 at 09:00; Stop 09/09/16 at 16:26; Status DC Aripiprazole (AbiLIFY) 10 mg BID PO Last administered on 08/31/16 08:26; Start 08/29/16 at 21:00; Stop 08/31/16 at 13:38; Status DC Aripiprazole (AbiLIFY) 10 mg DAILY PO ; Start 08/29/16 at 09:00; Stop 08/29/16 at 10:06; Status DC Aripiprazole (AbiLIFY) 10 mg QAM PO Last administered on 09/06/16 08:20; Start 09/01/16 at 09:00; Stop 09/06/16 at 13:44; Status DC Aripiprazole (AbiLIFY) 10 mg QAM PO Last administered on 09/12/16 09:35; Start 09/10/16 at 09:00; Stop 10/10/16 at 08:59 Aripiprazole (AbiLIFY) 10 mg QHS PO Last administered on 09/07/16 20:16; Start 09/06/16 at 21:00; Stop 09/08/16 at 23:30; Status DC Aripiprazole (AbiLIFY) 15 mg QHS PO Last administered on 09/05/16 20:00; Start 08/31/16 at 21:00; Stop 09/06/16 at 13:42; Status DC Aripiprazole (AbiLIFY) 15 mg QHS PO Last administered on 09/11/16 20:06; Start 09/09/16 at 21:00; Stop 10/09/16 at 20:59 Aspirin (Ecotrin) 81 mg DAILY PO Last administered on 09/12/16 09:36; Start at 09:00; Stop 09/28/16 at 08:59 Atorvastatin Calcium (Lipitor) 10 mg QHS PO Last administered on 09/11/16 20: 05; Start 08/28/16 at 21:00; Stop 09/27/16 at 20:59 Calcium/Vitamin D (Oscal D) 500 mg BID PO Last administered on 09/12/16 09:36 ; Start 08/28/16 at 21:00; Stop 09/27/16 at 20:59 Carbamazepine (TEGretol XR) 200 mg TID PO Last administered on 09/09/16 15:48 ; Start 09/09/16 at 09:00; Stop 09/09/16 at 16:39; Status DC Carbamazepine (TEGretol XR) 300 mg TID PO Last administered on 09/12/16 09:37 ; Start 09/09/16 at 21:00; Stop 10/09/16 at 20:59 Cefdinir (Omnicef) 300 mg BID PO Last administered on 09/08/16 08:18; Start at 09:00; Stop 09/09/16 at 08:59; Status DC Docusate Sodium (Colace) 100 mg BID PO Last administered on 09/12/16 09:36; Start 09/02/16 at 09:00; Stop 10/02/16 at 08:59 Gabapentin (Neurontin) 300 mg TID PO Last administered on 09/08/16 08:17; Start 09/06/16 at 16:00; Stop 09/08/16 at 23:39; Status DC Gabapentin (Neurontin) 600 mg TID PO Last administered on 09/06/16 08:20; Start 08/28/16 at 21:00; Stop 09/06/16 at 13:42; Status DC Home Med (Med Rec Complete!) ASDIRECTED XX ; Start 08/28/16 at 13:00; Stop at 13:00; Status DC Hydroxyzine HCl (Atarax) 75 mg BID PO Last administered on 09/12/16 09:36; Start 08/28/16 at 21:00; Stop 09/27/16 at 20:59 Ibuprofen (Advil) 600 mg Q6H PO Last administered on 09/12/16 11:20; Start at 18:00; Stop 10/09/16 at 17:59 Levothyroxine Sodium (Synthroid) 0.112 mg DAILY@06 PO Last administered on 09/12 05:01; Start 08/29/16 at 06:00; Stop 09/28/16 at 05:59 Lorazepam (Ativan) 1 mg Q6HP PRN PO ANXIETY Last administered on 09/12/16 12: 25; Start 08/29/16 at 09:00; Stop 09/17/16 at 08:59 Lorazepam (Ativan) 1 mg STAT STAT IV Last administered on 08/28/16 08:00; Start 08/28/16 at 07:19; Stop 08/28/16 at 07:21; Status DC Lorazepam (Ativan) 1 mg STAT STAT PO Last administered on 09/09/16 16:35; Start 09/09/16 at 16:26; Stop 09/09/16 at 16:27; Status DC Lorazepam (Ativan) 2 mg STAT STAT PO Last administered on 08/29/16 09:01; Start 08/29/16 at 08:49; Stop 08/29/16 at 08:51; Status DC Magnesium Hydroxide (Milk Of Magnesia) 30 ml DAILYPRN PRN PO CONSTIPATION Last administered on 09/03/16 11:22; Start 08/28/16 at 16:45; Stop 09/27/16 at 16:44 Mirtazapine (Remeron) 30 mg QHS PO Last administered on 09/11/16 20:06; Start 09/09/16 at 21:00; Stop 10/09/16 at 20:59 Multivitamins (Theragram-M) 1 tab DAILY PO Last administered on 09/12/16 09:35 ; Start 08/29/16 at 09:00; Stop 09/28/16 at 08:59 Nitrofurantoin Monoh/Nitrofur Macro (Macrobid) 100 mg BID PO Last administered on 09/12/16 09:35; Start 09/12/16 at 09:00; Stop 09/21/16 at 21:01 Non-Formulary Medication ( See Comment Field Below ) SEE COMMENTS SECTION 1T @10 XX ; Start 08/31/16 at 10:00; Stop 08/31/16 at 10:00; Status DC Non-Formulary Medication ( See Comment Field Below ) SEE LABEL COMMENTS DAILY XX ; Start 08/29/16 at 09:00; Stop 09/04/16 at 08:31; Status DC Non-Formulary Medication ( See Comment Field Below ) SEE LABEL COMMENTS SECTION 1T@10 XX Last administered on 09/06/16 10:00; Start 09/06/16 at 10:00 ; Stop 09/06/16 at 23:59; Status DC Nystatin (Mycostatin Powder, Nystop) 1 dose BIDP PRN TOP RASH Last administered on 09/04/16 20:36; Start 09/04/16 at 18:30; Stop 10/04/16 at 18:29 Polyethylene Glycol (Miralax) 1 pkt DAILYPRN PRN PO CONSTIPATION Last administered on 09/02/16 10:26; Start 08/28/16 at 21:30; Stop 09/27/16 at 21:29 Pramipexole Dihydrochloride (Mirapex) 0.25 mg BID PO Last administered on 08:18; Start 08/28/16 at 21:00; Stop 09/08/16 at 23:41; Status DC Sertraline HCl (Zoloft) 75 mg DAILY PO Last administered on 09/12/16 09:36; Start 09/09/16 at 09:00; Stop 10/09/16 at 08:59 Trazodone HCl (Desyrel) 150 mg QHS PO Last administered on 09/08/16 19:58; Start 08/28/16 at 21:00; Stop 09/08/16 at 23:30; Status DC Tuberculin PPD (Aplisol, Ppd) 5 units 1T@10 ID Last administered on 09/04/16 09:21; Start 09/04/16 at 10:00; Stop 09/04/16 at 23:59; Status DC Venlafaxine HCl (Effexor Xr) 300 mg DAILY PO Last administered on t 08:17; Start 08/29/16 at 09:00; Stop 09/08/16 at 23:37; Status DC Allergies Coded Allergies: Codeine (Verified Adverse Reaction, Mild, NAUSEA, 07/28/12) BEATRICE SNYDER MD September 12, 2016 14:31
[2016-09-12 18:00] VITALS: BP 121/75
[2016-09-12] MEDS: ATORVASTATIN 10 MG TAB PO SCH (20:02)
[2016-09-12] MEDS: MIRTAZAPINE 15 MG TAB PO SCH (20:02)
[2016-09-12] MEDS: ARIPiprazole 15 MG TAB (AbiLIFY) PO SCH (20:02)
[2016-09-13] MEDS: NORCO, ANEXSIA 5/325MG TABLET (HYDROcodone/ACETAMINOPHEN) PO PRN ×3 (01:15→12:47)
[2016-09-13] MEDS: ACETAMINOPHEN TAB 650MG DOSE (2X325MG) PO PRN ×2 (04:01→11:55)
[2016-09-13] MEDS: IBUPROFEN 600 MG TAB PO SCH (06:00)
[2016-09-13] MEDS: LEVOTHYROXINE 0.112 MG TAB (112 MCG) PO SCH (06:14)
[2016-09-13 06:53] VITALS: BP 136/78
[2016-09-13 07:56] LABS: ALBUMIN 3.2 GM/DL (3.2-5.2); ALBUMIN/GLOBULIN RATIO 1.03 (1.00-1.93); ALKALINE PHOSPHATASE 121 U/L (45-117); ALT/SGPT 33 U/L (12-78); ANION GAP 8 MEQ/L (8-16); AST/SGOT 23 U/L (15-37); BILIRUBIN,TOTAL 0.5 MG/DL (0.2-1.0); BLOOD UREA NITROGEN 17 MG/DL (7-18); CALCIUM LEVEL 8.4 MG/DL (8.8-10.2); CARBON DIOXIDE LEVEL 24 MEQ/L (21-32); CHLORIDE LEVEL 106 MEQ/L (98-107); CREATININE FOR GFR 0.71 MG/DL (0.55-1.02); GLOMERULAR FILTRATION RATE > 60.0 (>39); GLUCOSE, FASTING 136 MG/DL (83-110); POTASSIUM SERUM 3.6 MEQ/L (3.5-5.1); SODIUM LEVEL 138 MEQ/L (136-145); TOTAL PROTEIN 6.3 GM/DL (6.4-8.2)
[2016-09-13 08:04] LABS: MEAN CORPUSCULAR HEMOGLOBIN 30.2 pg (27.0-33.0); MEAN CORPUSCULAR HGB CONC 33.3 g/dl (32.0-36.5); MEAN CORPUSCULAR VOLUME 90.9 fl (80.0-96.0); RED CELL DISTRIBUTION WIDTH 13.4 % (11.5-14.5)
[2016-09-13] MEDS: CALCIUM/VITAMIN D 500 MG TAB PO SCH ×2 (08:32→21:47)
[2016-09-13] MEDS: hydrOXYzine 25 MG TAB PO SCH ×2 (08:32→21:47)
[2016-09-13] MEDS: SERTRALINE HCL 25 MG TABLET PO SCH (08:32)
[2016-09-13] MEDS: carBAMazepine XR 100 MG TAB PO SCH ×3 (08:32→21:47)
[2016-09-13] MEDS: MULTIVITAMINS/MINERALS THERAP 1 TAB PO SCH (08:32)
[2016-09-13] MEDS: ARIPiprazole 10 MG TAB PO SCH (08:32)
[2016-09-13] MEDS: NITROFURANTOIN (MACROBID) 100 MG CAP PO SCH ×2 (08:32→21:47)
[2016-09-13] MEDS: DOCUSATE SODIUM 100 MG CAP PO SCH ×2 (08:32→21:47)
[2016-09-13] MEDS: ASPIRIN 81 MG ENTERIC TAB PO SCH (08:32)
[2016-09-13] MEDS: LORazepam 1 MG TAB PO PRN ×2 (09:11→23:33)
--- NOTE | 2016-09-13 10:12 | IPNPDOC ---
Subjective Date Seen The patient was seen on 09/13/16. Subjective Chief Complaint/HPI The patient is a 76-year-old female admitted with a reason for visit of Unspecified Depressive Disorder. Events since last encounter Requested to reevaluate the patient related to left rib pain. She has had an episode of nausea this morning with vomiting 1. She is eating and drinking. She states she does have pain in the left breast and left rib area. She denies shortness of breath, chest pain, abdominal pain. No Urinary complaints at this time. Objective Physical Examination General Exam: Positive: Alert Eye Exam: Positive: PERRLA ENT Exam: Positive: Atraumatic, Mucous membr. moist/pink, Pharynx Normal, Tongue Midline Neck Exam: Positive: Supple, Negative: JVD, thyromegaly Chest Exam: Positive: Clear to auscultation, Normal air movement, Other (there is tenderness with palpation over the left rib area.) Heart Exam: Positive: Rate Normal, Regular Rhythm, Normal S1, Normal S2, Negative: Murmurs, Rubs Abdomen Exam: Positive: Normal bowel sounds, Soft, Negative: Tenderness, Hepatospenomegaly, Mass, Hernia Extremity Exam: Positive: Normal pulses, Other (splint and wrapping it is noted at the left wrist and forearm.), Negative: Clubbing, Cyanosis, Edema Skin Exam: Positive: Nl turgor and temperature Psych Exam: Positive: Oriented x 3 Assessment /Plan Problems (1) Wrist fracture, left Problem Text: * XR results discussed with pt, attending aware. * Orthopedics consulted. Dr March evaluated the patient, reduction performed. Follow-up x-ray completed. * Elevate left upper extremity, apply ice as needed. * Will discontinue scheduled ibuprofen as this may contribute to nausea/ vomiting. Add Zofran 4 mg every 8 as needed. * [place] as needed ordered as per orthopedics. * Plan is for follow-up with orthopedics in 7-10 days with repeat x-ray. (2) Fall Status: Acute Problem Text: * Pt apparently refusing some of her meds over the weekend, and did not eat per nursing. * CBC/CMP reviewed * urine culture pending * EKG updated. * CT scan brain. No acute changes. * Fall precautions. * I/O * Orthostatic vital signs every shift. * PT eval and treat for unsteady gait. Patient does not use any assistive devices at this time. Cane or hemiwalker recommended. (3) UTI (urinary tract infection) Status: Acute Problem Text: * UC 09/05 * Sensitivities reviewed. Augmentin d/cd. Pt started on Cefdinir 300mg BID 09/05- 09/08 * Changed to Nitrofurantoin 09/11. Organism 1 ESCHERICHIA COLI COLONY COUNT >100,000 CFU/ml Organism 2 PROTEUS MIRABILIS COLONY COUNT >100,000 CFU/ml (4) Constipation Status: Chronic Problem Text: * AXR 08/28/16 KUB shows the intestinal gas pattern to be nonspecific. The organ silhouettes insofar as delineated are unremarkable. There is no evidence of free intraperitoneal air. * CT A/P 08/28/16 No evidence of acute disease. * Continue with MiraLAX daily as needed * Colace 100 mg by mouth twice a day * Continue with milk of magnesia daily as needed. * abdominal x-ray 09/02 Unremarkable bowel gas pattern. No evidence of obstruction. . (5) Chronic pain Status: Chronic Problem Text: * Pt continues to report chronic pain. * Continue with Tylenol as needed. * Appreciate pain mgmt opinion. 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 This appears more prominent than on the prior MRI study of 10/28/2013. Scoliosis is seen. Mild stable wedge compression deformities are noted at T12 and L1 (6) Hypothyroid Status: Chronic Problem Text: * Continue supplement (7) Bladder neoplasm Status: Chronic Problem Text: * H/O Bladder Ca. * Follows as outpatient with urology, Dr. Bradford. * Urine cytology negative 05/10 (8) Hyperlipidemia Status: Chronic Problem Text: * Continue statin/ASA (9) Rib pain Problem Text: * XR indicates non displaced left 7th rib fracture * Possible Rt fifth rib fracture. * Fall precautions * sitter * I/S every hour while awake Pt verbalizes understanding. Plan/VTE VTE Prophylaxis Ordered?: No (ambulatory) VS, I&O, 24H, Fishbone Vital Signs/I&O Vital Signs Date Time Temp Pulse Resp B/P (MAP) Pulse Ox O2 Delivery O2 Flow Rate FiO2 09/13/16 09:17 16 09/13/16 06:53 97.8 69 136/78 (97) 09/12/16 08:10 95 Room Air I&O- Last 24 Hours up to 6 AM 09/13/16 06:00 Intake Total 200 ml Balance 200 ml Laboratory Data 24H LABS Laboratory Tests 2 09/12/16 13:10: Urine Appearance HAZY, Urine Color HARPAL, Urine pH 6.0, Urine Specific [place] 1.023, Urine Protein NEGATIVE, Urine Glucose (UA) NEGATIVE, Urine Ketones 2+H, Urine Urobilinogen 0.2, Urine Bilirubin NEGATIVE, Urine Leukocyte Esterase TRACEH, Urine Blood NEGATIVE, Urine Nitrite NEGATIVE, Urine WBC (Auto) 6H, Urine RBC (Auto) 1, Urine Hyaline Casts (Auto) 0, Urine Bacteria (Auto) NEGATIVE , Urine Squamous Epithelial Cells 6, Urine Amorphous Sediment SMALLH, Urine Mucus (Auto) SMALL, Urine Sperm (Auto) 09/12/16 15:13: Total Creatine Kinase 130, Creatine Kinase MB 1.9, Creatine Kinase MB Relative Index 1.46, Troponin I < 0.02 09/13/16 07:24: Anion Gap 8, Glomerular Filtration Rate > 60.0, Blood Urea Nitrogen 17, Creatinine 0.71, Sodium Level 138, Potassium Level 3.6, Chloride Level 106, Carbon Dioxide Level 24, Calcium Level 8.4L, Aspartate Amino Transf (AST/SGOT) 23, Alanine Aminotransferase (ALT/SGPT) 33, Alkaline Phosphatase 121H, Total Bilirubin 0.5, Total Protein 6.3L, Albumin 3.2, Albumin/Globulin Ratio 1.03 CBC/BMP Laboratory Tests 09/13/16 07:24 Red Blood Count 4.25, Mean Corpuscular Volume 90.9, Mean Corpuscular Hemoglobin 30.2, Mean Corpuscular Hemoglobin Concent 33.3, Red Cell Distribution Width 13.4 , Calcium Level 8.4 L, Aspartate Amino Transf (AST/SGOT) 23, Alanine Aminotransferase (ALT/SGPT) 33, Alkaline Phosphatase 121 H, Total Bilirubin 0.5 , Total Protein 6.3 L, Albumin 3.2 Microbiology Microbiology 09/12/16 Urine Culture, Received Pending 09/03/16 Urine Culture - Final, Complete Escherichia Coli Proteus Mirabilis Enterococcus Faecalis Aerococcus Urinae Griselda Shanks September 13, 2016 10:12
[2016-09-13] MEDS: LIDOCAINE 5% (LIDODERM) PATCH TD SCH (10:37)
--- NOTE | 2016-09-13 10:51 | CR ---
DATE: 09/13/2016 The patient was seen. Yesterday, closed reduction was performed of her wrist. Postreduction x-rays were done shortly after the reduction. I reviewed those films right after they were performed and they show excellent overall reduction and alignment of the wrist. The patient remains comfortable and moving her fingers well with intact sensation.
[2016-09-13] MEDS: ONDANSETRON 4 MG TAB (S0181) PO PRN ×2 (11:56→20:06)
[2016-09-13 13:50] VITALS: BP 137/67
--- NOTE | 2016-09-13 13:53 | MHIPNPDOC ---
[facility] Progress Note Progress Note Plan INTERVAL HISTORY: Medication Side effects: She reports she threw up her medications, but does not report medication side effects Behavior: Patient is more calm, is not yelling or screaming, not agitated, but continues to request to go home and she perseveres around that theme Group Attendance: She is not attending groups because she has fractured to of her ribs and her wrist. She has a Colles' fracture. It is hard for her to ambulate, she is unsteady and she is in pain. For that reason she is not attending groups. Psychiatric Symptom change: She is less agitated, less angry, slightly less anxious VITAL SIGNS: See below. NEW TEST RESULTS: See below CURRENT MEDICATIONS: See below. MENTAL STATUS EXAMINATION: General: Alert, cooperative with interview, dressed in hospital clothes, laying in bed. Speech: Normal Thought processes: Intact Thought content: Perseverates around her recent fractures, pain and going home Abstract reasoning, and computation: Fair Description of associations: Not loose Description of abnormal or psychotic thoughts: Not present Judgment: Poor Insight: Poor Orientation: Oriented 3 Recent and remote memory: Intact Attention span and concentration: Fair Fund of knowledge: Adequate Mood: "I'm so nervous" Affect: Anxious, depressed DIAGNOSES: 1. 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 2. Conversion disorder. 3. 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 She fell yesterday and broke 2 of her ribs and fractured her wrist. She has been in pain but she is receiving pain medication. She continues on one-to-one because she needs assistance to get up and walk around. A cane and a hospital bed Have been requested because she is at risk of falling again and by having a rail on her bed and again we will decrease the risk. MANAGEMENT PLAN: Medications: We will continue the same medications Psychotherapy: Will encourage her to attend groups although at this time she is not able to do it because she is in pain. Social: None Misc: --- Disposition: She still needs to continue at the inpatient mental health unit until she is able to be transferred to [facility] unless that she improves her behavior and that her symptoms of depression and anxiety and pain improve. Otherwise, if she continues to be unstable she will need to continue at the hospital until [facility] dates. TIME SPENT: 25 minutes.DATE OF SERVICE: 09/13/16 Vital Signs Vital Signs Date Time Temp Pulse Resp B/P (MAP) Pulse Ox O2 Delivery O2 Flow Rate FiO2 09/13/16 12:47 16 09/13/16 06:53 97.8 69 136/78 (97) 09/12/16 08:10 95 Room Air Laboratory Data 24H Labs Laboratory Tests 2 09/12/16 15:13: Total Creatine Kinase 130, Creatine Kinase MB 1.9, Creatine Kinase MB Relative Index 1.46, Troponin I < 0.02 09/13/16 07:24: Anion Gap 8, Glomerular Filtration Rate > 60.0, Blood Urea Nitrogen 17, Creatinine 0.71, Sodium Level 138, Potassium Level 3.6, Chloride Level 106, Carbon Dioxide Level 24, Calcium Level 8.4L, Aspartate Amino Transf (AST/SGOT) 23, Alanine Aminotransferase (ALT/SGPT) 33, Alkaline Phosphatase 121H, Total Bilirubin 0.5, Total Protein 6.3L, Albumin 3.2, Albumin/Globulin Ratio 1.03 CBC/BMP Laboratory Tests 09/13/16 07:24 Red Blood Count 4.25, Mean Corpuscular Volume 90.9, Mean Corpuscular Hemoglobin 30.2, Mean Corpuscular Hemoglobin Concent 33.3, Red Cell Distribution Width 13.4 , Calcium Level 8.4 L, Aspartate Amino Transf (AST/SGOT) 23, Alanine Aminotransferase (ALT/SGPT) 33, Alkaline Phosphatase 121 H, Total Bilirubin 0.5 , Total Protein 6.3 L, Albumin 3.2 Current Medications Current Medications Acetaminophen (Tylenol Tab) 650 mg Q6HP PRN PO HEADACHE or DISCOMFORT Last administered on 09/13/16 11:55; Start 08/28/16 at 16:45; Stop 09/27/16 at 16:44 Acetaminophen/ Hydrocodone Bitart ([place], [place]sia 5/325) 1 tab Q4HP PRN PO MILD /MODERATE PAIN (PS 1-7) Last administered on 09/13/16 12:47; Start 09/12/16 at 12:45; Stop 09/19/16 at 12:44 Al Hydrox/Mg Hydrox/Simethicone (Mylanta) 30 ml Q4HP PRN PO HEARTBURN/ INDIGESTION Last administered on 08/29/16 18:55; Start 08/28/16 at 16:45; Stop at 16:44 Amitriptyline HCl (Elavil) 10 mg BID PO Last administered on 09/08/16 08:18; Start 09/02/16 at 21:00; Stop 09/08/16 at 23:30; Status DC Amoxicillin/ Clavulanate Potassium (Augmentin) 500 mg Q12H PO Last administered on 09/05/16 06:07; Start 09/03/16 at 18:00; Stop 09/05/16 at 12:05 ; Status DC Aripiprazole (AbiLIFY) 5 mg QAM PO Last administered on 09/09/16 09:08; Start 09/07/16 at 09:00; Stop 09/09/16 at 16:26; Status DC Aripiprazole (AbiLIFY) 10 mg BID PO Last administered on 08/31/16 08:26; Start 08/29/16 at 21:00; Stop 08/31/16 at 13:38; Status DC Aripiprazole (AbiLIFY) 10 mg DAILY PO ; Start 08/29/16 at 09:00; Stop 08/29/16 at 10:06; Status DC Aripiprazole (AbiLIFY) 10 mg QAM PO Last administered on 09/06/16 08:20; Start 09/01/16 at 09:00; Stop 09/06/16 at 13:44; Status DC Aripiprazole (AbiLIFY) 10 mg QAM PO Last administered on 09/13/16 08:32; Start 09/10/16 at 09:00; Stop 10/10/16 at 08:59 Aripiprazole (AbiLIFY) 10 mg QHS PO Last administered on 09/07/16 20:16; Start 09/06/16 at 21:00; Stop 09/08/16 at 23:30; Status DC Aripiprazole (AbiLIFY) 15 mg QHS PO Last administered on 09/05/16 20:00; Start 08/31/16 at 21:00; Stop 09/06/16 at 13:42; Status DC Aripiprazole (AbiLIFY) 15 mg QHS PO Last administered on 09/12/16 20:02; Start 09/09/16 at 21:00; Stop 10/09/16 at 20:59 Aspirin (Ecotrin) 81 mg DAILY PO Last administered on 09/13/16 08:32; Start at 09:00; Stop 09/28/16 at 08:59 Atorvastatin Calcium (Lipitor) 10 mg QHS PO Last administered on 09/12/16 20: 02; Start 08/28/16 at 21:00; Stop 09/27/16 at 20:59 Calcium/Vitamin D (Oscal D) 500 mg BID PO Last administered on 09/13/16 08:32 ; Start 08/28/16 at 21:00; Stop 09/27/16 at 20:59 Carbamazepine (TEGretol XR) 200 mg TID PO Last administered on 09/09/16 15:48 ; Start 09/09/16 at 09:00; Stop 09/09/16 at 16:39; Status DC Carbamazepine (TEGretol XR) 300 mg TID PO Last administered on 09/13/16 08:32 ; Start 09/09/16 at 21:00; Stop 10/09/16 at 20:59 Cefdinir (Omnicef) 300 mg BID PO Last administered on 09/08/16 08:18; Start at 09:00; Stop 09/09/16 at 08:59; Status DC Docusate Sodium (Colace) 100 mg BID PO Last administered on 09/13/16 08:32; Start 09/02/16 at 09:00; Stop 10/02/16 at 08:59 Gabapentin (Neurontin) 300 mg TID PO Last administered on 09/08/16 08:17; Start 09/06/16 at 16:00; Stop 09/08/16 at 23:39; Status DC Gabapentin (Neurontin) 600 mg TID PO Last administered on 09/06/16 08:20; Start 08/28/16 at 21:00; Stop 09/06/16 at 13:42; Status DC Home Med (Med Rec Complete!) ASDIRECTED XX ; Start 08/28/16 at 13:00; Stop at 13:00; Status DC Hydroxyzine HCl (Atarax) 75 mg BID PO Last administered on 09/13/16 08:32; Start 08/28/16 at 21:00; Stop 09/27/16 at 20:59 Ibuprofen (Advil) 600 mg Q6H PO Last administered on 09/12/16 23:17; Start at 18:00; Stop 09/13/16 at 10:06; Status DC Levothyroxine Sodium (Synthroid) 0.112 mg DAILY@06 PO Last administered on 09/13 06:14; Start 08/29/16 at 06:00; Stop 09/28/16 at 05:59 Lidocaine (Lidoderm Patch) 1 patch DAILY TD Last administered on 09/13/16 10: 37; Start 09/13/16 at 09:00; Stop 10/13/16 at 08:59 Lorazepam (Ativan) 1 mg Q6HP PRN PO ANXIETY Last administered on 09/13/16 09: 11; Start 08/29/16 at 09:00; Stop 09/17/16 at 08:59 Lorazepam (Ativan) 1 mg STAT STAT IV Last administered on 08/28/16 08:00; Start 08/28/16 at 07:19; Stop 08/28/16 at 07:21; Status DC Lorazepam (Ativan) 1 mg STAT STAT PO Last administered on 09/09/16 16:35; Start 09/09/16 at 16:26; Stop 09/09/16 at 16:27; Status DC Lorazepam (Ativan) 2 mg STAT STAT PO Last administered on 08/29/16 09:01; Start 08/29/16 at 08:49; Stop 08/29/16 at 08:51; Status DC Magnesium Hydroxide (Milk Of Magnesia) 30 ml DAILYPRN PRN PO CONSTIPATION Last administered on 09/03/16 11:22; Start 08/28/16 at 16:45; Stop 09/27/16 at 16:44 Mirtazapine (Remeron) 30 mg QHS PO Last administered on 09/12/16 20:02; Start 09/09/16 at 21:00; Stop 10/09/16 at 20:59 Multivitamins (Theragram-M) 1 tab DAILY PO Last administered on 09/13/16 08:32 ; Start 08/29/16 at 09:00; Stop 09/28/16 at 08:59 Nitrofurantoin Monoh/Nitrofur Macro (Macrobid) 100 mg BID PO Last administered on 09/13/16 08:32; Start 09/12/16 at 09:00; Stop 09/21/16 at 21:01 Non-Formulary Medication ( See Comment Field Below ) REMOVE LIDODERM PATCH DAILY@21 XX ; Start 09/13/16 at 21:00; Stop 10/13/16 at 20:59 Non-Formulary Medication ( See Comment Field Below ) SEE COMMENTS SECTION 1T @10 XX ; Start 08/31/16 at 10:00; Stop 08/31/16 at 10:00; Status DC Non-Formulary Medication ( See Comment Field Below ) SEE LABEL COMMENTS DAILY XX ; Start 08/29/16 at 09:00; Stop 09/04/16 at 08:31; Status DC Non-Formulary Medication ( See Comment Field Below ) SEE LABEL COMMENTS SECTION 1T@10 XX Last administered on 09/06/16 10:00; Start 09/06/16 at 10:00 ; Stop 09/06/16 at 23:59; Status DC Nystatin (Mycostatin Powder, Nystop) 1 dose BIDP PRN TOP RASH Last administered on 09/04/16 20:36; Start 09/04/16 at 18:30; Stop 10/04/16 at 18:29 Ondansetron HCl (Zofran) 4 mg Q8HP PRN PO NAUSEA OR VOMITING Last administered on 09/13/16 11:56; Start 09/13/16 at 10:15; Stop 10/13/16 at 10:14 Polyethylene Glycol (Miralax) 1 pkt DAILYPRN PRN PO CONSTIPATION Last administered on 09/02/16 10:26; Start 08/28/16 at 21:30; Stop 09/27/16 at 21:29 Pramipexole Dihydrochloride (Mirapex) 0.25 mg BID PO Last administered on 08:18; Start 08/28/16 at 21:00; Stop 09/08/16 at 23:41; Status DC Sertraline HCl (Zoloft) 75 mg DAILY PO Last administered on 09/13/16 08:32; Start 09/09/16 at 09:00; Stop 10/09/16 at 08:59 Trazodone HCl (Desyrel) 150 mg QHS PO Last administered on 09/08/16 19:58; Start 08/28/16 at 21:00; Stop 09/08/16 at 23:30; Status DC Tuberculin PPD (Aplisol, Ppd) 5 units 1T@10 ID Last administered on 09/04/16 09:21; Start 09/04/16 at 10:00; Stop 09/04/16 at 23:59; Status DC Venlafaxine HCl (Effexor Xr) 300 mg DAILY PO Last administered on 08:17; Start 08/29/16 at 09:00; Stop 09/08/16 at 23:37; Status DC Allergies Coded Allergies: Codeine (Verified Adverse Reaction, Mild, NAUSEA, 07/28/12) BEATRICE SNYDER MD September 13, 2016 13:53
[2016-09-13 18:00] VITALS: BP 142/84
[2016-09-13] MEDS: MAALOX 30 ML SUSP *UDC PO PRN (19:00)
[2016-09-13] MEDS ORDERED: ONDANSETRON 4MG/2ML VIAL (J2405) IM ONE (20:45)
[2016-09-13] MEDS: MIRTAZAPINE 15 MG TAB PO SCH (21:47)
[2016-09-13] MEDS: ARIPiprazole 15 MG TAB (AbiLIFY) PO SCH (21:47)
[2016-09-13] MEDS: ATORVASTATIN 10 MG TAB PO SCH (21:47)
[2016-09-13] MEDS: **NOTE PATIENT COMMENT** MISC XX SCH (21:51)
[2016-09-14] MEDS: LEVOTHYROXINE 0.112 MG TAB (112 MCG) PO SCH (05:07)
[2016-09-14] MEDS: ONDANSETRON 4 MG TAB (S0181) PO PRN (05:08)
[2016-09-14] MEDS: NORCO, ANEXSIA 5/325MG TABLET (HYDROcodone/ACETAMINOPHEN) PO PRN (05:08)
[2016-09-14 06:45] VITALS: BP 149/75
[2016-09-14 07:49] LABS: MEAN CORPUSCULAR HEMOGLOBIN 29.9 pg (27.0-33.0); MEAN CORPUSCULAR VOLUME 90.9 fl (80.0-96.0); RED CELL DISTRIBUTION WIDTH 13.3 % (11.5-14.5); WHITE BLOOD COUNT 9.4 K/mm3 (4.0-10.0)
[2016-09-14 08:09] LABS: ANION GAP 8 MEQ/L (8-16); BLOOD UREA NITROGEN 16 MG/DL (7-18); CALCIUM LEVEL 8.5 MG/DL (8.8-10.2); CARBON DIOXIDE LEVEL 26 MEQ/L (21-32); CHLORIDE LEVEL 106 MEQ/L (98-107); CREATININE FOR GFR 0.67 MG/DL (0.55-1.02); GLOMERULAR FILTRATION RATE > 60.0 (>39); GLUCOSE, FASTING 116 MG/DL (83-110); POTASSIUM SERUM 3.4 MEQ/L (3.5-5.1); SODIUM LEVEL 140 MEQ/L (136-145)
[2016-09-14] MEDS ORDERED: POTASSIUM CHLORIDE 10 MEQ SR TABLET PO ONE (09:45)
--- NOTE | 2016-09-14 09:45 | IPNPDOC ---
Subjective Date Seen The patient was seen on 09/14/16. Subjective Chief Complaint/HPI The patient is a 76-year-old female admitted with a reason for visit of Unspecified Depressive Disorder. Events since last encounter Reevaluating patient in regards to left wrist fracture. She is seen in bed this morning. She states she had nausea this morning, vomiting as well. Zofran was given at 5 AM. She is teary and states she is still not feeling well. She reports some dizziness. She is requesting to see Dr. Zamora. Pain has been controlled. Objective Physical Examination General Exam: Positive: Alert Eye Exam: Positive: PERRLA ENT Exam: Positive: Atraumatic, Mucous membr. moist/pink, Pharynx Normal, Tongue Midline Neck Exam: Positive: Supple, Negative: JVD, thyromegaly Chest Exam: Positive: Clear to auscultation, Normal air movement, Other (there is tenderness with palpation over the left rib area.) Heart Exam: Positive: Rate Normal, Regular Rhythm, Normal S1, Normal S2, Negative: Murmurs, Rubs Abdomen Exam: Positive: Normal bowel sounds, Soft, Negative: Tenderness, Hepatospenomegaly, Mass, Hernia Extremity Exam: Positive: Normal pulses, Other (splint and wrapping it is noted at the left wrist and forearm.), Negative: Clubbing, Cyanosis, Edema Skin Exam: Positive: Nl turgor and temperature Psych Exam: Positive: Oriented x 3 Assessment /Plan Problems (1) Wrist fracture, left Problem Text: * XR results discussed with pt, attending aware. * Orthopedics consulted. Dr March evaluated the patient, reduction performed. Follow-up x-ray completed. * Elevate left upper extremity, apply ice as needed. * Continue Zofran 4 mg every 8 as needed. * Will discontinue [place] as this is possibly contributing to nausea and vomiting. * Continue Tylenol 650 mg every 4 hours as needed. * Resume ibuprofen 400 mg every 8 hours as needed. * Plan is for follow-up with orthopedics in 7-10 days with repeat x-ray. (2) Fall Status: Acute Problem Text: * Pt apparently refusing some of her meds over the weekend, and did not eat per nursing. * CBC/CMP reviewed * urine culture pending * EKG updated. * CT scan brain. No acute changes. * Fall precautions. * I/O * Orthostatic vital signs every shift. * PT eval and treat for unsteady gait. Patient does not use any assistive devices at this time. Cane or hemiwalker recommended. Nursing/PT aware assistive devices to be brought to the patient today. (3) UTI (urinary tract infection) Status: Acute Problem Text: * UC 09/12 Organism 1 ESCHERICHIA COLI COLONY COUNT >100,000 CFU/ml * Sensitivities reviewed. Augmentin d/cd. Pt started on Cefdinir 300mg BID 09/05- 09/08 * Changed to Nitrofurantoin 09/11-09/14. * Nitrofurantoin d/cd, Cefdinir 300mg BID x 7 days. (4) Constipation Status: Chronic Problem Text: * AXR 08/28/16 KUB shows the intestinal gas pattern to be nonspecific. The organ silhouettes insofar as delineated are unremarkable. There is no evidence of free intraperitoneal air. * CT A/P 08/28/16 No evidence of acute disease. * Continue with MiraLAX daily as needed * Colace 100 mg by mouth twice a day * Continue with milk of magnesia daily as needed. * abdominal x-ray 09/02 Unremarkable bowel gas pattern. No evidence of obstruction. . (5) Chronic pain Status: Chronic Problem Text: * Pt continues to report chronic pain. * Continue with Tylenol as needed. * Appreciate pain mgmt opinion. 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 This appears more prominent than on the prior MRI study of 10/28/2013. Scoliosis is seen. Mild stable wedge compression deformities are noted at T12 and L1 (6) Hypothyroid Status: Chronic Problem Text: * Continue supplement (7) Bladder neoplasm Status: Chronic Problem Text: * H/O Bladder Ca. * Follows as outpatient with urology, Dr. Bradford. * Urine cytology negative 05/10 (8) Hyperlipidemia Status: Chronic Problem Text: * Continue statin/ASA (9) Rib pain Problem Text: * XR indicates non displaced left 7th rib fracture * Possible Rt fifth rib fracture. * Fall precautions * sitter * I/S every hour while awake Pt verbalizes understanding. * Encourage po and OOB. Plan/VTE VTE Prophylaxis Ordered?: No (ambulatory) VS, I&O, 24H, Fishbone Vital Signs/I&O Vital Signs Date Time Temp Pulse Resp B/P (MAP) Pulse Ox O2 Delivery O2 Flow Rate FiO2 09/14/16 06:45 98.5 72 20 149/75 (99) 09/12/16 08:10 95 Room Air I&O- Last 24 Hours up to 6 AM 09/14/16 06:00 Intake Total 0 ml Output Total 200 ml Balance -200 ml Laboratory Data 24H LABS Laboratory Tests 2 09/14/16 07:35: Anion Gap 8, Glomerular Filtration Rate > 60.0, Blood Urea Nitrogen 16, Creatinine 0.67, Sodium Level 140, Potassium Level 3.4L, Chloride Level 106, Carbon Dioxide Level 26, Calcium Level 8.5L CBC/BMP Laboratory Tests 09/14/16 07:35 Red Blood Count 4.30, Mean Corpuscular Volume 90.9, Mean Corpuscular Hemoglobin 29.9, Mean Corpuscular Hemoglobin Concent 33.0, Red Cell Distribution Width 13.3 , Calcium Level 8.5 L Microbiology Microbiology 09/12/16 Urine Culture - Final, Complete Escherichia Coli Griselda Shanks September 14, 2016 09:45
[2016-09-14] MEDS: LORazepam 1 MG TAB PO PRN ×2 (12:01→18:44)
[2016-09-14] MEDS: ONDANSETRON 4 MG ORAL DISINTEGRATING TAB (S0181) PO PRN (13:22)
--- NOTE | 2016-09-14 13:29 | MHIPNPDOC ---
[facility] Progress Note Progress Note DATE OF SERVICE: 09/14/16 INTERVAL HISTORY: Medication Side effects: Patient is refusing to eat and for that reason on medications have been helpful. She has been vomiting and she has taken some from by mouth but she states that she wouldn't hold that. She is requesting her Ativan for anxiety. Zofran ODT was ordered for her today hoping this will help her reduce nausea and vomiting. Behavior: She is laying on her bed, isolated to her room, sleeping because she received her Ativan approximately one hour ago. In the computer systems software architect hours she was yelling and screaming because she wanted this medication. She has tried to persuade different staff members to contact her and tell him that she is doing well so that she can go home. Group Attendance: She hasn't been attending groups because she is in pain, she got 2 fractured ribs yesterday and a Colle's fracture. Psychiatric Symptom change: Patient is still seeking medications and attention in an immature way. Continues to be depressed and anxious. VITAL SIGNS: See below. NEW TEST RESULTS: See below CURRENT MEDICATIONS: See below. MENTAL STATUS EXAMINATION: General: Sleepy, laying on her bed with poor eye contact, dressed in hospital clothes. Speech: Slow, soft spoken, normal Thought processes: Not circumstantial and not tangential Thought content: And perseverates about pain, anxiety, worries about saying [facility] transfer, about going home, about her not willing to take her back. Cognitive distortions, anxious thoughts. Abstract reasoning, and computation: Could not be assessed because the patient is in pain and refused to cooperate Description of associations: Not loose Description of abnormal or psychotic thoughts: Not responding to internal stimuli, denies auditory and visual hallucinations, denies thought delusions, denies homicidal ideation and denies active suicidal ideation but she has passive suicidal ideation with statements such as "what do I want this life for the family never none see my again" Judgment: Poor Insight: Poor Orientation: Oriented to place and person only Recent and remote memory: Unable to assess due to patient's pain condition and refusal to cooperate with almost all mental status exam. Attention span and concentration: Poor Fund of knowledge: Fair Mood: "I'm very anxious" Affect: Anxious, depressed, irritable DIAGNOSES: 1. 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 Conversion disorder. 3. 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 ASSESSMENT: Patient's level of anxiety have increased since she fell down yesterday and fractured her ribs and her wrist THE pain medication (Vicodin), has kept her sleepy and her emotions have been more under control, but when she doesn't have her anxiety medication she becomes extremely irritable and demanding. She continues to manipulate the staff, the author of this document, to let her go home so that she won't have to go to [facility]. MANAGEMENT PLAN: Medications: We'll continue the same medications Psychotherapy: She is not able to attend groups because her gait is unsteady and she is at risk of falling again but she is also in pain. Once the pain subsides and she feels better she will be encouraged again to attend groups. Social: -- Misc: -- Disposition: Patient needs to continue hospitalization for stabilization and further transfer to [place]. She is refusing to eat and she refused to eat over the weekend and this probably has something to do with her fall yesterday, probably her blood sugar levels were low. She continues to refuse to eat and she said that she is nauseous and for that reason sublingual Zofran has been prescribed, 4 mg every 8 hours when necessary for nausea and vomiting. TIME SPENT: 15 minutes. Vital Signs Vital Signs Date Time Temp Pulse Resp B/P (MAP) Pulse Ox O2 Delivery O2 Flow Rate FiO2 09/14/16 06:45 98.5 72 20 149/75 (99) 09/12/16 08:10 95 Room Air Laboratory Data 24H Labs Laboratory Tests 2 09/14/16 07:35: Anion Gap 8, Glomerular Filtration Rate > 60.0, Blood Urea Nitrogen 16, Creatinine 0.67, Sodium Level 140, Potassium Level 3.4L, Chloride Level 106, Carbon Dioxide Level 26, Calcium Level 8.5L CBC/BMP Laboratory Tests 09/14/16 07:35 Red Blood Count 4.30, Mean Corpuscular Volume 90.9, Mean Corpuscular Hemoglobin 29.9, Mean Corpuscular Hemoglobin Concent 33.0, Red Cell Distribution Width 13.3 , Calcium Level 8.5 L Current Medications Current Medications Acetaminophen (Tylenol Tab) 650 mg Q6HP PRN PO HEADACHE or DISCOMFORT Last administered on 09/13/16t 11:55; Start 08/28/16 at 16:45; Stop 09/27/16 at 16:44 Acetaminophen/ Hydrocodone Bitart (Rector, Anexsia 5/325) 1 tab Q4HP PRN PO MILD /MODERATE PAIN (PS 1-7) Last administered on 09/14/16 05:08; Start 09/12/16 at 12:45; Stop 09/14/16 at 07:52; Status DC Al Hydrox/Mg Hydrox/Simethicone (Mylanta) 30 ml Q4HP PRN PO HEARTBURN/ INDIGESTION Last administered on 09/13/16 19:00; Start 08/28/16 at 16:45; Stop 09/27/16 at 16:44 Amitriptyline HCl (Elavil) 10 mg BID PO Last administered on 09/08/16 08:18; Start 09/02/16 at 21:00; Stop 09/08/16 at 23:30; Status DC Amoxicillin/ Clavulanate Potassium (Augmentin) 500 mg Q12H PO Last administered on 09/05/16 06:07; Start 09/03/16 at 18:00; Stop 09/05/16 at 12:05 ; Status DC Aripiprazole (AbiLIFY) 5 mg QAM PO Last administered on 09/09/16 09:08; Start 09/07/16 at 09:00; Stop 09/09/16 at 16:26; Status DC Aripiprazole (AbiLIFY) 10 mg BID PO Last administered on 08/31/16 08:26; Start 08/29/16 at 21:00; Stop 08/31/16 at 13:38; Status DC Aripiprazole (AbiLIFY) 10 mg DAILY PO ; Start 08/29/16 at 09:00; Stop 08/29/16 at 10:06; Status DC Aripiprazole (AbiLIFY) 10 mg QAM PO Last administered on 09/06/16 08:20; Start 09/01/16 at 09:00; Stop 09/06/16 at 13:44; Status DC Aripiprazole (AbiLIFY) 10 mg QAM PO Last administered on 09/13/16 08:32; Start 09/10/16 at 09:00; Stop 10/10/16 at 08:59 Aripiprazole (AbiLIFY) 10 mg QHS PO Last administered on 09/07/16 20:16; Start 09/06/16 at 21:00; Stop 09/08/16 at 23:30; Status DC Aripiprazole (AbiLIFY) 15 mg QHS PO Last administered on 09/05/16 20:00; Start 08/31/16 at 21:00; Stop 09/06/16 at 13:42; Status DC Aripiprazole (AbiLIFY) 15 mg QHS PO Last administered on 09/13/16 21:47; Start 09/09/16 at 21:00; Stop 10/09/16 at 20:59 Aspirin (Ecotrin) 81 mg DAILY PO Last administered on 09/13/16 08:32; Start at 09:00; Stop 09/28/16 at 08:59 Atorvastatin Calcium (Lipitor) 10 mg QHS PO Last administered on 09/13/16 21: 47; Start 08/28/16 at 21:00; Stop 09/27/16 at 20:59 Calcium/Vitamin D (Oscal D) 500 mg BID PO Last administered on 09/13/16 21:47 ; Start 08/28/16 at 21:00; Stop 09/27/16 at 20:59 Carbamazepine (TEGretol XR) 200 mg TID PO Last administered on 09/09/16 15:48 ; Start 09/09/16 at 09:00; Stop 09/09/16 at 16:39; Status DC Carbamazepine (TEGretol XR) 300 mg TID PO Last administered on 09/13/16 21:47 ; Start 09/09/16 at 21:00; Stop 10/09/16 at 20:59 Cefdinir (Omnicef) 300 mg BID PO Last administered on 09/08/16 08:18; Start at 09:00; Stop 09/09/16 at 08:59; Status DC Cefdinir (Omnicef) 300 mg BID PO ; Start 09/14/16 at 09:00; Stop 09/21/16 at 08: 59 Docusate Sodium (Colace) 100 mg BID PO Last administered on 09/13/16 21:47; Start 09/02/16 at 09:00; Stop 10/02/16 at 08:59 Gabapentin (Neurontin) 300 mg TID PO Last administered on 09/08/16 08:17; Start 09/06/16 at 16:00; Stop 09/08/16 at 23:39; Status DC Gabapentin (Neurontin) 600 mg TID PO Last administered on 09/06/16 08:20; Start 08/28/16 at 21:00; Stop 09/06/16 at 13:42; Status DC Home Med (Med Rec Complete!) ASDIRECTED XX ; Start 08/28/16 at 13:00; Stop at 13:00; Status DC Hydroxyzine HCl (Atarax) 75 mg BID PO Last administered on 09/13/16 21:47; Start 08/28/16 at 21:00; Stop 09/27/16 at 20:59 Ibuprofen (Advil) 400 mg Q8HP PRN PO PAIN; Start 09/14/16 at 08:00; Stop at 07:59 Ibuprofen (Advil) 600 mg Q6H PO Last administered on 09/12/16 23:17; Start at 18:00; Stop 09/13/16 at 10:06; Status DC Levothyroxine Sodium (Synthroid) 0.112 mg DAILY@06 PO Last administered on 09/14 05:07; Start 08/29/16 at 06:00; Stop 09/28/16 at 05:59 Lidocaine (Lidoderm Patch) 1 patch DAILY TD Last administered on 09/13/16 10: 37; Start 09/13/16 at 09:00; Stop 10/13/16 at 08:59 Lorazepam (Ativan) 1 mg Q6HP PRN PO ANXIETY Last administered on 09/14/16 12: 01; Start 08/29/16 at 09:00; Stop 09/17/16 at 08:59 Lorazepam (Ativan) 1 mg STAT STAT IV Last administered on 08/28/16 08:00; Start 08/28/16 at 07:19; Stop 08/28/16 at 07:21; Status DC Lorazepam (Ativan) 1 mg STAT STAT PO Last administered on 09/09/16 16:35; Start 09/09/16 at 16:26; Stop 09/09/16 at 16:27; Status DC Lorazepam (Ativan) 2 mg STAT STAT PO Last administered on 08/29/16 09:01; Start 08/29/16 at 08:49; Stop 08/29/16 at 08:51; Status DC Magnesium Hydroxide (Milk Of Magnesia) 30 ml DAILYPRN PRN PO CONSTIPATION Last administered on 09/03/16 11:22; Start 08/28/16 at 16:45; Stop 09/27/16 at 16:44 Mirtazapine (Remeron) 30 mg QHS PO Last administered on 09/13/16 21:47; Start 09/09/16 at 21:00; Stop 10/09/16 at 20:59 Multivitamins (Theragram-M) 1 tab DAILY PO Last administered on 09/13/16 08:32 ; Start 08/29/16 at 09:00; Stop 09/28/16 at 08:59 Nitrofurantoin Monoh/Nitrofur Macro (Macrobid) 100 mg BID PO Last administered on 09/13/16 21:47; Start 09/12/16 at 09:00; Stop 09/14/16 at 07:52; Status DC Non-Formulary Medication ( See Comment Field Below ) REMOVE LIDODERM PATCH DAILY@21 XX Last administered on 09/13/16 21:51; Start 09/13/16 at 21:00; Stop 10/13/16 at 20:59 Non-Formulary Medication ( See Comment Field Below ) SEE COMMENTS SECTION 1T @10 XX ; Start 08/31/16 at 10:00; Stop 08/31/16 at 10:00; Status DC Non-Formulary Medication ( See Comment Field Below ) SEE LABEL COMMENTS DAILY XX ; Start 08/29/16 at 09:00; Stop 09/04/16 at 08:31; Status DC Non-Formulary Medication ( See Comment Field Below ) SEE LABEL COMMENTS SECTION 1T@10 XX Last administered on 09/06/16 10:00; Start 09/06/16 at 10:00 ; Stop 09/06/16 at 23:59; Status DC Nystatin (Mycostatin Powder, Nystop) 1 dose BIDP PRN TOP RASH Last administered on 09/04/16 20:36; Start 09/04/16 at 18:30; Stop 10/04/16 at 18:29 Ondansetron HCl (Zofran Odt) 4 mg Q8HP PRN PO NAUSEA OR VOMITING; Start at 13:15; Stop 10/14/16 at 13:14 Ondansetron HCl (Zofran) 4 mg Q8HP PRN PO NAUSEA OR VOMITING Last administered on 09/14/16 05:08; Start 09/13/16 at 10:15; Stop 10/13/16 at 10:14 Polyethylene Glycol (Miralax) 1 pkt DAILYPRN PRN PO CONSTIPATION Last administered on 09/02/16 10:26; Start 08/28/16 at 21:30; Stop 09/27/16 at 21:29 Pramipexole Dihydrochloride (Mirapex) 0.25 mg BID PO Last administered on 08:18; Start 08/28/16 at 21:00; Stop 09/08/16 at 23:41; Status DC Sertraline HCl (Zoloft) 75 mg DAILY PO Last administered on 09/13/16 08:32; Start 09/09/16 at 09:00; Stop 10/09/16 at 08:59 Trazodone HCl (Desyrel) 150 mg QHS PO Last administered on 09/08/16 19:58; Start 08/28/16 at 21:00; Stop 09/08/16 at 23:30; Status DC Tuberculin PPD (Aplisol, Ppd) 5 units 1T@10 ID Last administered on 09/04/16 09:21; Start 09/04/16 at 10:00; Stop 09/04/16 at 23:59; Status DC Venlafaxine HCl (Effexor Xr) 300 mg DAILY PO Last administered on 08:17; Start 08/29/16 at 09:00; Stop 09/08/16 at 23:37; Status DC Allergies Coded Allergies: Codeine (Verified Adverse Reaction, Mild, NAUSEA, 07/28/12) BEATRICE SNYDER MD September 14, 2016 13:29
[2016-09-14] MEDS: carBAMazepine XR 100 MG TAB PO SCH ×3 (13:49→21:03)
[2016-09-14] MEDS: MULTIVITAMINS/MINERALS THERAP 1 TAB PO SCH (13:49)
[2016-09-14] MEDS: DOCUSATE SODIUM 100 MG CAP PO SCH ×2 (13:49→21:04)
[2016-09-14] MEDS: ASPIRIN 81 MG ENTERIC TAB PO SCH (13:49)
[2016-09-14] MEDS: CEFDINIR 300 MG CAP (OMNICEF) PO SCH ×2 (13:49→21:03)
[2016-09-14] MEDS: ARIPiprazole 10 MG TAB PO SCH (13:49)
[2016-09-14] MEDS: CALCIUM/VITAMIN D 500 MG TAB PO SCH ×2 (13:50→21:04)
[2016-09-14] MEDS: SERTRALINE HCL 25 MG TABLET PO SCH (13:50)
[2016-09-14] MEDS: hydrOXYzine 25 MG TAB PO SCH ×2 (13:50→21:04)
[2016-09-14] MEDS: LIDOCAINE 5% (LIDODERM) PATCH TD SCH (13:50)
[2016-09-14 18:00] VITALS: BP 113/67
[2016-09-14] MEDS: ARIPiprazole 15 MG TAB (AbiLIFY) PO SCH (21:03)
[2016-09-14] MEDS: ATORVASTATIN 10 MG TAB PO SCH (21:03)
[2016-09-14] MEDS: **NOTE PATIENT COMMENT** MISC XX SCH (21:04)
[2016-09-14] MEDS: MIRTAZAPINE 15 MG TAB PO SCH (21:04)
[2016-09-15] MEDS: IBUPROFEN 400 MG TAB PO PRN ×3 (02:21→20:19)
[2016-09-15] MEDS: LORazepam 1 MG TAB PO PRN (02:47)
[2016-09-15] MEDS: LEVOTHYROXINE 0.112 MG TAB (112 MCG) PO SCH (06:08)
[2016-09-15] MEDS: ACETAMINOPHEN TAB 650MG DOSE (2X325MG) PO PRN ×2 (06:41→18:52)
[2016-09-15 06:47] VITALS: BP_SYST 127; BP_SYST 130; BP_SYST 137; BP_DIAS 63; BP_DIAS 66; BP_DIAS 87
[2016-09-15 07:47] LABS: MEAN CORPUSCULAR HEMOGLOBIN 30.2 pg (27.0-33.0); MEAN CORPUSCULAR HGB CONC 34.1 g/dl (32.0-36.5); MEAN CORPUSCULAR VOLUME 88.8 fl (80.0-96.0); RED CELL DISTRIBUTION WIDTH 13.1 % (11.5-14.5); WHITE BLOOD COUNT 6.8 K/mm3 (4.0-10.0)
[2016-09-15] MEDS: DOCUSATE SODIUM 100 MG CAP PO SCH ×2 (08:10→20:18)
[2016-09-15] MEDS: CALCIUM/VITAMIN D 500 MG TAB PO SCH ×2 (08:10→20:19)
[2016-09-15] MEDS: CEFDINIR 300 MG CAP (OMNICEF) PO SCH ×2 (08:10→20:18)
[2016-09-15] MEDS: ARIPiprazole 10 MG TAB PO SCH (08:10)
[2016-09-15] MEDS: hydrOXYzine 25 MG TAB PO SCH ×2 (08:10→20:19)
[2016-09-15] MEDS: ASPIRIN 81 MG ENTERIC TAB PO SCH (08:10)
[2016-09-15] MEDS: carBAMazepine XR 100 MG TAB PO SCH ×3 (08:11→20:18)
[2016-09-15] MEDS: MULTIVITAMINS/MINERALS THERAP 1 TAB PO SCH (08:11)
[2016-09-15] MEDS: LIDOCAINE 5% (LIDODERM) PATCH TD SCH (08:11)
[2016-09-15] MEDS: SERTRALINE HCL 25 MG TABLET PO SCH (08:11)
[2016-09-15 08:21] LABS: ALKALINE PHOSPHATASE 130 U/L (45-117); ALT/SGPT 27 U/L (12-78); ANION GAP 10 MEQ/L (8-16); AST/SGOT 18 U/L (15-37); BILIRUBIN,TOTAL 0.5 MG/DL (0.2-1.0); BLOOD UREA NITROGEN 16 MG/DL (7-18); CALCIUM LEVEL 8.7 MG/DL (8.8-10.2); CARBON DIOXIDE LEVEL 25 MEQ/L (21-32); CHLORIDE LEVEL 106 MEQ/L (98-107); GLOMERULAR FILTRATION RATE > 60.0 (>39); GLUCOSE, FASTING 94 MG/DL (83-110); POTASSIUM SERUM 3.6 MEQ/L (3.5-5.1); SODIUM LEVEL 141 MEQ/L (136-145)
[2016-09-15] MEDS: LORazepam 0.5 MG TAB PO PRN ×2 (09:48→18:52)
--- NOTE | 2016-09-15 10:44 | IPNPDOC ---
Subjective Date Seen The patient was seen on 09/15/16. Subjective Chief Complaint/HPI The patient is a 76-year-old female admitted with a reason for visit of Unspecified Depressive Disorder. Objective Physical Examination General Exam: Positive: Alert Eye Exam: Positive: PERRLA ENT Exam: Positive: Atraumatic, Mucous membr. moist/pink, Pharynx Normal, Tongue Midline Neck Exam: Positive: Supple, Negative: JVD, thyromegaly Chest Exam: Positive: Clear to auscultation, Normal air movement, Other (there is tenderness with palpation over the left rib area.) Heart Exam: Positive: Rate Normal, Regular Rhythm, Normal S1, Normal S2, Negative: Murmurs, Rubs Abdomen Exam: Positive: Normal bowel sounds, Soft, Negative: Tenderness, Hepatospenomegaly, Mass, Hernia Extremity Exam: Positive: Normal pulses, Other (splint and wrapping it is noted at the left wrist and forearm.), Negative: Clubbing, Cyanosis, Edema Skin Exam: Positive: Nl turgor and temperature Psych Exam: Positive: Oriented x 3 Assessment /Plan Problems (1) Wrist fracture, left Problem Text: * XR results discussed with pt, attending aware. * Orthopedics consulted. Dr March evaluated the patient, reduction performed. Follow-up x-ray completed. * Elevate left upper extremity, apply ice as needed. * Continue Zofran 4 mg every 8 as needed. * [place] discontinued 09/14/16 as this was possibly contributing to nausea and vomiting. N/V improved/resolved today. * Continue Tylenol 650 mg every 4 hours as needed. * Continue ibuprofen 400 mg every 8 hours as needed. * Plan is for follow-up with orthopedics in 7-10 days with repeat x-ray. (2) Fall Status: Acute Problem Text: * Pt apparently refusing some of her meds over the weekend, and did not eat per nursing. * CBC/CMP reviewed * urine culture pending * EKG updated. * CT scan brain. No acute changes. * Fall precautions. * I/O requested but is not recorded. * Orthostatic vital signs every shift. * PT eval and treat for unsteady gait. Patient does not use any assistive devices at this time. Cane or norris walker recommended. Norris walker in pt room, PT has been cont'd. (3) UTI (urinary tract infection) Status: Acute Problem Text: * UC 09/12 Organism 1 ESCHERICHIA COLI COLONY COUNT >100,000 CFU/ml * Sensitivities reviewed. Augmentin d/cd. Pt started on Cefdinir 300mg BID 09/05- 09/08 * Changed to Nitrofurantoin 09/11-09/14. * Nitrofurantoin d/cd, Cefdinir 300mg BID x 7 days. (4) Constipation Status: Chronic Problem Text: * AXR 08/28/16 KUB shows the intestinal gas pattern to be nonspecific. The organ silhouettes insofar as delineated are unremarkable. There is no evidence of free intraperitoneal air. * CT A/P 08/28/16 No evidence of acute disease. * Continue with MiraLAX daily as needed * Colace 100 mg by mouth twice a day * Continue with milk of magnesia daily as needed. * abdominal x-ray 09/02 Unremarkable bowel gas pattern. No evidence of obstruction. . (5) Chronic pain Status: Chronic Problem Text: * Pt continues to report chronic pain. * Continue with Tylenol as needed. * Appreciate pain mgmt opinion 09/06/16. Patient is requesting to be evaluated by pain management. Call has been placed 09/15/16 to pain management, they are aware and reevaluate patient. 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 This appears more prominent than on the prior MRI study of 10/28/2013. Scoliosis is seen. Mild stable wedge compression deformities are noted at T12 and L1 (6) Hypothyroid Status: Chronic Problem Text: * Continue supplement (7) Bladder neoplasm Status: Chronic Problem Text: * H/O Bladder Ca. * Follows as outpatient with urology, Dr. Bradford. * Urine cytology negative 05/10 (8) Hyperlipidemia Status: Chronic Problem Text: * Continue statin/ASA (9) Rib pain Problem Text: * XR indicates non displaced left 7th rib fracture * Possible Rt fifth rib fracture. * Fall precautions * sitter * I/S every hour while awake Pt verbalizes understanding. * Lidoderm patch to left rib area. * Encourage po and OOB. (10) Poor nutrition Problem Text: * poor oral intake noted. * Sitter at bedside. * Monitor labs, BMP/CBC in AM. * request nutritional clt. * Encourage po intake. * Daily wt requested * I/O requested Plan/VTE VTE Prophylaxis Ordered?: No (ambulatory) VS, I&O, 24H, Fishbone Vital Signs/I&O Vital Signs Date Time Temp Pulse Resp B/P (MAP) Pulse Ox O2 Delivery O2 Flow Rate FiO2 09/15/16 06:48 97.6 20 09/15/16 06:47 66 130/63 (85) 77 137/66 (89) 84 127/87 (100) 09/14/16 18:00 Room Air 09/12/16 08:10 95 I&O- Last 24 Hours up to 6 AM 09/15/16 06:00 Intake Total 820 ml Output Total 570 ml Balance 250 ml Laboratory Data 24H LABS Laboratory Tests 2 09/15/16 07:33: Anion Gap 10, Glomerular Filtration Rate > 60.0, Blood Urea Nitrogen 16, Creatinine 0.70, Sodium Level 141, Potassium Level 3.6, Chloride Level 106, Carbon Dioxide Level 25, Calcium Level 8.7L, Aspartate Amino Transf (AST/SGOT) 18, Alanine Aminotransferase (ALT/SGPT) 27, Alkaline Phosphatase 130H, Total Bilirubin 0.5, Total Protein 6.0L, Albumin 3.0L, Albumin/Globulin Ratio 1.00 CBC/BMP Laboratory Tests 09/15/16 07:33 Red Blood Count 4.31, Mean Corpuscular Volume 88.8, Mean Corpuscular Hemoglobin 30.2, Mean Corpuscular Hemoglobin Concent 34.1, Red Cell Distribution Width 13.1 , Calcium Level 8.7 L, Aspartate Amino Transf (AST/SGOT) 18, Alanine Aminotransferase (ALT/SGPT) 27, Alkaline Phosphatase 130 H, Total Bilirubin 0.5 , Total Protein 6.0 L, Albumin 3.0 L Microbiology Microbiology 09/12/16 Urine Culture - Final, Complete Escherichia Coli Griselda Shanks September 15, 2016 10:44
[2016-09-15] MEDS: BALMEX CREAM 60GM TOP PRN ×2 (16:15→16:21)
[2016-09-15 18:00] VITALS: BP 127/83
--- NOTE | 2016-09-15 18:30 | IPNPDOC ---
General Date of Service/Time The patient was seen on 09/15/16 at 1630 Chief complaint The patient is a 76-year-old female admitted with a reason for visit of Unspecified Depressive Disorder. Pain management is asked to see in regards to patient's continued issue with pain. Patient reports that the worst pain and what is most troubling to her is the neuropathy that she is experiencing just in her toes. Progress Note SUBJECTIVE: Patient is a 76]-year-old [white female known to our practice. I have previously seen her this hospital stay. OBJECTIVE: PHYSICAL EXAMINATION: VITAL SIGNS: Please see below. GENERAL: [Lying recumbent in her hospital bed.] HEENT: CARDIOVASCULAR: . RESPIRATORY: . ABDOMINAL: EXTREMITIES: [Lower extremities are examined. Is able to take own shoes off. No lower extremity edema. Bunion noted right first metatarsal. Pulses 2+ dorsal Pedalis 1+ postibial bilaterally. No apparent sensory deficit to light touch. Is able to flex and extend the toes bilaterally. No tenderness noted over the dorsal or plantar surface of the feet. NEUROLOGICAL: PSYCHOLOGICAL: IMAGING: ASSESSMENT AND PLAN: 1. Lower extremity sensory alteration described by the patient as peripheral neuropathy. Discussed options of management of neuropathy with the patient. She states that it went away completely for many years and just comes back and it brings her to the mental health department. I did tell her that at this time we would not be looking to use any opioid medications or any medicines which might affect her mental status. Would recommend use of a B complex vitamin on a daily basis. Did also strongly recommend activity and ambulation. Also recommended that she work with the mental health team eval coping skills such as mindfulness to deal with this discomfort DISPOSITION: [All medications as per her mental health team and the medical staff hospitalist. Allergies Allergies: Coded Allergies: Codeine (Verified Adverse Reaction, Mild, NAUSEA, 07/28/12) VS,Fishbone, I+O VS, Fishbone, I+O Laboratory Tests 09/15/16 07:33 Red Blood Count 4.31, Mean Corpuscular Volume 88.8, Mean Corpuscular Hemoglobin 30.2, Mean Corpuscular Hemoglobin Concent 34.1, Red Cell Distribution Width 13.1 , Calcium Level 8.7 L, Aspartate Amino Transf (AST/SGOT) 18, Alanine Aminotransferase (ALT/SGPT) 27, Alkaline Phosphatase 130 H, Total Bilirubin 0.5 , Total Protein 6.0 L, Albumin 3.0 L Vital Signs Date Time Temp Pulse Resp B/P (MAP) Pulse Ox O2 Delivery O2 Flow Rate FiO2 09/15/16 18:00 99.2 91 16 127/83 (98) 09/14/16 18:00 Room Air 09/12/16 08:10 95 I&O- Last 24 Hours up to 6 AM 09/15/16 06:00 Intake Total 820 ml Output Total 570 ml Balance 250 ml Carolann Villanueva ACUTE DIALYSIS REGISTERED NURSE September 15, 2016 18:30
[2016-09-15 18:41] VITALS: BP_SYST 108; BP_SYST 109; BP_SYST 117; BP_DIAS 65; BP_DIAS 71; BP_DIAS 73
--- NOTE | 2016-09-15 20:03 | IPN ---
DATE: 09/15/2016 I evaluated a 76-year-old female with history of severe depression, severe anxiety, neuropathic pain in her feet, pelvic fracture, and recently fractured ribs and wrist. The patient continues to express severe anxiety and continues to feel depressed. She states that she has not been able to sleep well in spite of being on very high doses of medications. She also states that she is extremely anxious, that she fears that she will not be able to see her again, that she is afraid of dying, that she is afraid of going for long-term treatment hospitalization at [facility], that she is afraid of being in more pain. The patient perseverates about thoughts of anxiety and pain, several times she verbalizes that it is not worth living this way. She has constant seeking for attention and for medications, especially for benzodiazepines, and the dose has been reduced since today, and for that reason she has several behavioral problems, which she intended to manipulate this author by taking away the bandage that is covering her wrist, in an attempt to persuade me to continue giving her 1 mg instead of 0.5 mg of Ativan. The patient has very poor coping skills and she has regressed to previous stages of development, she is behaving like a 2 or 3-year-old that is having a tantrum, it is understandably a regression, she does not want to assume the role of an adult, and she does not have to deal with her emotions. The patient continues to be at high risk to hurting herself because her insight and judgment are extremely poor and even when she is in pain and when she is laying in bed, at this time she continues to be impulsive, it has been hard for the staff to make her stay in bed. Her levels of anxiety are extremely high and difficult to control and because she is extremely anxious she gets more and more depressed. The patient is alert and oriented times three, uncooperative with staff and this author, with poor eye contact, tearful, irritable, sad, aggressive. Her affect is extremely labile. Her thought process is not tangential and not circumstantial but is irrational. Her thought content is about depression, anxiety, and pain, those are the things that she perseverates about, and about feeling guilty, with her particularly, because he has been taking care of her and he is having to take care of the house and she has not been able to help him, she has stated that she feels worthless and useless, and for that reason she thinks that life is not worth living. Her recent and remote memory are fair, her attention and concentration are disruptive because she is constantly thinking about her problems and then she is not able to focus on one single subject. The patient is to continue at the inpatient mental health unit, she needs to continue to be hospitalized to help her control her anxiety, her depression, and her medical problems, now they have been complicated by her fall and the fractures that she has got since she fell 2 days ago. Will continue on the same medications but Abilify was increased to 15 mg by mouth every morning and hopefully this will help her with her impulsivity. Will followup.
[2016-09-15] MEDS: MIRTAZAPINE 15 MG TAB PO SCH (20:18)
[2016-09-15] MEDS: ATORVASTATIN 10 MG TAB PO SCH (20:19)
[2016-09-15] MEDS: ARIPiprazole 15 MG TAB (AbiLIFY) PO SCH (20:19)
[2016-09-15] MEDS: **NOTE PATIENT COMMENT** MISC XX SCH (21:03)
[2016-09-16] MEDS: ACETAMINOPHEN TAB 650MG DOSE (2X325MG) PO PRN ×2 (01:40→11:40)
[2016-09-16] MEDS: LORazepam 0.5 MG TAB PO PRN ×3 (03:15→20:43)
[2016-09-16] MEDS: IBUPROFEN 400 MG TAB PO PRN ×2 (05:07→18:42)
[2016-09-16] MEDS: LIDOCAINE 5% (LIDODERM) PATCH TD SCH (06:10)
[2016-09-16] MEDS: LEVOTHYROXINE 0.112 MG TAB (112 MCG) PO SCH (06:14)
[2016-09-16 06:53] VITALS: BP 120/85
[2016-09-16 06:55] VITALS: BP 120/85
[2016-09-16 07:15] LABS: MEAN CORPUSCULAR HEMOGLOBIN 30.1 pg (27.0-33.0); MEAN CORPUSCULAR HGB CONC 33.6 g/dl (32.0-36.5); MEAN CORPUSCULAR VOLUME 89.6 fl (80.0-96.0); WHITE BLOOD COUNT 6.8 K/mm3 (4.0-10.0)
[2016-09-16 07:34] LABS: ALBUMIN/GLOBULIN RATIO 1.03 (1.00-1.93); ALKALINE PHOSPHATASE 123 U/L (45-117); ALT/SGPT 28 U/L (12-78); ANION GAP 9 MEQ/L (8-16); AST/SGOT 20 U/L (15-37); BILIRUBIN,TOTAL 0.5 MG/DL (0.2-1.0); BLOOD UREA NITROGEN 20 MG/DL (7-18); CALCIUM LEVEL 8.2 MG/DL (8.8-10.2); CARBON DIOXIDE LEVEL 25 MEQ/L (21-32); CHLORIDE LEVEL 107 MEQ/L (98-107); CREATININE FOR GFR 0.59 MG/DL (0.55-1.02); GLOMERULAR FILTRATION RATE > 60.0 (>39); GLUCOSE, FASTING 95 MG/DL (83-110); POTASSIUM SERUM 3.3 MEQ/L (3.5-5.1); SODIUM LEVEL 141 MEQ/L (136-145); TOTAL PROTEIN 5.9 GM/DL (6.4-8.2)
[2016-09-16] MEDS: CEFDINIR 300 MG CAP (OMNICEF) PO SCH ×2 (09:04→20:45)
[2016-09-16] MEDS: carBAMazepine XR 100 MG TAB PO SCH (09:04)
[2016-09-16] MEDS: CALCIUM/VITAMIN D 500 MG TAB PO SCH ×2 (09:04→20:44)
[2016-09-16] MEDS: ASPIRIN 81 MG ENTERIC TAB PO SCH (09:04)
[2016-09-16] MEDS: MULTIVITAMINS/MINERALS THERAP 1 TAB PO SCH (09:04)
[2016-09-16] MEDS: DOCUSATE SODIUM 100 MG CAP PO SCH ×2 (09:04→20:42)
[2016-09-16] MEDS: hydrOXYzine 25 MG TAB PO SCH ×2 (09:05→20:42)
[2016-09-16] MEDS: SERTRALINE HCL 25 MG TABLET PO SCH (09:05)
[2016-09-16] MEDS: ARIPiprazole 10 MG TAB PO SCH (09:05)
--- NOTE | 2016-09-16 15:10 | MHIPNPDOC ---
[facility] Progress Note Progress Note DATE OF SERVICE: 09/16/16 INTERVAL HISTORY: Medication Side effects: Denies Behavior: Less impulsive, less demanding, less regressive, less agitated and less aggressive at this time Group Attendance: She has not been attending groups because she has mobility problems, she has recently got hurt when she fell down and history fractured ribs and her wrist. Psychiatric Symptom change: Today she has been observed slightly less anxious but she is more depressed. VITAL SIGNS: See below. NEW TEST RESULTS: See below CURRENT MEDICATIONS: See below. MENTAL STATUS EXAMINATION: General: Alert, cooperative with interview, poor eye contact, disheveled, with no facial expressed emotions. Speech: Soft spoken, sparse Thought processes: Irrational Thought content: Redundant about being extremely anxious and having pain at the fracture sites. Abstract reasoning, and computation: She is not able to concentrate at this time because she is extremely focused on her anxiety at the same anxiety gets on her way for thinking about something else, performing simple mathematical problems or interpreting popular proverbs. Description of associations: Not loose Description of abnormal or psychotic thoughts: Negative for homicidal ideation, positive for passive suicidal thoughts, obsessive thoughts about being abandoned by her if she stays longer at the hospital, obsessive thoughts about her anxiety and her pain. Denies auditory and visual hallucinations, denies paranoid, persecutory thoughts. Judgment: Poor Insight: Poor Orientation: Oriented 3 Recent and remote memory: Fair Attention span and concentration: Poor Fund of knowledge: Adequate Mood: "I'm very anxious" Affect: Anxious/depressed/angry DIAGNOSES: 1. Major depressive disorder. 2. Generalized anxiety disorder. 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 MANAGEMENT PLAN: Will continue with current medications. Follow recommendations from pain management clinic and added vitamin B6 for neuropathy. Will increase Tegretol to 400 mg by mouth 3 times a day. Medications: As above Psychotherapy: She will need to continue attending groups once she feels better from her recent trauma/fall Social: -- Misc: -- Disposition: Patient will continue at the inpatient mental health unit. Waiting for a bed to become available to transfer her to [place] for a higher level of care. TIME SPENT: 30 minutes.INTERVAL HISTORY: Medication Side effects: Behavior: Group Attendance: Psychiatric Symptom change: VITAL SIGNS: See below. NEW TEST RESULTS: See below CURRENT MEDICATIONS: See below. MENTAL STATUS EXAMINATION: General: Speech: Thought processes: Thought content: Abstract reasoning, and computation: Description of associations: Description of abnormal or psychotic thoughts: Judgment: Insight: Orientation: Recent and remote memory: Attention span and concentration: Fund of knowledge: Mood: Affect: DIAGNOSES: 1. . 2. . 3. . ASSESSMENT: MANAGEMENT PLAN: Medications: Psychotherapy: Social: Misc: Disposition: TIME SPENT: minutes. Vital Signs Vital Signs Date Time Temp Pulse Resp B/P (MAP) Pulse Ox O2 Delivery O2 Flow Rate FiO2 09/16/16 06:55 73 120/85 (97) 09/16/16 06:53 99.0 18 09/14/16 18:00 Room Air 09/12/16 08:10 95 Laboratory Data 24H Labs Laboratory Tests 2 09/16/16 06:47: Anion Gap 9, Glomerular Filtration Rate > 60.0, Blood Urea Nitrogen 20H, Creatinine 0.59, Sodium Level 141, Potassium Level 3.3L, Chloride Level 107, Carbon Dioxide Level 25, Calcium Level 8.2L, Aspartate Amino Transf (AST/SGOT) 20, Alanine Aminotransferase (ALT/SGPT) 28, Alkaline Phosphatase 123H, Total Bilirubin 0.5, Total Protein 5.9L, Albumin 3.0L, Albumin/Globulin Ratio 1.03 CBC/BMP Laboratory Tests 09/16/16 06:47 Red Blood Count 4.30, Mean Corpuscular Volume 89.6, Mean Corpuscular Hemoglobin 30.1, Mean Corpuscular Hemoglobin Concent 33.6, Red Cell Distribution Width 13.0 , Calcium Level 8.2 L, Aspartate Amino Transf (AST/SGOT) 20, Alanine Aminotransferase (ALT/SGPT) 28, Alkaline Phosphatase 123 H, Total Bilirubin 0.5 , Total Protein 5.9 L, Albumin 3.0 L Current Medications Current Medications Acetaminophen (Tylenol Tab) 650 mg Q6HP PRN PO HEADACHE or DISCOMFORT Last administered on 09/16/16t 11:40; Start 08/28/16 at 16:45; Stop 09/27/16 at 16:44 Acetaminophen/ Hydrocodone Bitart (Shunk, Anexsia 5/325) 1 tab Q4HP PRN PO MILD /MODERATE PAIN (PS 1-7) Last administered on 09/14/16 05:08; Start 09/12/16 at 12:45; Stop 09/14/16 at 07:52; Status DC Al Hydrox/Mg Hydrox/Simethicone (Mylanta) 30 ml Q4HP PRN PO HEARTBURN/ INDIGESTION Last administered on 09/13/16 19:00; Start 08/28/16 at 16:45; Stop 09/27/16 at 16:44 Amitriptyline HCl (Elavil) 10 mg BID PO Last administered on 09/08/16 08:18; Start 09/02/16 at 21:00; Stop 09/08/16 at 23:30; Status DC Amoxicillin/ Clavulanate Potassium (Augmentin) 500 mg Q12H PO Last administered on 09/05/16 06:07; Start 09/03/16 at 18:00; Stop 09/05/16 at 12:05 ; Status DC Aripiprazole (AbiLIFY) 5 mg QAM PO Last administered on 09/09/16 09:08; Start 09/07/16 at 09:00; Stop 09/09/16 at 16:26; Status DC Aripiprazole (AbiLIFY) 10 mg BID PO Last administered on 08/31/16 08:26; Start 08/29/16 at 21:00; Stop 08/31/16 at 13:38; Status DC Aripiprazole (AbiLIFY) 10 mg DAILY PO ; Start 08/29/16 at 09:00; Stop 08/29/16 at 10:06; Status DC Aripiprazole (AbiLIFY) 10 mg QAM PO Last administered on 09/06/16 08:20; Start 09/01/16 at 09:00; Stop 09/06/16 at 13:44; Status DC Aripiprazole (AbiLIFY) 10 mg QAM PO Last administered on 09/15/16 08:10; Start 09/10/16 at 09:00; Stop 09/15/16 at 17:38; Status DC Aripiprazole (AbiLIFY) 10 mg QHS PO Last administered on 09/07/16 20:16; Start 09/06/16 at 21:00; Stop 09/08/16 at 23:30; Status DC Aripiprazole (AbiLIFY) 15 mg QHS PO Last administered on 09/05/16 20:00; Start 08/31/16 at 21:00; Stop 09/06/16 at 13:42; Status DC Aripiprazole (AbiLIFY) 15 mg QHS PO Last administered on 09/15/16 20:19; Start 09/09/16 at 21:00; Stop 10/09/16 at 20:59 Aripiprazole (AbiLIFY) 20 mg QAM PO Last administered on 09/16/16 09:05; Start 09/16/16 at 09:00; Stop 10/16/16 at 08:59 Aspirin (Ecotrin) 81 mg DAILY PO Last administered on 09/16/16 09:04; Start at 09:00; Stop 09/28/16 at 08:59 Atorvastatin Calcium (Lipitor) 10 mg QHS PO Last administered on 09/15/16 20: 19; Start 08/28/16 at 21:00; Stop 09/27/16 at 20:59 Calcium/Vitamin D (Oscal D) 500 mg BID PO Last administered on 09/16/16 09:04 ; Start 08/28/16 at 21:00; Stop 09/27/16 at 20:59 Carbamazepine (TEGretol XR) 200 mg TID PO Last administered on 09/09/16 15:48 ; Start 09/09/16 at 09:00; Stop 09/09/16 at 16:39; Status DC Carbamazepine (TEGretol XR) 300 mg TID PO Last administered on 09/16/16 09:04 ; Start 09/09/16 at 21:00; Stop 10/09/16 at 20:59 Cefdinir (Omnicef) 300 mg BID PO Last administered on 09/08/16 08:18; Start at 09:00; Stop 09/09/16 at 08:59; Status DC Cefdinir (Omnicef) 300 mg BID PO Last administered on 09/16/16 09:04; Start at 09:00; Stop 09/21/16 at 08:59 Docusate Sodium (Colace) 100 mg BID PO Last administered on 09/16/16 09:04; Start 09/02/16 at 09:00; Stop 10/02/16 at 08:59 Gabapentin (Neurontin) 300 mg TID PO Last administered on 09/08/16 08:17; Start 09/06/16 at 16:00; Stop 09/08/16 at 23:39; Status DC Gabapentin (Neurontin) 600 mg TID PO Last administered on 09/06/16 08:20; Start 08/28/16 at 21:00; Stop 09/06/16 at 13:42; Status DC Home Med (Med Rec Complete!) ASDIRECTED XX ; Start 08/28/16 at 13:00; Stop at 13:00; Status DC Hydroxyzine HCl (Atarax) 75 mg BID PO Last administered on 09/16/16 09:05; Start 08/28/16 at 21:00; Stop 09/27/16 at 20:59 Ibuprofen (Advil) 400 mg Q8HP PRN PO PAIN Last administered on 09/16/16 05:07 ; Start 09/14/16 at 08:00; Stop 10/14/16 at 07:59 Ibuprofen (Advil) 600 mg Q6H PO Last administered on 09/12/16 23:17; Start at 18:00; Stop 09/13/16 at 10:06; Status DC Levothyroxine Sodium (Synthroid) 0.112 mg DAILY@06 PO Last administered on 09/16 06:14; Start 08/29/16 at 06:00; Stop 09/28/16 at 05:59 Lidocaine (Lidoderm Patch) 1 patch DAILY TD Last administered on 09/16/16 06: 10; Start 09/13/16 at 09:00; Stop 10/13/16 at 08:59 Lorazepam (Ativan) 0.5 mg Q8HP PRN PO ANXIETY Last administered on 09/16/16 11 :39; Start 09/15/16 at 09:15; Stop 09/22/16 at 09:14 Lorazepam (Ativan) 1 mg Q6HP PRN PO ANXIETY Last administered on 09/15/16 02: 47; Start 08/29/16 at 09:00; Stop 09/15/16 at 09:18; Status DC Lorazepam (Ativan) 1 mg STAT STAT IV Last administered on 08/28/16 08:00; Start 08/28/16 at 07:19; Stop 08/28/16 at 07:21; Status DC Lorazepam (Ativan) 1 mg STAT STAT PO Last administered on 09/09/16 16:35; Start 09/09/16 at 16:26; Stop 09/09/16 at 16:27; Status DC Lorazepam (Ativan) 2 mg STAT STAT PO Last administered on 08/29/16 09:01; Start 08/29/16 at 08:49; Stop 08/29/16 at 08:51; Status DC Magnesium Hydroxide (Milk Of Magnesia) 30 ml DAILYPRN PRN PO CONSTIPATION Last administered on 09/03/16 11:22; Start 08/28/16 at 16:45; Stop 09/27/16 at 16:44 Mirtazapine (Remeron) 30 mg QHS PO Last administered on 09/15/16 20:18; Start 09/09/16 at 21:00; Stop 10/09/16 at 20:59 Multivitamins (Theragram-M) 1 tab DAILY PO Last administered on 09/16/16 09:04 ; Start 08/29/16 at 09:00; Stop 09/28/16 at 08:59 Nitrofurantoin Monoh/Nitrofur Macro (Macrobid) 100 mg BID PO Last administered on 09/13/16 21:47; Start 09/12/16 at 09:00; Stop 09/14/16 at 07:52; Status DC Non-Formulary Medication ( See Comment Field Below ) REMOVE LIDODERM PATCH DAILY@21 XX Last administered on 09/15/16 21:03; Start 09/13/16 at 21:00; Stop 10/13/16 at 20:59 Non-Formulary Medication ( See Comment Field Below ) SEE COMMENTS SECTION 1T @10 XX ; Start 08/31/16 at 10:00; Stop 08/31/16 at 10:00; Status DC Non-Formulary Medication ( See Comment Field Below ) SEE LABEL COMMENTS DAILY XX ; Start 08/29/16 at 09:00; Stop 09/04/16 at 08:31; Status DC Non-Formulary Medication ( See Comment Field Below ) SEE LABEL COMMENTS SECTION 1T@10 XX Last administered on 09/06/16 10:00; Start 09/06/16 at 10:00 ; Stop 09/06/16 at 23:59; Status DC Nystatin (Mycostatin Powder, Nystop) 1 dose BIDP PRN TOP RASH Last administered on 09/04/16 20:36; Start 09/04/16 at 18:30; Stop 10/04/16 at 18:29 Ondansetron HCl (Zofran Odt) 4 mg Q8HP PRN PO NAUSEA OR VOMITING Last administered on 09/14/16 13:22; Start 09/14/16 at 13:15; Stop 10/14/16 at 13:14 Ondansetron HCl (Zofran) 4 mg Q8HP PRN PO NAUSEA OR VOMITING Last administered on 09/14/16 05:08; Start 09/13/16 at 10:15; Stop 09/14/16 at 13:12; Status DC Polyethylene Glycol (Miralax) 1 pkt DAILYPRN PRN PO CONSTIPATION Last administered on 09/02/16 10:26; Start 08/28/16 at 21:30; Stop 09/27/16 at 21:29 Pramipexole Dihydrochloride (Mirapex) 0.25 mg BID PO Last administered on 08:18; Start 08/28/16 at 21:00; Stop 09/08/16 at 23:41; Status DC Pyridoxine HCl (Vitamin B6) 25 mg DAILY PO ; Start 09/17/16 at 09:00; Stop 10/17 at 08:59 Sertraline HCl (Zoloft) 75 mg DAILY PO Last administered on 09/16/16 09:05; Start 09/09/16 at 09:00; Stop 10/09/16 at 08:59 Trazodone HCl (Desyrel) 150 mg QHS PO Last administered on 09/08/16 19:58; Start 08/28/16 at 21:00; Stop 09/08/16 at 23:30; Status DC Tuberculin PPD (Aplisol, Ppd) 5 units 1T@10 ID Last administered on 09/04/16 09:21; Start 09/04/16 at 10:00; Stop 09/04/16 at 23:59; Status DC Venlafaxine HCl (Effexor Xr) 300 mg DAILY PO Last administered on 08:17; Start 08/29/16 at 09:00; Stop 09/08/16 at 23:37; Status DC Zinc Oxide (Balmex Cream) 1 dose TIDP PRN TOP SEE LABEL COMMENTS Last administered on 09/15/16 16:15; Start 09/15/16 at 13:15; Stop 10/15/16 at 13:14 Allergies Coded Allergies: Codeine (Verified Adverse Reaction, Mild, NAUSEA, 07/28/12) BEATRICE SNYDER MD September 16, 2016 15:10
[2016-09-16] MEDS: carBAMazepine XR 200 MG TAB PO SCH ×2 (16:00→20:43)
[2016-09-16 18:00] VITALS: BP_SYST 137; BP_SYST 141; BP_SYST 144; BP_DIAS 66; BP_DIAS 69; BP_DIAS 93
[2016-09-16] MEDS ORDERED: POTASSIUM CHLORIDE 10 MEQ SR TABLET PO ONE (19:30)
[2016-09-16] MEDS: ARIPiprazole 15 MG TAB (AbiLIFY) PO SCH (20:43)
[2016-09-16] MEDS: MIRTAZAPINE 15 MG TAB PO SCH (20:43)
[2016-09-16] MEDS: ATORVASTATIN 10 MG TAB PO SCH (20:43)
[2016-09-16] MEDS: **NOTE PATIENT COMMENT** MISC XX SCH (21:00)
[2016-09-17] MEDS: IBUPROFEN 400 MG TAB PO PRN ×2 (03:16→11:33)
[2016-09-17] MEDS: LORazepam 0.5 MG TAB PO PRN ×3 (04:42→21:13)
[2016-09-17] MEDS: LEVOTHYROXINE 0.112 MG TAB (112 MCG) PO SCH (05:59)
[2016-09-17 06:31] VITALS: BP 125/71
[2016-09-17 06:50] LABS: ANION GAP 9 MEQ/L (8-16); BLOOD UREA NITROGEN 18 MG/DL (7-18); CALCIUM LEVEL 8.6 MG/DL (8.8-10.2); CARBON DIOXIDE LEVEL 26 MEQ/L (21-32); CHLORIDE LEVEL 108 MEQ/L (98-107); CREATININE FOR GFR 0.59 MG/DL (0.55-1.02); GLOMERULAR FILTRATION RATE > 60.0 (>39); GLUCOSE, FASTING 93 MG/DL (83-110); POTASSIUM SERUM 4.1 MEQ/L (3.5-5.1); SODIUM LEVEL 143 MEQ/L (136-145)
[2016-09-17] MEDS: ARIPiprazole 10 MG TAB PO SCH (08:10)
[2016-09-17] MEDS: ACETAMINOPHEN TAB 650MG DOSE (2X325MG) PO PRN ×2 (08:10→15:56)
[2016-09-17] MEDS: DOCUSATE SODIUM 100 MG CAP PO SCH ×2 (08:10→20:37)
[2016-09-17] MEDS: CEFDINIR 300 MG CAP (OMNICEF) PO SCH ×2 (08:11→20:36)
[2016-09-17] MEDS: SERTRALINE HCL 25 MG TABLET PO SCH (08:11)
[2016-09-17] MEDS: hydrOXYzine 25 MG TAB PO SCH ×2 (08:11→20:37)
[2016-09-17] MEDS: ASPIRIN 81 MG ENTERIC TAB PO SCH (08:11)
[2016-09-17] MEDS: MULTIVITAMINS/MINERALS THERAP 1 TAB PO SCH (08:11)
[2016-09-17] MEDS: CALCIUM/VITAMIN D 500 MG TAB PO SCH ×2 (08:11→20:37)
[2016-09-17] MEDS: carBAMazepine XR 200 MG TAB PO SCH ×3 (08:11→20:37)
[2016-09-17] MEDS: PYRIDOXINE 50 MG TAB PO SCH (08:12)
[2016-09-17] MEDS: LIDOCAINE 5% (LIDODERM) PATCH TD SCH (08:12)
[2016-09-17 18:00] VITALS: BP 143/80
[2016-09-17] MEDS: MIRTAZAPINE 15 MG TAB PO SCH (20:36)
[2016-09-17] MEDS: **NOTE PATIENT COMMENT** MISC XX SCH (20:37)
[2016-09-17] MEDS: ATORVASTATIN 10 MG TAB PO SCH (20:37)
[2016-09-17] MEDS: ARIPiprazole 15 MG TAB (AbiLIFY) PO SCH (20:37)
[2016-09-17 21:19] VITALS: BP 125/67
[2016-09-18] MEDS: IBUPROFEN 400 MG TAB PO PRN ×3 (00:51→18:41)
[2016-09-18] MEDS: LORazepam 0.5 MG TAB PO PRN ×3 (05:17→21:39)
[2016-09-18] MEDS: LEVOTHYROXINE 0.112 MG TAB (112 MCG) PO SCH (05:45)
[2016-09-18 06:00] VITALS: BP 151/64
[2016-09-18] MEDS: CEFDINIR 300 MG CAP (OMNICEF) PO SCH ×2 (09:34→21:42)
[2016-09-18] MEDS: SERTRALINE HCL 25 MG TABLET PO SCH (09:34)
[2016-09-18] MEDS: carBAMazepine XR 200 MG TAB PO SCH ×3 (09:35→21:40)
[2016-09-18] MEDS: ARIPiprazole 10 MG TAB PO SCH (09:35)
[2016-09-18] MEDS: PYRIDOXINE 50 MG TAB PO SCH (09:35)
[2016-09-18] MEDS: ASPIRIN 81 MG ENTERIC TAB PO SCH (09:35)
[2016-09-18] MEDS: hydrOXYzine 25 MG TAB PO SCH ×2 (09:35→21:40)
[2016-09-18] MEDS: MULTIVITAMINS/MINERALS THERAP 1 TAB PO SCH (09:35)
[2016-09-18] MEDS: DOCUSATE SODIUM 100 MG CAP PO SCH ×2 (09:35→21:40)
[2016-09-18] MEDS: CALCIUM/VITAMIN D 500 MG TAB PO SCH ×2 (09:35→21:39)
[2016-09-18] MEDS: LIDOCAINE 5% (LIDODERM) PATCH TD SCH (09:36)
--- NOTE | 2016-09-18 09:47 | REP ---
Clinical: Post reduction. Technique: Portable AP and lateral views. Findings: Boyle's fracture of the distal radius. Nondisplaced ulnar styloid fracture noted. Impression: Continued evidence for Boyle's fracture of the distal radius and ulnar styloid fracture. Signed by Humble Mckinley MD 09/18/2016 09:38 A
--- NOTE | 2016-09-18 10:06 | IPN ---
DATE OF SERVICE: 09/18/2016 SUBJECTIVE: The patient is approximately 6 days status post the left distal radius closed reduction and splinting done by Dr. March. Overnight, she has removed the splint in its entirety. I was consulted for evaluation. She has no other complaints. OBJECTIVE: Awake, alert, and oriented female. She is in some psychological distress, but apparently she is currently at her baseline. She is resting in bed. Examination of her left wrist shows a swelling ecchymosis about the distal radius with the skin intact. Distally, she is grossly neurovascularly intact. Ipsilateral fingers, forearm, and elbow are grossly atraumatic. Pre- and postreduction x-rays previously in the system were reviewed, show a displaced Colles fracture with satisfactory closed reduction and splinting. ASSESSMENT: Left distal radius fracture with self-removal of the splint, as above. PLAN: After obtaining her verbal consent with the nursing team present, a gentle repeat closed reduction and splinting was performed to satisfactory effect. Following this, she remained fully neurovascularly intact and comfortable in her splint and moving her fingers very well. Postreduction x-rays of the left wrist show satisfactory closed reduction. There is some slight interval displacement from her previous images. However, still should be capable of going forward with nonoperative management. At this point, she does have a sitter observing her to prevent her from removing the splint again. I placed her in a sling to further secure the splint, which was well secured. She will ultimately need to be transitioned to a cast, possibly a long-arm cast, to prevent her from removing it when she is able to tolerate that. I will coordinate that with the orthopedic team if she is still inpatient. This should be done within the next week or so ideally. Otherwise, if she is to be transferred within that time frame, then she can followup with orthopedics at her next hospital. Discussed all of the above with Dr. Bailey and the nursing team present and the patient. They understand and agree.
[2016-09-18] MEDS: ACETAMINOPHEN TAB 650MG DOSE (2X325MG) PO PRN ×2 (10:45→16:42)
[2016-09-18] MEDS: MAALOX 30 ML SUSP *UDC PO PRN (17:12)
[2016-09-18] MEDS: ATORVASTATIN 10 MG TAB PO SCH (21:40)
[2016-09-18] MEDS: ARIPiprazole 15 MG TAB (AbiLIFY) PO SCH (21:40)
[2016-09-18] MEDS: MIRTAZAPINE 15 MG TAB PO SCH (21:40)
[2016-09-18] MEDS: **NOTE PATIENT COMMENT** MISC XX SCH (21:54)
[2016-09-19] MEDS: ACETAMINOPHEN TAB 650MG DOSE (2X325MG) PO PRN ×3 (03:25→17:44)
[2016-09-19] MEDS: IBUPROFEN 400 MG TAB PO PRN (04:39)
[2016-09-19] MEDS: LEVOTHYROXINE 0.112 MG TAB (112 MCG) PO SCH (05:46)
[2016-09-19 06:00] VITALS: BP 128/59
[2016-09-19] MEDS: CEFDINIR 300 MG CAP (OMNICEF) PO SCH ×2 (08:43→20:48)
[2016-09-19] MEDS: PYRIDOXINE 50 MG TAB PO SCH (08:43)
[2016-09-19] MEDS: ASPIRIN 81 MG ENTERIC TAB PO SCH (08:43)
[2016-09-19] MEDS: SERTRALINE HCL 25 MG TABLET PO SCH (08:43)
[2016-09-19] MEDS: carBAMazepine XR 200 MG TAB PO SCH ×3 (08:43→20:47)
[2016-09-19] MEDS: ARIPiprazole 10 MG TAB PO SCH (08:43)
[2016-09-19] MEDS: CALCIUM/VITAMIN D 500 MG TAB PO SCH ×2 (08:43→20:47)
[2016-09-19] MEDS: hydrOXYzine 25 MG TAB PO SCH (08:43)
[2016-09-19] MEDS: DOCUSATE SODIUM 100 MG CAP PO SCH ×2 (08:44→21:24)
[2016-09-19] MEDS: MULTIVITAMINS/MINERALS THERAP 1 TAB PO SCH (08:44)
[2016-09-19] MEDS: LIDOCAINE 5% (LIDODERM) PATCH TD SCH (08:51)
[2016-09-19] MEDS: LORazepam 0.5 MG TAB PO PRN ×2 (09:35→17:40)
[2016-09-19 11:46] VITALS: BP 146/88
[2016-09-19 11:47] VITALS: BP_SYST 153; BP_SYST 155; BP_DIAS 82; BP_DIAS 92
--- NOTE | 2016-09-19 12:16 | REP ---
Clinical: Increasing pelvic pain. Technique: Axial noncontrast images from the lung bases to the pubic symphysis with coronal and sagittal re-formations. Comparison: 08/28/2016. Findings: Lung bases demonstrate chronic changes and small pericardial effusion unchanged from prior examination. Liver, spleen, pancreas, gallbladder, bilateral adrenal glands and kidneys are normal / stable. The enteric system is without obstruction or acute inflammatory process. Colonic and predominately sigmoid diverticulosis noted without acute diverticulitis. Pelvis demonstrates a normal bladder and age-appropriate uterus/adnexa. No pelvic fluid or ascites. No free air. No significant intraperitoneal or retroperitoneal adenopathy. Surrounding musculoskeletal structures are stable and again demonstrate advanced osteopenia and scoliosis with multilevel degenerative disc osteophyte complexes. Stable compression deformities at T12 and L1 are again noted. Stable postsurgical changes to the pelvis primarily involving the symphysis and right samina pelvis are unchanged through 10/26/2015. Impression: 1. No obvious acute intra-abdominal or pelvic pathology appreciated. 2. Colonic and sigmoid diverticulosis without acute diverticulitis. 3. No ascites. No inflammatory changes. No adenopathy. 4. Advanced degenerative and post traumatic/post surgical changes the musculoskeletal structures without acute findings. Signed by Humble Mckinley MD 09/19/2016 12:07 P
[2016-09-19] MEDS: HALOPERIDOL 2 MG TAB PO SCH ×2 (12:18→21:24)
[2016-09-19] MEDS: IBUPROFEN 600 MG TAB PO PRN ×2 (12:21→20:50)
[2016-09-19 18:00] VITALS: BP_SYST 135; BP_SYST 162; BP_SYST 164; BP_DIAS 70; BP_DIAS 75; BP_DIAS 76
--- NOTE | 2016-09-19 20:01 | IPN ---
DATE: 09/19/2016 Evaluated 76-year-old female with history of depression (severe), anxiety, suicidal ideation, neuropathy, history of pelvic fracture, and most recent rib fracture and wrist fracture. The patient reported pain in her pelvic area this morning and she stated she had the sensation to have a ball between her legs. On her previous CT scan of the pelvis dated 08/28/2016, it was noted that she has what looks like an inguinal hernia nd a lipoma. She was seen requesting more pain medication and none of it was given to her but the ibuprofen and it was increased to 600 mg by mouth every 6 hours for pain and she had it before at 400 mg by mouth every 6 hours for pain. The Atarax was discontinued and she was started on 2 mg of Haldol twice a day to decrease her anxiety and agitation. After she had her first dose of Haldol, she was seen more relaxed, sleeping, and before she went to sleep she ate her lunch. MENTAL STATUS EXAMINATION: The patient was seen lying in bed, disheveled, with good hygiene, with fair eye contact, with normal speech, and with a thought process that is intact. The thought content is positive for thoughts regarding pain, anxiety, and suicidal ideation, like for example, "I can't stand living like this, if this is what is living, I prefer not to be here, if I go home I will be a burden for my and if I go to the hospital the only option that I have is [place], so I will prefer not to be here." The patient denies homicidal ideation, denies auditory or visual hallucinations, and denies delusional thoughts, but she has obsessive thoughts regarding her pain problems. Her insight and judgment continue to be poor. Her attention and concentration are poor because she focuses too much on her pain and anxiety issues that she cannot pay attention to other subjects in a conversation. Her recent and remote memory are fair. Her impulse control continues to be poor. MANAGEMENT PLAN: She will continue to take her current medications with the adjustments that were explained above. She will be taking Haldol 2 mg by mouth twice a day, will not be taking anymore Atarax and will be taking more ibuprofen. Will follow her up, keep her on one-to-one observation fro risk for falls and will adjust medications if needed. ARIANNAD
[2016-09-19] MEDS: ARIPiprazole 15 MG TAB (AbiLIFY) PO SCH (20:47)
[2016-09-19] MEDS: ATORVASTATIN 10 MG TAB PO SCH (20:47)
[2016-09-19] MEDS: MIRTAZAPINE 15 MG TAB PO SCH (20:47)
[2016-09-19] MEDS: **NOTE PATIENT COMMENT** MISC XX SCH (20:48)
[2016-09-20] MEDS: ACETAMINOPHEN TAB 650MG DOSE (2X325MG) PO PRN ×2 (01:10→09:01)
[2016-09-20] MEDS: LORazepam 0.5 MG TAB PO PRN ×2 (02:53→10:58)
[2016-09-20] MEDS: IBUPROFEN 600 MG TAB PO PRN ×2 (02:54→15:41)
[2016-09-20] MEDS: LEVOTHYROXINE 0.112 MG TAB (112 MCG) PO SCH (06:08)
[2016-09-20 06:12] VITALS: BP_SYST 124; BP_SYST 125; BP_DIAS 71; BP_DIAS 75
[2016-09-20 06:14] VITALS: BP_SYST 20
[2016-09-20] MEDS: PYRIDOXINE 50 MG TAB PO SCH (08:59)
[2016-09-20] MEDS: HALOPERIDOL 2 MG TAB PO SCH ×2 (08:59→21:36)
[2016-09-20] MEDS: ARIPiprazole 10 MG TAB PO SCH (08:59)
[2016-09-20] MEDS: DOCUSATE SODIUM 100 MG CAP PO SCH ×3 (08:59→21:36)
[2016-09-20] MEDS: MULTIVITAMINS/MINERALS THERAP 1 TAB PO SCH (08:59)
[2016-09-20] MEDS: CEFDINIR 300 MG CAP (OMNICEF) PO SCH ×2 (08:59→21:37)
[2016-09-20] MEDS: carBAMazepine XR 200 MG TAB PO SCH ×3 (08:59→21:37)
[2016-09-20] MEDS: CALCIUM/VITAMIN D 500 MG TAB PO SCH ×2 (08:59→21:36)
[2016-09-20] MEDS: SERTRALINE HCL 25 MG TABLET PO SCH (08:59)
[2016-09-20] MEDS: ASPIRIN 81 MG ENTERIC TAB PO SCH (08:59)
[2016-09-20] MEDS: LIDOCAINE 5% (LIDODERM) PATCH TD SCH (09:00)
[2016-09-20] MEDS ORDERED: VENLAFAXINE **XR** 75MG CAPSULE PO ONE (10:30)
[2016-09-20 10:59] VITALS: BP 146/76
[2016-09-20 11:00] VITALS: BP 146/78
[2016-09-20] MEDS ORDERED: BENZTROPINE 1 MG TAB PO ONE (11:00)
[2016-09-20 11:01] VITALS: BP 134/68
--- NOTE | 2016-09-20 12:36 | MHIPNPDOC ---
[facility] Progress Note Progress Note DATE OF SERVICE: 09/20/16 HISTORY: 76-year-old female with history of severe depression, anxiety, chronic pain, neuropathy and recent history of rib and wrist fracture. She also has a previous history of pelvic fracture. Today the patient reported severe anxiety and that she couldn't sit still, but she has been seen sitting still 2 hours before her mind was BC and she was doing escobar. INTERVAL HISTORY: Medication Side effects: Denies Behavior: Attention seeking behavior, demanding, manipulative, agitated when she doesn't get what she wants Group Attendance: She hasn't been attending groups because she is at risk for falls Psychiatric Symptom change: She is being less agitated than previous days, but she still has periods during the day when she becomes more severely agitated. VITAL SIGNS: See below. NEW TEST RESULTS: See below CURRENT MEDICATIONS: See below. MENTAL STATUS EXAMINATION: General: Alert, dressed in hospital clothes, disheveled, with good hygiene and good eye contact Speech: Normal Thought processes: Intact Thought content: Redundant about her anxiety levels and physical complaints Abstract reasoning, and computation: Fair Description of associations: Not loose Description of abnormal or psychotic thoughts: There is no psychotic thoughts present, she denies auditory or visual hallucinations and is not responding to internal stimuli. She has passive suicidal thoughts, hopelessness, helplessness , worthlessness, guilt. She doesn't have positive homicidal thoughts Judgment: Poor Insight: Poor Orientation: Oriented 3 Recent and remote memory: Fair Attention span and concentration: Poor Fund of knowledge: Adequate Mood: "I am still very anxious, I cannot sit still" Affect: Anxious, irritable DIAGNOSES: 1. Major depressive disorder, severe with passive suicidal thoughts. 2. Anxiety disorder. 3. Borderline and dependent personality traits. ASSESSMENT: Patient continues to be depressed and anxious in spite of several medication changes. Zoloft was discontinued today and she was restarted on venlafaxine because she did better on that medication and her anxiety levels were lower. Since she has been taking alcohol since yesterday Cogentin was started today on 1 mg by mouth twice a day because of her extreme anxiety reported this morning couldn't have been exacerbated by the Haldol provoking akathisia. The dose for Tegretol was increased to 600 mg by mouth 3 times a day MANAGEMENT PLAN: Medications: As above Psychotherapy: She cannot attend groups now because she is unsteady and tends to get dizzy. Social:--- Misc: ---- Disposition: She will continue on the inpatient mental health unit until she gets transferred to [facility] for long-term treatment and a higher level of care. TIME SPENT: 25 minutes. Vital Signs Vital Signs Date Time Temp Pulse Resp B/P (MAP) Pulse Ox O2 Delivery O2 Flow Rate FiO2 09/20/16 11:01 83 16 134/68 (90) 09/20/16 10:59 97.0 09/14/16 18:00 Room Air Current Medications Current Medications Acetaminophen (Tylenol Tab) 650 mg Q6HP PRN PO HEADACHE or DISCOMFORT Last administered on 09/20/16 09:01; Start 08/28/16 at 16:45; Stop 09/27/16 at 16:44 Acetaminophen/ Hydrocodone Bitart ([place], Anexsia 5/325) 1 tab Q4HP PRN PO MILD /MODERATE PAIN (PS 1-7) Last administered on 09/14/16 05:08; Start 09/12/16 at 12:45; Stop 09/14/16 at 07:52; Status DC Al Hydrox/Mg Hydrox/Simethicone (Mylanta) 30 ml Q4HP PRN PO HEARTBURN/ INDIGESTION Last administered on 09/18/16 17:12; Start 08/28/16 at 16:45; Stop 09/27/16 at 16:44 Amitriptyline HCl (Elavil) 10 mg BID PO Last administered on 09/08/16 08:18; Start 09/02/16 at 21:00; Stop 09/08/16 at 23:30; Status DC Amoxicillin/ Clavulanate Potassium (Augmentin) 500 mg Q12H PO Last administered on 09/05/16 06:07; Start 09/03/16 at 18:00; Stop 09/05/16 at 12:05 ; Status DC Aripiprazole (AbiLIFY) 5 mg QAM PO Last administered on 09/09/16 09:08; Start 09/07/16 at 09:00; Stop 09/09/16 at 16:26; Status DC Aripiprazole (AbiLIFY) 10 mg BID PO Last administered on 08/31/16 08:26; Start 08/29/16 at 21:00; Stop 08/31/16 at 13:38; Status DC Aripiprazole (AbiLIFY) 10 mg DAILY PO ; Start 08/29/16 at 09:00; Stop 08/29/16 at 10:06; Status DC Aripiprazole (AbiLIFY) 10 mg QAM PO Last administered on 09/06/16 08:20; Start 09/01/16 at 09:00; Stop 09/06/16 at 13:44; Status DC Aripiprazole (AbiLIFY) 10 mg QAM PO Last administered on 09/15/16 08:10; Start 09/10/16 at 09:00; Stop 09/15/16 at 17:38; Status DC Aripiprazole (AbiLIFY) 10 mg QAM PO ; Start 09/21/16 at 09:00; Stop 10/21/16 at 08:59 Aripiprazole (AbiLIFY) 10 mg QHS PO Last administered on 09/07/16 20:16; Start 09/06/16 at 21:00; Stop 09/08/16 at 23:30; Status DC Aripiprazole (AbiLIFY) 10 mg QHS PO ; Start 09/20/16 at 21:00; Stop 10/20/16 at 20:59 Aripiprazole (AbiLIFY) 15 mg QHS PO Last administered on 09/05/16 20:00; Start 08/31/16 at 21:00; Stop 09/06/16 at 13:42; Status DC Aripiprazole (AbiLIFY) 15 mg QHS PO Last administered on 09/19/16 20:47; Start 09/09/16 at 21:00; Stop 09/20/16 at 10:26; Status DC Aripiprazole (AbiLIFY) 20 mg QAM PO Last administered on 09/20/16 08:59; Start 09/16/16 at 09:00; Stop 09/20/16 at 10:27; Status DC Aspirin (Ecotrin) 81 mg DAILY PO Last administered on 09/20/16 08:59; Start at 09:00; Stop 09/28/16 at 08:59 Atorvastatin Calcium (Lipitor) 10 mg QHS PO Last administered on 09/19/16 20: 47; Start 08/28/16 at 21:00; Stop 09/27/16 at 20:59 Benztropine Mesylate (Cogentin) 1 mg BID PO ; Start 09/20/16 at 21:00; Stop at 20:59 Calcium/Vitamin D (Oscal D) 500 mg BID PO Last administered on 09/20/16 08:59 ; Start 08/28/16 at 21:00; Stop 09/27/16 at 20:59 Carbamazepine (TEGretol XR) 200 mg TID PO Last administered on 09/09/16 15:48 ; Start 09/09/16 at 09:00; Stop 09/09/16 at 16:39; Status DC Carbamazepine (TEGretol XR) 300 mg TID PO Last administered on 09/16/16 09:04 ; Start 09/09/16 at 21:00; Stop 09/16/16 at 15:11; Status DC Carbamazepine (TEGretol XR) 400 mg TID PO Last administered on 09/20/16 08:59 ; Start 09/16/16 at 16:00; Stop 09/20/16 at 10:35; Status DC Carbamazepine (TEGretol XR) 600 mg TID PO ; Start 09/20/16 at 16:00; Stop at 15:59 Cefdinir (Omnicef) 300 mg BID PO Last administered on 09/08/16 08:18; Start at 09:00; Stop 09/09/16 at 08:59; Status DC Cefdinir (Omnicef) 300 mg BID PO Last administered on 09/20/16 08:59; Start at 09:00; Stop 09/21/16 at 08:59 Docusate Sodium (Colace) 100 mg BID PO Last administered on 09/20/16 08:59; Start 09/02/16 at 09:00; Stop 10/02/16 at 08:59 Gabapentin (Neurontin) 300 mg TID PO Last administered on 09/08/16 08:17; Start 09/06/16 at 16:00; Stop 09/08/16 at 23:39; Status DC Gabapentin (Neurontin) 600 mg TID PO Last administered on 09/06/16 08:20; Start 08/28/16 at 21:00; Stop 09/06/16 at 13:42; Status DC Haloperidol (Haldol) 2 mg BID PO Last administered on 09/20/16 08:59; Start at 09:00; Stop 10/19/16 at 08:59 Home Med (Med Rec Complete!) ASDIRECTED XX ; Start 08/28/16 at 13:00; Stop at 13:00; Status DC Hydroxyzine HCl (Atarax) 75 mg BID PO Last administered on 09/19/16 08:43; Start 08/28/16 at 21:00; Stop 09/19/16 at 11:44; Status DC Ibuprofen (Advil) 400 mg Q8HP PRN PO PAIN Last administered on 09/19/16 04:39 ; Start 09/14/16 at 08:00; Stop 09/19/16 at 11:44; Status DC Ibuprofen (Advil) 600 mg Q6H PO Last administered on 09/12/16 23:17; Start at 18:00; Stop 09/13/16 at 10:06; Status DC Ibuprofen (Advil) 600 mg Q6HP PRN PO PAIN Last administered on 09/20/16 02:54 ; Start 09/19/16 at 12:00; Stop 10/14/16 at 07:59 Levothyroxine Sodium (Synthroid) 0.112 mg DAILY@06 PO Last administered on 09/20 06:08; Start 08/29/16 at 06:00; Stop 09/28/16 at 05:59 Lidocaine (Lidoderm Patch) 1 patch DAILY TD Last administered on 09/18/16 09: 36; Start 09/13/16 at 09:00; Stop 10/13/16 at 08:59 Lorazepam (Ativan) 0.5 mg Q8HP PRN PO ANXIETY Last administered on 09/20/16 10 :58; Start 09/15/16 at 09:15; Stop 09/22/16 at 09:14 Lorazepam (Ativan) 1 mg Q6HP PRN PO ANXIETY Last administered on 09/15/16 02: 47; Start 08/29/16 at 09:00; Stop 09/15/16 at 09:18; Status DC Lorazepam (Ativan) 1 mg STAT STAT IV Last administered on 08/28/16 08:00; Start 08/28/16 at 07:19; Stop 08/28/16 at 07:21; Status DC Lorazepam (Ativan) 1 mg STAT STAT PO Last administered on 09/09/16 16:35; Start 09/09/16 at 16:26; Stop 09/09/16 at 16:27; Status DC Lorazepam (Ativan) 2 mg STAT STAT PO Last administered on 08/29/16 09:01; Start 08/29/16 at 08:49; Stop 08/29/16 at 08:51; Status DC Magnesium Hydroxide (Milk Of Magnesia) 30 ml DAILYPRN PRN PO CONSTIPATION Last administered on 09/03/16 11:22; Start 08/28/16 at 16:45; Stop 09/27/16 at 16:44 Mirtazapine (Remeron) 30 mg QHS PO Last administered on 09/19/16 20:47; Start 09/09/16 at 21:00; Stop 10/09/16 at 20:59 Multivitamins (Theragram-M) 1 tab DAILY PO Last administered on 09/20/16 08:59 ; Start 08/29/16 at 09:00; Stop 09/28/16 at 08:59 Nitrofurantoin Monoh/Nitrofur Macro (Macrobid) 100 mg BID PO Last administered on 09/13/16 21:47; Start 09/12/16 at 09:00; Stop 09/14/16 at 07:52; Status DC Non-Formulary Medication ( See Comment Field Below ) REMOVE LIDODERM PATCH DAILY@21 XX Last administered on 09/18/16 21:54; Start 09/13/16 at 21:00; Stop 10/13/16 at 20:59 Non-Formulary Medication ( See Comment Field Below ) SEE COMMENTS SECTION 1T @10 XX ; Start 08/31/16 at 10:00; Stop 08/31/16 at 10:00; Status DC Non-Formulary Medication ( See Comment Field Below ) SEE LABEL COMMENTS DAILY XX ; Start 08/29/16 at 09:00; Stop 09/04/16 at 08:31; Status DC Non-Formulary Medication ( See Comment Field Below ) SEE LABEL COMMENTS SECTION 1T@10 XX Last administered on 09/06/16 10:00; Start 09/06/16 at 10:00 ; Stop 09/06/16 at 23:59; Status DC Nystatin (Mycostatin Powder, Nystop) 1 dose BIDP PRN TOP RASH Last administered on 09/04/16 20:36; Start 09/04/16 at 18:30; Stop 10/04/16 at 18:29 Ondansetron HCl (Zofran Odt) 4 mg Q8HP PRN PO NAUSEA OR VOMITING Last administered on 09/14/16 13:22; Start 09/14/16 at 13:15; Stop 10/14/16 at 13:14 Ondansetron HCl (Zofran) 4 mg Q8HP PRN PO NAUSEA OR VOMITING Last administered on 09/14/16 05:08; Start 09/13/16 at 10:15; Stop 09/14/16 at 13:12; Status DC Polyethylene Glycol (Miralax) 1 pkt DAILYPRN PRN PO CONSTIPATION Last administered on 09/02/16 10:26; Start 08/28/16 at 21:30; Stop 09/27/16 at 21:29 Pramipexole Dihydrochloride (Mirapex) 0.25 mg BID PO Last administered on 08:18; Start 08/28/16 at 21:00; Stop 09/08/16 at 23:41; Status DC Pyridoxine HCl (Vitamin B6) 25 mg DAILY PO Last administered on 09/20/16 08:59 ; Start 09/17/16 at 09:00; Stop 10/17/16 at 08:59 Sertraline HCl (Zoloft) 75 mg DAILY PO Last administered on 09/20/16 08:59; Start 09/09/16 at 09:00; Stop 09/20/16 at 10:32; Status DC Trazodone HCl (Desyrel) 150 mg QHS PO Last administered on 09/08/16 19:58; Start 08/28/16 at 21:00; Stop 09/08/16 at 23:30; Status DC Tuberculin PPD (Aplisol, Ppd) 5 units 1T@10 ID Last administered on 09/04/16 09:21; Start 09/04/16 at 10:00; Stop 09/04/16 at 23:59; Status DC Venlafaxine HCl (Effexor Xr) 300 mg DAILY PO Last administered on 08:17; Start 08/29/16 at 09:00; Stop 09/08/16 at 23:37; Status DC Zinc Oxide (Balmex Cream) 1 dose TIDP PRN TOP SEE LABEL COMMENTS Last administered on 09/15/16 16:15; Start 09/15/16 at 13:15; Stop 10/15/16 at 13:14 Allergies Coded Allergies: Codeine (Verified Adverse Reaction, Mild, NAUSEA, 07/28/12) BEATRICE SNYDER MD September 20, 2016 12:36
[2016-09-20 18:18] VITALS: BP 132/66
[2016-09-20] MEDS: **NOTE PATIENT COMMENT** MISC XX SCH (21:00)
[2016-09-20] MEDS ORDERED: ARIPiprazole 10 MG TAB PO SCH (21:00)
[2016-09-20] MEDS: ATORVASTATIN 10 MG TAB PO SCH (21:36)
[2016-09-20] MEDS: MIRTAZAPINE 15 MG TAB PO SCH (21:37)
[2016-09-20] MEDS: BENZTROPINE 1 MG TAB PO SCH (21:37)
--- NOTE | 2016-09-20 21:46 | IPN ---
DATE: 09/20/2016 Patient seen and examined at the bedside today in the inpatient mental health unit. She has apparently repeatedly removed her splint. I talked to one of her providers who indicated that she just slides it off and has done so four or five times. Apparently one of the physicians covering for orthopedics over the weekend had to replace it. I talked to her at length today and explained that really we need to keep this cast on in order to have a chance of this healing. I explained that there are options of plating, external fixator, etc. She said she just wanted to leave it alone as it is. She really did not want to do anything surgical. I did strongly recommend we try again to immobilize this and this time I elected to go with a long-arm fiberglass cast which would be very difficult to remove. On exam she moves her fingers fairly well. She does have some ecchymosis around the wrist and does seem to have some loss of her reduction, although not as bad as it was a week ago. Her skin is intact. She remained to have intact sensation and good color. At this point I went ahead with re-reduction maneuver, I could clinically palpate that there was a little dorsal displacement. I put some volarly directed force while an anatomic pathology assistant held her fingers and then re-reduced this, put her in a long-arm fiberglass cast. She tolerated it very well and was moving her fingers very well. Post x-ray is pending at this time. RECOMMENDATIONS: I would recommend that she use the sling when she is out of bed, she can take it off when she is in bed. Essentially it is just for comfort however. Would recommend that within a week if she is discharged that she should followup in our office. If she is still here, we should be contacted for repeat evaluation and x-ray. If she is out of the area or transferred then she needs orthopedic followup wherever she ends up. Please contact us if there is any problems with her cast or extremity in the meantime.
--- NOTE | 2016-09-20 22:29 | REP ---
Clinical: Status post reduction and casting. Technique: AP and lateral views of the left wrist. Findings: The patient appears to be status post comminuted fracture to the distal radial metaphysis with palmar angulation and ulnar styloid fracture. Overlying cast material limits evaluation of fine bony detail. Impression: Status post casting for distal radial metaphysis and ulnar styloid fractures Signed by Humble Mckinley MD 09/20/2016 10:21 P
[2016-09-21] MEDS: IBUPROFEN 600 MG TAB PO PRN (05:58)
[2016-09-21] MEDS: LEVOTHYROXINE 0.112 MG TAB (112 MCG) PO SCH (05:58)
[2016-09-21 06:23] VITALS: BP_SYST 108; BP_SYST 127; BP_SYST 138; BP_DIAS 69; BP_DIAS 72; BP_DIAS 80
[2016-09-21] MEDS: LIDOCAINE 5% (LIDODERM) PATCH TD SCH (09:00)
[2016-09-21] MEDS ORDERED: ARIPiprazole 10 MG TAB PO SCH (09:00)
[2016-09-21] MEDS: ONDANSETRON 4 MG ORAL DISINTEGRATING TAB (S0181) PO PRN ×2 (10:02→18:25)
[2016-09-21] MEDS: DOCUSATE SODIUM 100 MG CAP PO SCH ×2 (10:54→20:28)
[2016-09-21] MEDS: carBAMazepine XR 200 MG TAB PO SCH (10:54)
[2016-09-21] MEDS: PYRIDOXINE 50 MG TAB PO SCH (10:55)
[2016-09-21] MEDS: HALOPERIDOL 2 MG TAB PO SCH ×2 (10:55→20:28)
[2016-09-21] MEDS: MULTIVITAMINS/MINERALS THERAP 1 TAB PO SCH (10:55)
[2016-09-21] MEDS: ASPIRIN 81 MG ENTERIC TAB PO SCH (10:56)
[2016-09-21] MEDS: CEFDINIR 300 MG CAP (OMNICEF) PO SCH ×2 (10:57→20:28)
[2016-09-21] MEDS: CALCIUM/VITAMIN D 500 MG TAB PO SCH ×2 (10:57→20:28)
[2016-09-21] MEDS: BENZTROPINE 1 MG TAB PO SCH ×2 (10:58→20:28)
[2016-09-21 10:59] LABS: BASO # 0.1 K/mm3 (0.0-0.2); BASO % 0.8 % (0.0-1.0); EOS # 0.1 K/mm3 (0.0-0.50); EOS % 1.1 % (0.0-3.0); LARGE UNSTAINED CELL # 0.1 K/mm3 (0.0-0.4); MEAN CORPUSCULAR HEMOGLOBIN 30.2 pg (27.0-33.0); MEAN CORPUSCULAR HGB CONC 33.2 g/dl (32.0-36.5); MEAN CORPUSCULAR VOLUME 90.8 fl (80.0-96.0); MONO # 0.3 K/mm3 (0.0-0.8); MONO % 3.4 % (0.0-5.0); NEUTROPHILS % 80.7 % (36.0-66.0); PLATELET COUNT, AUTOMATED 383 k/mm3 (150-450); RED CELL DISTRIBUTION WIDTH 13.3 % (11.5-14.5); WHITE BLOOD COUNT 7.4 K/mm3 (4.0-10.0)
[2016-09-21 11:22] LABS: ALBUMIN 3.4 GM/DL (3.2-5.2); ALBUMIN/GLOBULIN RATIO 1.36 (1.00-1.93); ALKALINE PHOSPHATASE 127 U/L (45-117); ALT/SGPT 28 U/L (12-78); ANION GAP 10 MEQ/L (8-16); AST/SGOT 20 U/L (15-37); BILIRUBIN,TOTAL 0.4 MG/DL (0.2-1.0); BLOOD UREA NITROGEN 24 MG/DL (7-18); CALCIUM LEVEL 8.8 MG/DL (8.8-10.2); CARBAMAZEPINE (TEGRETOL) LEVEL 19.5 UG/ML (4.0-10.0); CARBON DIOXIDE LEVEL 26 MEQ/L (21-32); CHLORIDE LEVEL 107 MEQ/L (98-107); CREATININE FOR GFR 0.61 MG/DL (0.55-1.02); GLOMERULAR FILTRATION RATE > 60.0 (>39); GLUCOSE, FASTING 100 MG/DL (83-110); SODIUM LEVEL 143 MEQ/L (136-145); TOTAL PROTEIN 5.9 GM/DL (6.4-8.2)
--- NOTE | 2016-09-21 11:45 | IPNPDOC ---
Subjective Date Seen The patient was seen on 09/21/16. Subjective Chief Complaint/HPI The patient is a 76-year-old female admitted with a reason for visit of Unspecified Depressive Disorder. Events since last encounter Requested to evaluate the patient for episode of vomiting this morning. She states she also felt dizzy when she got out of bed to walk down the hendrix. She denies any diarrhea, constipation, urinary complaints, or abdominal pain. She has noted her vision slightly blurry today however no headache, diplopia, dysarthria or dysphagia. Pulmonary: Denies: Dyspnea, Cough Cardiovascular: Denies: Chest Pain, Palpitations, Orthopnea, Paroxysmal Noc. Dyspnea, Lt Headedness Genitourinary: Denies: Dysuria, Frequency, Incontinence, Retention Objective Physical Examination General Exam: Positive: Alert Eye Exam: Positive: PERRLA ENT Exam: Positive: Atraumatic, Mucous membr. moist/pink, Pharynx Normal, Tongue Midline Neck Exam: Positive: Supple, Negative: JVD, thyromegaly Chest Exam: Positive: Clear to auscultation, Normal air movement, Other (there is tenderness with palpation over the left rib area.) Heart Exam: Positive: Rate Normal, Regular Rhythm, Normal S1, Normal S2, Negative: Murmurs, Rubs Abdomen Exam: Positive: Normal bowel sounds, Soft, Negative: Tenderness, Hepatospenomegaly, Mass, Hernia Extremity Exam: Positive: Normal pulses, Other (splint and wrapping it is noted at the left wrist and forearm.), Negative: Clubbing, Cyanosis, Edema Skin Exam: Positive: Nl turgor and temperature Psych Exam: Positive: Oriented x 3 Assessment /Plan Problems (1) Nausea & vomiting Problem Text: * Patient states associated dizziness. * Symptoms began this morning. * Repeat UA/urine culture * CMP/CBC/lipase * Check Tegretol level. * Monitor. (2) Wrist fracture, left Problem Text: * Orthopedics consulted. Dr March reevaluated the patient 09/20, cast in place. * Patient is to wear sling when out of bed. * Continue Tylenol 650 mg every 4 hours as needed. * Continue ibuprofen 400 mg every 8 hours as needed. * Plan is for follow-up with orthopedics in 7-10 days with repeat x-ray. (3) Fall Status: Acute Problem Text: * CT scan brain. No acute changes. * Fall precautions. * Orthostatic vital signs every shift. * Continue with PT for unsteady gait. (4) UTI (urinary tract infection) Status: Acute Problem Text: * UC 09/12 Organism 1 ESCHERICHIA COLI COLONY COUNT >100,000 CFU/ml * Sensitivities reviewed. Augmentin d/cd. Pt started on Cefdinir 300mg BID 09/05- 09/08 * Changed to Nitrofurantoin 09/11-09/14. * Nitrofurantoin d/cd, Cefdinir 300mg BID x 7 days. (5) Chronic pain Status: Chronic Problem Text: * Pt continues to report chronic pain. * Continue with Tylenol as needed. * Appreciate pain mgmt opinion 09/06/16. Patient is requesting to be evaluated by pain management. Call has been placed 09/15/16 to pain management, they are aware and reevaluate patient. 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 This appears more prominent than on the prior MRI study of 10/28/2013. Scoliosis is seen. Mild stable wedge compression deformities are noted at T12 and L1 (6) Hypothyroid Status: Chronic Problem Text: * Continue supplement (7) Bladder neoplasm Status: Chronic Problem Text: * H/O Bladder Ca. * Follows as outpatient with urology, Dr. Bradford. * Urine cytology negative 05/10 (8) Hyperlipidemia Status: Chronic Problem Text: * Continue statin/ASA (9) Rib pain Problem Text: * XR indicates non displaced left 7th rib fracture * Possible Rt fifth rib fracture. * Fall precautions * sitter * I/S every hour while awake Pt verbalizes understanding. * Lidoderm patch to left rib area. * Encourage po and OOB. (10) Poor nutrition Problem Text: * poor oral intake noted. * Sitter at bedside. * Monitor labs, BMP/CBC in AM. * request nutritional clt. * Encourage po intake. * Daily wt requested * I/O requested (11) Inguinal hernia Problem Text: * spoke to Dr Llamas re CT 08/28/16 and possible Rt inguinal hernia, he will see her as outpt for f/u of this issue. * Pt with no abdominal or groin pain, erythema at this time. Plan/VTE VTE Prophylaxis Ordered?: No (ambulatory) VS, I&O, 24H, Fishbone Vital Signs/I&O Vital Signs Date Time Temp Pulse Resp B/P (MAP) Pulse Ox O2 Delivery O2 Flow Rate FiO2 09/21/16 06:23 63 127/69 (88) 69 138/80 (99) 73 108/72 (84) 09/20/16 18:18 98.4 16 I&O- Last 24 Hours up to 6 AM 09/21/16 06:00 Intake Total 240 ml Output Total 350 ml Balance -110 ml Laboratory Data 24H LABS Laboratory Tests 2 09/21/16 10:37: White Blood Count 7.4, Red Blood Count 4.38, Hemoglobin 13.2, Hematocrit 39.8, Mean Corpuscular Volume 90.8, Mean Corpuscular Hemoglobin 30.2, Mean Corpuscular Hemoglobin Concent 33.2, Red Cell Distribution Width 13.3, Platelet Count 383, Neutrophils (%) (Auto) 80.7H, Lymphocytes (%) (Auto) 13.0L, Monocytes (%) (Auto) 3.4, Eosinophils (%) (Auto) 1.1, Basophils (%) (Auto) 0.8, Neutrophils # (Auto) 6.0, Lymphocytes # (Auto) 1.0L, Monocytes # (Auto) 0.3, Eosinophils # (Auto) 0.1, Basophils # (Auto) 0.1, Large Unclassified Cells % 1.0 , Large Unclassified Cells # 0.1, Anion Gap 10, Glomerular Filtration Rate > 60.0, Blood Urea Nitrogen 24H, Creatinine 0.61, Sodium Level 143, Potassium Level 4.0, Chloride Level 107, Carbon Dioxide Level 26, Calcium Level 8.8, Aspartate Amino Transf (AST/SGOT) 20, Alanine Aminotransferase (ALT/SGPT) 28, Alkaline Phosphatase 127H, Total Bilirubin 0.4, Total Protein 5.9L, Albumin 3.4 , Albumin/Globulin Ratio 1.36, Lipase 97, Carbamazepine (Tegretol) Level 19.5H CBC/BMP Laboratory Tests 09/21/16 10:37 Red Blood Count 4.38, Mean Corpuscular Volume 90.8, Mean Corpuscular Hemoglobin 30.2, Mean Corpuscular Hemoglobin Concent 33.2, Red Cell Distribution Width 13.3 , Neutrophils (%) (Auto) 80.7 H, Lymphocytes (%) (Auto) 13.0 L, Monocytes (%) ( Auto) 3.4, Eosinophils (%) (Auto) 1.1, Basophils (%) (Auto) 0.8, Neutrophils # ( Auto) 6.0, Lymphocytes # (Auto) 1.0 L, Monocytes # (Auto) 0.3, Eosinophils # ( Auto) 0.1, Basophils # (Auto) 0.1, Calcium Level 8.8, Aspartate Amino Transf ( AST/SGOT) 20, Alanine Aminotransferase (ALT/SGPT) 28, Alkaline Phosphatase 127 H , Total Bilirubin 0.4, Total Protein 5.9 L, Albumin 3.4 Microbiology Microbiology 09/12/16 Urine Culture - Final, Complete Escherichia Coli Griselda Shanks September 21, 2016 11:45
--- NOTE | 2016-09-21 13:46 | IPN ---
DATE: 09/21/2016 The patient was seen and examined today. She is doing well with her wrist. I reviewed her x-ray from yesterday afternoon and it shows excellent reduction and alignment on the lateral view on the AP view, there is some radial deviation or angulation of the fracture. I felt that I could improve this by wedging the cast, and I had talked her about this. I then used the cast saw to create a cut at the level of the wrist along the radial side primarily, but around the volar and dorsal aspect as well and then used a cast energy efficiency specialist to open up the cast and place two wedges, one along the radial side and one along the dorsal side and made sure that they did not go deeper than the thickness of the cast. This seemed to clinically improve the position of her wrist and her finger range of motion remained fall. I did trim around her thumb etc. just to make it more comfortable for her. All areas were padded appropriately and she says that she was very comfortable with the cast on. Post cast wedging x-rays are pending. I have discussed this with her in detail about surgical versus nonsurgical treatment. I explained that we could plate this, we could put an external fixator. Her regular noncompliance makes me very nervous to consider surgical intervention and she does not wish to go ahead with this. She has multiple times removed her splint. She has elected to go ahead with casting. She does not want to do anything more aggressive and again I would be very nervous about external fixator or surgery due to her repeated noncompliance issues, and I would worry about increased risk of complications. We will follow along for now. If she is transferred to [facility] then she will need an orthopedic surgeon to follow her up there and would need another x-ray in a week or less.
--- NOTE | 2016-09-21 14:53 | REP ---
AP/LATERAL LEFT WRIST: HISTORY: Postreduction. COMPARISON: 09/20/2016 A cast is present obscuring detail. There is a comminuted intra-articular fracture of the distal radius. There is a fracture of the ulnar styloid process. There appears to be anatomic alignment through plaster. IMPRESSION: Fractures of the distal radius and ulna. There appears to be anatomic alignment through plaster. Signed by Mason Coronel MD 09/21/2016 02:54 P
[2016-09-21] MEDS: LORazepam 0.5 MG TAB PO PRN (16:04)
--- NOTE | 2016-09-21 18:44 | MHIPNPDOC ---
[facility] Progress Note Progress Note DATE OF SERVICE: 09/21/16 INTERVAL HISTORY: Medication Side effects: Patient has been feeling dizzy and nauseous since last week. This morning she reported more dizziness and nausea. A carbamazepine level was ordered and it was above the normal range. It was discontinued. Behavior: She has been calmer, more receptive, less anxious and less irritable although she claims that her anxiety level is still the same Group Attendance: She has not been able to attend groups because she is unsteady Psychiatric Symptom change: She continues to complain of anxiety and depression , severe. VITAL SIGNS: See below. NEW TEST RESULTS: See below CURRENT MEDICATIONS: See below. MENTAL STATUS EXAMINATION: General: Alert, oriented 3, cooperative with interview with fair eye contact, laying in bed dressed in hospital clothes. Speech: Normal Thought processes: Normal, intact Thought content: Negative for active suicidal thoughts, negative for homicidal thoughts, negative for delusional thoughts and negative for auditory or visual hallucinations. Abstract reasoning, and computation: Fair Description of associations: Not loose Description of abnormal or psychotic thoughts: Not present Judgment: Poor Insight: Poor Orientation: Oriented 3 Recent and remote memory: Intact Attention span and concentration: Fair Fund of knowledge: Adequate Mood: "I'm anxious" Affect: Slightly anxious, depressed. DIAGNOSES: 1. Major depressive disorder. 2. Generalized anxiety disorder. 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 ASSESSMENT: Patient continues to be anxious and depressed. She she she has not been drinking a lot of fluids and she has eaten very little. Her BUN is high due to the fact that she is not properly hydrated, she has positive ketones in urine because she hasn't been eating properly and her Tegretol levels were high. Hypoglycemia, dehydration and high levels of Tegretol could have caused her unsteady gait, dizziness and nausea. These afternoon she ate her dinner and she was encouraged to keep drinking fluids. She was informed about the elevated Tegretol levels and about the discontinuation of this medication. She also was informed that Abilify was discontinued. Patient has been educated previously about the risks and benefits of all these medications and she has been informed about the possibility of having toxicity related to their use. She has stated that she is okay with the discontinuation of the above-mentioned medications. We 'll continue to treat her for depression with venlafaxine and, we will keep her on Ativan when necessary and Remeron only 15 mg by mouth daily at bedtime. Remeron was decreased from 30 to 15 to avoid medication side effects. MANAGEMENT PLAN: Medications: Venlafaxine 150 mg by mouth daily, Remeron 15 mg by mouth daily at bedtime, Ativan 1 mg by mouth every 8 hours when necessary for anxiety, Haldol 2 mg by mouth twice a day and Cogentin 1 mg by mouth daily Psychotherapy: We'll continue to encourage to attend groups once her health improves. Social: -- Misc: -- Disposition: She needs to continue hospitalization for stabilization of her medical and psychiatric problems. Pending transfer to [facility] MANAGEMENT PLAN: As above TIME SPENT: 30 minutes. Vital Signs Vital Signs Date Time Temp Pulse Resp B/P (MAP) Pulse Ox O2 Delivery O2 Flow Rate FiO2 09/21/16 06:23 63 127/69 (88) 69 138/80 (99) 73 108/72 (84) 09/20/16 18:18 98.4 16 Laboratory Data 24H Labs Laboratory Tests 2 09/21/16 10:37: White Blood Count 7.4, Red Blood Count 4.38, Hemoglobin 13.2, Hematocrit 39.8, Mean Corpuscular Volume 90.8, Mean Corpuscular Hemoglobin 30.2, Mean Corpuscular Hemoglobin Concent 33.2, Red Cell Distribution Width 13.3, Platelet Count 383, Neutrophils (%) (Auto) 80.7H, Lymphocytes (%) (Auto) 13.0L, Monocytes (%) (Auto) 3.4, Eosinophils (%) (Auto) 1.1, Basophils (%) (Auto) 0.8, Neutrophils # (Auto) 6.0, Lymphocytes # (Auto) 1.0L, Monocytes # (Auto) 0.3, Eosinophils # (Auto) 0.1, Basophils # (Auto) 0.1, Large Unclassified Cells % 1.0 , Large Unclassified Cells # 0.1, Anion Gap 10, Glomerular Filtration Rate > 60.0, Blood Urea Nitrogen 24H, Creatinine 0.61, Sodium Level 143, Potassium Level 4.0, Chloride Level 107, Carbon Dioxide Level 26, Calcium Level 8.8, Aspartate Amino Transf (AST/SGOT) 20, Alanine Aminotransferase (ALT/SGPT) 28, Alkaline Phosphatase 127H, Total Bilirubin 0.4, Total Protein 5.9L, Albumin 3.4 , Albumin/Globulin Ratio 1.36, Lipase 97, Carbamazepine (Tegretol) Level 19.5H 09/21/16 12:35: Urine Appearance HAZY, Urine Color HARPAL, Urine pH 5.0, Urine Specific [place] 1.029, Urine Protein 1+H, Urine Glucose (UA) NEGATIVE, Urine Ketones 2+H, Urine Urobilinogen 0.2, Urine Bilirubin 1+H, Urine Leukocyte Esterase NEGATIVE, Urine Blood NEGATIVE, Urine Nitrite NEGATIVE, Urine WBC (Auto) 4H, Urine RBC (Auto) 1 , Urine Hyaline Casts (Auto) 1, Urine Bacteria (Auto) NEGATIVE, Urine Squamous Epithelial Cells 2, Urine Mucus (Auto) MODERATE, Urine Sperm (Auto) CBC/BMP Laboratory Tests 09/21/16 10:37 Red Blood Count 4.38, Mean Corpuscular Volume 90.8, Mean Corpuscular Hemoglobin 30.2, Mean Corpuscular Hemoglobin Concent 33.2, Red Cell Distribution Width 13.3 , Neutrophils (%) (Auto) 80.7 H, Lymphocytes (%) (Auto) 13.0 L, Monocytes (%) ( Auto) 3.4, Eosinophils (%) (Auto) 1.1, Basophils (%) (Auto) 0.8, Neutrophils # ( Auto) 6.0, Lymphocytes # (Auto) 1.0 L, Monocytes # (Auto) 0.3, Eosinophils # ( Auto) 0.1, Basophils # (Auto) 0.1, Calcium Level 8.8, Aspartate Amino Transf ( AST/SGOT) 20, Alanine Aminotransferase (ALT/SGPT) 28, Alkaline Phosphatase 127 H , Total Bilirubin 0.4, Total Protein 5.9 L, Albumin 3.4 Current Medications Current Medications Acetaminophen (Tylenol Tab) 650 mg Q6HP PRN PO HEADACHE or DISCOMFORT Last administered on 09/20/16 09:01; Start 08/28/16 at 16:45; Stop 09/27/16 at 16:44 Acetaminophen/ Hydrocodone Bitart (Sabinal, Anexsia 5/325) 1 tab Q4HP PRN PO MILD /MODERATE PAIN (PS 1-7) Last administered on 09/14/16 05:08; Start 09/12/16 at 12:45; Stop 09/14/16 at 07:52; Status DC Al Hydrox/Mg Hydrox/Simethicone (Mylanta) 30 ml Q4HP PRN PO HEARTBURN/ INDIGESTION Last administered on 09/18/16 17:12; Start 08/28/16 at 16:45; Stop 09/27/16 at 16:44 Amitriptyline HCl (Elavil) 10 mg BID PO Last administered on 09/08/16 08:18; Start 09/02/16 at 21:00; Stop 09/08/16 at 23:30; Status DC Amoxicillin/ Clavulanate Potassium (Augmentin) 500 mg Q12H PO Last administered on 09/05/16 06:07; Start 09/03/16 at 18:00; Stop 09/05/16 at 12:05 ; Status DC Aripiprazole (AbiLIFY) 5 mg QAM PO Last administered on 09/09/16 09:08; Start 09/07/16 at 09:00; Stop 09/09/16 at 16:26; Status DC Aripiprazole (AbiLIFY) 10 mg BID PO Last administered on 08/31/16 08:26; Start 08/29/16 at 21:00; Stop 08/31/16 at 13:38; Status DC Aripiprazole (AbiLIFY) 10 mg DAILY PO ; Start 08/29/16 at 09:00; Stop 08/29/16 at 10:06; Status DC Aripiprazole (AbiLIFY) 10 mg QAM PO Last administered on 09/06/16 08:20; Start 09/01/16 at 09:00; Stop 09/06/16 at 13:44; Status DC Aripiprazole (AbiLIFY) 10 mg QAM PO Last administered on 09/15/16 08:10; Start 09/10/16 at 09:00; Stop 09/15/16 at 17:38; Status DC Aripiprazole (AbiLIFY) 10 mg QAM PO Last administered on 09/21/16 10:56; Start 09/21/16 at 09:00; Stop 09/21/16 at 11:44; Status DC Aripiprazole (AbiLIFY) 10 mg QHS PO Last administered on 09/07/16 20:16; Start 09/06/16 at 21:00; Stop 09/08/16 at 23:30; Status DC Aripiprazole (AbiLIFY) 10 mg QHS PO Last administered on 09/20/16 21:37; Start 09/20/16 at 21:00; Stop 09/21/16 at 11:44; Status DC Aripiprazole (AbiLIFY) 15 mg QHS PO Last administered on 09/05/16 20:00; Start 08/31/16 at 21:00; Stop 09/06/16 at 13:42; Status DC Aripiprazole (AbiLIFY) 15 mg QHS PO Last administered on 09/19/16 20:47; Start 09/09/16 at 21:00; Stop 09/20/16 at 10:26; Status DC Aripiprazole (AbiLIFY) 20 mg QAM PO Last administered on 09/20/16 08:59; Start 09/16/16 at 09:00; Stop 09/20/16 at 10:27; Status DC Aspirin (Ecotrin) 81 mg DAILY PO Last administered on 09/21/16 10:56; Start at 09:00; Stop 09/28/16 at 08:59 Atorvastatin Calcium (Lipitor) 10 mg QHS PO Last administered on 09/20/16 21: 36; Start 08/28/16 at 21:00; Stop 09/27/16 at 20:59 Benztropine Mesylate (Cogentin) 1 mg BID PO Last administered on 09/21/16 10: 58; Start 09/20/16 at 21:00; Stop 10/20/16 at 20:59 Calcium/Vitamin D (Oscal D) 500 mg BID PO Last administered on 09/21/16 10:57 ; Start 08/28/16 at 21:00; Stop 09/27/16 at 20:59 Carbamazepine (TEGretol XR) 200 mg TID PO Last administered on 09/09/16 15:48 ; Start 09/09/16 at 09:00; Stop 09/09/16 at 16:39; Status DC Carbamazepine (TEGretol XR) 300 mg TID PO Last administered on 09/16/16 09:04 ; Start 09/09/16 at 21:00; Stop 09/16/16 at 15:11; Status DC Carbamazepine (TEGretol XR) 400 mg TID PO Last administered on 09/20/16 08:59 ; Start 09/16/16 at 16:00; Stop 09/20/16 at 10:35; Status DC Carbamazepine (TEGretol XR) 600 mg TID PO Last administered on 09/21/16 10:54 ; Start 09/20/16 at 16:00; Stop 09/21/16 at 11:38; Status DC Cefdinir (Omnicef) 300 mg BID PO Last administered on 09/08/16 08:18; Start at 09:00; Stop 09/09/16 at 08:59; Status DC Cefdinir (Omnicef) 300 mg BID PO Last administered on 09/21/16 10:57; Start at 09:00; Stop 09/27/16 at 08:59 Docusate Sodium (Colace) 100 mg BID PO Last administered on 09/21/16 10:54; Start 09/02/16 at 09:00; Stop 10/02/16 at 08:59 Gabapentin (Neurontin) 300 mg TID PO Last administered on 09/08/16 08:17; Start 09/06/16 at 16:00; Stop 09/08/16 at 23:39; Status DC Gabapentin (Neurontin) 600 mg TID PO Last administered on 09/06/16 08:20; Start 08/28/16 at 21:00; Stop 09/06/16 at 13:42; Status DC Haloperidol (Haldol) 2 mg BID PO Last administered on 09/21/16 10:55; Start at 09:00; Stop 10/19/16 at 08:59 Home Med (Med Rec Complete!) ASDIRECTED XX ; Start 08/28/16 at 13:00; Stop at 13:00; Status DC Hydroxyzine HCl (Atarax) 75 mg BID PO Last administered on 09/19/16 08:43; Start 08/28/16 at 21:00; Stop 09/19/16 at 11:44; Status DC Ibuprofen (Advil) 400 mg Q8HP PRN PO PAIN Last administered on 09/19/16 04:39 ; Start 09/14/16 at 08:00; Stop 09/19/16 at 11:44; Status DC Ibuprofen (Advil) 600 mg Q6H PO Last administered on 09/12/16 23:17; Start at 18:00; Stop 09/13/16 at 10:06; Status DC Ibuprofen (Advil) 600 mg Q6HP PRN PO PAIN Last administered on 09/21/16 05:58 ; Start 09/19/16 at 12:00; Stop 10/14/16 at 07:59 Levothyroxine Sodium (Synthroid) 0.112 mg DAILY@06 PO Last administered on 09/21 05:58; Start 08/29/16 at 06:00; Stop 09/28/16 at 05:59 Lidocaine (Lidoderm Patch) 1 patch DAILY TD Last administered on 09/18/16 09: 36; Start 09/13/16 at 09:00; Stop 10/13/16 at 08:59 Lorazepam (Ativan) 0.5 mg Q8HP PRN PO ANXIETY Last administered on 09/21/16 16 :04; Start 09/15/16 at 09:15; Stop 09/28/16 at 09:14 Lorazepam (Ativan) 1 mg Q6HP PRN PO ANXIETY Last administered on 09/15/16 02: 47; Start 08/29/16 at 09:00; Stop 09/15/16 at 09:18; Status DC Lorazepam (Ativan) 1 mg STAT STAT IV Last administered on 08/28/16 08:00; Start 08/28/16 at 07:19; Stop 08/28/16 at 07:21; Status DC Lorazepam (Ativan) 1 mg STAT STAT PO Last administered on 09/09/16 16:35; Start 09/09/16 at 16:26; Stop 09/09/16 at 16:27; Status DC Lorazepam (Ativan) 2 mg STAT STAT PO Last administered on 08/29/16 09:01; Start 08/29/16 at 08:49; Stop 08/29/16 at 08:51; Status DC Magnesium Hydroxide (Milk Of Magnesia) 30 ml DAILYPRN PRN PO CONSTIPATION Last administered on 09/03/16 11:22; Start 08/28/16 at 16:45; Stop 09/27/16 at 16:44 Mirtazapine (Remeron) 15 mg QHS PO ; Start 09/21/16 at 21:00; Stop 10/21/16 at 20:59 Mirtazapine (Remeron) 30 mg QHS PO Last administered on 09/20/16 21:37; Start 09/09/16 at 21:00; Stop 09/21/16 at 11:47; Status DC Multivitamins (Theragram-M) 1 tab DAILY PO Last administered on 09/21/16 10:55 ; Start 08/29/16 at 09:00; Stop 09/28/16 at 08:59 Nitrofurantoin Monoh/Nitrofur Macro (Macrobid) 100 mg BID PO Last administered on 09/13/16 21:47; Start 09/12/16 at 09:00; Stop 09/14/16 at 07:52; Status DC Non-Formulary Medication ( See Comment Field Below ) REMOVE LIDODERM PATCH DAILY@21 XX Last administered on 09/18/16 21:54; Start 09/13/16 at 21:00; Stop 10/13/16 at 20:59 Non-Formulary Medication ( See Comment Field Below ) SEE COMMENTS SECTION 1T @10 XX ; Start 08/31/16 at 10:00; Stop 08/31/16 at 10:00; Status DC Non-Formulary Medication ( See Comment Field Below ) SEE LABEL COMMENTS DAILY XX ; Start 08/29/16 at 09:00; Stop 09/04/16 at 08:31; Status DC Non-Formulary Medication ( See Comment Field Below ) SEE LABEL COMMENTS SECTION 1T@10 XX Last administered on 09/06/16 10:00; Start 09/06/16 at 10:00 ; Stop 09/06/16 at 23:59; Status DC Nystatin (Mycostatin Powder, Nystop) 1 dose BIDP PRN TOP RASH Last administered on 09/04/16 20:36; Start 09/04/16 at 18:30; Stop 10/04/16 at 18:29 Ondansetron HCl (Zofran Odt) 4 mg Q8HP PRN PO NAUSEA OR VOMITING Last administered on 09/21/16 18:25; Start 09/14/16 at 13:15; Stop 10/14/16 at 13:14 Ondansetron HCl (Zofran) 4 mg Q8HP PRN PO NAUSEA OR VOMITING Last administered on 09/14/16 05:08; Start 09/13/16 at 10:15; Stop 09/14/16 at 13:12; Status DC Polyethylene Glycol (Miralax) 1 pkt DAILYPRN PRN PO CONSTIPATION Last administered on 09/02/16 10:26; Start 08/28/16 at 21:30; Stop 09/27/16 at 21:29 Pramipexole Dihydrochloride (Mirapex) 0.25 mg BID PO Last administered on 08:18; Start 08/28/16 at 21:00; Stop 09/08/16 at 23:41; Status DC Pyridoxine HCl (Vitamin B6) 25 mg DAILY PO Last administered on 09/21/16 10:55 ; Start 09/17/16 at 09:00; Stop 10/17/16 at 08:59 Sertraline HCl (Zoloft) 75 mg DAILY PO Last administered on 09/20/16 08:59; Start 09/09/16 at 09:00; Stop 09/20/16 at 10:32; Status DC Trazodone HCl (Desyrel) 150 mg QHS PO Last administered on 09/08/16 19:58; Start 08/28/16 at 21:00; Stop 09/08/16 at 23:30; Status DC Tuberculin PPD (Aplisol, Ppd) 5 units 1T@10 ID Last administered on 09/04/16 09:21; Start 09/04/16 at 10:00; Stop 09/04/16 at 23:59; Status DC Venlafaxine HCl (Effexor Xr) 300 mg DAILY PO Last administered on 08:17; Start 08/29/16 at 09:00; Stop 09/08/16 at 23:37; Status DC Zinc Oxide (Balmex Cream) 1 dose TIDP PRN TOP SEE LABEL COMMENTS Last administered on 09/15/16 16:15; Start 09/15/16 at 13:15; Stop 10/15/16 at 13:14 Allergies Coded Allergies: Codeine (Verified Adverse Reaction, Mild, NAUSEA, 07/28/12) BEATRICE SNYDER MD September 21, 2016 18:43
[2016-09-21] MEDS: ATORVASTATIN 10 MG TAB PO SCH (20:28)
[2016-09-21] MEDS: MIRTAZAPINE 15 MG TAB PO SCH (20:28)
[2016-09-21] MEDS: **NOTE PATIENT COMMENT** MISC XX SCH (20:37)
[2016-09-22] MEDS: LEVOTHYROXINE 0.112 MG TAB (112 MCG) PO SCH (05:57)
[2016-09-22 06:49] LABS: MEAN CORPUSCULAR HEMOGLOBIN 30.3 pg (27.0-33.0); MEAN CORPUSCULAR VOLUME 91.8 fl (80.0-96.0); RED CELL DISTRIBUTION WIDTH 13.3 % (11.5-14.5); WHITE BLOOD COUNT 6.6 K/mm3 (4.0-10.0)
[2016-09-22 07:02] LABS: ALBUMIN 3.1 GM/DL (3.2-5.2); ALBUMIN/GLOBULIN RATIO 1.24 (1.00-1.93); ALKALINE PHOSPHATASE 122 U/L (45-117); ALT/SGPT 23 U/L (12-78); ANION GAP 10 MEQ/L (8-16); AST/SGOT 16 U/L (15-37); BILIRUBIN,TOTAL 0.3 MG/DL (0.2-1.0); BLOOD UREA NITROGEN 19 MG/DL (7-18); CALCIUM LEVEL 8.5 MG/DL (8.8-10.2); CARBAMAZEPINE (TEGRETOL) LEVEL 11.4 UG/ML (4.0-10.0); CARBON DIOXIDE LEVEL 26 MEQ/L (21-32); CHLORIDE LEVEL 106 MEQ/L (98-107); CREATININE FOR GFR 0.67 MG/DL (0.55-1.02); GLOMERULAR FILTRATION RATE > 60.0 (>39); GLUCOSE, FASTING 95 MG/DL (83-110); POTASSIUM SERUM 3.8 MEQ/L (3.5-5.1); SODIUM LEVEL 142 MEQ/L (136-145); TOTAL PROTEIN 5.6 GM/DL (6.4-8.2)
[2016-09-22 07:05] VITALS: BP_SYST 109; BP_SYST 114; BP_SYST 131; BP_DIAS 66; BP_DIAS 94
[2016-09-22] MEDS: IBUPROFEN 600 MG TAB PO PRN ×2 (07:18→16:37)
[2016-09-22] MEDS: ONDANSETRON 4 MG ORAL DISINTEGRATING TAB (S0181) PO PRN (08:35)
[2016-09-22] MEDS: LIDOCAINE 5% (LIDODERM) PATCH TD SCH (09:00)
[2016-09-22] MEDS: DOCUSATE SODIUM 100 MG CAP PO SCH ×2 (09:00→21:19)
[2016-09-22] MEDS: BENZTROPINE 1 MG TAB PO SCH ×2 (09:13→21:19)
[2016-09-22] MEDS: PYRIDOXINE 50 MG TAB PO SCH (09:13)
[2016-09-22] MEDS: MULTIVITAMINS/MINERALS THERAP 1 TAB PO SCH (09:13)
[2016-09-22] MEDS: HALOPERIDOL 2 MG TAB PO SCH ×2 (09:13→21:19)
[2016-09-22] MEDS: CALCIUM/VITAMIN D 500 MG TAB PO SCH ×2 (09:13→21:19)
[2016-09-22] MEDS: ASPIRIN 81 MG ENTERIC TAB PO SCH (09:13)
[2016-09-22] MEDS: CEFDINIR 300 MG CAP (OMNICEF) PO SCH ×2 (09:13→21:19)
[2016-09-22] MEDS: LORazepam 0.5 MG TAB PO PRN ×2 (09:59→18:03)
--- NOTE | 2016-09-22 13:15 | MHIPNPDOC ---
[facility] Progress Note Progress Note DATE OF SERVICE: 09/22/16 INTERVAL HISTORY: Medication Side effects: Denies Behavior: More cooperative, less irritable. Group Attendance: Has not been attending groups Psychiatric Symptom change: She is less anxious although she claims that her level of anxiety is still very high VITAL SIGNS: See below. NEW TEST RESULTS: See below CURRENT MEDICATIONS: See below. MENTAL STATUS EXAMINATION: General: Alert, laying in bed, cooperative, good eye contact. Speech: Normal Thought processes: Intact Thought content: Negative for active suicidal thoughts, negative for homicidal thoughts, negative for psychotic thoughts. Abstract reasoning, and computation: Fair Description of associations: Not loose Description of abnormal or psychotic thoughts: Not present Judgment: Poor Insight: Poor Orientation: Oriented 3 Recent and remote memory: Fair Attention span and concentration: Fair Fund of knowledge: Adequate Mood: "I'm so anxious" Affect: Slightly anxious, depressed, sad DIAGNOSES: 1. Major depressive disorder. 2. And generalized anxiety disorder. 3. 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 Conversion disorder ASSESSMENT: Patient has remained in bed, hasn't been walking because she gets dizzy. That has increased the pain that she perceives in her pelvis and her feet. She continues to report high anxiety levels and to feel hopeless regarding her future. She thinks there is no way out OF her depression, anxiety and pain problems. MANAGEMENT PLAN: Medications: Venlafaxine 300 mg by mouth daily for anxiety and depression, Remeron 15 mg by mouth daily at bedtime for insomnia, Haldol 2 mg by mouth twice a day for anxiety and agitation, Cogentin for extrapyramidal side effects , Ativan 1 mg every 8 hours when necessary for anxiety. Psychotherapy: As soon as her dizziness results she will be encouraged again to attend groups Social: -- Misc: -- Disposition: She needs to continue with hospitalization until she is stable enough. If she doesn't improve then she will be transferred to [facility]. TIME SPENT: 25 minutes. Vital Signs Vital Signs Date Time Temp Pulse Resp B/P (MAP) Pulse Ox O2 Delivery O2 Flow Rate FiO2 09/22/16 07:05 54 114/66 (82) 61 109/66 (80) 66 131/94 (106) 09/20/16 18:18 98.4 16 Laboratory Data 24H Labs Laboratory Tests 2 09/22/16 06:20: Anion Gap 10, Glomerular Filtration Rate > 60.0, Blood Urea Nitrogen 19H, Creatinine 0.67, Sodium Level 142, Potassium Level 3.8, Chloride Level 106, Carbon Dioxide Level 26, Calcium Level 8.5L, Aspartate Amino Transf (AST/SGOT) 16, Alanine Aminotransferase (ALT/SGPT) 23, Alkaline Phosphatase 122H, Total Bilirubin 0.3, Total Protein 5.6L, Albumin 3.1L, Albumin/Globulin Ratio 1.24, Carbamazepine (Tegretol) Level 11.4H CBC/BMP Laboratory Tests 09/22/16 06:20 Red Blood Count 4.13, Mean Corpuscular Volume 91.8, Mean Corpuscular Hemoglobin 30.3, Mean Corpuscular Hemoglobin Concent 33.0, Red Cell Distribution Width 13.3 , Calcium Level 8.5 L, Aspartate Amino Transf (AST/SGOT) 16, Alanine Aminotransferase (ALT/SGPT) 23, Alkaline Phosphatase 122 H, Total Bilirubin 0.3 , Total Protein 5.6 L, Albumin 3.1 L Current Medications Current Medications Acetaminophen (Tylenol Tab) 650 mg Q6HP PRN PO HEADACHE or DISCOMFORT Last administered on 09/20/16 09:01; Start 08/28/16 at 16:45; Stop 09/27/16 at 16:44 Acetaminophen/ Hydrocodone Bitart ([place], [place] 5/325) 1 tab Q4HP PRN PO MILD /MODERATE PAIN (PS 1-7) Last administered on 09/14/16 05:08; Start 09/12/16 at 12:45; Stop 09/14/16 at 07:52; Status DC Al Hydrox/Mg Hydrox/Simethicone (Mylanta) 30 ml Q4HP PRN PO HEARTBURN/ INDIGESTION Last administered on 09/18/16 17:12; Start 08/28/16 at 16:45; Stop 09/27/16 at 16:44 Amitriptyline HCl (Elavil) 10 mg BID PO Last administered on 09/08/16 08:18; Start 09/02/16 at 21:00; Stop 09/08/16 at 23:30; Status DC Amoxicillin/ Clavulanate Potassium (Augmentin) 500 mg Q12H PO Last administered on 09/05/16 06:07; Start 09/03/16 at 18:00; Stop 09/05/16 at 12:05 ; Status DC Aripiprazole (AbiLIFY) 5 mg QAM PO Last administered on 09/09/16 09:08; Start 09/07/16 at 09:00; Stop 09/09/16 at 16:26; Status DC Aripiprazole (AbiLIFY) 10 mg BID PO Last administered on 08/31/16 08:26; Start 08/29/16 at 21:00; Stop 08/31/16 at 13:38; Status DC Aripiprazole (AbiLIFY) 10 mg DAILY PO ; Start 08/29/16 at 09:00; Stop 08/29/16 at 10:06; Status DC Aripiprazole (AbiLIFY) 10 mg QAM PO Last administered on 09/06/16 08:20; Start 09/01/16 at 09:00; Stop 09/06/16 at 13:44; Status DC Aripiprazole (AbiLIFY) 10 mg QAM PO Last administered on 09/15/16 08:10; Start 09/10/16 at 09:00; Stop 09/15/16 at 17:38; Status DC Aripiprazole (AbiLIFY) 10 mg QAM PO Last administered on 09/21/16 10:56; Start 09/21/16 at 09:00; Stop 09/21/16 at 11:44; Status DC Aripiprazole (AbiLIFY) 10 mg QHS PO Last administered on 09/07/16 20:16; Start 09/06/16 at 21:00; Stop 09/08/16 at 23:30; Status DC Aripiprazole (AbiLIFY) 10 mg QHS PO Last administered on 09/20/16 21:37; Start 09/20/16 at 21:00; Stop 09/21/16 at 11:44; Status DC Aripiprazole (AbiLIFY) 15 mg QHS PO Last administered on 09/05/16 20:00; Start 08/31/16 at 21:00; Stop 09/06/16 at 13:42; Status DC Aripiprazole (AbiLIFY) 15 mg QHS PO Last administered on 09/19/16 20:47; Start 09/09/16 at 21:00; Stop 09/20/16 at 10:26; Status DC Aripiprazole (AbiLIFY) 20 mg QAM PO Last administered on 09/20/16 08:59; Start 09/16/16 at 09:00; Stop 09/20/16 at 10:27; Status DC Aspirin (Ecotrin) 81 mg DAILY PO Last administered on 09/22/16 09:13; Start 08/29/16 at 09:00; Stop 09/28/16 at 08:59 Atorvastatin Calcium (Lipitor) 10 mg QHS PO Last administered on 09/21/16 20: 28; Start 08/28/16 at 21:00; Stop 09/27/16 at 20:59 Benztropine Mesylate (Cogentin) 1 mg BID PO Last administered on 09/22/16 09:13 ; Start 09/20/16 at 21:00; Stop 10/20/16 at 20:59 Calcium/Vitamin D (Oscal D) 500 mg BID PO Last administered on 09/22/16 09:13; Start 08/28/16 at 21:00; Stop 09/27/16 at 20:59 Carbamazepine (TEGretol XR) 200 mg TID PO Last administered on 09/09/16 15:48 ; Start 09/09/16 at 09:00; Stop 09/09/16 at 16:39; Status DC Carbamazepine (TEGretol XR) 300 mg TID PO Last administered on 09/16/16 09:04 ; Start 09/09/16 at 21:00; Stop 09/16/16 at 15:11; Status DC Carbamazepine (TEGretol XR) 400 mg TID PO Last administered on 09/20/16 08:59 ; Start 09/16/16 at 16:00; Stop 09/20/16 at 10:35; Status DC Carbamazepine (TEGretol XR) 600 mg TID PO Last administered on 09/21/16 10:54 ; Start 09/20/16 at 16:00; Stop 09/21/16 at 11:38; Status DC Cefdinir (Omnicef) 300 mg BID PO Last administered on 09/08/16 08:18; Start at 09:00; Stop 09/09/16 at 08:59; Status DC Cefdinir (Omnicef) 300 mg BID PO Last administered on 09/22/16 09:13; Start at 09:00; Stop 09/27/16 at 08:59 Docusate Sodium (Colace) 100 mg BID PO Last administered on 09/21/16 20:28; Start 09/02/16 at 09:00; Stop 10/02/16 at 08:59 Gabapentin (Neurontin) 300 mg TID PO Last administered on 09/08/16 08:17; Start 09/06/16 at 16:00; Stop 09/08/16 at 23:39; Status DC Gabapentin (Neurontin) 600 mg TID PO Last administered on 09/06/16 08:20; Start 08/28/16 at 21:00; Stop 09/06/16 at 13:42; Status DC Haloperidol (Haldol) 2 mg BID PO Last administered on 09/22/16 09:13; Start at 09:00; Stop 10/19/16 at 08:59 Home Med (Med Rec Complete!) ASDIRECTED XX ; Start 08/28/16 at 13:00; Stop at 13:00; Status DC Hydroxyzine HCl (Atarax) 75 mg BID PO Last administered on 09/19/16 08:43; Start 08/28/16 at 21:00; Stop 09/19/16 at 11:44; Status DC Ibuprofen (Advil) 400 mg Q8HP PRN PO PAIN Last administered on 09/19/16 04:39 ; Start 09/14/16 at 08:00; Stop 09/19/16 at 11:44; Status DC Ibuprofen (Advil) 600 mg Q6H PO Last administered on 09/12/16 23:17; Start at 18:00; Stop 09/13/16 at 10:06; Status DC Ibuprofen (Advil) 600 mg Q6HP PRN PO PAIN Last administered on 09/22/16 07:18; Start 09/19/16 at 12:00; Stop 10/14/16 at 07:59 Levothyroxine Sodium (Synthroid) 0.112 mg DAILY@06 PO Last administered on 05:57; Start 08/29/16 at 06:00; Stop 09/28/16 at 05:59 Lidocaine (Lidoderm Patch) 1 patch DAILY TD Last administered on 09/18/16 09: 36; Start 09/13/16 at 09:00; Stop 10/13/16 at 08:59 Lorazepam (Ativan) 0.5 mg Q8HP PRN PO ANXIETY Last administered on 09/22/16 09: 59; Start 09/15/16 at 09:15; Stop 09/28/16 at 09:14 Lorazepam (Ativan) 1 mg Q6HP PRN PO ANXIETY Last administered on 09/15/16 02: 47; Start 08/29/16 at 09:00; Stop 09/15/16 at 09:18; Status DC Lorazepam (Ativan) 1 mg STAT STAT IV Last administered on 08/28/16 08:00; Start 08/28/16 at 07:19; Stop 08/28/16 at 07:21; Status DC Lorazepam (Ativan) 1 mg STAT STAT PO Last administered on 09/09/16 16:35; Start 09/09/16 at 16:26; Stop 09/09/16 at 16:27; Status DC Lorazepam (Ativan) 2 mg STAT STAT PO Last administered on 08/29/16 09:01; Start 08/29/16 at 08:49; Stop 08/29/16 at 08:51; Status DC Magnesium Hydroxide (Milk Of Magnesia) 30 ml DAILYPRN PRN PO CONSTIPATION Last administered on 09/03/16 11:22; Start 08/28/16 at 16:45; Stop 09/27/16 at 16:44 Mirtazapine (Remeron) 15 mg QHS PO Last administered on 09/21/16 20:28; Start 09/21/16 at 21:00; Stop 10/21/16 at 20:59 Mirtazapine (Remeron) 30 mg QHS PO Last administered on 09/20/16 21:37; Start 09/09/16 at 21:00; Stop 09/21/16 at 11:47; Status DC Multivitamins (Theragram-M) 1 tab DAILY PO Last administered on 09/22/16 09:13 ; Start 08/29/16 at 09:00; Stop 09/28/16 at 08:59 Nitrofurantoin Monoh/Nitrofur Macro (Macrobid) 100 mg BID PO Last administered on 09/13/16 21:47; Start 09/12/16 at 09:00; Stop 09/14/16 at 07:52; Status DC Non-Formulary Medication ( See Comment Field Below ) REMOVE LIDODERM PATCH DAILY@21 XX Last administered on 09/18/16 21:54; Start 09/13/16 at 21:00; Stop 10/13/16 at 20:59 Non-Formulary Medication ( See Comment Field Below ) SEE COMMENTS SECTION 1T @10 XX ; Start 08/31/16 at 10:00; Stop 08/31/16 at 10:00; Status DC Non-Formulary Medication ( See Comment Field Below ) SEE LABEL COMMENTS DAILY XX ; Start 08/29/16 at 09:00; Stop 09/04/16 at 08:31; Status DC Non-Formulary Medication ( See Comment Field Below ) SEE LABEL COMMENTS SECTION 1T@10 XX Last administered on 09/06/16 10:00; Start 09/06/16 at 10:00 ; Stop 09/06/16 at 23:59; Status DC Nystatin (Mycostatin Powder, Nystop) 1 dose BIDP PRN TOP RASH Last administered on 09/04/16 20:36; Start 09/04/16 at 18:30; Stop 10/04/16 at 18:29 Ondansetron HCl (Zofran Odt) 4 mg Q8HP PRN PO NAUSEA OR VOMITING Last administered on 09/22/16 08:35; Start 09/14/16 at 13:15; Stop 10/14/16 at 13:14 Ondansetron HCl (Zofran) 4 mg Q8HP PRN PO NAUSEA OR VOMITING Last administered on 09/14/16 05:08; Start 09/13/16 at 10:15; Stop 09/14/16 at 13:12; Status DC Polyethylene Glycol (Miralax) 1 pkt DAILYPRN PRN PO CONSTIPATION Last administered on 09/02/16 10:26; Start 08/28/16 at 21:30; Stop 09/27/16 at 21:29 Pramipexole Dihydrochloride (Mirapex) 0.25 mg BID PO Last administered on 08:18; Start 08/28/16 at 21:00; Stop 09/08/16 at 23:41; Status DC Pyridoxine HCl (Vitamin B6) 25 mg DAILY PO Last administered on 09/22/16 09:13 ; Start 09/17/16 at 09:00; Stop 10/17/16 at 08:59 Sertraline HCl (Zoloft) 75 mg DAILY PO Last administered on 09/20/16 08:59; Start 09/09/16 at 09:00; Stop 09/20/16 at 10:32; Status DC Trazodone HCl (Desyrel) 150 mg QHS PO Last administered on 09/08/16 19:58; Start 08/28/16 at 21:00; Stop 09/08/16 at 23:30; Status DC Tuberculin PPD (Aplisol, Ppd) 5 units 1T@10 ID Last administered on 09/04/16 09:21; Start 09/04/16 at 10:00; Stop 09/04/16 at 23:59; Status DC Venlafaxine HCl (Effexor Xr) 300 mg DAILY PO Last administered on 08:17; Start 08/29/16 at 09:00; Stop 09/08/16 at 23:37; Status DC Zinc Oxide (Balmex Cream) 1 dose TIDP PRN TOP SEE LABEL COMMENTS Last administered on 09/15/16 16:15; Start 09/15/16 at 13:15; Stop 10/15/16 at 13:14 Allergies Coded Allergies: Codeine (Verified Adverse Reaction, Mild, NAUSEA, 07/28/12) BEATRICE SNYDER MD Sep 22, 2016 13:15
--- NOTE | 2016-09-22 15:15 | IPN ---
DATE: 09/22/2016 Radiographs were reviewed yesterday after she had her cast wedged and wrist manipulated secondary to wedging the cast. The overall alignment and position looks much improved. The lateral view shows about neutral tilt or slight volar tilt and on the AP view there overall is very good alignment significantly improved from what we had before. The radiologist read it as essentially anatomic. Again for a variety of reasons she has decided to go ahead with nonoperative treatment and I think that is the best way to go given her significant level of noncompliance and her constantly taking the splint off, etc. I think there would be a significant problem potentially with operative treatment and this is the way she wants to proceed.
[2016-09-22 18:00] VITALS: BP 127/67
[2016-09-22] MEDS: **NOTE PATIENT COMMENT** MISC XX SCH (21:00)
[2016-09-22] MEDS: MIRTAZAPINE 15 MG TAB PO SCH (21:19)
[2016-09-22] MEDS: ATORVASTATIN 10 MG TAB PO SCH (21:19)
[2016-09-23] MEDS: IBUPROFEN 600 MG TAB PO PRN ×3 (02:03→20:09)
[2016-09-23] MEDS: LORazepam 0.5 MG TAB PO PRN ×3 (02:04→18:37)
[2016-09-23 06:00] VITALS: BP 118/54
[2016-09-23] MEDS: LEVOTHYROXINE 0.112 MG TAB (112 MCG) PO SCH (06:09)
[2016-09-23] MEDS: ACETAMINOPHEN TAB 650MG DOSE (2X325MG) PO PRN ×2 (07:08→16:51)
[2016-09-23] MEDS: HALOPERIDOL 2 MG TAB PO SCH ×4 (07:15→20:08)
[2016-09-23 07:42] LABS: CARBAMAZEPINE (TEGRETOL) LEVEL 2.9 UG/ML (4.0-10.0)
[2016-09-23 08:32] LABS: ALBUMIN/GLOBULIN RATIO 1.07 (1.00-1.93); ALKALINE PHOSPHATASE 133 U/L (45-117); ALT/SGPT 23 U/L (12-78); AMYLASE 27 U/L (25-115); ANION GAP 10 MEQ/L (8-16); AST/SGOT 19 U/L (15-37); BILIRUBIN,TOTAL 0.3 MG/DL (0.2-1.0); BLOOD UREA NITROGEN 13 MG/DL (7-18); CALCIUM LEVEL 8.7 MG/DL (8.8-10.2); CARBON DIOXIDE LEVEL 23 MEQ/L (21-32); CHLORIDE LEVEL 110 MEQ/L (98-107); CREATININE FOR GFR 0.58 MG/DL (0.55-1.02); GLOMERULAR FILTRATION RATE > 60.0 (>39); GLUCOSE, FASTING 86 MG/DL (83-110); POTASSIUM SERUM 4.4 MEQ/L (3.5-5.1); SODIUM LEVEL 143 MEQ/L (136-145); TOTAL PROTEIN 5.8 GM/DL (6.4-8.2)
[2016-09-23 08:33] LABS: BASO # 0.1 K/mm3 (0.0-0.2); EOS # 0.2 K/mm3 (0.0-0.50); EOS % 3.5 % (0.0-3.0); LARGE UNSTAINED CELL # 0.1 K/mm3 (0.0-0.4); LARGE UNSTAINED CELL % 1.9 % (0.0-4.0); LYMPH # 1.4 K/mm3 (1.5-4.5); LYMPH % 22.4 % (24.0-44.0); MEAN CORPUSCULAR HEMOGLOBIN 30.8 pg (27.0-33.0); MEAN CORPUSCULAR HGB CONC 33.8 g/dl (32.0-36.5); MEAN CORPUSCULAR VOLUME 90.9 fl (80.0-96.0); MONO # 0.4 K/mm3 (0.0-0.8); MONO % 5.5 % (0.0-5.0); NEUTROPHILS # 4.2 K/mm3 (1.8-7.7); NEUTROPHILS % 65.7 % (36.0-66.0); PLATELET COUNT, AUTOMATED 404 k/mm3 (150-450); WHITE BLOOD COUNT 6.4 K/mm3 (4.0-10.0)
--- NOTE | 2016-09-23 08:49 | IPNPDOC ---
Subjective Date Seen The patient was seen on 09/23/16. Subjective Chief Complaint/HPI The patient is a 76-year-old female admitted with a reason for visit of Unspecified Depressive Disorder. Events since last encounter Pt is seen yelling in her room and I am requested to evaluate. Pt is yelling, States she has "Pain all over" Points to abdominal area, sometimes pointing to RLQ, sometimes Upper quad areas B/L. Then stating she has LE/back pain, then reporting that she has LUE pain from her fracture (cast in place) States "I need something to calm me down, I need medication". Per nursing, Pt is refusing to get OOB, refusing to ambulate, refusing orthostatic VS. Pt is seen in her hospital bed in her room. Pulmonary: Denies: Dyspnea (Pt denies SOB), Cough, Pleuritic Chest Pain, Other Symptoms Cardiovascular: Denies: Chest Pain (Pt denies CP symptoms. ), Palpitations, Orthopnea, Paroxysmal Noc. Dyspnea, Lt Headedness Gastrointestinal: Denies: Nausea, Vomiting, Diarrhea, Constipation Genitourinary: Denies: Dysuria, Frequency Objective Physical Examination General Exam: Positive: Alert, Other (screaming in her room from her bed. ) Eye Exam: Positive: PERRLA ENT Exam: Positive: Atraumatic, Mucous membr. moist/pink, Pharynx Normal, Tongue Midline Neck Exam: Positive: Supple, Negative: JVD, thyromegaly Chest Exam: Positive: Clear to auscultation, Normal air movement, Other (there is tenderness with palpation over the left rib area.) Heart Exam: Positive: Rate Normal, Regular Rhythm, Normal S1, Normal S2, Negative: Murmurs, Rubs Abdomen Exam: Positive: Normal bowel sounds, Soft, Tenderness (there is no specific area of TTP on exam,pain per pt diffusely. ), Other (there is no Rt groin mass, TTP, erythema, bulging noted. ), Negative: Hepatospenomegaly, Mass, Hernia Extremity Exam: Positive: Normal pulses, Other (cast intact left wrist and forearm.), Negative: Clubbing, Cyanosis, Edema Skin Exam: Positive: Nl turgor and temperature Psych Exam: Positive: Oriented x 3 Assessment /Plan Problems (1) Abdominal pain Problem Text: * No N/V/diarrhea/constipation reported. * Check CBCd/CMP/Amylase. * Check CT abdomen and pelvis. * CT Abd/pelvis 09/19/16 No obvious acute intra-abdominal or pelvic pathology appreciated. Colonic and sigmoid diverticulosis without acute diverticulitis. No ascites. No inflammatory changes. No adenopathy. Advanced degenerative and post traumatic/post surgical changes the musculoskeletal structures without acute findings. * Check EKG. * UC 09/21/16 neg. UC pending. * Tylenol as needed. (2) Nausea & vomiting Problem Text: * resolved with d/c tegretol and decreased Teg level. (3) Wrist fracture, left Problem Text: * Orthopedics consulted. Dr March reevaluated the patient 09/20-09/22/16. cast [address]. Appreciate assistance. * Patient is to wear sling when out of bed. * Continue Tylenol 650 mg every 4 hours as needed. * Continue ibuprofen 400 mg every 8 hours as needed. * Plan is for follow-up with orthopedics in 7-10 days with repeat x-ray. (4) Fall Status: Acute Problem Text: * CT scan brain. No acute changes. * Fall precautions. * Orthostatic vital signs every shift. * Continue with PT for unsteady gait. (5) UTI (urinary tract infection) Status: Acute Problem Text: * UC 09/12 Organism 1 ESCHERICHIA COLI COLONY COUNT >100,000 CFU/ml * D 01/01 cefdinir. * UC. 09/21 neg. (6) Chronic pain Status: Chronic Problem Text: * Pt continues to report chronic pain. * Continue with Tylenol as needed. * Appreciate pain mgmt opinion 09/06/16. Call was placed 09/15/16 to pain management, to reevaluate patient. She was seen on same date. No opioid medication recommended or any medication which may affect mental health. B complex vitamin recommended. Will add. * B12/folate pending. 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 This appears more prominent than on the prior MRI study of 10/28/2013. Scoliosis is seen. Mild stable wedge compression deformities are noted at T12 and L1 (7) Hypothyroid Status: Chronic Problem Text: * Continue supplement * TSH WNL 08/28/16 (8) Bladder neoplasm Status: Chronic Problem Text: * H/O Bladder Ca. * Follows as outpatient with urology, Dr. Bradford. * Urine cytology negative 05/10 (9) Hyperlipidemia Status: Chronic Problem Text: * Continue statin/ASA (10) Rib pain Problem Text: * XR indicates non displaced left 7th rib fracture * Possible Rt fifth rib fracture. * Fall precautions * sitter * I/S every hour while awake Pt verbalizes understanding. * Lidoderm patch to left rib area. * Encourage po and OOB. (11) Poor nutrition Problem Text: * poor oral intake noted. * Sitter at bedside. * Monitor labs. * nutritional clt. * Encourage po intake. * Daily wt requested * I/O requested (12) Inguinal hernia Problem Text: * spoke to Dr Llamas 09/21/[address] 08/28/16 and possible Rt inguinal hernia, he will see her as outpt for f/u of this issue. * Pt with no groin pain, palpable mass, erythema at this time. Plan/VTE VTE Prophylaxis Ordered?: Yes (Lovenox added today as pt is refusing to get OOB /ambualte. ) Plan Activity: Encourage Ambulation Therapy: [facility] VS[facility] V[facility] Signs/I&O Vital Signs Date Time Temp Pulse Resp B/P (MAP) Pulse Ox O2 Delivery O2 Flow Rate FiO2 09/23/16 06:00 98.1 49 18 118/54 (75) I&O- Last 24 Hours up to 6 AM 09/23/16 06:00 Intake Total 840 ml Balance 840 ml Laboratory Data 24H LABS Laboratory Tests 2 09/23/16 06:40: Anion Gap 10, Glomerular Filtration Rate > 60.0, Blood Urea Nitrogen 13, Creatinine 0.58, Sodium Level 143, Potassium Level 4.4, Chloride Level 110H, Carbon Dioxide Level 23, Calcium Level 8.7L, Aspartate Amino Transf (AST/SGOT) 19, Alanine Aminotransferase (ALT/SGPT) 23, Alkaline Phosphatase 133H, Total Bilirubin 0.3, Total Protein 5.8L, Albumin 3.0L, Albumin/Globulin Ratio 1.07, Amylase Level 27, Carbamazepine (Tegretol) Level 2.9L CBC/BMP Laboratory Tests 09/23/16 06:40 Calcium Level 8.7 L, Aspartate Amino Transf (AST/SGOT) 19, Alanine Aminotransferase (ALT/SGPT) 23, Alkaline Phosphatase 133 H, Total Bilirubin 0.3 , Total Protein 5.8 L, Albumin 3.0 L Microbiology Microbiology 09/21/16 Urine Culture - Final, Complete Griselda Shanks Sep 23, 2016 08:49
[2016-09-23 08:55] LABS: VITAMIN B12 LEVEL 671 PG/ML (247-911)
[2016-09-23] MEDS ORDERED: PARoxetine 12.5 MG **CR** TAB PO SCH (09:00)
[2016-09-23] MEDS: LIDOCAINE 5% (LIDODERM) PATCH TD SCH (09:00)
[2016-09-23] MEDS ORDERED: VITAMIN B COMPLEX/VIT C CAP PO SCH (09:00)
[2016-09-23 09:17] LABS: FOLATE 16.6 NG/ML (>5.4)
[2016-09-23] MEDS: CEFDINIR 300 MG CAP (OMNICEF) PO SCH ×2 (10:04→20:08)
[2016-09-23] MEDS: DOCUSATE SODIUM 100 MG CAP PO SCH ×2 (10:04→20:09)
[2016-09-23] MEDS: PYRIDOXINE 50 MG TAB PO SCH (10:04)
[2016-09-23] MEDS: CALCIUM/VITAMIN D 500 MG TAB PO SCH ×2 (10:05→20:09)
[2016-09-23] MEDS: ASPIRIN 81 MG ENTERIC TAB PO SCH (10:05)
[2016-09-23] MEDS: BENZTROPINE 1 MG TAB PO SCH ×2 (10:05→20:09)
[2016-09-23] MEDS: MULTIVITAMINS/MINERALS THERAP 1 TAB PO SCH (10:05)
[2016-09-23] MEDS: ENOXAPARIN 40 MG/0.4 ML SYRINGE (J1650) SC SCH (10:06)
--- NOTE | 2016-09-23 11:55 | REP ---
LEFT WRIST, TWO VIEWS: HISTORY: Fracture. COMPARISON: 09/21/2016. A cast is present obscuring detail. There are fractures of the distal radius and ulna. There appears to be anatomic alignment through plaster. IMPRESSION: There are fractures of the distal radius and ulna. There appears to be anatomic alignment. Signed by Mason Coronel MD 09/23/2016 12:05 P
--- NOTE | 2016-09-23 12:26 | REP ---
REASON: Lower abdominal pain/pelvic pain. COMPARISON: 09/19/2016 The lung bases are clear and unchanged. Limited evaluation of the solid intra-abdominal organs and gallbladder show no gross abnormalities or significant changes from the prior exam. Limited evaluation of the pancreas, adrenal glands, and kidneys show no gross abnormalities or significant changes from the prior exam. No free fluid or free air is seen in the abdomen. Limited evaluation of the bowel loops and their mesenteries show no gross abnormalities or significant changes from the prior exam. Limited evaluation of the abdominal aorta and para-aortic regions show no gross abnormalities or significant changes from the prior exam. CT PELVIS: Once again, there is a large collection of adipose near the right inguinal ring partially obscured by spray artifact arising from previous pelvic ORIF including the pubic symphysis and right superior pubic ramus. This oval-shaped adipose density measures 5 cm in its greatest dimension, and is unchanged from the latest prior but represents a change from a CT of the pelvis of 09/29/2014. Limited evaluation of the pelvic bowel loops and their mesenteries show no gross abnormalities. There is no free fluid or free air. Bone window technique throughout the examination shows chronic spinal degenerative changes with bony demineralization and previous pelvic ORIF with multiple healed fractures. IMPRESSION: 1. Oval-shaped adipose density right inguinal region as described above possibly representing a fat containing right inguinal hernia. It is poorly visualized due to the aforementioned artifact. Certainly, I cannot rule out the possibility of a lipoma. Surgical consultation and clinical correlation is suggested. 2. Other findings as described above. Signed by Eliazar Hernandez DO 09/23/2016 03:22 P
[2016-09-23 14:08] VITALS: BP_SYST 110; BP_SYST 115; BP_DIAS 64; BP_DIAS 66
[2016-09-23] MEDS ORDERED: HALOPERIDOL 2 MG TAB PO SCH (16:00)
--- NOTE | 2016-09-23 16:10 | ECGEPIP ---
Stationary ECG Study [facility] Test Date: 2016-09-23 Pat Name: JOHN MCCARTHY Department: Room: [place] [address] Gender: F Tool Designer: : 1940 Requested By: Griselda Shanks Order Number: [id number] Reading MD: Charan Sims Measurements Intervals [place] Rate: 71 P: 49 WA: 147 QRS: -50 QRSD: 105 T: 32 QT: 412 QTc: 449 Interpretive Statements SINUS RHYTHM WITH 1 SUPRAVENTRICULAR PREMATURE COMPLEX LEFT ANTERIOR FASCICULAR BLOCK ST DEVIATION AND MODERATE T-WAVE ABNORMALITY, CONSIDER ANTERIOR ISCHEMIA Electronically Signed On 09-23-2016 16:10:28 EDT by Charan Sims
[2016-09-23] MEDS: ATORVASTATIN 10 MG TAB PO SCH (20:08)
[2016-09-23] MEDS: QUEtiapine FUMARATE 50 MG TAB PO SCH (20:11)
[2016-09-23] MEDS: MIRTAZAPINE 15 MG TAB PO SCH (20:11)
[2016-09-23] MEDS: **NOTE PATIENT COMMENT** MISC XX SCH (21:22)
--- NOTE | 2016-09-23 22:18 | IPN ---
DATE: 09/23/2016 Evaluated 76-year-old female, known for major depressive disorder, conversion disorder, dependent personality disorder, and borderline personality traits who has been extremely agitated and aggressive toward staff members. She has been yelling and screaming, demanding medications to take away her pain. CAMI Shanks has evaluated her. CT scans, x-rays of her wrists and ribs have been done. Dr. Henry from surgery has been consulted in regard to hernia found on her pelvic CT scan, and he has stated that she does not need an immediate intervention, that this can be done on an outpatient basis, but patient insists that she wants to have the surgery done. She has complained today to nursing staff and to this author that she has "pain all over." She complains of pain in her forehead. She complains of pain in her back, in her ankles, in her feet, in her pelvis, in her chest, in her arm, in her wrists. Patient has been seen scratching her forehead until she bleeds, and then she states that it is skin cancer that she has had for a long time. Every single test and medication has been tried on her except for those are not available to the hospital. For example, electroconvulsive therapy (ECT), and she will probably be a good candidate for ECT, but it is not available at [facility]. It is available in [place], but the one and only doctor who performs this procedure is not in town and will not be in [place] for several months. When pain management evaluated the patient, they recommended no more opioids and no benzodiazepines. They actually recommended vitamin B, and she was started on vitamin B6 since September 19. Her medications have been changed, because this author is trying to rule out new problem, somatic delusions, and for that reason, it has been ordered haloperidol 2 mg four times a day, Cogentin 1 mg by mouth twice a day for extrapyramidal side effects. She also has been ordered Paxil CR 25 mg by mouth daily, mirtazapine, or Remeron, was increased to 30 mg by mouth at bedtime. She is on Seroquel 50 mg twice a day, and it will be increased during the next couple of days to 100 mg by mouth twice a day. The patient was evaluated in her room, resting in hospital clothes, uncooperative, belligerent, extremely irritable, and aggressive. Her speech was loud. She kept yelling and screaming. Her thought process is irrational. Her thought content is about pain, anxiety, thoughts of . ("I think I'm never going to see my again. I'd rather than to live with this pain. If I go to [place], I'm going to in there"). Her thoughts are about despair, hopelessness, helplessness, and pain. Abnormal or psychotic thoughts: She has obsessive thoughts about her medical problems, especially everything that is related to pain, and it is believed that she has somatic delusions at this time. Her attention and concentration have declined, because she is extremely disorganized and anxious, and for that same reason she does not pay attention when one is talking to her. Her memory, recent and remote, are poor. The recent memory is better than remote memory. Her orientation has declined too. She is oriented to place and person but not to date and time, like she was yesterday. Her insight, judgment, and impulse control are extremely poor. At this time the patient remains with a sitter on a one-to-one, because she is in danger of falling if she gets up, but she rarely does get up, and that is one of the biggest problems, that she does not want to get up from bed, and for that same reason she does not improve in regard to her pain problem. Her CT scan of the pelvis, her CT scan of the brain have reported no acute problems. On the CT scan of the pelvis it was noted that she has what looks like an inguinal area, but Dr. Henry has said that this problem can be treated as an outpatient. 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 Her and the patient have not reported any major cerebrovascular events, no changes in facial expressed or slurred speech that could indicate a cerebrovascular event. This morning she was started on Lovenox, because she does not move from her bed, and she is at risk of developing an embolus and a pulmonary embolism if she does not move. She has been visited by physical therapy, and she has been encouraged by all the nursing staff, by Griselda Shanks, the physician assistant technician, by this author, by social workers to get up and move always with her sitter by her side, but she refuses to do it. Patient's evolution is very poor. In fact, she has deteriorated during the last week, and at this time it is important to rule out a psychotic problem, most likely somatic delusions. Will followup.
[2016-09-24] MEDS: LORazepam 0.5 MG TAB PO PRN ×3 (03:11→16:39)
[2016-09-24] MEDS: IBUPROFEN 600 MG TAB PO PRN ×3 (04:14→20:03)
[2016-09-24] MEDS: LEVOTHYROXINE 0.112 MG TAB (112 MCG) PO SCH (05:21)
[2016-09-24] MEDS: ACETAMINOPHEN TAB 650MG DOSE (2X325MG) PO PRN ×2 (05:22→16:03)
[2016-09-24 06:14] VITALS: BP_SYST 101; BP_SYST 106; BP_SYST 112; BP_DIAS 59; BP_DIAS 60; BP_DIAS 63
[2016-09-24] MEDS ORDERED: PARoxetine 12.5 MG **CR** TAB PO SCH (09:00)
[2016-09-24] MEDS: DOCUSATE SODIUM 100 MG CAP PO SCH ×3 (09:00→20:06)
[2016-09-24] MEDS: LIDOCAINE 5% (LIDODERM) PATCH TD SCH (09:00)
[2016-09-24] MEDS: QUEtiapine FUMARATE 50 MG TAB PO SCH ×2 (09:07→20:02)
[2016-09-24] MEDS: MULTIVITAMINS/MINERALS THERAP 1 TAB PO SCH (09:07)
[2016-09-24] MEDS: ASPIRIN 81 MG ENTERIC TAB PO SCH (09:07)
[2016-09-24] MEDS: BENZTROPINE 1 MG TAB PO SCH ×2 (09:08→20:02)
[2016-09-24] MEDS: CALCIUM/VITAMIN D 500 MG TAB PO SCH ×2 (09:08→20:02)
[2016-09-24] MEDS: HALOPERIDOL 2 MG TAB PO SCH ×4 (09:08→20:03)
[2016-09-24] MEDS: PYRIDOXINE 50 MG TAB PO SCH (09:09)
[2016-09-24] MEDS: ENOXAPARIN 40 MG/0.4 ML SYRINGE (J1650) SC SCH (09:13)
[2016-09-24] MEDS: **NOTE PATIENT COMMENT** MISC XX SCH (19:55)
[2016-09-24] MEDS: MIRTAZAPINE 15 MG TAB PO SCH (20:03)
[2016-09-24] MEDS: ATORVASTATIN 10 MG TAB PO SCH (20:03)
[2016-09-25] MEDS: LORazepam 0.5 MG TAB PO PRN ×3 (01:59→15:39)
--- NOTE | 2016-09-25 03:13 | IPN ---
DATE OF SERVICE: 09/24/2016 The patient today states "I'm feeling restless." She said she is very depressed and anxious "because of my pain." This is a chronic pain that she has been complaining about. She said she feels hopeless and helpless, but she denies suicidal ideation. She said she slept "on and off." MENTAL STATUS EXAMINATION: This patient is alert and oriented times three, pleasant and cooperative, verbally spontaneous. There is no formal thought disorder noted. Mood is depressed. Affect full range and appropriate. She is not psychotic. She denies suicidal or homicidal ideations. Concentration is fair. Memory intact. Insight and judgment poor. DIAGNOSES: 1. 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 2. Conversion disorder. 3. Dependent personality disorder. TREATMENT PLAN: At this point, we will further observe and evaluate this patient for continued depression and anxiety. We will continue to titrate her medications as indicated and we will continue to monitor the patient for continued resolution of her suicidal ideation. We did have to give her an additional dose of Ativan today because she was getting pretty agitated complaining of increasing anxiety.
[2016-09-25] MEDS: LEVOTHYROXINE 0.112 MG TAB (112 MCG) PO SCH (06:07)
[2016-09-25] MEDS: IBUPROFEN 600 MG TAB PO PRN ×2 (06:08→15:40)
[2016-09-25] MEDS: DOCUSATE SODIUM 100 MG CAP PO SCH ×4 (08:26→20:04)
[2016-09-25] MEDS: BENZTROPINE 1 MG TAB PO SCH ×2 (08:26→20:00)
[2016-09-25] MEDS: PYRIDOXINE 50 MG TAB PO SCH (08:26)
[2016-09-25] MEDS: QUEtiapine FUMARATE 50 MG TAB PO SCH ×2 (08:27→20:00)
[2016-09-25] MEDS: MULTIVITAMINS/MINERALS THERAP 1 TAB PO SCH (08:27)
[2016-09-25] MEDS: PARoxetine 25 MG CR TAB (PAXIL CR) PO SCH (08:27)
[2016-09-25] MEDS: CALCIUM/VITAMIN D 500 MG TAB PO SCH ×2 (08:27→20:00)
[2016-09-25] MEDS: ASPIRIN 81 MG ENTERIC TAB PO SCH (08:27)
[2016-09-25] MEDS: HALOPERIDOL 2 MG TAB PO SCH ×4 (08:28→20:00)
[2016-09-25] MEDS: ENOXAPARIN 40 MG/0.4 ML SYRINGE (J1650) SC SCH (08:28)
[2016-09-25] MEDS: LIDOCAINE 5% (LIDODERM) PATCH TD SCH (08:28)
[2016-09-25 11:42] VITALS: BP 101/60
[2016-09-25] MEDS: MIRTAZAPINE 15 MG TAB PO SCH (20:00)
[2016-09-25] MEDS: ATORVASTATIN 10 MG TAB PO SCH (20:00)
[2016-09-25] MEDS: **NOTE PATIENT COMMENT** MISC XX SCH (20:00)
[2016-09-26] MEDS: LORazepam 0.5 MG TAB PO PRN ×3 (03:28→15:12)
--- NOTE | 2016-09-26 05:08 | IPN ---
DATE OF SERVICE: 09/25/2016 The patient today states that she continues to feel very anxious and very restless. She says "I can't calm down." She did say that she slept good last night. MENTAL STATUS EXAMINATION: She is alert and oriented times three. Eye contact is fair. Psychomotor activity appears to be good. She is verbally spontaneous. There is no formal thought disorder noted. Mood is anxious. Affect is appropriate. She is not psychotic, suicidal, homicidal. Concentration and memory intact. Insight and judgment good. DIAGNOSES: 1. Major depressive disorder secondary to her medical condition. 2. Conversion disorder. 3. Dependent personality disorder. TREATMENT PLAN: At this point, we will continue to monitor the patient for her continued anxiety and depression and we will continue to titrate the medications as indicated. I did discuss with the patient that there is a limit as to how much medication she can be given. I did increase the Ativan yesterday from 1 mg every 6 hours to 1 mg every 4 hours.
[2016-09-26] MEDS: LEVOTHYROXINE 0.112 MG TAB (112 MCG) PO SCH (06:07)
[2016-09-26 06:35] VITALS: BP 114/66
[2016-09-26 07:00] LABS: MEAN CORPUSCULAR HEMOGLOBIN 30.3 pg (27.0-33.0); MEAN CORPUSCULAR HGB CONC 33.4 g/dl (32.0-36.5); RED CELL DISTRIBUTION WIDTH 13.2 % (11.5-14.5); WHITE BLOOD COUNT 8.4 K/mm3 (4.0-10.0)
[2016-09-26] MEDS: IBUPROFEN 600 MG TAB PO PRN ×2 (08:48→18:29)
[2016-09-26] MEDS: QUEtiapine FUMARATE 50 MG TAB PO SCH (08:48)
[2016-09-26] MEDS: ASPIRIN 81 MG ENTERIC TAB PO SCH (08:48)
[2016-09-26] MEDS: PARoxetine 25 MG CR TAB (PAXIL CR) PO SCH (08:48)
[2016-09-26] MEDS: HALOPERIDOL 2 MG TAB PO SCH ×3 (08:48→17:00)
[2016-09-26] MEDS: BENZTROPINE 1 MG TAB PO SCH ×2 (08:48→20:43)
[2016-09-26] MEDS: MULTIVITAMINS/MINERALS THERAP 1 TAB PO SCH (08:48)
[2016-09-26] MEDS: PYRIDOXINE 50 MG TAB PO SCH (08:50)
[2016-09-26] MEDS: ENOXAPARIN 40 MG/0.4 ML SYRINGE (J1650) SC SCH (08:50)
[2016-09-26] MEDS: CALCIUM/VITAMIN D 500 MG TAB PO SCH ×2 (08:51→20:43)
[2016-09-26] MEDS: LIDOCAINE 5% (LIDODERM) PATCH TD SCH (09:00)
[2016-09-26] MEDS: DOCUSATE SODIUM 100 MG CAP PO SCH ×2 (09:00→20:43)
[2016-09-26] MEDS: ACETAMINOPHEN TAB 650MG DOSE (2X325MG) PO PRN ×3 (09:40→20:49)
[2016-09-26 13:35] VITALS: BP 115/80
[2016-09-26] MEDS: HALOPERIDOL 10 MG TAB PO SCH (20:43)
[2016-09-26] MEDS: ATORVASTATIN 10 MG TAB PO SCH (20:43)
[2016-09-26] MEDS: MIRTAZAPINE 15 MG TAB PO SCH (20:43)
[2016-09-26] MEDS: **NOTE PATIENT COMMENT** MISC XX SCH (20:44)
[2016-09-26] MEDS: QUEtiapine FUMARATE 100 MG TAB PO SCH (20:48)
--- NOTE | 2016-09-26 20:54 | IPN ---
DATE: 09/26/2016 Today, the patient states, "Can you please give me something else for pain?" She says she is extremely anxious, and she keeps complaining about pain. This is a chronic pain that she has been having for years, and she is seeking anti-anxiety medications for pain because she says at least "it calms me down." She says that she felt hopeless and helpless and she denies active suicidal ideation, but she states that she does not want to continue living like that, with the anxiety, the depression and the pain. The patient could not explain as to why she has been screaming, and why she took off her cast. MENTAL STATUS EXAMINATION: The patient was seen laying on her bed, dressed in hospital clothes, she was alert and oriented times three, tearful, angry and irritable. Anxious with low tolerance to frustration. Her mood and affect are depressed and anxious. She is not having auditory or visual hallucinations, she is not responding to internal stimuli, she denies persecutory or paranoid delusions. She denies grandiose delusions. She admits to being obsessed with pain, pain medications, and anxiety because "I don't feel well, that's why I always talk about pain medications and anxiety medications and pain." Attention and concentration are fair, memory, recent and remote are fair. Her insight, judgment and impulse control are very poor. DIAGNOSIS: 1. Major depressive disorder, chronic, severe. 2. Conversion disorder. 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 TREATMENT PLAN: As of today, the dosage of Haldol was increased to 10 mg by mouth twice a day, she continues with Cogentin 1 mg by mouth twice a day, continues on the same dose of Ativan that Dr. Martinez adjusted over the weekend. She is on ibuprofen for pain. The patient requested higher doses of Ativan, and this author explained to her why this cannot be done. Regarding her cast, the nursing staff contacted the trauma doctor, and it was stated that he will be there in the morning to see her tomorrow, but from the emergency department, they were going to send a cast for her to immobilize her arm. Will keep her under close observation with her sitter. EKATERINA
[2016-09-27] MEDS: LEVOTHYROXINE 0.112 MG TAB (112 MCG) PO SCH (06:04)
[2016-09-27 06:46] VITALS: BP 119/68
[2016-09-27 07:38] LABS: ALBUMIN/GLOBULIN RATIO 0.97 (1.00-1.93); ALKALINE PHOSPHATASE 149 U/L (45-117); ALT/SGPT 32 U/L (12-78); ANION GAP 8 MEQ/L (8-16); AST/SGOT 29 U/L (15-37); BILIRUBIN,TOTAL 0.4 MG/DL (0.2-1.0); BLOOD UREA NITROGEN 18 MG/DL (7-18); CALCIUM LEVEL 8.8 MG/DL (8.8-10.2); CARBON DIOXIDE LEVEL 24 MEQ/L (21-32); CHLORIDE LEVEL 111 MEQ/L (98-107); CREATININE FOR GFR 0.65 MG/DL (0.55-1.02); GLOMERULAR FILTRATION RATE > 60.0 (>39); GLUCOSE, FASTING 103 MG/DL (83-110); SODIUM LEVEL 143 MEQ/L (136-145); TOTAL PROTEIN 6.1 GM/DL (6.4-8.2)
[2016-09-27] MEDS: LIDOCAINE 5% (LIDODERM) PATCH TD SCH (09:00)
[2016-09-27] MEDS: ENOXAPARIN 40 MG/0.4 ML SYRINGE (J1650) SC SCH (09:00)
[2016-09-27] MEDS: MULTIVITAMINS/MINERALS THERAP 1 TAB PO SCH (09:26)
[2016-09-27] MEDS: DOCUSATE SODIUM 100 MG CAP PO SCH ×2 (09:26→19:58)
[2016-09-27] MEDS: BENZTROPINE 1 MG TAB PO SCH ×2 (09:26→19:59)
[2016-09-27] MEDS: PARoxetine 25 MG CR TAB (PAXIL CR) PO SCH (09:26)
[2016-09-27] MEDS: PYRIDOXINE 50 MG TAB PO SCH (09:26)
[2016-09-27] MEDS: HALOPERIDOL 10 MG TAB PO SCH ×2 (09:27→19:59)
[2016-09-27] MEDS: ASPIRIN 81 MG ENTERIC TAB PO SCH (09:27)
[2016-09-27] MEDS: CALCIUM/VITAMIN D 500 MG TAB PO SCH ×2 (09:27→19:58)
[2016-09-27] MEDS: QUEtiapine FUMARATE 100 MG TAB PO SCH ×2 (09:27→19:59)
--- NOTE | 2016-09-27 09:47 | REP ---
Left wrist series: Three views. History: Check position. Comparison study September 23, 2016. Findings: There is an impacted slightly comminuted fracture of the distal radius with some ventral displacement. There is an associated ulnar styloid chip fracture. The distal radial fracture appears to be unchanged in alignment from the 09/23/2016 study. There is diffuse osteoporosis. There are mild osteoarthritic changes on the radial side of the wrist. Impression: Impacted and comminuted distal radial fracture. Ulnar styloid chip fracture. Unchanged alignment. Signed by Mario Franco MD 09/27/2016 02:50 P
[2016-09-27 11:56] VITALS: BP 127/57
--- NOTE | 2016-09-27 15:21 | CR ---
DATE OF CONSULTATION: 09/27/2016 She is a woman in her 70s who fractured her left wrist roughly three weeks ago. She was reduced and put in a sugar-tong splint and she removed that at least a total of three times, I believe. Last week, I put her in a long-arm fiberglass cast with her elbow bent at 90 degrees and came back and wedged the cast to try to improve the alignment and she somehow removed that despite having what appears to be 24-hour sitters watching her. I am not sure how this is happening so repeatedly. I have reviewed x-rays serially. I reviewed some from a few days ago and also a new set today and she does have evidence of a little bit of collapse of the distal radius. She has overall good alignment on the lateral view. The volar tilt seems to be well restored. On examination today, she has some mild radial deviation at her wrists. No significant swelling. She really is not particularly tender to palpation of the wrist. She was placed into a cock-up wrist brace last night when she removed the cast. At this point, I just do not know what else to offer her. She is completely noncompliant with immobilization and I would be very nervous about doing any sort of surgery on her because I think she would be very likely to sabotage that, and I do not know how I would keep the wound from being opened up or violated and I would be very concerned about a high risk of infection. At this point, I suspect the fracture has become fairly stable and I just do not have much else to offer her. I do not think an external fixator or a plate would be a good solution because of her tendency to constantly try to disrupt whatever treatment I have done so far, and I think there would be more at stake in that case. Certainly, transferring her to a higher level of care would be an option if that were felt appropriate by her providers, but at this point, I would recommend just using the wrist brace and another x-ray in a week or so.
[2016-09-27] MEDS: LORazepam 0.5 MG TAB PO PRN (15:49)
[2016-09-27] MEDS: ATORVASTATIN 10 MG TAB PO SCH (19:58)
[2016-09-27] MEDS: IBUPROFEN 600 MG TAB PO PRN (19:58)
[2016-09-27] MEDS: MIRTAZAPINE 15 MG TAB PO SCH (19:59)
[2016-09-27] MEDS: **NOTE PATIENT COMMENT** MISC XX SCH (20:00)
--- NOTE | 2016-09-27 21:01 | IPN ---
DATE: 09/27/2016 I evaluated this 76-year-old female with a history of major depressive disorder, conversion disorder, dependent personality disorder and borderline personality traits. The patient continues to be extremely anxious, irritable, depressed and has shown behavioral problems in the last couple of days. As per patient, she reports extreme levels of anxiety and pain. She reports "I am extremely anxious , I cannot deal with this anymore." Nursing staff has reported that the patient has been extremely negative about attending groups and complying with medications, she has refused to eat and drink fluids again. This author witnessed this morning when she refused to get up from her bed and attend group. Her attitude was regressing. She started screaming, yelling and refused to be helped by nursing staff to get up from her bed in order to go to the quiet room and attend group. When she finally accepted to go, she was taken in a wheelchair to the group room where after she was left there in company of her peers and staff, she stood up and got out of there very quickly and when nursing staff came over and asked her why was she leaving the room, she lowered herself to the floor and refused getting up from it. As staff started instructing her to get up and cooperate in order to go back to group or to her room, she refused and she started screaming again. Eventually, she was lifted from the floor by the staff and taken again to a wheelchair in order for her to attend group. The patient was educated as of why it is important for her to attend these groups. She was told that if she does not go that she could have medical complications, for example pulmonary complications because she is lying in bed the entire day or a pulmonary embolism because she is not moving and she is already receiving Lovenox but yesterday she refused to have it. She also was told that her pain problems are not going to get any better. Unfortunately, the patient is not processing that information. Her judgment and her insight are extremely poor and she has become extremely agitated. MENTAL STATUS EXAMINATION: The patient was seen dressed in hospital clothes, disheveled, unwilling to leave her room. Her speech was loud and she was argumentative. Her thought process is intact and her thought content is about pain, anxiety, needing medications, and higher doses of medications. She denies auditory or visual hallucinations, denies suicidal ideation but states that she cannot keep going anymore with her suffering, that she does not care if she dies. She denies homicidal ideation. Her memory, recent and remote is intact. Her attention and concentration is fair. Her fund of knowledge is adequate. Her impulse control, judgment and insight are extremely poor. MANAGEMENT PLAN: The patient will continue on current medications and will be encouraged every day to attend groups and leave her room because if she keeps isolating herself in the room she will get more and more depressed. We will continue to seek the best medication combination to help her overcome this crisis. Her was informed about patient's current state of mind and he reported he is not surprised, that when she goes into this crisis she seems to act in a very irrational way and regress emotionally as she been doing at the inpatient mental health unit. He reported that she has done this previously in different hospitals, where she has been extremely aggressive sometimes towards staff and where she has actually endangered her own health and wellbeing by refusing medications, food, and water. He states that when she goes into this crisis and when finally she comes out of them, she is able to stay stable for quite some time but that she is very difficult to treat when she is like this either at the hospital or at home. Patient will continue under close observation, with her sitter, and will encourage her tomorrow to leave her room and attend groups. Will followup. EKATERINA
[2016-09-28 06:05] VITALS: BP 122/60
[2016-09-28] MEDS: LEVOTHYROXINE 0.112 MG TAB (112 MCG) PO SCH (06:06)
[2016-09-28] MEDS: LIDOCAINE 5% (LIDODERM) PATCH TD SCH (08:48)
[2016-09-28] MEDS: QUEtiapine FUMARATE 100 MG TAB PO SCH ×3 (08:53→22:26)
[2016-09-28] MEDS: DOCUSATE SODIUM 100 MG CAP PO SCH ×2 (08:53→21:00)
[2016-09-28] MEDS: MULTIVITAMINS/MINERALS THERAP 1 TAB PO SCH (08:53)
[2016-09-28] MEDS: PARoxetine 25 MG CR TAB (PAXIL CR) PO SCH (08:53)
[2016-09-28] MEDS: HALOPERIDOL 10 MG TAB PO SCH ×2 (08:53→22:26)
[2016-09-28] MEDS: ASPIRIN 81 MG ENTERIC TAB PO SCH (08:53)
[2016-09-28] MEDS: PYRIDOXINE 50 MG TAB PO SCH (08:53)
[2016-09-28] MEDS: BENZTROPINE 1 MG TAB PO SCH ×2 (08:53→22:26)
[2016-09-28] MEDS: ENOXAPARIN 40 MG/0.4 ML SYRINGE (J1650) SC SCH (09:00)
[2016-09-28] MEDS: LORazepam 0.5 MG TAB PO PRN (09:17)
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
[2016-09-28 11:08] VITALS: BP 117/55
[2016-09-28] MEDS: CALCIUM/VITAMIN D 500 MG TAB PO SCH ×2 (12:20→22:26)
[2016-09-28 18:00] VITALS: BP 100/56
[2016-09-28] MEDS: **NOTE PATIENT COMMENT** MISC XX SCH (21:00)
[2016-09-28] MEDS: ATORVASTATIN 10 MG TAB PO SCH (22:26)
[2016-09-28] MEDS: MIRTAZAPINE 15 MG TAB PO SCH (22:27)
[2016-09-29] MEDS: LEVOTHYROXINE 0.112 MG TAB (112 MCG) PO SCH (05:57)
[2016-09-29] MEDS: PYRIDOXINE 50 MG TAB PO SCH (08:48)
[2016-09-29] MEDS: BENZTROPINE 1 MG TAB PO SCH ×2 (08:48→20:05)
[2016-09-29] MEDS: HALOPERIDOL 10 MG TAB PO SCH ×2 (08:48→20:05)
[2016-09-29] MEDS: CALCIUM/VITAMIN D 500 MG TAB PO SCH ×2 (08:48→20:05)
[2016-09-29] MEDS: ASPIRIN 81 MG ENTERIC TAB PO SCH (08:48)
[2016-09-29] MEDS: DOCUSATE SODIUM 100 MG CAP PO SCH ×2 (08:48→20:05)
[2016-09-29] MEDS: MULTIVITAMINS/MINERALS THERAP 1 TAB PO SCH (08:48)
[2016-09-29] MEDS: QUEtiapine FUMARATE 100 MG TAB PO SCH ×3 (08:48→20:05)
[2016-09-29] MEDS: PARoxetine 25 MG CR TAB (PAXIL CR) PO SCH (08:48)
[2016-09-29] MEDS: LIDOCAINE 5% (LIDODERM) PATCH TD SCH (08:55)
[2016-09-29] MEDS: ENOXAPARIN 40 MG/0.4 ML SYRINGE (J1650) SC SCH (08:55)
[2016-09-29] MEDS: LORazepam 0.5 MG TAB PO PRN (08:58)
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
[2016-09-29 13:38] VITALS: BP 123/63
[2016-09-29] MEDS: MIRTAZAPINE 15 MG TAB PO SCH (20:05)
[2016-09-29] MEDS: **NOTE PATIENT COMMENT** MISC XX SCH (20:05)
[2016-09-29] MEDS: ATORVASTATIN 10 MG TAB PO SCH (20:05)
[2016-09-30] MEDS: LEVOTHYROXINE 112MCG TABLET (0.112MG) PO SCH (06:19)
[2016-09-30] MEDS: QUEtiapine FUMARATE 100 MG TAB PO SCH ×3 (08:50→20:02)
[2016-09-30] MEDS: CALCIUM/VITAMIN D 500 MG TAB PO SCH ×2 (08:50→20:02)
[2016-09-30] MEDS: PYRIDOXINE 50 MG TAB PO SCH (08:50)
[2016-09-30] MEDS: BENZTROPINE 1 MG TAB PO SCH ×2 (08:50→20:02)
[2016-09-30] MEDS: DOCUSATE SODIUM 100 MG CAP PO SCH ×2 (08:50→20:02)
[2016-09-30] MEDS: ASPIRIN 81 MG ENTERIC TAB PO SCH (08:50)
[2016-09-30] MEDS: HALOPERIDOL 10 MG TAB PO SCH ×2 (08:50→20:02)
[2016-09-30] MEDS: PARoxetine 25 MG CR TAB (PAXIL CR) PO SCH (08:50)
[2016-09-30] MEDS: MULTIVITAMINS/MINERALS THERAP 1 TAB PO SCH (08:50)
[2016-09-30] MEDS: LIDOCAINE 5% (LIDODERM) PATCH TD SCH (08:54)
[2016-09-30] MEDS: ENOXAPARIN 40 MG/0.4 ML SYRINGE (J1650) SC SCH (08:54)
[2016-09-30] MEDS: LORazepam 0.5 MG TAB PO PRN (14:22)
[2016-09-30 18:00] VITALS: BP 114/74
[2016-09-30] MEDS: ACETAMINOPHEN TAB 650MG DOSE (2X325MG) PO PRN (19:00)
[2016-09-30] MEDS: MIRTAZAPINE 15 MG TAB PO SCH (20:02)
[2016-09-30] MEDS: ATORVASTATIN 10 MG TAB PO SCH (20:02)
[2016-09-30] MEDS: **NOTE PATIENT COMMENT** MISC XX SCH (20:04)
[2016-09-30] MEDS: CIPROFLOXACIN 500 MG TAB PO SCH (22:17)
[2016-09-30] MEDS: PHENAZOPYRIDINE 100 MG TAB PO SCH (22:17)
--- NOTE | 2016-10-01 00:03 | IPN ---
DATE: 09/30/2016 Evaluated 76-year-old female known for (1) major depressive disorder, recurrent, severe, (2) generalized anxiety disorder, (3) conversion disorder, (4) dependent personality disorder and borderline personality traits. The patient reported today to have symptoms of a urinary tract infection. She was required to provide a urine specimen but because she was not drinking enough fluids, she could not void enough urine. Her urinalysis report has been reviewed recently and this screen writer has prescribed her ciprofloxacin and Pyridium for it since it is a severe urinary tract infection. She has too numerous to count white blood cells, and she has red blood cells also. The patient did not report pain today, and she did not report feeling anxious or depressed, although she worried about her urine because she noticed in the morning that it was pink colored. On mental status examination, the patient was seen laying in bed, dressed in hospital clothes, alert, slightly anxious, cooperative. Her speech was normal, this time she was not yelling or screaming. Her language skills are fair. Her thought process was rational today and organized. The thought content was about her urine problem because she described that she felt the urge to urinate but when she went to the bathroom, she could not void and she was worried about the color of her urine. Abstract reasoning and computation are fair. Description of associations: There is no loosening of associations. Description of abnormal or psychotic thoughts: She is not delusional, she denies auditory and visual hallucinations. Denies homicidal ideation and denies active suicidal thoughts, although she continues to say that she does not really care about her life. Her judgment is poor. Her insight is poor. Her orientation is she is oriented to place and person and partially to time. Her recent and remote memory are intact. Her attention span and concentration are fair. Her language is fair. Her fund of knowledge is adequate. Her mood is anxious and her affect is anxious, congruent to mood. ASSESSMENT: The patient continues to be fragile and vulnerable. She has been responding to setting limits, because now she is obligated to attend groups or not to remain in her room all day. Since those limits have been set, she has been responding to that kind of behavioral modification. She also is on Remeron, and she did not have that medication before and that has helped her to relieve her anxiety because she is able to sleep better, but it also has helped her to relax a little bit more. She will continue on current medications and will continue waiting for placement at a long-term treatment facility. We will followup, and we will do urine test, controlled urine test after treatment ends on 10/08/2016. Will followup.
[2016-10-01 06:00] VITALS: BP 125/79
[2016-10-01] MEDS: LEVOTHYROXINE 112MCG TABLET (0.112MG) PO SCH (06:14)
[2016-10-01] MEDS: CIPROFLOXACIN 500 MG TAB PO SCH ×2 (06:14→18:48)
[2016-10-01] MEDS: ENOXAPARIN 40 MG/0.4 ML SYRINGE (J1650) SC SCH (09:00)
[2016-10-01] MEDS: LIDOCAINE 5% (LIDODERM) PATCH TD SCH (09:00)
[2016-10-01] MEDS: PHENAZOPYRIDINE 100 MG TAB PO SCH ×2 (09:41→21:37)
[2016-10-01] MEDS: ASPIRIN 81 MG ENTERIC TAB PO SCH (09:41)
[2016-10-01] MEDS: PYRIDOXINE 50 MG TAB PO SCH (09:41)
[2016-10-01] MEDS: BENZTROPINE 1 MG TAB PO SCH ×2 (09:41→21:37)
[2016-10-01] MEDS: DOCUSATE SODIUM 100 MG CAP PO SCH ×2 (09:41→21:37)
[2016-10-01] MEDS: MULTIVITAMINS/MINERALS THERAP 1 TAB PO SCH (09:41)
[2016-10-01] MEDS: CALCIUM/VITAMIN D 500 MG TAB PO SCH ×2 (09:41→21:36)
[2016-10-01] MEDS: PARoxetine 25 MG CR TAB (PAXIL CR) PO SCH (09:41)
[2016-10-01] MEDS: QUEtiapine FUMARATE 100 MG TAB PO SCH ×3 (09:41→21:36)
[2016-10-01] MEDS: HALOPERIDOL 10 MG TAB PO SCH ×2 (09:41→21:37)
[2016-10-01] MEDS: LORazepam 0.5 MG TAB PO PRN (16:01)
[2016-10-01] MEDS: **NOTE PATIENT COMMENT** MISC XX SCH (21:00)
[2016-10-01] MEDS: MIRTAZAPINE 15 MG TAB PO SCH (21:36)
[2016-10-01] MEDS: ATORVASTATIN 10 MG TAB PO SCH (21:37)
[2016-10-02] MEDS: CIPROFLOXACIN 500 MG TAB PO SCH ×2 (05:55→20:43)
[2016-10-02] MEDS: LEVOTHYROXINE 112MCG TABLET (0.112MG) PO SCH (05:55)
[2016-10-02 06:00] VITALS: BP 106/58
[2016-10-02] MEDS: PARoxetine 25 MG CR TAB (PAXIL CR) PO SCH (09:00)
[2016-10-02] MEDS: LIDOCAINE 5% (LIDODERM) PATCH TD SCH (09:00)
[2016-10-02] MEDS: HALOPERIDOL 10 MG TAB PO SCH ×2 (09:00→20:43)
[2016-10-02] MEDS: PHENAZOPYRIDINE 100 MG TAB PO SCH ×2 (09:00→20:44)
[2016-10-02] MEDS: CALCIUM/VITAMIN D 500 MG TAB PO SCH ×2 (09:00→20:44)
[2016-10-02] MEDS: ASPIRIN 81 MG ENTERIC TAB PO SCH (09:00)
[2016-10-02] MEDS: QUEtiapine FUMARATE 100 MG TAB PO SCH ×3 (09:00→20:45)
[2016-10-02] MEDS: BENZTROPINE 1 MG TAB PO SCH ×2 (09:00→20:45)
[2016-10-02] MEDS: MULTIVITAMINS/MINERALS THERAP 1 TAB PO SCH (09:00)
[2016-10-02] MEDS: PYRIDOXINE 50 MG TAB PO SCH (09:00)
[2016-10-02] MEDS: ATORVASTATIN 10 MG TAB PO SCH (20:42)
[2016-10-02] MEDS: MIRTAZAPINE 15 MG TAB PO SCH (20:43)
[2016-10-02] MEDS: DOCUSATE SODIUM 100 MG CAP PO SCH (20:45)
[2016-10-02] MEDS: **NOTE PATIENT COMMENT** MISC XX SCH (20:48)
[2016-10-03] MEDS: LEVOTHYROXINE 112MCG TABLET (0.112MG) PO SCH (05:56)
[2016-10-03] MEDS: CIPROFLOXACIN 500 MG TAB PO SCH ×2 (05:56→17:27)
[2016-10-03 06:16] VITALS: BP 123/64
[2016-10-03] MEDS: LIDOCAINE 5% (LIDODERM) PATCH TD SCH (09:00)
[2016-10-03] MEDS: ENOXAPARIN 40 MG/0.4 ML SYRINGE (J1650) SC SCH (09:00)
[2016-10-03] MEDS: QUEtiapine FUMARATE 100 MG TAB PO SCH ×3 (09:17→20:03)
[2016-10-03] MEDS: PHENAZOPYRIDINE 100 MG TAB PO SCH ×2 (09:17→20:03)
[2016-10-03] MEDS: MULTIVITAMINS/MINERALS THERAP 1 TAB PO SCH (09:17)
[2016-10-03] MEDS: CALCIUM/VITAMIN D 500 MG TAB PO SCH ×2 (09:17→20:03)
[2016-10-03] MEDS: DOCUSATE SODIUM 100 MG CAP PO SCH ×2 (09:17→20:04)
[2016-10-03] MEDS: PYRIDOXINE 50 MG TAB PO SCH (09:17)
[2016-10-03] MEDS: ASPIRIN 81 MG ENTERIC TAB PO SCH (09:17)
[2016-10-03] MEDS: BENZTROPINE 1 MG TAB PO SCH ×2 (09:17→20:03)
[2016-10-03] MEDS: HALOPERIDOL 10 MG TAB PO SCH ×2 (09:17→20:03)
[2016-10-03] MEDS: PARoxetine 25 MG CR TAB (PAXIL CR) PO SCH (09:18)
[2016-10-03] MEDS: LORazepam 0.5 MG TAB PO PRN (13:12)
[2016-10-03 14:00] VITALS: BP 100/60
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
[2016-10-03] MEDS: **NOTE PATIENT COMMENT** MISC XX SCH (20:00)
[2016-10-03] MEDS: ATORVASTATIN 10 MG TAB PO SCH (20:03)
[2016-10-03] MEDS: MIRTAZAPINE 15 MG TAB PO SCH (20:03)
[2016-10-04] MEDS: LEVOTHYROXINE 112MCG TABLET (0.112MG) PO SCH (05:58)
[2016-10-04] MEDS: CIPROFLOXACIN 500 MG TAB PO SCH ×2 (05:58→17:20)
[2016-10-04 07:58] LABS: ALBUMIN 3.2 GM/DL (3.2-5.2); ALKALINE PHOSPHATASE 160 U/L (45-117); ALT/SGPT 24 U/L (12-78); ANION GAP 8 MEQ/L (8-16); AST/SGOT 20 U/L (15-37); BILIRUBIN,TOTAL 0.4 MG/DL (0.2-1.0); BLOOD UREA NITROGEN 32 MG/DL (7-18); CALCIUM LEVEL 8.9 MG/DL (8.8-10.2); CARBON DIOXIDE LEVEL 27 MEQ/L (21-32); CHLORIDE LEVEL 104 MEQ/L (98-107); CREATININE FOR GFR 0.69 MG/DL (0.55-1.02); GLOMERULAR FILTRATION RATE > 60.0 (>39); GLUCOSE, FASTING 86 MG/DL (83-110); SODIUM LEVEL 139 MEQ/L (136-145); TOTAL PROTEIN 6.4 GM/DL (6.4-8.2)
[2016-10-04] MEDS: ENOXAPARIN 40 MG/0.4 ML SYRINGE (J1650) SC SCH (09:00)
[2016-10-04] MEDS: LIDOCAINE 5% (LIDODERM) PATCH TD SCH (09:00)
[2016-10-04] MEDS: PHENAZOPYRIDINE 100 MG TAB PO SCH ×2 (09:34→21:00)
[2016-10-04] MEDS: PYRIDOXINE 50 MG TAB PO SCH (09:34)
[2016-10-04] MEDS: QUEtiapine FUMARATE 100 MG TAB PO SCH ×3 (09:34→21:00)
[2016-10-04] MEDS: BENZTROPINE 1 MG TAB PO SCH ×2 (09:34→21:00)
[2016-10-04] MEDS: MULTIVITAMINS/MINERALS THERAP 1 TAB PO SCH (09:35)
[2016-10-04] MEDS: ASPIRIN 81 MG ENTERIC TAB PO SCH (09:36)
[2016-10-04] MEDS: DOCUSATE SODIUM 100 MG CAP PO SCH ×2 (09:36→21:00)
[2016-10-04] MEDS: HALOPERIDOL 10 MG TAB PO SCH ×2 (09:36→21:00)
[2016-10-04] MEDS: CALCIUM/VITAMIN D 500 MG TAB PO SCH ×2 (09:36→21:00)
[2016-10-04] MEDS: PARoxetine 25 MG CR TAB (PAXIL CR) PO SCH (09:45)
[2016-10-04] MEDS: IBUPROFEN 600 MG TAB PO PRN (09:48)
[2016-10-04 14:00] VITALS: BP 113/67
[2016-10-04] MEDS: GABAPENTIN 100 MG CAP PO SCH ×2 (15:35→21:00)
[2016-10-04] MEDS: LORazepam 0.5 MG TAB PO PRN (15:36)
[2016-10-04] MEDS: **NOTE PATIENT COMMENT** MISC XX SCH (21:00)
[2016-10-04] MEDS: ATORVASTATIN 10 MG TAB PO SCH (21:00)
[2016-10-04] MEDS: MIRTAZAPINE 15 MG TAB PO SCH (21:00)
[2016-10-05] MEDS: CIPROFLOXACIN 500 MG TAB PO SCH ×2 (06:03→18:00)
[2016-10-05] MEDS: LEVOTHYROXINE 112MCG TABLET (0.112MG) PO SCH (06:03)
[2016-10-05 06:43] VITALS: BP 127/68
[2016-10-05 07:22] LABS: MEAN CORPUSCULAR HEMOGLOBIN 30.7 pg (27.0-33.0); MEAN CORPUSCULAR VOLUME 92.9 fl (80.0-96.0); RED CELL DISTRIBUTION WIDTH 13.3 % (11.5-14.5); WHITE BLOOD COUNT 5.6 K/mm3 (4.0-10.0)
[2016-10-05] MEDS: LIDOCAINE 5% (LIDODERM) PATCH TD SCH (09:00)
[2016-10-05] MEDS: DOCUSATE SODIUM 100 MG CAP PO SCH ×2 (09:00→20:43)
[2016-10-05] MEDS: ENOXAPARIN 40 MG/0.4 ML SYRINGE (J1650) SC SCH (09:00)
[2016-10-05] MEDS: MULTIVITAMINS/MINERALS THERAP 1 TAB PO SCH (09:00)
[2016-10-05] MEDS: CALCIUM/VITAMIN D 500 MG TAB PO SCH ×2 (09:00→20:43)
[2016-10-05] MEDS: ASPIRIN 81 MG ENTERIC TAB PO SCH (09:00)
[2016-10-05] MEDS: QUEtiapine FUMARATE 100 MG TAB PO SCH ×3 (09:29→20:46)
[2016-10-05] MEDS: PARoxetine 25 MG CR TAB (PAXIL CR) PO SCH (09:29)
[2016-10-05] MEDS: PHENAZOPYRIDINE 100 MG TAB PO SCH ×2 (09:29→20:45)
[2016-10-05] MEDS: GABAPENTIN 100 MG CAP PO SCH ×3 (09:29→20:43)
[2016-10-05] MEDS: PYRIDOXINE 50 MG TAB PO SCH (09:29)
[2016-10-05] MEDS: BENZTROPINE 1 MG TAB PO SCH ×2 (09:29→20:43)
[2016-10-05] MEDS: HALOPERIDOL 10 MG TAB PO SCH ×2 (09:29→20:43)
--- NOTE | 2016-10-05 10:15 | IPN ---
DATE: 10/04/2016 I evaluated a 76-year-old female with history of major depressive disorder, recurrent, severe, generalized anxiety disorder, dependent personality disorder and borderline personality traits and conversion disorder. INTERVAL HISTORY: Medication side effects: Denies. Behavior: She is not motivated to participate in groups and she is not motivated to socialize with other patients. She has been laying in bed, most of the time sleeping but has not been violent or aggressive. Group attendance: She has not been attending groups because she has been having medical problems that have limited her (rib fractures, wrist fracture, severe urinary tract infection). Psychiatric symptom change: She is less boisterous, less demanding, less aggressive. She has been staying quite at her room and has been pleasant with staff. MENTAL STATUS EXAMINATION: She is alert, lying in bed, cooperative, talkative and pleasant. Her speech is normal, soft spoken, not tangential and not circumstantial. Her thought process is intact. Her thought content is negative for homicidal ideation, negative for auditory or visual hallucinations, negative for delusional thoughts. She is hopeless, helpless, has anxious thoughts and denies current active suicidal ideation. Her abstract reasoning and computation are fair. Her description of associations, they are not loose. Description of abnormal or psychotic thoughts: She has consistently denied auditory and visual hallucinations, denies delusional thoughts and denies active suicidal ideation but when she has refused medications like Lovenox for example, she has expressed that she really does not care if she gets an embolus or not because if she gets an embolus then she will and she does not care about . She expressed helplessness and hopelessness. Her judgment and insight are poor. She is oriented times three. Her recent and remote memory are fair. Her attention span and concentration are fair. Her fund of knowledge is fair. Her mood is anxious and her affect is anxious, congruent with mood. ASSESSMENT: Patient has been feeling sick due to severe urinary tract infection that is still being treated, she gets up from bed but she walks very little around the hallway, she continues to complain of pain but much less than before. Although she continues to complain of pain in her pelvic area and for that reason, she was restarted on gabapentin although in a lesser dose than she had before. She continues to feel helpless and hopeless about her possible transfer to [facility] and continues to be very anxious and depressed. MANAGEMENT PLAN: We will continue on current medication, she was started today on gabapentin to help her with the pain related to her pelvic fracture. Psychotherapy: She is receiving emotional support but she is not attending groups. Social: She has been less boisterous, less aggressive, less defiant and more pleasant with staff although she does not relate or keep in touch with peers. DISPOSITION: She will continue at the inpatient mental health unit until she has been transferred at [facility] or another [facility] treatment facility. TIME SPENT: 20 minutes.
--- NOTE | 2016-10-05 16:28 | MHIPNPDOC ---
[facility] Progress Note Progress Note DATE OF SERVICE: 10/05/16 INTERVAL HISTORY: Medication Side effects: Denies medication side effects Behavior: She has been less belligerent, less regressive, less aggressive but continues to refuses to come out from her room, interacts and participate more in there for in activities that will help her Group Attendance: Hasn't been attending groups Psychiatric Symptom change: Slightly less aggressive, hasn't been yelling or screaming although she continues to complain of anxiety and depression and refuses to take medications intentionally. She has stated that not taking those medications may be she can and stop being a burden to her . VITAL SIGNS: See below. NEW TEST RESULTS: See below CURRENT MEDICATIONS: See below. MENTAL STATUS EXAMINATION: General: Alert, poor eye contact, laying in bed, dressed in hospital clothes. Speech: Monotone, slow, not tangential and not circumstantial Thought processes: Intact Thought content:. His beers about anxiety, depression and pain Abstract reasoning, and computation: Fair Description of associations: Not loose Description of abnormal or psychotic thoughts: She denies auditory and visual hallucinations she doesn't have grandiose or paranoid delusions but she couldn' t possibly be having somatic delusions. She denies active suicidal thoughts but refuses to take medications that will help improve her health in an attempt to accelerate her demise, as she has said, that the only way that she would get rid of her suffering. Judgment: Poor Insight: Poor Orientation: Oriented 3 Recent and remote memory: Intact Attention span and concentration: Poor Fund of knowledge: Adequate Mood: Sad Affect: Mood congruent, anxious, sad, depressed DIAGNOSES: 1. Major depressive disorder, recurrent, severe. 2. Generalized anxiety disorder. 3.. 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 4. Conversion disorder 5. Rule out somatic delusions ASSESSMENT:. MANAGEMENT PLAN: Medications:Will continue current medications Psychotherapy: Will encourage her to attend groups Social: She hasn't been interacting with peers [facility] [place]: ---- Disposition: He is still spend being possible transfer to [place]. TIME SPENT: 20 minutes. Vital Signs Vital Signs Date Time Temp Pulse Resp B/P (MAP) Pulse Ox O2 Delivery O2 Flow Rate FiO2 10/05/16 06:43 97.9 85 18 127/68 (87) 10/02/16 10:34 Room Air Laboratory Data CBC/BMP Laboratory Tests 10/05/16 07:06 Red Blood Count 4.36, Mean Corpuscular Volume 92.9, Mean Corpuscular Hemoglobin 30.7, Mean Corpuscular Hemoglobin Concent 33.0, Red Cell Distribution Width 13.3 Current Medications Current Medications Acetaminophen (Tylenol Tab) 650 mg Q6HP PRN PO HEADACHE or DISCOMFORT Last administered on 09/30/16 19:00; Start 08/28/16 at 16:45; Stop 10/26/16 at 16:44 Acetaminophen/ Hydrocodone Bitart ([place], [place] 5/325) 1 tab Q4HP PRN PO MILD /MODERATE PAIN (PS 1-7) Last administered on 09/14/16 05:08; Start 09/12/16 at 12:45; Stop 09/14/16 at 07:52; Status DC Al Hydrox/Mg Hydrox/Simethicone (Mylanta) 30 ml Q4HP PRN PO HEARTBURN/ INDIGESTION Last administered on 09/18/16 17:12; Start 08/28/16 at 16:45; Stop 10/26/16 at 16:44 Amitriptyline HCl (Elavil) 10 mg BID PO Last administered on 09/08/16 08:18; Start 09/02/16 at 21:00; Stop 09/08/16 at 23:30; Status DC Amoxicillin/ Clavulanate Potassium (Augmentin) 500 mg Q12H PO Last administered on 09/05/16 06:07; Start 09/03/16 at 18:00; Stop 09/05/16 at 12:05 ; Status DC Aripiprazole (AbiLIFY) 5 mg QAM PO Last administered on 09/09/16 09:08; Start 09/07/16 at 09:00; Stop 09/09/16 at 16:26; Status DC Aripiprazole (AbiLIFY) 10 mg BID PO Last administered on 08/31/16 08:26; Start 08/29/16 at 21:00; Stop 08/31/16 at 13:38; Status DC Aripiprazole (AbiLIFY) 10 mg DAILY PO ; Start 08/29/16 at 09:00; Stop 08/29/16 at 10:06; Status DC Aripiprazole (AbiLIFY) 10 mg QAM PO Last administered on 09/06/16 08:20; Start 09/01/16 at 09:00; Stop 09/06/16 at 13:44; Status DC Aripiprazole (AbiLIFY) 10 mg QAM PO Last administered on 09/15/16 08:10; Start 09/10/16 at 09:00; Stop 09/15/16 at 17:38; Status DC Aripiprazole (AbiLIFY) 10 mg QAM PO Last administered on 09/21/16 10:56; Start 09/21/16 at 09:00; Stop 09/21/16 at 11:44; Status DC Aripiprazole (AbiLIFY) 10 mg QHS PO Last administered on 09/07/16 20:16; Start 09/06/16 at 21:00; Stop 09/08/16 at 23:30; Status DC Aripiprazole (AbiLIFY) 10 mg QHS PO Last administered on 09/20/16 21:37; Start 09/20/16 at 21:00; Stop 09/21/16 at 11:44; Status DC Aripiprazole (AbiLIFY) 15 mg QHS PO Last administered on 09/05/16 20:00; Start 08/31/16 at 21:00; Stop 09/06/16 at 13:42; Status DC Aripiprazole (AbiLIFY) 15 mg QHS PO Last administered on 09/19/16 20:47; Start 09/09/16 at 21:00; Stop 09/20/16 at 10:26; Status DC Aripiprazole (AbiLIFY) 20 mg QAM PO Last administered on 09/20/16 08:59; Start 09/16/16 at 09:00; Stop 09/20/16 at 10:27; Status DC Aspirin (Ecotrin) 81 mg DAILY PO Last administered on 10/04/16 09:36; Start at 09:00; Stop 10/27/16 at 08:59 Atorvastatin Calcium (Lipitor) 10 mg QHS PO Last administered on 10/03/16 20: 03; Start 08/28/16 at 21:00; Stop 10/26/16 at 20:59 Benztropine Mesylate (Cogentin) 1 mg BID PO Last administered on 10/05/16 09: 29; Start 09/20/16 at 21:00; Stop 10/20/16 at 20:59 Calcium/Vitamin D (Oscal D) 500 mg BID PO Last administered on 10/04/16 09:36 ; Start 08/28/16 at 21:00; Stop 10/27/16 at 20:59 Carbamazepine (TEGretol XR) 200 mg TID PO Last administered on 09/09/16 15:48 ; Start 09/09/16 at 09:00; Stop 09/09/16 at 16:39; Status DC Carbamazepine (TEGretol XR) 300 mg TID PO Last administered on 09/16/16 09:04 ; Start 09/09/16 at 21:00; Stop 09/16/16 at 15:11; Status DC Carbamazepine (TEGretol XR) 400 mg TID PO Last administered on 09/20/16 08:59 ; Start 09/16/16 at 16:00; Stop 09/20/16 at 10:35; Status DC Carbamazepine (TEGretol XR) 600 mg TID PO Last administered on 09/21/16 10:54 ; Start 09/20/16 at 16:00; Stop 09/21/16 at 11:38; Status DC Cefdinir (Omnicef) 300 mg BID PO Last administered on 09/08/16 08:18; Start at 09:00; Stop 09/09/16 at 08:59; Status DC Cefdinir (Omnicef) 300 mg BID PO Last administered on 09/23/16 20:08; Start at 09:00; Stop 09/23/16 at 23:59; Status DC Ciprofloxacin (Cipro) 500 mg BID@ PO Last administered on 10/05/16 06:03 ; Start 09/30/16 at 18:00; Stop 10/07/16 at 17:59 Docusate Sodium (Colace) 100 mg BID PO Last administered on 10/01/16 21:37; Start 09/02/16 at 09:00; Stop 10/02/16 at 08:59; Status DC Docusate Sodium (Colace) 100 mg BID PO Last administered on 10/04/16 09:36; Start 10/02/16 at 21:00; Stop 11/01/16 at 20:59 Enoxaparin Sodium (Lovenox) 40 mg DAILY SC ; Start 10/03/16 at 09:00; Stop 10/08 at 08:59 Enoxaparin Sodium (Lovenox) 40 mg DAILY SC Last administered on 09/26/16 08:50 ; Start 09/23/16 at 09:00; Stop 10/02/16 at 08:59; Status DC Gabapentin (Neurontin) 100 mg TID PO Last administered on 10/05/16 09:29; Start 10/04/16 at 16:00; Stop 11/03/16 at 15:59 Gabapentin (Neurontin) 300 mg TID PO Last administered on 09/08/16 08:17; Start 09/06/16 at 16:00; Stop 09/08/16 at 23:39; Status DC Gabapentin (Neurontin) 600 mg TID PO Last administered on 09/06/16 08:20; Start 08/28/16 at 21:00; Stop 09/06/16 at 13:42; Status DC Haloperidol (Haldol) 2 mg BID PO Last administered on 09/23/16 07:15; Start at 09:00; Stop 09/23/16 at 11:03; Status DC Haloperidol (Haldol) 2 mg QID PO Last administered on 09/26/16 17:00; Start 09/23/16 at 13:00; Stop 09/26/16 at 17:43; Status DC Haloperidol (Haldol) 2 mg TID PO ; Start 09/23/16 at 16:00; Stop 09/23/16 at 16:00 ; Status DC Haloperidol (Haldol) 10 mg BID PO Last administered on 10/05/16 09:29; Start 09/26/16 at 21:00; Stop 10/19/16 at 12:59 Home Med (Med Rec Complete!) ASDIRECTED XX ; Start 08/28/16 at 13:00; Stop at 13:00; Status DC Hydroxyzine HCl (Atarax) 75 mg BID PO Last administered on 09/19/16 08:43; Start 08/28/16 at 21:00; Stop 09/19/16 at 11:44; Status DC Ibuprofen (Advil) 400 mg Q8HP PRN PO PAIN Last administered on 09/19/16 04:39 ; Start 09/14/16 at 08:00; Stop 09/19/16 at 11:44; Status DC Ibuprofen (Advil) 600 mg Q6H PO Last administered on 09/12/16 23:17; Start at 18:00; Stop 09/13/16 at 10:06; Status DC Ibuprofen (Advil) 600 mg Q6HP PRN PO PAIN Last administered on 10/04/16 09:48 ; Start 09/19/16 at 12:00; Stop 10/14/16 at 07:59 Levothyroxine Sodium (Synthroid) 0.112 mg DAILY@06 PO Last administered on 05:57; Start 08/29/16 at 06:00; Stop 09/29/16 at 15:12; Status DC Levothyroxine Sodium (Synthroid) 112 mcg DAILY@06 PO Last administered on 06:03; Start 09/30/16 at 06:00; Stop 10/30/16 at 05:59 Lidocaine (Lidoderm Patch) 1 patch DAILY TD Last administered on 09/18/16 09: 36; Start 09/13/16 at 09:00; Stop 10/13/16 at 08:59 Lorazepam (Ativan) 0.5 mg Q12HP PRN PO ANXIETY Last administered on 10/04/16 15:36; Start 09/28/16 at 21:00; Stop 10/04/16 at 20:59; Status DC Lorazepam (Ativan) 0.5 mg Q4HP PRN PO ANXIETY Last administered on 09/26/16 15: 12; Start 09/24/16 at 16:30; Stop 09/27/16 at 13:12; Status DC Lorazepam (Ativan) 0.5 mg Q8HP PRN PO ANXIETY Last administered on 09/24/16 11: 58; Start 09/15/16 at 09:15; Stop 09/24/16 at 16:20; Status DC Lorazepam (Ativan) 0.5 mg Q8HP PRN PO ANXIETY Last administered on 09/28/16 09: 17; Start 09/27/16 at 16:00; Stop 09/28/16 at 10:57; Status DC Lorazepam (Ativan) 0.5 mg QHS PRN PO ANXIETY; Start 10/05/16 at 21:00; Stop at 20:59 Lorazepam (Ativan) 1 mg Q6HP PRN PO ANXIETY Last administered on 09/15/16 02: 47; Start 08/29/16 at 09:00; Stop 09/15/16 at 09:18; Status DC Lorazepam (Ativan) 1 mg STAT STAT IV Last administered on 08/28/16 08:00; Start 08/28/16 at 07:19; Stop 08/28/16 at 07:21; Status DC Lorazepam (Ativan) 1 mg STAT STAT PO Last administered on 09/09/16 16:35; Start 09/09/16 at 16:26; Stop 09/09/16 at 16:27; Status DC Lorazepam (Ativan) 2 mg STAT STAT PO Last administered on 08/29/16 09:01; Start 08/29/16 at 08:49; Stop 08/29/16 at 08:51; Status DC Magnesium Hydroxide (Milk Of Magnesia) 30 ml DAILYPRN PRN PO CONSTIPATION Last administered on 09/03/16 11:22; Start 08/28/16 at 16:45; Stop 10/26/16 at 16:44 Mirtazapine (Remeron) 15 mg QHS PO Last administered on 09/22/16 21:19; Start 09/21/16 at 21:00; Stop 09/23/16 at 12:57; Status DC Mirtazapine (Remeron) 30 mg QHS PO Last administered on 09/20/16 21:37; Start 09/09/16 at 21:00; Stop 09/21/16 at 11:47; Status DC Mirtazapine (Remeron) 30 mg QHS PO Last administered on 09/27/16 19:59; Start 09/23/16 at 21:00; Stop 09/28/16 at 10:57; Status DC Mirtazapine (Remeron) 45 mg QHS PO Last administered on 10/03/16 20:03; Start 09/28/16 at 21:00; Stop 10/28/16 at 20:59 Miscellaneous (Unresolved Clarification Entry) SEE LABEL COMMENTS UNRESOLVED XX ; Start 10/02/16 at 00:01; Stop 10/03/16 at 13:39; Status DC Multivitamins (Theragram-M) 1 tab DAILY PO Last administered on 10/04/16 09:35 ; Start 08/29/16 at 09:00; Stop 10/27/16 at 08:59 Nitrofurantoin Monoh/Nitrofur Macro (Macrobid) 100 mg BID PO Last administered on 09/13/16 21:47; Start 09/12/16 at 09:00; Stop 09/14/16 at 07:52; Status DC Non-Formulary Medication ( See Comment Field Below ) REMOVE LIDODERM PATCH DAILY@21 XX Last administered on 09/23/16 21:22; Start 09/13/16 at 21:00; Stop 10/13/16 at 20:59 Non-Formulary Medication ( See Comment Field Below ) SEE COMMENTS SECTION 1T @10 XX ; Start 08/31/16 at 10:00; Stop 08/31/16 at 10:00; Status DC Non-Formulary Medication ( See Comment Field Below ) SEE LABEL COMMENTS DAILY XX ; Start 08/29/16 at 09:00; Stop 09/04/16 at 08:31; Status DC Non-Formulary Medication ( See Comment Field Below ) SEE LABEL COMMENTS SECTION 1T@10 XX Last administered on 09/06/16 10:00; Start 09/06/16 at 10:00 ; Stop 09/06/16 at 23:59; Status DC Nystatin (Mycostatin Powder, Nystop) 1 dose BIDP PRN TOP RASH Last administered on 09/04/16 20:36; Start 09/04/16 at 18:30; Stop 10/10/16 at 18:29 Ondansetron HCl (Zofran Odt) 4 mg Q8HP PRN PO NAUSEA OR VOMITING Last administered on 09/22/16 08:35; Start 09/14/16 at 13:15; Stop 10/14/16 at 13:14 Ondansetron HCl (Zofran) 4 mg Q8HP PRN PO NAUSEA OR VOMITING Last administered on 09/14/16 05:08; Start 09/13/16 at 10:15; Stop 09/14/16 at 13:12; Status DC Paroxetine HCl (PAXil CR) 12.5 mg DAILY PO Last administered on 09/23/16 13:34 ; Start 09/23/16 at 09:00; Stop 09/23/16 at 16:38; Status DC Paroxetine HCl (PAXil CR) 25 mg DAILY PO Last administered on 09/24/16 09:09; Start 09/24/16 at 09:00; Stop 09/24/16 at 09:56; Status DC Paroxetine HCl (PAXil CR) 25 mg DAILY PO Last administered on 09/28/16 08:53; Start 09/24/16 at 09:56; Stop 09/28/16 at 10:57; Status DC Paroxetine HCl (PAXil CR) 37.5 mg DAILY PO Last administered on 10/05/16 09:29 ; Start 09/29/16 at 09:00; Stop 10/29/16 at 08:59 Phenazopyridine HCl (Pyridium) 100 mg BID PO Last administered on 10/05/16 09: 29; Start 09/30/16 at 21:00; Stop 10/30/16 at 20:59 Polyethylene Glycol (Miralax) 1 pkt DAILYPRN PRN PO CONSTIPATION Last administered on 09/02/16 10:26; Start 08/28/16 at 21:30; Stop 10/26/16 at 21:29 Pramipexole Dihydrochloride (Mirapex) 0.25 mg BID PO Last administered on 08:18; Start 08/28/16 at 21:00; Stop 09/08/16 at 23:41; Status DC Pyridoxine HCl (Vitamin B6) 25 mg DAILY PO Last administered on 10/05/16 09:29 ; Start 09/17/16 at 09:00; Stop 10/17/16 at 08:59 Quetiapine Fumarate (SEROquel) 50 mg BID PO Last administered on 09/26/16 08:48 ; Start 09/23/16 at 21:00; Stop 09/26/16 at 12:14; Status DC Quetiapine Fumarate (SEROquel) 100 mg BID PO Last administered on 09/28/16 08: 53; Start 09/26/16 at 21:00; Stop 09/28/16 at 10:58; Status DC Quetiapine Fumarate (SEROquel) 200 mg TID PO Last administered on 10/05/16 09: 29; Start 09/28/16 at 16:00; Stop 10/26/16 at 20:59 Sertraline HCl (Zoloft) 75 mg DAILY PO Last administered on 09/20/16 08:59; Start 09/09/16 at 09:00; Stop 09/20/16 at 10:32; Status DC Trazodone HCl (Desyrel) 150 mg QHS PO Last administered on 09/08/16 19:58; Start 08/28/16 at 21:00; Stop 09/08/16 at 23:30; Status DC Tuberculin PPD (Aplisol, Ppd) 5 units 1T@10 ID Last administered on 09/04/16 09:21; Start 09/04/16 at 10:00; Stop 09/04/16 at 23:59; Status DC Venlafaxine HCl (Effexor Xr) 300 mg DAILY PO Last administered on 08:17; Start 08/29/16 at 09:00; Stop 09/08/16 at 23:37; Status DC Vitamin B Complex/ Vitamin C (Therapeutic B Complex w/C) 1 cap DAILY PO ; Start 09/23/16 at 09:00; Stop 09/23/16 at 09:24; Status DC Zinc Oxide (Balmex Cream) 1 dose TIDP PRN TOP SEE LABEL COMMENTS Last administered on 09/15/16 16:15; Start 09/15/16 at 13:15; Stop 10/15/16 at 13:14 Allergies Coded Allergies: Codeine (Verified Adverse Reaction, Mild, NAUSEA, 07/28/12) BEATRICE SNYDER MD Oct 05, 2016 16:28
[2016-10-05 18:21] VITALS: BP 121/63
[2016-10-05] MEDS: ATORVASTATIN 10 MG TAB PO SCH (20:43)
[2016-10-05] MEDS: **NOTE PATIENT COMMENT** MISC XX SCH (20:44)
[2016-10-05] MEDS: MIRTAZAPINE 15 MG TAB PO SCH (20:45)
[2016-10-05] MEDS ORDERED: LORazepam 0.5 MG TAB PO PRN (21:00)
[2016-10-06] MEDS: CIPROFLOXACIN 500 MG TAB PO SCH ×2 (05:53→17:34)
[2016-10-06] MEDS: LEVOTHYROXINE 112MCG TABLET (0.112MG) PO SCH (05:53)
[2016-10-06 07:01] VITALS: BP 117/58
[2016-10-06] MEDS: ENOXAPARIN 40 MG/0.4 ML SYRINGE (J1650) SC SCH (09:00)
[2016-10-06] MEDS: LIDOCAINE 5% (LIDODERM) PATCH TD SCH (09:00)
[2016-10-06] MEDS: MULTIVITAMINS/MINERALS THERAP 1 TAB PO SCH (09:27)
[2016-10-06] MEDS: ASPIRIN 81 MG ENTERIC TAB PO SCH (09:27)
[2016-10-06] MEDS: PARoxetine 25 MG CR TAB (PAXIL CR) PO SCH (09:27)
[2016-10-06] MEDS: GABAPENTIN 100 MG CAP PO SCH ×3 (09:27→21:46)
[2016-10-06] MEDS: DOCUSATE SODIUM 100 MG CAP PO SCH ×2 (09:27→21:46)
[2016-10-06] MEDS: HALOPERIDOL 10 MG TAB PO SCH ×2 (09:27→21:46)
[2016-10-06] MEDS: BENZTROPINE 1 MG TAB PO SCH ×2 (09:27→21:46)
[2016-10-06] MEDS: CALCIUM/VITAMIN D 500 MG TAB PO SCH ×2 (09:28→21:46)
[2016-10-06] MEDS: PYRIDOXINE 50 MG TAB PO SCH (09:29)
[2016-10-06] MEDS: PHENAZOPYRIDINE 100 MG TAB PO SCH ×2 (09:30→21:46)
[2016-10-06] MEDS: QUEtiapine FUMARATE 100 MG TAB PO SCH ×3 (09:31→21:46)
[2016-10-06] MEDS ORDERED: ENOXAPARIN 40 MG/0.4 ML SYRINGE (J1650) SC ONE (12:00)
--- NOTE | 2016-10-06 14:00 | MHIPNPDOC ---
[facility] Progress Note Progress Note DATE OF SERVICE: 10/06/16 INTERVAL HISTORY: Medication Side effects: Patient denies medication side effects but still complains of pain in her pelvic area. She has been refusing Lovenox, has been refusing to do the respiratory therapy exercises, has been mostly all her medications including pain medications because she said that she would be better off . Behavior: The patient is refusing to get up from bed, is refusing to shower, she hasn't come her hair in the, she is refusing to walk around the hallway. She states "I can't". She has a negative attitude towards everything due to her severe depression. Group Attendance: She hasn't been attending groups but today she was encouraged to live her room by case filler and this principal technical writer and to go to the medication room and get her Lovenox injection after she was told several times that she will get several complications if she didn't have it. She was encouraged to walk around the hallway and she kept complaining of not feeling well. After she received her [place] [facility] [place] and she stayed there watching TV for a little while but had no social interaction with peers or the rest of the staff. Psychiatric Symptom change: She has been getting more depressed despite of taking medications. She has given up and basically she sabotaging her treatment because she wants to . VITAL SIGNS: See below. NEW TEST RESULTS: See below CURRENT MEDICATIONS: See below. MENTAL STATUS EXAMINATION: General: Alert, cooperative, tearful, with poor eye contact, disheveled, unkempt with poor hygiene Speech: Soft spoken, slow, not tangential and not circumstantial Thought processes: Her thought is irrational, she is not thinking properly she is doing anything and everything to hurt herself, increase her pain, physical and emotional Thought content: Talks about dying, not having any interest in life or in getting better, thoughts about pain, anxiety and depression. Abstract reasoning, and computation: Patient is not able to cooperate because she has problems with attention and concentration due to high level of depression Description of associations: Not loose Description of abnormal or psychotic thoughts: She denies auditory or visual hallucinations, denies thought delusions, denies homicidal thoughts and denies active suicidal ideation but has passive suicidal ideation and for that reason she has abandoned herself and is not willing to cooperate in her treatment because she is willing to . Judgment: Poor Insight: Poor Orientation: Oriented to place, person and month, year but not to date and time Recent and remote memory: Intact Attention span and concentration: Poor Fund of knowledge: Adequate Mood: Depressed Affect: Sad and depressed DIAGNOSES: 1. Major depressive disorder, severe, recurrent. 2. Conversion disorder. 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 4. Generalized anxiety disorder ASSESSMENT: Patient is not improving, she is not agitated and she is not aggressive but she certainly is getting more and more depressed. She has abandoned herself, hasn't showered, is not taking care of herself and has been refusing medications intentionally because she wants to . She finds no motivation, even her has stopped being a motivation for her to improve. We'll continue to encourage her to move around, to comply with the respiratory therapy and to comply with medications. MANAGEMENT PLAN: Medications: Will continue with current medications Psychotherapy: Will continue to encourage her to attend groups and if she declines Will encourage her to take little walks in the hallways and go to the lounge to watch TV. Her social isolation, anhedonia and lack of interest are part of her depression and if she is not strong enough to fight against it we will help her out by getting her out of the wrong, promoting her socialization with peers and staff Social: Will encourage her to socialize with peers and reminded her that social and family support a very important. When she gets discharged from here or from any other inpatient facility she has her 's support but she also needs a support network, and for that, she needs to socialize. Misc: --- Disposition: She needs to continue hospitalization, patient is severely depressed, not interested in leaving and willing to by not taking medications. She will need a higher level of care and long-term treatment. TIME SPENT: 40 minutes. Vital Signs Vital Signs Date Time Temp Pulse Resp B/P (MAP) Pulse Ox O2 Delivery O2 Flow Rate FiO2 10/06/16 07:01 98.2 65 18 117/58 (77) 10/02/16 10:34 Room Air Current Medications Current Medications Acetaminophen (Tylenol Tab) 650 mg Q6HP PRN PO HEADACHE or DISCOMFORT Last administered on 09/30/16t 19:00; Start 08/28/16 at 16:45; Stop 10/26/16 at 16:44 Acetaminophen/ Hydrocodone Bitart (Questa, [place] 5/325) 1 tab Q4HP PRN PO MILD /MODERATE PAIN (PS 1-7) Last administered on 09/14/16 05:08; Start 09/12/16 at 12:45; Stop 09/14/16 at 07:52; Status DC Al Hydrox/Mg Hydrox/Simethicone (Mylanta) 30 ml Q4HP PRN PO HEARTBURN/ INDIGESTION Last administered on 09/18/16 17:12; Start 08/28/16 at 16:45; Stop 10/26/16 at 16:44 Amitriptyline HCl (Elavil) 10 mg BID PO Last administered on 09/08/16 08:18; Start 09/02/16 at 21:00; Stop 09/08/16 at 23:30; Status DC Amoxicillin/ Clavulanate Potassium (Augmentin) 500 mg Q12H PO Last administered on 09/05/16 06:07; Start 09/03/16 at 18:00; Stop 09/05/16 at 12:05 ; Status DC Aripiprazole (AbiLIFY) 5 mg QAM PO Last administered on 09/09/16 09:08; Start 09/07/16 at 09:00; Stop 09/09/16 at 16:26; Status DC Aripiprazole (AbiLIFY) 10 mg BID PO Last administered on 08/31/16 08:26; Start 08/29/16 at 21:00; Stop 08/31/16 at 13:38; Status DC Aripiprazole (AbiLIFY) 10 mg DAILY PO ; Start 08/29/16 at 09:00; Stop 08/29/16 at 10:06; Status DC Aripiprazole (AbiLIFY) 10 mg QAM PO Last administered on 09/06/16 08:20; Start 09/01/16 at 09:00; Stop 09/06/16 at 13:44; Status DC Aripiprazole (AbiLIFY) 10 mg QAM PO Last administered on 09/15/16 08:10; Start 09/10/16 at 09:00; Stop 09/15/16 at 17:38; Status DC Aripiprazole (AbiLIFY) 10 mg QAM PO Last administered on 09/21/16 10:56; Start 09/21/16 at 09:00; Stop 09/21/16 at 11:44; Status DC Aripiprazole (AbiLIFY) 10 mg QHS PO Last administered on 09/07/16 20:16; Start 09/06/16 at 21:00; Stop 09/08/16 at 23:30; Status DC Aripiprazole (AbiLIFY) 10 mg QHS PO Last administered on 09/20/16 21:37; Start 09/20/16 at 21:00; Stop 09/21/16 at 11:44; Status DC Aripiprazole (AbiLIFY) 15 mg QHS PO Last administered on 09/05/16 20:00; Start 08/31/16 at 21:00; Stop 09/06/16 at 13:42; Status DC Aripiprazole (AbiLIFY) 15 mg QHS PO Last administered on 09/19/16 20:47; Start 09/09/16 at 21:00; Stop 09/20/16 at 10:26; Status DC Aripiprazole (AbiLIFY) 20 mg QAM PO Last administered on 09/20/16 08:59; Start 09/16/16 at 09:00; Stop 09/20/16 at 10:27; Status DC Aspirin (Ecotrin) 81 mg DAILY PO Last administered on 10/06/16 09:27; Start at 09:00; Stop 10/27/16 at 08:59 Atorvastatin Calcium (Lipitor) 10 mg QHS PO Last administered on 10/05/16 20: 43; Start 08/28/16 at 21:00; Stop 10/26/16 at 20:59 Benztropine Mesylate (Cogentin) 1 mg BID PO Last administered on 10/06/16 09: 27; Start 09/20/16 at 21:00; Stop 10/20/16 at 20:59 Calcium/Vitamin D (Oscal D) 500 mg BID PO Last administered on 10/06/16 09:28 ; Start 08/28/16 at 21:00; Stop 10/27/16 at 20:59 Carbamazepine (TEGretol XR) 200 mg TID PO Last administered on 09/09/16 15:48 ; Start 09/09/16 at 09:00; Stop 09/09/16 at 16:39; Status DC Carbamazepine (TEGretol XR) 300 mg TID PO Last administered on 09/16/16 09:04 ; Start 09/09/16 at 21:00; Stop 09/16/16 at 15:11; Status DC Carbamazepine (TEGretol XR) 400 mg TID PO Last administered on 09/20/16 08:59 ; Start 09/16/16 at 16:00; Stop 09/20/16 at 10:35; Status DC Carbamazepine (TEGretol XR) 600 mg TID PO Last administered on 09/21/16 10:54 ; Start 09/20/16 at 16:00; Stop 09/21/16 at 11:38; Status DC Cefdinir (Omnicef) 300 mg BID PO Last administered on 09/08/16 08:18; Start at 09:00; Stop 09/09/16 at 08:59; Status DC Cefdinir (Omnicef) 300 mg BID PO Last administered on 09/23/16 20:08; Start at 09:00; Stop 09/23/16 at 23:59; Status DC Ciprofloxacin (Cipro) 500 mg BID@ PO Last administered on 10/06/16 05:53 ; Start 09/30/16 at 18:00; Stop 10/07/16 at 17:59 Docusate Sodium (Colace) 100 mg BID PO Last administered on 10/01/16 21:37; Start 09/02/16 at 09:00; Stop 10/02/16 at 08:59; Status DC Docusate Sodium (Colace) 100 mg BID PO Last administered on 10/06/16 09:27; Start 10/02/16 at 21:00; Stop 11/01/16 at 20:59 Enoxaparin Sodium (Lovenox) 40 mg DAILY SC ; Start 10/03/16 at 09:00; Stop 10/08 at 08:59 Enoxaparin Sodium (Lovenox) 40 mg DAILY SC Last administered on 09/26/16 08:50 ; Start 09/23/16 at 09:00; Stop 10/02/16 at 08:59; Status DC Gabapentin (Neurontin) 100 mg TID PO Last administered on 10/06/16 09:27; Start 10/04/16 at 16:00; Stop 11/03/16 at 15:59 Gabapentin (Neurontin) 300 mg TID PO Last administered on 09/08/16 08:17; Start 09/06/16 at 16:00; Stop 09/08/16 at 23:39; Status DC Gabapentin (Neurontin) 600 mg TID PO Last administered on 09/06/16 08:20; Start 08/28/16 at 21:00; Stop 09/06/16 at 13:42; Status DC Haloperidol (Haldol) 2 mg BID PO Last administered on 09/23/16 07:15; Start at 09:00; Stop 09/23/16 at 11:03; Status DC Haloperidol (Haldol) 2 mg QID PO Last administered on 09/26/16 17:00; Start 09/23/16 at 13:00; Stop 09/26/16 at 17:43; Status DC Haloperidol (Haldol) 2 mg TID PO ; Start 09/23/16 at 16:00; Stop 09/23/16 at 16:00 ; Status DC Haloperidol (Haldol) 10 mg BID PO Last administered on 10/06/16 09:27; Start 09/26/16 at 21:00; Stop 10/19/16 at 12:59 Home Med (Med Rec Complete!) ASDIRECTED XX ; Start 08/28/16 at 13:00; Stop at 13:00; Status DC Hydroxyzine HCl (Atarax) 75 mg BID PO Last administered on 09/19/16 08:43; Start 08/28/16 at 21:00; Stop 09/19/16 at 11:44; Status DC Ibuprofen (Advil) 400 mg Q8HP PRN PO PAIN Last administered on 09/19/16 04:39 ; Start 09/14/16 at 08:00; Stop 09/19/16 at 11:44; Status DC Ibuprofen (Advil) 600 mg Q6H PO Last administered on 09/12/16 23:17; Start at 18:00; Stop 09/13/16 at 10:06; Status DC Ibuprofen (Advil) 600 mg Q6HP PRN PO PAIN Last administered on 10/04/16 09:48 ; Start 09/19/16 at 12:00; Stop 10/14/16 at 07:59 Levothyroxine Sodium (Synthroid) 0.112 mg DAILY@06 PO Last administered on 05:57; Start 08/29/16 at 06:00; Stop 09/29/16 at 15:12; Status DC Levothyroxine Sodium (Synthroid) 112 mcg DAILY@06 PO Last administered on 05:53; Start 09/30/16 at 06:00; Stop 10/30/16 at 05:59 Lidocaine (Lidoderm Patch) 1 patch DAILY TD Last administered on 09/18/16 09: 36; Start 09/13/16 at 09:00; Stop 10/13/16 at 08:59 Lorazepam (Ativan) 0.5 mg Q12HP PRN PO ANXIETY Last administered on 10/04/16 15:36; Start 09/28/16 at 21:00; Stop 10/04/16 at 20:59; Status DC Lorazepam (Ativan) 0.5 mg Q4HP PRN PO ANXIETY Last administered on 09/26/16 15: 12; Start 09/24/16 at 16:30; Stop 09/27/16 at 13:12; Status DC Lorazepam (Ativan) 0.5 mg Q8HP PRN PO ANXIETY Last administered on 09/24/16 11: 58; Start 09/15/16 at 09:15; Stop 09/24/16 at 16:20; Status DC Lorazepam (Ativan) 0.5 mg Q8HP PRN PO ANXIETY Last administered on 09/28/16 09: 17; Start 09/27/16 at 16:00; Stop 09/28/16 at 10:57; Status DC Lorazepam (Ativan) 0.5 mg QHS PRN PO ANXIETY; Start 10/05/16 at 21:00; Stop at 20:59 Lorazepam (Ativan) 1 mg Q6HP PRN PO ANXIETY Last administered on 09/15/16 02: 47; Start 08/29/16 at 09:00; Stop 09/15/16 at 09:18; Status DC Lorazepam (Ativan) 1 mg STAT STAT IV Last administered on 08/28/16 08:00; Start 08/28/16 at 07:19; Stop 08/28/16 at 07:21; Status DC Lorazepam (Ativan) 1 mg STAT STAT PO Last administered on 09/09/16 16:35; Start 09/09/16 at 16:26; Stop 09/09/16 at 16:27; Status DC Lorazepam (Ativan) 2 mg STAT STAT PO Last administered on 08/29/16 09:01; Start 08/29/16 at 08:49; Stop 08/29/16 at 08:51; Status DC Magnesium Hydroxide (Milk Of Magnesia) 30 ml DAILYPRN PRN PO CONSTIPATION Last administered on 09/03/16 11:22; Start 08/28/16 at 16:45; Stop 10/26/16 at 16:44 Mirtazapine (Remeron) 15 mg QHS PO Last administered on 09/22/16 21:19; Start 09/21/16 at 21:00; Stop 09/23/16 at 12:57; Status DC Mirtazapine (Remeron) 30 mg QHS PO Last administered on 09/20/16 21:37; Start 09/09/16 at 21:00; Stop 09/21/16 at 11:47; Status DC Mirtazapine (Remeron) 30 mg QHS PO Last administered on 09/27/16 19:59; Start 09/23/16 at 21:00; Stop 09/28/16 at 10:57; Status DC Mirtazapine (Remeron) 45 mg QHS PO Last administered on 10/05/16 20:45; Start 09/28/16 at 21:00; Stop 10/28/16 at 20:59 Miscellaneous (Unresolved Clarification Entry) SEE LABEL COMMENTS UNRESOLVED XX ; Start 10/02/16 at 00:01; Stop 10/03/16 at 13:39; Status DC Multivitamins (Theragram-M) 1 tab DAILY PO Last administered on 10/06/16 09:27 ; Start 08/29/16 at 09:00; Stop 10/27/16 at 08:59 Nitrofurantoin Monoh/Nitrofur Macro (Macrobid) 100 mg BID PO Last administered on 09/13/16 21:47; Start 09/12/16 at 09:00; Stop 09/14/16 at 07:52; Status DC Non-Formulary Medication ( See Comment Field Below ) REMOVE LIDODERM PATCH DAILY@21 XX Last administered on 09/23/16 21:22; Start 09/13/16 at 21:00; Stop 10/13/16 at 20:59 Non-Formulary Medication ( See Comment Field Below ) SEE COMMENTS SECTION 1T @10 XX ; Start 08/31/16 at 10:00; Stop 08/31/16 at 10:00; Status DC Non-Formulary Medication ( See Comment Field Below ) SEE LABEL COMMENTS DAILY XX ; Start 08/29/16 at 09:00; Stop 09/04/16 at 08:31; Status DC Non-Formulary Medication ( See Comment Field Below ) SEE LABEL COMMENTS SECTION 1T@10 XX Last administered on 09/06/16 10:00; Start 09/06/16 at 10:00 ; Stop 09/06/16 at 23:59; Status DC Nystatin (Mycostatin Powder, Nystop) 1 dose BIDP PRN TOP RASH Last administered on 09/04/16 20:36; Start 09/04/16 at 18:30; Stop 10/10/16 at 18:29 Ondansetron HCl (Zofran Odt) 4 mg Q8HP PRN PO NAUSEA OR VOMITING Last administered on 09/22/16 08:35; Start 09/14/16 at 13:15; Stop 10/14/16 at 13:14 Ondansetron HCl (Zofran) 4 mg Q8HP PRN PO NAUSEA OR VOMITING Last administered on 09/14/16 05:08; Start 09/13/16 at 10:15; Stop 09/14/16 at 13:12; Status DC Paroxetine HCl (PAXil CR) 12.5 mg DAILY PO Last administered on 09/23/16 13:34 ; Start 09/23/16 at 09:00; Stop 09/23/16 at 16:38; Status DC Paroxetine HCl (PAXil CR) 25 mg DAILY PO Last administered on 09/24/16 09:09; Start 09/24/16 at 09:00; Stop 09/24/16 at 09:56; Status DC Paroxetine HCl (PAXil CR) 25 mg DAILY PO Last administered on 09/28/16 08:53; Start 09/24/16 at 09:56; Stop 09/28/16 at 10:57; Status DC Paroxetine HCl (PAXil CR) 37.5 mg DAILY PO Last administered on 10/06/16 09:27 ; Start 09/29/16 at 09:00; Stop 10/29/16 at 08:59 Phenazopyridine HCl (Pyridium) 100 mg BID PO Last administered on 10/06/16 09: 30; Start 09/30/16 at 21:00; Stop 10/30/16 at 20:59 Polyethylene Glycol (Miralax) 1 pkt DAILYPRN PRN PO CONSTIPATION Last administered on 09/02/16 10:26; Start 08/28/16 at 21:30; Stop 10/26/16 at 21:29 Pramipexole Dihydrochloride (Mirapex) 0.25 mg BID PO Last administered on 08:18; Start 08/28/16 at 21:00; Stop 09/08/16 at 23:41; Status DC Pyridoxine HCl (Vitamin B6) 25 mg DAILY PO Last administered on 10/06/16 09:29 ; Start 09/17/16 at 09:00; Stop 10/17/16 at 08:59 Quetiapine Fumarate (SEROquel) 50 mg BID PO Last administered on 09/26/16 08:48 ; Start 09/23/16 at 21:00; Stop 09/26/16 at 12:14; Status DC Quetiapine Fumarate (SEROquel) 100 mg BID PO Last administered on 09/28/16 08: 53; Start 09/26/16 at 21:00; Stop 09/28/16 at 10:58; Status DC Quetiapine Fumarate (SEROquel) 200 mg TID PO Last administered on 10/06/16 09: 31; Start 09/28/16 at 16:00; Stop 10/26/16 at 20:59 Sertraline HCl (Zoloft) 75 mg DAILY PO Last administered on 09/20/16 08:59; Start 09/09/16 at 09:00; Stop 09/20/16 at 10:32; Status DC Trazodone HCl (Desyrel) 150 mg QHS PO Last administered on 09/08/16 19:58; Start 08/28/16 at 21:00; Stop 09/08/16 at 23:30; Status DC Tuberculin PPD (Aplisol, Ppd) 5 units 1T@10 ID Last administered on 09/04/16 09:21; Start 09/04/16 at 10:00; Stop 09/04/16 at 23:59; Status DC Venlafaxine HCl (Effexor Xr) 300 mg DAILY PO Last administered on 08:17; Start 08/29/16 at 09:00; Stop 09/08/16 at 23:37; Status DC Vitamin B Complex/ Vitamin C (Therapeutic B Complex w/C) 1 cap DAILY PO ; Start 09/23/16 at 09:00; Stop 09/23/16 at 09:24; Status DC Zinc Oxide (Balmex Cream) 1 dose TIDP PRN TOP SEE LABEL COMMENTS Last administered on 09/15/16 16:15; Start 09/15/16 at 13:15; Stop 10/15/16 at 13:14 Allergies Coded Allergies: Codeine (Verified Adverse Reaction, Mild, NAUSEA, 07/28/12) BEATRICE SNYDER MD Oct 06, 2016 14:00
[2016-10-06 18:00] VITALS: BP_SYST 101; BP_SYST 119; BP_SYST 85; BP_DIAS 55; BP_DIAS 58; BP_DIAS 67
[2016-10-06] MEDS: **NOTE PATIENT COMMENT** MISC XX SCH (21:00)
[2016-10-06] MEDS: MIRTAZAPINE 15 MG TAB PO SCH (21:46)
[2016-10-06] MEDS: ATORVASTATIN 10 MG TAB PO SCH (21:46)
[2016-10-07] MEDS: LEVOTHYROXINE 112MCG TABLET (0.112MG) PO SCH (05:37)
[2016-10-07] MEDS: CIPROFLOXACIN 500 MG TAB PO SCH ×2 (05:37→18:10)
[2016-10-07 06:46] VITALS: BP 122/61
[2016-10-07] MEDS: CALCIUM/VITAMIN D 500 MG TAB PO SCH ×2 (08:40→20:35)
[2016-10-07] MEDS: PARoxetine 25 MG CR TAB (PAXIL CR) PO SCH (08:40)
[2016-10-07] MEDS: PHENAZOPYRIDINE 100 MG TAB PO SCH ×2 (08:40→20:35)
[2016-10-07] MEDS: MULTIVITAMINS/MINERALS THERAP 1 TAB PO SCH (08:40)
[2016-10-07] MEDS: ASPIRIN 81 MG ENTERIC TAB PO SCH (08:40)
[2016-10-07] MEDS: HALOPERIDOL 10 MG TAB PO SCH ×2 (08:40→20:35)
[2016-10-07] MEDS: BENZTROPINE 1 MG TAB PO SCH ×2 (08:41→20:35)
[2016-10-07] MEDS: QUEtiapine FUMARATE 100 MG TAB PO SCH ×3 (08:41→20:36)
[2016-10-07] MEDS: PYRIDOXINE 50 MG TAB PO SCH (08:41)
[2016-10-07] MEDS: GABAPENTIN 100 MG CAP PO SCH ×3 (08:41→20:35)
[2016-10-07] MEDS: LIDOCAINE 5% (LIDODERM) PATCH TD SCH (09:00)
[2016-10-07] MEDS: ENOXAPARIN 40 MG/0.4 ML SYRINGE (J1650) SC SCH ×2 (09:00→13:45)
[2016-10-07] MEDS: DOCUSATE SODIUM 100 MG CAP PO SCH ×2 (09:00→20:35)
[2016-10-07] MEDS: IBUPROFEN 600 MG TAB PO PRN (13:46)
[2016-10-07] MEDS ORDERED: GABAPENTIN 100 MG CAP PO ONE (14:00)
[2016-10-07] MEDS ORDERED: IBUPROFEN 600 MG TAB PO ONE (14:00)
[2016-10-07 14:04] VITALS: BP_SYST 101; BP_SYST 121; BP_SYST 83; BP_DIAS 53; BP_DIAS 58; BP_DIAS 77
[2016-10-07] MEDS: MIRTAZAPINE 15 MG TAB PO SCH (20:35)
[2016-10-07] MEDS: ATORVASTATIN 10 MG TAB PO SCH (20:35)
[2016-10-07] MEDS: **NOTE PATIENT COMMENT** MISC XX SCH (20:42)
[2016-10-08] MEDS: CIPROFLOXACIN 500 MG TAB PO SCH ×2 (06:24→18:23)
[2016-10-08] MEDS: LEVOTHYROXINE 112MCG TABLET (0.112MG) PO SCH (06:24)
[2016-10-08] MEDS: LIDOCAINE 5% (LIDODERM) PATCH TD SCH (09:00)
[2016-10-08] MEDS: ASPIRIN 81 MG ENTERIC TAB PO SCH (09:00)
[2016-10-08] MEDS: ENOXAPARIN 40 MG/0.4 ML SYRINGE (J1650) SC SCH (09:00)
[2016-10-08] MEDS: BENZTROPINE 1 MG TAB PO SCH ×2 (09:34→20:35)
[2016-10-08] MEDS: MULTIVITAMINS/MINERALS THERAP 1 TAB PO SCH (09:34)
[2016-10-08] MEDS: GABAPENTIN 100 MG CAP PO SCH ×3 (09:34→20:35)
[2016-10-08] MEDS: PHENAZOPYRIDINE 100 MG TAB PO SCH ×2 (09:34→20:35)
[2016-10-08] MEDS: DOCUSATE SODIUM 100 MG CAP PO SCH ×2 (09:34→20:35)
[2016-10-08] MEDS: CALCIUM/VITAMIN D 500 MG TAB PO SCH ×2 (09:34→21:00)
[2016-10-08] MEDS: HALOPERIDOL 10 MG TAB PO SCH ×2 (09:34→20:35)
[2016-10-08] MEDS: PYRIDOXINE 50 MG TAB PO SCH (09:35)
[2016-10-08] MEDS: PARoxetine 25 MG CR TAB (PAXIL CR) PO SCH (09:35)
[2016-10-08] MEDS: QUEtiapine FUMARATE 100 MG TAB PO SCH ×3 (09:35→20:35)
[2016-10-08 14:00] VITALS: BP 100/54
--- NOTE | 2016-10-08 14:29 | IPN ---
DATE OF SERVICE: 10/07/2016 INTERVAL HISTORY: Medication side effects: Patient reports that she does not feel any relief to her symptoms, that she continues to be depressed and anxious. She continues to report pain that is "like a knife" in her pelvic area. She refused again to take Lovenox and had refused her Colace this morning. After she was taken to the medication room by this scientific writer, she accepted to receive her Lovenox injection and she also asked for pain control medication. She was given ibuprofen and gabapentin for pain control Behavior: The patient is refusing to get all her medications, she does not see the point, she is hopeless and helpless, she has given up on her life and treatment. She has been more compliant on getting up and walking down the hallways if one gets to talk to her and encourage her to do so. She has not been violent or aggressive. She has not been interacting with peers and interacts very little with staff members because she wants to remain most of the day in her room. Group attendance: She is attending some of the groups because she has not been allowed to remain in her room all day long since she is causing herself more complications by remaining in bed. For that reason, she is being encouraged to attend groups and she is not able to come back to her room because if she remains laying down in bed she could get a clot in her veins that could cause her a pulmonary embolism or other major complications. Psychiatric symptom change: She is more and more depressed in spite of taking her medications, and she is still describes pelvic pain, tingling and numbing in her feet. Pain medications and gabapentin are ineffective to control her pain too. Vital signs: They are within the normal range. There is no new test results. Current medications: She is on the same medications, no adjustments have been made. MENTAL STATUS EXAMINATION: GeneraL: She was seen alert, more cooperative, anxious, tearful with fair eye contact, disheveled but with better hygiene than yesterday. Speech: Soft spoken, not circumstantial and not tangential. Thought process: Organized but irrational. Thought content: Thoughts about not feeling well, about being depressed, about being hopeless, about not talking to her for the last week and being afraid of losing his support and his company. Abstract reasoning and computation: Fair. Description of associations: Not loose. Description of abnormal or psychotic thoughts: She denies auditory and visual hallucinations, and denies thought delusions. Denies active suicidal thoughts and denies homicidal ideation, but she has passive suicidal thoughts and by abandoning herself and neglecting her healthcare even inside of the hospital she is contributing to an early demise or to future complications. She admits that by refusing certain medications it will be easier for her to , so she is doing that on purpose. Judgment is very limited. Insight is nonexistent, is very poor. Orientation: She is oriented to place and person but date and time. Recent and remote memory intact. Attention span and concentration are poor. Fund of knowledge is fair. Mood is depressed. Affect is sad, anxious and depressed. DIAGNOSES: 1. Major depressive disorder, severe, recurrent. 2. Conversion disorder. 3. 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 4. Generalize anxiety disorder. ASSESSMENT: Patient is more cooperative, she listens and gets up to the medication room to get her medicines if she is encouraged to do so and if she is accompanied by someone. She requires attention and time, but she responds to attention. MANAGEMENT PLAN: Medications: Will continue with the same medications. Psychotherapy: Will encourage her to continue her little walks around the hallways, to go and get her medications at the medication room, to go and attend some of the groups that she enjoys, for example, the activity group. Social: Will encourage her to socialize with other patients because she has isolated herself and that is counterproductive for her wellbeing. DISPOSITION: Patient has been denied to be transferred to [place] but an appeal will be done. The other possibility is that she could receive electroconvulsive therapy (ECT) therapy in different places for versability. Her knows about this new attempt to try to improve her health and he reported that she had ECT approximately 20 years ago and she responded well to it and was symptom free for 2 days, but on the third day she started having problems again. He said that she had four ECTs and it has a negative impact on her short-term memory. Unfortunately, there is nothing else that we can do at this time if patient is refused treatment at [place]. The only alternative that we have left is electroconvulsive therapy. TIME SPENT: 50 minutes.
[2016-10-08] MEDS: MIRTAZAPINE 15 MG TAB PO SCH (20:34)
[2016-10-08] MEDS: ATORVASTATIN 10 MG TAB PO SCH (20:35)
[2016-10-08] MEDS: **NOTE PATIENT COMMENT** MISC XX SCH (21:00)
[2016-10-09] MEDS: CIPROFLOXACIN 500 MG TAB PO SCH ×2 (06:06→18:13)
[2016-10-09] MEDS: LEVOTHYROXINE 112MCG TABLET (0.112MG) PO SCH (06:06)
[2016-10-09 06:54] LABS: MEAN CORPUSCULAR HEMOGLOBIN 30.1 pg (27.0-33.0); MEAN CORPUSCULAR HGB CONC 31.7 g/dl (32.0-36.5); MEAN CORPUSCULAR VOLUME 94.9 fl (80.0-96.0); RED CELL DISTRIBUTION WIDTH 13.2 % (11.5-14.5); WHITE BLOOD COUNT 6.1 K/mm3 (4.0-10.0)
[2016-10-09] MEDS: PYRIDOXINE 50 MG TAB PO SCH (08:25)
[2016-10-09] MEDS: GABAPENTIN 100 MG CAP PO SCH ×3 (08:25→20:23)
[2016-10-09] MEDS: HALOPERIDOL 10 MG TAB PO SCH ×2 (08:25→20:23)
[2016-10-09] MEDS: QUEtiapine FUMARATE 100 MG TAB PO SCH ×3 (08:25→20:23)
[2016-10-09] MEDS: CALCIUM/VITAMIN D 500 MG TAB PO SCH ×2 (08:25→20:23)
[2016-10-09] MEDS: PHENAZOPYRIDINE 100 MG TAB PO SCH ×2 (08:25→20:23)
[2016-10-09] MEDS: MULTIVITAMINS/MINERALS THERAP 1 TAB PO SCH (08:25)
[2016-10-09] MEDS: BENZTROPINE 1 MG TAB PO SCH ×2 (08:25→20:23)
[2016-10-09] MEDS: PARoxetine 25 MG CR TAB (PAXIL CR) PO SCH (08:26)
[2016-10-09] MEDS: DOCUSATE SODIUM 100 MG CAP PO SCH ×2 (08:26→20:23)
[2016-10-09] MEDS: ASPIRIN 81 MG ENTERIC TAB PO SCH (08:26)
[2016-10-09] MEDS: LIDOCAINE 5% (LIDODERM) PATCH TD SCH (08:26)
[2016-10-09] MEDS: ENOXAPARIN 40 MG/0.4 ML SYRINGE (J1650) SC SCH (08:29)
[2016-10-09 14:00] VITALS: BP_SYST 100; BP_SYST 120; BP_SYST 96; BP_DIAS 50; BP_DIAS 54; BP_DIAS 63
[2016-10-09] MEDS: IBUPROFEN 600 MG TAB PO PRN (15:30)
[2016-10-09] MEDS: **NOTE PATIENT COMMENT** MISC XX SCH (20:18)
[2016-10-09] MEDS: ATORVASTATIN 10 MG TAB PO SCH (20:23)
[2016-10-09] MEDS: MIRTAZAPINE 15 MG TAB PO SCH (20:23)
[2016-10-10] MEDS: LEVOTHYROXINE 112MCG TABLET (0.112MG) PO SCH (06:29)
[2016-10-10] MEDS: CIPROFLOXACIN 500 MG TAB PO SCH ×2 (06:29→17:48)
[2016-10-10 07:13] VITALS: BP 113/55
[2016-10-10] MEDS: LIDOCAINE 5% (LIDODERM) PATCH TD SCH (09:00)
[2016-10-10] MEDS: ENOXAPARIN 40 MG/0.4 ML SYRINGE (J1650) SC SCH (09:00)
[2016-10-10] MEDS: DOCUSATE SODIUM 100 MG CAP PO SCH ×2 (09:10→21:56)
[2016-10-10] MEDS: BENZTROPINE 1 MG TAB PO SCH ×2 (09:10→21:56)
[2016-10-10] MEDS: GABAPENTIN 100 MG CAP PO SCH ×3 (09:10→21:56)
[2016-10-10] MEDS: QUEtiapine FUMARATE 100 MG TAB PO SCH ×3 (09:10→21:56)
[2016-10-10] MEDS: MULTIVITAMINS/MINERALS THERAP 1 TAB PO SCH (09:10)
[2016-10-10] MEDS: CALCIUM/VITAMIN D 500 MG TAB PO SCH ×2 (09:11→21:56)
[2016-10-10] MEDS: HALOPERIDOL 10 MG TAB PO SCH ×2 (09:11→21:56)
[2016-10-10] MEDS: PARoxetine 25 MG CR TAB (PAXIL CR) PO SCH (09:11)
[2016-10-10] MEDS: ASPIRIN 81 MG ENTERIC TAB PO SCH (09:11)
[2016-10-10] MEDS: PHENAZOPYRIDINE 100 MG TAB PO SCH ×2 (09:12→21:56)
[2016-10-10] MEDS: PYRIDOXINE 50 MG TAB PO SCH (09:12)
[2016-10-10] MEDS: IBUPROFEN 600 MG TAB PO PRN (09:14)
[2016-10-10] MEDS ORDERED: LORazepam 1 MG TAB PO ONE (15:00)
--- NOTE | 2016-10-10 16:01 | MHIPNPDOC ---
[facility] Progress Note Progress Note DATE OF SERVICE: 10/10/16 INTERVAL HISTORY: Medication Side effects: Denies, but complains of pain and feeling anxious, especially since the Ativan was refused to 0.5 mg by mouth daily at bedtime only Behavior: Has not attended groups, continues to remain in her room laying down complaining of anxiety and pain. Group Attendance: Not attending groups Psychiatric Symptom change: Less anxious when she is not being observed but as soon as she starts speaking to nursing staff or to this automatic typewriter inspector her anxiety level seemed to go high and she starts requesting medication. VITAL SIGNS: See below. NEW TEST RESULTS: See below CURRENT MEDICATIONS: See below. MENTAL STATUS EXAMINATION: General: Alert, oriented 3, cooperative, with good eye contact, disheveled, dressed in hospital clothes Speech: Normal, no circumstantial and not tangential Thought processes: Intact Thought content: Anxious thoughts about her anxiety, depression and pain. Thoughts of hopelessness and helplessness. Abstract reasoning, and computation: Fair Description of associations: Not loose Description of abnormal or psychotic thoughts: Denies homicidal ideation, denies auditory or visual hallucinations and denies active suicidal thoughts but admits she has no interest in living Judgment: Poor Insight: Poor Orientation: Oriented 3 Recent and remote memory: Intact Attention span and concentration: Fair Fund of knowledge: Adequate Mood: "I'm very anxious" Affect: Anxious, depressed DIAGNOSES: 1. Major depressive disorder, severe. 2. Generalized anxiety disorder. 3. Conversion disorder 4. 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 She is still needs a higher level of care and longer treatment. Need to speak to [facility] because she has been denied access to [facility] and she needs to long-term treatment. We can still appeal and that is why we were looking forward to speak to the doctor at [facility]. MANAGEMENT PLAN: Medications: Gabapentin 300 mg by mouth 3 times a day, Paxil CR 37.5 mg by mouth every morning, Ativan 0.5 mg by mouth daily at bedtime, Haldol 10 mg by mouth twice a day, trazodone 200 mg twice a day Psychotherapy: Will continue to encourage her to attend groups Social: Will encourage her to think about the importance of slow stabilization and social and family networks for support Misc: -- Disposition: Still waiting to hear from the doctor in charge of her acceptance at [facility]. TIME SPENT: 30 minutes. A Vital Signs Vital Signs Date Time Temp Pulse Resp B/P (MAP) Pulse Ox O2 Delivery O2 Flow Rate FiO2 10/10/16 07:13 97.9 77 16 113/55 (74) Current Medications Current Medications Acetaminophen (Tylenol Tab) 650 mg Q6HP PRN PO HEADACHE or DISCOMFORT Last administered on 09/30/16 19:00; Start 08/28/16 at 16:45; Stop 10/26/16 at 16:44 Acetaminophen/ Hydrocodone Bitart ([place], [place] 5/325) 1 tab Q4HP PRN PO MILD /MODERATE PAIN (PS 1-7) Last administered on 09/14/16 05:08; Start 09/12/16 at 12:45; Stop 09/14/16 at 07:52; Status DC Al Hydrox/Mg Hydrox/Simethicone (Mylanta) 30 ml Q4HP PRN PO HEARTBURN/ INDIGESTION Last administered on 09/18/16 17:12; Start 08/28/16 at 16:45; Stop 10/26/16 at 16:44 Amitriptyline HCl (Elavil) 10 mg BID PO Last administered on 09/08/16 08:18; Start 09/02/16 at 21:00; Stop 09/08/16 at 23:30; Status DC Amoxicillin/ Clavulanate Potassium (Augmentin) 500 mg Q12H PO Last administered on 09/05/16 06:07; Start 09/03/16 at 18:00; Stop 09/05/16 at 12:05 ; Status DC Aripiprazole (AbiLIFY) 5 mg QAM PO Last administered on 09/09/16 09:08; Start 09/07/16 at 09:00; Stop 09/09/16 at 16:26; Status DC Aripiprazole (AbiLIFY) 10 mg BID PO Last administered on 08/31/16 08:26; Start 08/29/16 at 21:00; Stop 08/31/16 at 13:38; Status DC Aripiprazole (AbiLIFY) 10 mg DAILY PO ; Start 08/29/16 at 09:00; Stop 08/29/16 at 10:06; Status DC Aripiprazole (AbiLIFY) 10 mg QAM PO Last administered on 09/06/16 08:20; Start 09/01/16 at 09:00; Stop 09/06/16 at 13:44; Status DC Aripiprazole (AbiLIFY) 10 mg QAM PO Last administered on 09/15/16 08:10; Start 09/10/16 at 09:00; Stop 09/15/16 at 17:38; Status DC Aripiprazole (AbiLIFY) 10 mg QAM PO Last administered on 09/21/16 10:56; Start 09/21/16 at 09:00; Stop 09/21/16 at 11:44; Status DC Aripiprazole (AbiLIFY) 10 mg QHS PO Last administered on 09/07/16 20:16; Start 09/06/16 at 21:00; Stop 09/08/16 at 23:30; Status DC Aripiprazole (AbiLIFY) 10 mg QHS PO Last administered on 09/20/16 21:37; Start 09/20/16 at 21:00; Stop 09/21/16 at 11:44; Status DC Aripiprazole (AbiLIFY) 15 mg QHS PO Last administered on 09/05/16 20:00; Start 08/31/16 at 21:00; Stop 09/06/16 at 13:42; Status DC Aripiprazole (AbiLIFY) 15 mg QHS PO Last administered on 09/19/16 20:47; Start 09/09/16 at 21:00; Stop 09/20/16 at 10:26; Status DC Aripiprazole (AbiLIFY) 20 mg QAM PO Last administered on 09/20/16 08:59; Start 09/16/16 at 09:00; Stop 09/20/16 at 10:27; Status DC Aspirin (Ecotrin) 81 mg DAILY PO Last administered on 10/10/16 09:11; Start at 09:00; Stop 10/27/16 at 08:59 Atorvastatin Calcium (Lipitor) 10 mg QHS PO Last administered on 10/09/16 20: 23; Start 08/28/16 at 21:00; Stop 10/26/16 at 20:59 Benztropine Mesylate (Cogentin) 1 mg BID PO Last administered on 10/10/16 09: 10; Start 09/20/16 at 21:00; Stop 10/20/16 at 20:59 Calcium/Vitamin D (Oscal D) 500 mg BID PO Last administered on 10/10/16 09:11 ; Start 08/28/16 at 21:00; Stop 10/27/16 at 20:59 Carbamazepine (TEGretol XR) 200 mg TID PO Last administered on 09/09/16 15:48 ; Start 09/09/16 at 09:00; Stop 09/09/16 at 16:39; Status DC Carbamazepine (TEGretol XR) 300 mg TID PO Last administered on 09/16/16 09:04 ; Start 09/09/16 at 21:00; Stop 09/16/16 at 15:11; Status DC Carbamazepine (TEGretol XR) 400 mg TID PO Last administered on 09/20/16 08:59 ; Start 09/16/16 at 16:00; Stop 09/20/16 at 10:35; Status DC Carbamazepine (TEGretol XR) 600 mg TID PO Last administered on 09/21/16 10:54 ; Start 09/20/16 at 16:00; Stop 09/21/16 at 11:38; Status DC Cefdinir (Omnicef) 300 mg BID PO Last administered on 09/08/16 08:18; Start at 09:00; Stop 09/09/16 at 08:59; Status DC Cefdinir (Omnicef) 300 mg BID PO Last administered on 09/23/16 20:08; Start at 09:00; Stop 09/23/16 at 23:59; Status DC Ciprofloxacin (Cipro) 500 mg BID@ PO Last administered on 10/10/16 06:29 ; Start 09/30/16 at 18:00; Stop 10/13/16 at 17:59 Docusate Sodium (Colace) 100 mg BID PO Last administered on 10/01/16 21:37; Start 09/02/16 at 09:00; Stop 10/02/16 at 08:59; Status DC Docusate Sodium (Colace) 100 mg BID PO Last administered on 10/10/16 09:10; Start 10/02/16 at 21:00; Stop 11/01/16 at 20:59 Enoxaparin Sodium (Lovenox) 40 mg DAILY SC Last administered on 10/07/16 13:45 ; Start 10/03/16 at 09:00; Stop 10/14/16 at 08:59 Enoxaparin Sodium (Lovenox) 40 mg DAILY SC Last administered on 09/26/16 08:50 ; Start 09/23/16 at 09:00; Stop 10/02/16 at 08:59; Status DC Gabapentin (Neurontin) 100 mg TID PO Last administered on 10/10/16 15:21; Start 10/04/16 at 16:00; Stop 11/03/16 at 15:59 Gabapentin (Neurontin) 300 mg TID PO Last administered on 09/08/16 08:17; Start 09/06/16 at 16:00; Stop 09/08/16 at 23:39; Status DC Gabapentin (Neurontin) 600 mg TID PO Last administered on 09/06/16 08:20; Start 08/28/16 at 21:00; Stop 09/06/16 at 13:42; Status DC Haloperidol (Haldol) 2 mg BID PO Last administered on 09/23/16 07:15; Start at 09:00; Stop 09/23/16 at 11:03; Status DC Haloperidol (Haldol) 2 mg QID PO Last administered on 09/26/16 17:00; Start 09/23/16 at 13:00; Stop 09/26/16 at 17:43; Status DC Haloperidol (Haldol) 2 mg TID PO ; Start 09/23/16 at 16:00; Stop 09/23/16 at 16:00 ; Status DC Haloperidol (Haldol) 10 mg BID PO Last administered on 10/10/16 09:11; Start 09/26/16 at 21:00; Stop 10/19/16 at 12:59 Home Med (Med Rec Complete!) ASDIRECTED XX ; Start 08/28/16 at 13:00; Stop at 13:00; Status DC Hydroxyzine HCl (Atarax) 75 mg BID PO Last administered on 09/19/16 08:43; Start 08/28/16 at 21:00; Stop 09/19/16 at 11:44; Status DC Ibuprofen (Advil) 400 mg Q8HP PRN PO PAIN Last administered on 09/19/16 04:39 ; Start 09/14/16 at 08:00; Stop 09/19/16 at 11:44; Status DC Ibuprofen (Advil) 600 mg Q6H PO Last administered on 09/12/16 23:17; Start at 18:00; Stop 09/13/16 at 10:06; Status DC Ibuprofen (Advil) 600 mg Q6HP PRN PO PAIN Last administered on 10/10/16 09:14 ; Start 09/19/16 at 12:00; Stop 10/14/16 at 07:59 Levothyroxine Sodium (Synthroid) 0.112 mg DAILY@06 PO Last administered on 05:57; Start 08/29/16 at 06:00; Stop 09/29/16 at 15:12; Status DC Levothyroxine Sodium (Synthroid) 112 mcg DAILY@06 PO Last administered on 06:29; Start 09/30/16 at 06:00; Stop 10/30/16 at 05:59 Lidocaine (Lidoderm Patch) 1 patch DAILY TD Last administered on 09/18/16 09: 36; Start 09/13/16 at 09:00; Stop 10/13/16 at 08:59 Lorazepam (Ativan) 0.5 mg Q12HP PRN PO ANXIETY Last administered on 10/04/16 15:36; Start 09/28/16 at 21:00; Stop 10/04/16 at 20:59; Status DC Lorazepam (Ativan) 0.5 mg Q4HP PRN PO ANXIETY Last administered on 09/26/16 15: 12; Start 09/24/16 at 16:30; Stop 09/27/16 at 13:12; Status DC Lorazepam (Ativan) 0.5 mg Q8HP PRN PO ANXIETY Last administered on 09/24/16 11: 58; Start 09/15/16 at 09:15; Stop 09/24/16 at 16:20; Status DC Lorazepam (Ativan) 0.5 mg Q8HP PRN PO ANXIETY Last administered on 09/28/16 09: 17; Start 09/27/16 at 16:00; Stop 09/28/16 at 10:57; Status DC Lorazepam (Ativan) 0.5 mg QHS PRN PO ANXIETY; Start 10/05/16 at 21:00; Stop at 20:59 Lorazepam (Ativan) 1 mg Q6HP PRN PO ANXIETY Last administered on 09/15/16 02: 47; Start 08/29/16 at 09:00; Stop 09/15/16 at 09:18; Status DC Lorazepam (Ativan) 1 mg STAT STAT IV Last administered on 08/28/16 08:00; Start 08/28/16 at 07:19; Stop 08/28/16 at 07:21; Status DC Lorazepam (Ativan) 1 mg STAT STAT PO Last administered on 09/09/16 16:35; Start 09/09/16 at 16:26; Stop 09/09/16 at 16:27; Status DC Lorazepam (Ativan) 2 mg STAT STAT PO Last administered on 08/29/16 09:01; Start 08/29/16 at 08:49; Stop 08/29/16 at 08:51; Status DC Magnesium Hydroxide (Milk Of Magnesia) 30 ml DAILYPRN PRN PO CONSTIPATION Last administered on 09/03/16 11:22; Start 08/28/16 at 16:45; Stop 10/26/16 at 16:44 Mirtazapine (Remeron) 15 mg QHS PO Last administered on 09/22/16 21:19; Start 09/21/16 at 21:00; Stop 09/23/16 at 12:57; Status DC Mirtazapine (Remeron) 30 mg QHS PO Last administered on 09/20/16 21:37; Start 09/09/16 at 21:00; Stop 09/21/16 at 11:47; Status DC Mirtazapine (Remeron) 30 mg QHS PO Last administered on 09/27/16 19:59; Start 09/23/16 at 21:00; Stop 09/28/16 at 10:57; Status DC Mirtazapine (Remeron) 45 mg QHS PO Last administered on 10/09/16 20:23; Start 09/28/16 at 21:00; Stop 10/28/16 at 20:59 Miscellaneous (Unresolved Clarification Entry) SEE LABEL COMMENTS UNRESOLVED XX ; Start 10/02/16 at 00:01; Stop 10/03/16 at 13:39; Status DC Multivitamins (Theragram-M) 1 tab DAILY PO Last administered on 10/10/16 09:10 ; Start 08/29/16 at 09:00; Stop 10/27/16 at 08:59 Nitrofurantoin Monoh/Nitrofur Macro (Macrobid) 100 mg BID PO Last administered on 09/13/16 21:47; Start 09/12/16 at 09:00; Stop 09/14/16 at 07:52; Status DC Non-Formulary Medication ( See Comment Field Below ) REMOVE LIDODERM PATCH DAILY@21 XX Last administered on 09/23/16 21:22; Start 09/13/16 at 21:00; Stop 10/13/16 at 20:59 Non-Formulary Medication ( See Comment Field Below ) SEE COMMENTS SECTION 1T @10 XX ; Start 08/31/16 at 10:00; Stop 08/31/16 at 10:00; Status DC Non-Formulary Medication ( See Comment Field Below ) SEE LABEL COMMENTS DAILY XX ; Start 08/29/16 at 09:00; Stop 09/04/16 at 08:31; Status DC Non-Formulary Medication ( See Comment Field Below ) SEE LABEL COMMENTS SECTION 1T@10 XX Last administered on 09/06/16 10:00; Start 09/06/16 at 10:00 ; Stop 09/06/16 at 23:59; Status DC Nystatin (Mycostatin Powder, Nystop) 1 dose BIDP PRN TOP RASH Last administered on 09/04/16 20:36; Start 09/04/16 at 18:30; Stop 10/10/16 at 18:29 Ondansetron HCl (Zofran Odt) 4 mg Q8HP PRN PO NAUSEA OR VOMITING Last administered on 09/22/16 08:35; Start 09/14/16 at 13:15; Stop 10/14/16 at 13:14 Ondansetron HCl (Zofran) 4 mg Q8HP PRN PO NAUSEA OR VOMITING Last administered on 09/14/16 05:08; Start 09/13/16 at 10:15; Stop 09/14/16 at 13:12; Status DC Paroxetine HCl (PAXil CR) 12.5 mg DAILY PO Last administered on 09/23/16 13:34 ; Start 09/23/16 at 09:00; Stop 09/23/16 at 16:38; Status DC Paroxetine HCl (PAXil CR) 25 mg DAILY PO Last administered on 09/24/16 09:09; Start 09/24/16 at 09:00; Stop 09/24/16 at 09:56; Status DC Paroxetine HCl (PAXil CR) 25 mg DAILY PO Last administered on 09/28/16 08:53; Start 09/24/16 at 09:56; Stop 09/28/16 at 10:57; Status DC Paroxetine HCl (PAXil CR) 37.5 mg DAILY PO Last administered on 10/10/16 09:11 ; Start 09/29/16 at 09:00; Stop 10/29/16 at 08:59 Phenazopyridine HCl (Pyridium) 100 mg BID PO Last administered on 10/10/16 09: 12; Start 09/30/16 at 21:00; Stop 10/30/16 at 20:59 Polyethylene Glycol (Miralax) 1 pkt DAILYPRN PRN PO CONSTIPATION Last administered on 09/02/16 10:26; Start 08/28/16 at 21:30; Stop 10/26/16 at 21:29 Pramipexole Dihydrochloride (Mirapex) 0.25 mg BID PO Last administered on 08:18; Start 08/28/16 at 21:00; Stop 09/08/16 at 23:41; Status DC Pyridoxine HCl (Vitamin B6) 25 mg DAILY PO Last administered on 10/10/16 09:12 ; Start 09/17/16 at 09:00; Stop 10/17/16 at 08:59 Quetiapine Fumarate (SEROquel) 50 mg BID PO Last administered on 09/26/16 08:48 ; Start 09/23/16 at 21:00; Stop 09/26/16 at 12:14; Status DC Quetiapine Fumarate (SEROquel) 100 mg BID PO Last administered on 09/28/16 08: 53; Start 09/26/16 at 21:00; Stop 09/28/16 at 10:58; Status DC Quetiapine Fumarate (SEROquel) 200 mg TID PO Last administered on 10/10/16 15: 21; Start 09/28/16 at 16:00; Stop 10/26/16 at 20:59 Sertraline HCl (Zoloft) 75 mg DAILY PO Last administered on 09/20/16 08:59; Start 09/09/16 at 09:00; Stop 09/20/16 at 10:32; Status DC Trazodone HCl (Desyrel) 150 mg QHS PO Last administered on 09/08/16 19:58; Start 08/28/16 at 21:00; Stop 09/08/16 at 23:30; Status DC Tuberculin PPD (Aplisol, Ppd) 5 units 1T@10 ID Last administered on 09/04/16 09:21; Start 09/04/16 at 10:00; Stop 09/04/16 at 23:59; Status DC Venlafaxine HCl (Effexor Xr) 300 mg DAILY PO Last administered on 08:17; Start 08/29/16 at 09:00; Stop 09/08/16 at 23:37; Status DC Vitamin B Complex/ Vitamin C (Therapeutic B Complex w/C) 1 cap DAILY PO ; Start 09/23/16 at 09:00; Stop 09/23/16 at 09:24; Status DC Zinc Oxide (Balmex Cream) 1 dose TIDP PRN TOP SEE LABEL COMMENTS Last administered on 09/15/16 16:15; Start 09/15/16 at 13:15; Stop 10/15/16 at 13:14 Allergies Coded Allergies: Codeine (Verified Adverse Reaction, Mild, NAUSEA, 07/28/12) BEATRICE SNYDER MD Oct 10, 2016 16:01
[2016-10-10 18:00] VITALS: BP 92/60
[2016-10-10] MEDS: **NOTE PATIENT COMMENT** MISC XX SCH (20:48)
[2016-10-10] MEDS: MIRTAZAPINE 15 MG TAB PO SCH (21:56)
[2016-10-10] MEDS: ATORVASTATIN 10 MG TAB PO SCH (21:56)
[2016-10-11] MEDS: CIPROFLOXACIN 500 MG TAB PO SCH ×2 (05:50→18:02)
[2016-10-11] MEDS: LEVOTHYROXINE 112MCG TABLET (0.112MG) PO SCH (05:50)
[2016-10-11 06:00] VITALS: BP 115/59
[2016-10-11] MEDS: PARoxetine 25 MG CR TAB (PAXIL CR) PO SCH (08:41)
[2016-10-11] MEDS: QUEtiapine FUMARATE 100 MG TAB PO SCH ×3 (08:41→20:17)
[2016-10-11] MEDS: PHENAZOPYRIDINE 100 MG TAB PO SCH ×2 (08:41→20:16)
[2016-10-11] MEDS: MULTIVITAMINS/MINERALS THERAP 1 TAB PO SCH (08:42)
[2016-10-11] MEDS: BENZTROPINE 1 MG TAB PO SCH ×2 (08:42→20:17)
[2016-10-11] MEDS: PYRIDOXINE 50 MG TAB PO SCH (08:42)
[2016-10-11] MEDS: CALCIUM/VITAMIN D 500 MG TAB PO SCH ×2 (08:42→20:16)
[2016-10-11] MEDS: HALOPERIDOL 10 MG TAB PO SCH ×2 (08:42→20:15)
[2016-10-11] MEDS: ASPIRIN 81 MG ENTERIC TAB PO SCH (08:42)
[2016-10-11] MEDS: GABAPENTIN 100 MG CAP PO SCH ×3 (08:42→20:18)
[2016-10-11] MEDS: LIDOCAINE 5% (LIDODERM) PATCH TD SCH (08:44)
[2016-10-11] MEDS: ENOXAPARIN 40 MG/0.4 ML SYRINGE (J1650) SC SCH (08:44)
[2016-10-11] MEDS: DOCUSATE SODIUM 100 MG CAP PO SCH ×2 (08:44→20:18)
--- NOTE | 2016-10-11 16:37 | CR ---
DATE OF CONSULTATION: 10/11/2016 Patient seen and examined and she is complaining still some soreness in her wrist. Currently she is in a cock-up wrist splint. Again she has been completely noncompliant with any sort of immobilization and I was very reluctant to proceed with any sort of surgery due to her noncompliance and I was afraid we would end up with a wound that was pulled open and infected etc., which would end I believe in a worse situation than a malunion. She had a followup x-ray today. On exam she can move her fingers well. She has no gross deformity of her wrist. She has intact sensation. Does report some mild tenderness of the wrist. X-rays were reviewed to followup the fracture two views, demonstrate some shortening of the radius the overall alignment and position is reasonable. It has about neutral tilt or slight volar tilt on the lateral view, but it appears to be healing. 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 My hope is that this will continue to heal and become comfortable for her and functional. I think this would be very challenging to tackle from a surgical standpoint. Given her current psychiatric issues. EKATERINA
--- NOTE | 2016-10-11 16:45 | MHIPNPDOC ---
[facility] Progress Note Progress Note DATE OF SERVICE: 10/11/16 INTERVAL HISTORY: Medication Side effects: Denies medication side effects Behavior: Less rebellious, less aggressive and continues to be defiant and has been refusing to accept some of her medications. Group Attendance: She claims she attended one of the groups today. Psychiatric Symptom change: She seems more calm but this is only for moments because she continues to be irritable. She is still depressed. VITAL SIGNS: See below. NEW TEST RESULTS: See below CURRENT MEDICATIONS: See below. MENTAL STATUS EXAMINATION: General: Alert, more cooperative, less defiant, dressed in hospital clothes with good hygiene and poor eye contact Speech: Soft spoken, not tangential and not circumstantial but she has thought blocking. Thought processes: Irrational Thought content: Not goal oriented Abstract reasoning, and computation: Fair Description of associations: Not loose Description of abnormal or psychotic thoughts: Denies auditory and visual hallucinations, denies thought delusions, denied active suicidal thoughts and homicidal ideation. Judgment: Poor Insight: Poor Orientation: Oriented 3 Recent and remote memory: Intact Attention span and concentration: Fair Fund of knowledge: Fair Mood: "I'm anxious" Affect: Anxious, depressed DIAGNOSES: 1. Major depressive disorder, severe, recurrent. 2. Conversion disorder. 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 4. Generalized anxiety disorder ASSESSMENT: Patient still depressed and anxious although today she looks slightly less anxious compared to yesterday, she is irritable. She refuses her Lovenox and she seems not to understand that she needs that medication if she will doesn't want to have medical complications such as pulmonary embolism. She was started on the medication because due to her depression she doesn't get up from bed and therefore she is at risk of developing more health problems. Her judgment and insight are still very poor. MANAGEMENT PLAN: Medications: Will continue with current medications. Psychotherapy: She will need to attend groups every day not only once in a while Social: She doesn't interact with peers and when she seeks attention and she does it in a negative way. Misc: -- Disposition: Needs to continue hospitalization until a higher level of care and long-term treatment facility accepts her. TIME SPENT: 30 minutes. Vital Signs Vital Signs Date Time Temp Pulse Resp B/P (MAP) Pulse Ox O2 Delivery O2 Flow Rate FiO2 10/11/16 06:00 97.7 67 16 115/59 (77) Current Medications Current Medications Acetaminophen (Tylenol Tab) 650 mg Q6HP PRN PO HEADACHE or DISCOMFORT Last administered on 09/30/16 19:00; Start 08/28/16 at 16:45; Stop 10/26/16 at 16:44 Acetaminophen/ Hydrocodone Bitart ([place], [place]nexsia 5/325) 1 tab Q4HP PRN PO MILD /MODERATE PAIN (PS 1-7) Last administered on 09/14/16 05:08; Start 09/12/16 at 12:45; Stop 09/14/16 at 07:52; Status DC Al Hydrox/Mg Hydrox/Simethicone (Mylanta) 30 ml Q4HP PRN PO HEARTBURN/ INDIGESTION Last administered on 09/18/16 17:12; Start 08/28/16 at 16:45; Stop 10/26/16 at 16:44 Amitriptyline HCl (Elavil) 10 mg BID PO Last administered on 09/08/16 08:18; Start 09/02/16 at 21:00; Stop 09/08/16 at 23:30; Status DC Amoxicillin/ Clavulanate Potassium (Augmentin) 500 mg Q12H PO Last administered on 09/05/16 06:07; Start 09/03/16 at 18:00; Stop 09/05/16 at 12:05 ; Status DC Aripiprazole (AbiLIFY) 5 mg QAM PO Last administered on 09/09/16 09:08; Start 09/07/16 at 09:00; Stop 09/09/16 at 16:26; Status DC Aripiprazole (AbiLIFY) 10 mg BID PO Last administered on 08/31/16 08:26; Start 08/29/16 at 21:00; Stop 08/31/16 at 13:38; Status DC Aripiprazole (AbiLIFY) 10 mg DAILY PO ; Start 08/29/16 at 09:00; Stop 08/29/16 at 10:06; Status DC Aripiprazole (AbiLIFY) 10 mg QAM PO Last administered on 09/06/16 08:20; Start 09/01/16 at 09:00; Stop 09/06/16 at 13:44; Status DC Aripiprazole (AbiLIFY) 10 mg QAM PO Last administered on 09/15/16 08:10; Start 09/10/16 at 09:00; Stop 09/15/16 at 17:38; Status DC Aripiprazole (AbiLIFY) 10 mg QAM PO Last administered on 09/21/16 10:56; Start 09/21/16 at 09:00; Stop 09/21/16 at 11:44; Status DC Aripiprazole (AbiLIFY) 10 mg QHS PO Last administered on 09/07/16 20:16; Start 09/06/16 at 21:00; Stop 09/08/16 at 23:30; Status DC Aripiprazole (AbiLIFY) 10 mg QHS PO Last administered on 09/20/16 21:37; Start 09/20/16 at 21:00; Stop 09/21/16 at 11:44; Status DC Aripiprazole (AbiLIFY) 15 mg QHS PO Last administered on 09/05/16 20:00; Start 08/31/16 at 21:00; Stop 09/06/16 at 13:42; Status DC Aripiprazole (AbiLIFY) 15 mg QHS PO Last administered on 09/19/16 20:47; Start 09/09/16 at 21:00; Stop 09/20/16 at 10:26; Status DC Aripiprazole (AbiLIFY) 20 mg QAM PO Last administered on 09/20/16 08:59; Start 09/16/16 at 09:00; Stop 09/20/16 at 10:27; Status DC Aspirin (Ecotrin) 81 mg DAILY PO Last administered on 10/11/16 08:42; Start at 09:00; Stop 10/27/16 at 08:59 Atorvastatin Calcium (Lipitor) 10 mg QHS PO Last administered on 10/10/16 21: 56; Start 08/28/16 at 21:00; Stop 10/26/16 at 20:59 Benztropine Mesylate (Cogentin) 1 mg BID PO Last administered on 10/11/16 08: 42; Start 09/20/16 at 21:00; Stop 10/20/16 at 20:59 Calcium/Vitamin D (Oscal D) 500 mg BID PO Last administered on 10/11/16 08:42 ; Start 08/28/16 at 21:00; Stop 10/27/16 at 20:59 Carbamazepine (TEGretol XR) 200 mg TID PO Last administered on 09/09/16 15:48 ; Start 09/09/16 at 09:00; Stop 09/09/16 at 16:39; Status DC Carbamazepine (TEGretol XR) 300 mg TID PO Last administered on 09/16/16 09:04 ; Start 09/09/16 at 21:00; Stop 09/16/16 at 15:11; Status DC Carbamazepine (TEGretol XR) 400 mg TID PO Last administered on 09/20/16 08:59 ; Start 09/16/16 at 16:00; Stop 09/20/16 at 10:35; Status DC Carbamazepine (TEGretol XR) 600 mg TID PO Last administered on 09/21/16 10:54 ; Start 09/20/16 at 16:00; Stop 09/21/16 at 11:38; Status DC Cefdinir (Omnicef) 300 mg BID PO Last administered on 09/08/16 08:18; Start at 09:00; Stop 09/09/16 at 08:59; Status DC Cefdinir (Omnicef) 300 mg BID PO Last administered on 09/23/16 20:08; Start at 09:00; Stop 09/23/16 at 23:59; Status DC Ciprofloxacin (Cipro) 500 mg BID@ PO Last administered on 10/11/16 05:50 ; Start 09/30/16 at 18:00; Stop 10/13/16 at 17:59 Docusate Sodium (Colace) 100 mg BID PO Last administered on 10/01/16 21:37; Start 09/02/16 at 09:00; Stop 10/02/16 at 08:59; Status DC Docusate Sodium (Colace) 100 mg BID PO Last administered on 10/10/16 21:56; Start 10/02/16 at 21:00; Stop 11/01/16 at 20:59 Enoxaparin Sodium (Lovenox) 40 mg DAILY SC Last administered on 10/07/16 13:45 ; Start 10/03/16 at 09:00; Stop 10/14/16 at 08:59 Enoxaparin Sodium (Lovenox) 40 mg DAILY SC Last administered on 09/26/16 08:50 ; Start 09/23/16 at 09:00; Stop 10/02/16 at 08:59; Status DC Gabapentin (Neurontin) 100 mg TID PO Last administered on 10/11/16 15:35; Start 10/04/16 at 16:00; Stop 11/03/16 at 15:59 Gabapentin (Neurontin) 300 mg TID PO Last administered on 09/08/16 08:17; Start 09/06/16 at 16:00; Stop 09/08/16 at 23:39; Status DC Gabapentin (Neurontin) 600 mg TID PO Last administered on 09/06/16 08:20; Start 08/28/16 at 21:00; Stop 09/06/16 at 13:42; Status DC Haloperidol (Haldol) 2 mg BID PO Last administered on 09/23/16 07:15; Start at 09:00; Stop 09/23/16 at 11:03; Status DC Haloperidol (Haldol) 2 mg QID PO Last administered on 09/26/16 17:00; Start 09/23/16 at 13:00; Stop 09/26/16 at 17:43; Status DC Haloperidol (Haldol) 2 mg TID PO ; Start 09/23/16 at 16:00; Stop 09/23/16 at 16:00 ; Status DC Haloperidol (Haldol) 10 mg BID PO Last administered on 10/11/16 08:42; Start 09/26/16 at 21:00; Stop 10/19/16 at 12:59 Home Med (Med Rec Complete!) ASDIRECTED XX ; Start 08/28/16 at 13:00; Stop at 13:00; Status DC Hydroxyzine HCl (Atarax) 75 mg BID PO Last administered on 09/19/16 08:43; Start 08/28/16 at 21:00; Stop 09/19/16 at 11:44; Status DC Ibuprofen (Advil) 400 mg Q8HP PRN PO PAIN Last administered on 09/19/16 04:39 ; Start 09/14/16 at 08:00; Stop 09/19/16 at 11:44; Status DC Ibuprofen (Advil) 600 mg Q6H PO Last administered on 09/12/16 23:17; Start at 18:00; Stop 09/13/16 at 10:06; Status DC Ibuprofen (Advil) 600 mg Q6HP PRN PO PAIN Last administered on 10/10/16 09:14 ; Start 09/19/16 at 12:00; Stop 10/14/16 at 07:59 Levothyroxine Sodium (Synthroid) 0.112 mg DAILY@06 PO Last administered on 05:57; Start 08/29/16 at 06:00; Stop 09/29/16 at 15:12; Status DC Levothyroxine Sodium (Synthroid) 112 mcg DAILY@06 PO Last administered on 05:50; Start 09/30/16 at 06:00; Stop 10/30/16 at 05:59 Lidocaine (Lidoderm Patch) 1 patch DAILY TD Last administered on 09/18/16 09: 36; Start 09/13/16 at 09:00; Stop 10/11/16 at 09:39; Status DC Lorazepam (Ativan) 0.5 mg Q12HP PRN PO ANXIETY Last administered on 10/04/16 15:36; Start 09/28/16 at 21:00; Stop 10/04/16 at 20:59; Status DC Lorazepam (Ativan) 0.5 mg Q4HP PRN PO ANXIETY Last administered on 09/26/16 15: 12; Start 09/24/16 at 16:30; Stop 09/27/16 at 13:12; Status DC Lorazepam (Ativan) 0.5 mg Q8HP PRN PO ANXIETY Last administered on 09/24/16 11: 58; Start 09/15/16 at 09:15; Stop 09/24/16 at 16:20; Status DC Lorazepam (Ativan) 0.5 mg Q8HP PRN PO ANXIETY Last administered on 09/28/16 09: 17; Start 09/27/16 at 16:00; Stop 09/28/16 at 10:57; Status DC Lorazepam (Ativan) 0.5 mg QHS PRN PO ANXIETY Last administered on 10/10/16 21: 56; Start 10/05/16 at 21:00; Stop 10/12/16 at 20:59 Lorazepam (Ativan) 1 mg Q6HP PRN PO ANXIETY Last administered on 09/15/16 02: 47; Start 08/29/16 at 09:00; Stop 09/15/16 at 09:18; Status DC Lorazepam (Ativan) 1 mg STAT STAT IV Last administered on 08/28/16 08:00; Start 08/28/16 at 07:19; Stop 08/28/16 at 07:21; Status DC Lorazepam (Ativan) 1 mg STAT STAT PO Last administered on 09/09/16 16:35; Start 09/09/16 at 16:26; Stop 09/09/16 at 16:27; Status DC Lorazepam (Ativan) 2 mg STAT STAT PO Last administered on 08/29/16 09:01; Start 08/29/16 at 08:49; Stop 08/29/16 at 08:51; Status DC Magnesium Hydroxide (Milk Of Magnesia) 30 ml DAILYPRN PRN PO CONSTIPATION Last administered on 09/03/16 11:22; Start 08/28/16 at 16:45; Stop 10/26/16 at 16:44 Mirtazapine (Remeron) 15 mg QHS PO Last administered on 09/22/16 21:19; Start 09/21/16 at 21:00; Stop 09/23/16 at 12:57; Status DC Mirtazapine (Remeron) 30 mg QHS PO Last administered on 09/20/16 21:37; Start 09/09/16 at 21:00; Stop 09/21/16 at 11:47; Status DC Mirtazapine (Remeron) 30 mg QHS PO Last administered on 09/27/16 19:59; Start 09/23/16 at 21:00; Stop 09/28/16 at 10:57; Status DC Mirtazapine (Remeron) 45 mg QHS PO Last administered on 10/10/16 21:56; Start 09/28/16 at 21:00; Stop 10/28/16 at 20:59 Miscellaneous (Unresolved Clarification Entry) SEE LABEL COMMENTS UNRESOLVED XX ; Start 10/02/16 at 00:01; Stop 10/03/16 at 13:39; Status DC Multivitamins (Theragram-M) 1 tab DAILY PO Last administered on 10/11/16 08:42 ; Start 08/29/16 at 09:00; Stop 10/27/16 at 08:59 Nitrofurantoin Monoh/Nitrofur Macro (Macrobid) 100 mg BID PO Last administered on 09/13/16 21:47; Start 09/12/16 at 09:00; Stop 09/14/16 at 07:52; Status DC Non-Formulary Medication ( See Comment Field Below ) REMOVE LIDODERM PATCH DAILY@21 XX Last administered on 09/23/16 21:22; Start 09/13/16 at 21:00; Stop 10/11/16 at 09:41; Status DC Non-Formulary Medication ( See Comment Field Below ) SEE COMMENTS SECTION 1T @10 XX ; Start 08/31/16 at 10:00; Stop 08/31/16 at 10:00; Status DC Non-Formulary Medication ( See Comment Field Below ) SEE LABEL COMMENTS DAILY XX ; Start 08/29/16 at 09:00; Stop 09/04/16 at 08:31; Status DC Non-Formulary Medication ( See Comment Field Below ) SEE LABEL COMMENTS SECTION 1T@10 XX Last administered on 09/06/16 10:00; Start 09/06/16 at 10:00 ; Stop 09/06/16 at 23:59; Status DC Nystatin (Mycostatin Powder, Nystop) 1 dose BIDP PRN TOP RASH Last administered on 09/04/16 20:36; Start 09/04/16 at 18:30; Stop 10/17/16 at 18:29 Ondansetron HCl (Zofran Odt) 4 mg Q8HP PRN PO NAUSEA OR VOMITING Last administered on 09/22/16 08:35; Start 09/14/16 at 13:15; Stop 10/14/16 at 13:14 Ondansetron HCl (Zofran) 4 mg Q8HP PRN PO NAUSEA OR VOMITING Last administered on 09/14/16 05:08; Start 09/13/16 at 10:15; Stop 09/14/16 at 13:12; Status DC Paroxetine HCl (PAXil CR) 12.5 mg DAILY PO Last administered on 09/23/16 13:34 ; Start 09/23/16 at 09:00; Stop 09/23/16 at 16:38; Status DC Paroxetine HCl (PAXil CR) 25 mg DAILY PO Last administered on 09/24/16 09:09; Start 09/24/16 at 09:00; Stop 09/24/16 at 09:56; Status DC Paroxetine HCl (PAXil CR) 25 mg DAILY PO Last administered on 09/28/16 08:53; Start 09/24/16 at 09:56; Stop 09/28/16 at 10:57; Status DC Paroxetine HCl (PAXil CR) 37.5 mg DAILY PO Last administered on 10/11/16 08:41 ; Start 09/29/16 at 09:00; Stop 10/29/16 at 08:59 Phenazopyridine HCl (Pyridium) 100 mg BID PO Last administered on 10/11/16 08: 41; Start 09/30/16 at 21:00; Stop 10/30/16 at 20:59 Polyethylene Glycol (Miralax) 1 pkt DAILYPRN PRN PO CONSTIPATION Last administered on 09/02/16 10:26; Start 08/28/16 at 21:30; Stop 10/26/16 at 21:29 Pramipexole Dihydrochloride (Mirapex) 0.25 mg BID PO Last administered on 08:18; Start 08/28/16 at 21:00; Stop 09/08/16 at 23:41; Status DC Pyridoxine HCl (Vitamin B6) 25 mg DAILY PO Last administered on 10/11/16 08:42 ; Start 09/17/16 at 09:00; Stop 10/17/16 at 08:59 Quetiapine Fumarate (SEROquel) 50 mg BID PO Last administered on 09/26/16 08:48 ; Start 09/23/16 at 21:00; Stop 09/26/16 at 12:14; Status DC Quetiapine Fumarate (SEROquel) 100 mg BID PO Last administered on 09/28/16 08: 53; Start 09/26/16 at 21:00; Stop 09/28/16 at 10:58; Status DC Quetiapine Fumarate (SEROquel) 200 mg TID PO Last administered on 10/11/16 15: 35; Start 09/28/16 at 16:00; Stop 10/26/16 at 20:59 Sertraline HCl (Zoloft) 75 mg DAILY PO Last administered on 09/20/16 08:59; Start 09/09/16 at 09:00; Stop 09/20/16 at 10:32; Status DC Trazodone HCl (Desyrel) 150 mg QHS PO Last administered on 09/08/16 19:58; Start 08/28/16 at 21:00; Stop 09/08/16 at 23:30; Status DC Tuberculin PPD (Aplisol, Ppd) 5 units 1T@10 ID Last administered on 09/04/16 09:21; Start 09/04/16 at 10:00; Stop 09/04/16 at 23:59; Status DC Venlafaxine HCl (Effexor Xr) 300 mg DAILY PO Last administered on 08:17; Start 08/29/16 at 09:00; Stop 09/08/16 at 23:37; Status DC Vitamin B Complex/ Vitamin C (Therapeutic B Complex w/C) 1 cap DAILY PO ; Start 09/23/16 at 09:00; Stop 09/23/16 at 09:24; Status DC Zinc Oxide (Balmex Cream) 1 dose TIDP PRN TOP SEE LABEL COMMENTS Last administered on 09/15/16 16:15; Start 09/15/16 at 13:15; Stop 10/15/16 at 13:14 Allergies Coded Allergies: Codeine (Verified Adverse Reaction, Mild, NAUSEA, 07/28/12) BEATRICE SNYDER MD Oct 11, 2016 16:45
[2016-10-11 18:00] VITALS: BP_SYST 104; BP_SYST 123; BP_SYST 88; BP_DIAS 52; BP_DIAS 57; BP_DIAS 64
[2016-10-11] MEDS: MIRTAZAPINE 15 MG TAB PO SCH (20:15)
[2016-10-11] MEDS: ATORVASTATIN 10 MG TAB PO SCH (20:15)
[2016-10-11] MEDS: ACETAMINOPHEN TAB 650MG DOSE (2X325MG) PO PRN (20:19)
--- NOTE | 2016-10-12 02:11 | REP ---
Clinical: Fracture. Follow-up. Technique: AP and lateral views of the left wrist. Comparison: 09/27/2016. Findings: Comminuted displaced Boyle's fracture of the distal radius and ulnar styloid fracture are again identified and essentially unchanged in position. Minimal callus formation and periosteal reaction is appreciated on current imaging. Underlying osteopenia and degenerative changes to the visualized osseous structures noted. Surrounding soft tissues grossly unremarkable. Impression: Continued evidence for displaced Boyle's fracture of the distal radius and ulnar styloid fracture. Signed by Humble Mckinley MD 10/12/2016 02:03 A
[2016-10-12] MEDS: LEVOTHYROXINE 112MCG TABLET (0.112MG) PO SCH (06:03)
[2016-10-12] MEDS: CIPROFLOXACIN 500 MG TAB PO SCH ×2 (06:03→17:24)
[2016-10-12 06:26] VITALS: BP 112/55
[2016-10-12 06:27] VITALS: BP_SYST 102; BP_SYST 112; BP_SYST 119; BP_DIAS 55; BP_DIAS 76
[2016-10-12 07:06] LABS: MEAN CORPUSCULAR HEMOGLOBIN 30.5 pg (27.0-33.0); MEAN CORPUSCULAR HGB CONC 32.3 g/dl (32.0-36.5); MEAN CORPUSCULAR VOLUME 94.3 fl (80.0-96.0); RED CELL DISTRIBUTION WIDTH 13.2 % (11.5-14.5); WHITE BLOOD COUNT 6.4 K/mm3 (4.0-10.0)
[2016-10-12] MEDS: PARoxetine 25 MG CR TAB (PAXIL CR) PO SCH (08:03)
[2016-10-12] MEDS: PHENAZOPYRIDINE 100 MG TAB PO SCH ×2 (08:04→20:25)
[2016-10-12] MEDS: CALCIUM/VITAMIN D 500 MG TAB PO SCH ×2 (08:04→20:25)
[2016-10-12] MEDS: BENZTROPINE 1 MG TAB PO SCH ×2 (08:04→20:25)
[2016-10-12] MEDS: PYRIDOXINE 50 MG TAB PO SCH (08:04)
[2016-10-12] MEDS: GABAPENTIN 100 MG CAP PO SCH ×3 (08:04→20:25)
[2016-10-12] MEDS: QUEtiapine FUMARATE 100 MG TAB PO SCH ×3 (08:04→20:25)
[2016-10-12] MEDS: HALOPERIDOL 10 MG TAB PO SCH ×2 (08:04→20:25)
[2016-10-12] MEDS: ASPIRIN 81 MG ENTERIC TAB PO SCH (08:04)
[2016-10-12] MEDS: ENOXAPARIN 40 MG/0.4 ML SYRINGE (J1650) SC SCH (08:06)
[2016-10-12] MEDS: DOCUSATE SODIUM 100 MG CAP PO SCH ×2 (08:06→20:25)
[2016-10-12] MEDS: MULTIVITAMINS/MINERALS THERAP 1 TAB PO SCH (08:07)
[2016-10-12 18:38] VITALS: BP 102/58
[2016-10-12 18:41] VITALS: BP 108/66
[2016-10-12 18:43] VITALS: BP 99/56
[2016-10-12] MEDS: ATORVASTATIN 10 MG TAB PO SCH (20:25)
[2016-10-12] MEDS: MIRTAZAPINE 15 MG TAB PO SCH (20:25)
[2016-10-13] MEDS: CIPROFLOXACIN 500 MG TAB PO SCH (06:02)
[2016-10-13] MEDS: LEVOTHYROXINE 112MCG TABLET (0.112MG) PO SCH (06:02)
--- NOTE | 2016-10-13 06:14 | IPN ---
DATE OF VISIT: 10/12/2016 76-year-old female with history of: 1. Major depressive disorder, chronic, severe. 2. Conversion disorder. 3. Generalized anxiety disorder. 4. 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 Today the patient reported that she slept well, that she is trying to improve but she continues to report depressive symptoms like anhedonia, low levels of energy , social isolation, lack of interest and passive suicidal ideation because she says she really does not care if she dies or not. She has been thinking that she wouldnt mind if she gets worse (health related issues)and that is why she has refused taking her medications, and she believes that by doing so she will accelerate her demise. She is still very anxious as of when she is going to be transferred to [facility] [facility]. VITAL SIGNS: Vital signs were stable today. NEW TEST RESULTS: There is no new test results. She will need to provide with a urine sample for urine analysis. MENTAL STATUS EXAMINATION: The patient is a 76-year-old female who is alert, lying in bed, dressed in hospital clothes with good eye contact, very quiet almost not interactive. -Her speech is soft spoken, sparse. -Language skills are fair. -Thought process is linear but is not logical because she continues to do everything that could possibly harm her including not getting up from bed knowing that this will cause her clots and eventually medical complications such as pulmonary embolism. -Thought content: She is not goal directed, she has no motivation of doing something the [facility] or of doing something at her home when she finally gets there. She even is not motivated to speak with her when he comes to visit her. -Abstract reasoning and computation are poor because she has slow mentation. It is difficult for her sometimes to focus and concentrate. -Description of associations: There is no loosening of associations. Judgment is poor, insight is poor. -Orientation: She is oriented to place, person and month but not to date and time. -Recent and remote memory is intact. -Language is fair. Attention span and concentration are limited due to her depressive illness. -Fund of knowledge is fair. Her mood she says " I am anxious." Her affect is constricted. DIAGNOSES: 1. Major depressive disorder, severe, recurrent. 2. Generalized anxiety disorder. 3. Conversion disorder. 4. 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 MANAGEMENT PLAN: The patient will continue with current medications and will be readjusted accordingly. She is still pending from being transferred to [employer]. TIME SPENT: 30 minutes. EKATERINA
[2016-10-13 06:21] VITALS: BP 121/59
[2016-10-13 06:22] VITALS: BP_SYST 121; BP_SYST 127; BP_SYST 154; BP_DIAS 59; BP_DIAS 62; BP_DIAS 76
[2016-10-13] MEDS: HALOPERIDOL 10 MG TAB PO SCH ×2 (08:00→20:02)
[2016-10-13] MEDS: PHENAZOPYRIDINE 100 MG TAB PO SCH ×2 (08:01→20:02)
[2016-10-13] MEDS: CALCIUM/VITAMIN D 500 MG TAB PO SCH ×2 (08:01→20:02)
[2016-10-13] MEDS: MULTIVITAMINS/MINERALS THERAP 1 TAB PO SCH (08:02)
[2016-10-13] MEDS: GABAPENTIN 100 MG CAP PO SCH ×3 (08:02→20:02)
[2016-10-13] MEDS: BENZTROPINE 1 MG TAB PO SCH ×2 (08:02→20:02)
[2016-10-13] MEDS: QUEtiapine FUMARATE 100 MG TAB PO SCH ×3 (08:02→20:03)
[2016-10-13] MEDS: ASPIRIN 81 MG ENTERIC TAB PO SCH (08:02)
[2016-10-13] MEDS: DOCUSATE SODIUM 100 MG CAP PO SCH ×2 (08:03→20:02)
[2016-10-13] MEDS: PYRIDOXINE 50 MG TAB PO SCH (08:03)
[2016-10-13] MEDS: ENOXAPARIN 40 MG/0.4 ML SYRINGE (J1650) SC SCH (08:04)
[2016-10-13] MEDS: PARoxetine 25 MG CR TAB (PAXIL CR) PO SCH (08:04)
[2016-10-13] MEDS: IBUPROFEN 600 MG TAB PO PRN (08:05)
[2016-10-13 18:00] VITALS: BP 124/70
[2016-10-13] MEDS: ATORVASTATIN 10 MG TAB PO SCH (20:02)
[2016-10-13] MEDS: MIRTAZAPINE 15 MG TAB PO SCH (20:03)
--- NOTE | 2016-10-13 22:19 | IPN ---
DATE: 10/13/2016 Evaluated 76-year-old female with history of: 1. Major depressive disorder, chronic, severe. 2. Conversion disorder. 3. Generalized anxiety disorder. 4. 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 Today, the patient referred that she had slept well. She asked what was she having for sleep medication, because she felt more rested and relaxed. She asked once again if she could go home, and she was reported by nursing staff of being more interactive. She was seen pacing the hallways. She was seen going into the activity room and grabbed a book that she was reading when this content writer met with her. She refused her Lovenox once again, and she is still anxious as to when she is going to be transferred to [facility]. VITAL SIGNS: Her vital signs were stable. NEW TESTS RESULTS: There are no new test results. MENTAL STATUS EXAMINATION: The patient was seen lying in bed, dressed in hospital clothes, holding a book in her hands, and having next to her on her desk a coloring book and crayons. She had good eye contact, and her attitude was pleasant and cooperative. Her speech was soft spoken, not tangential, and not circumstantial. Her language skills are fair. Her thought process is linear and a little bit more logical. She is beginning to do things that will improve her physical and mental health. Thought content: She is still very worried about her possible transfer to [facility]. Abstract reasoning and computation are still poor, because she still has some problems with concentration. Description of associations: There is no loosening of associations. Her judgment seems to be improving a little, although she is still not insightful into her mental illness. Her recent and remote memory are intact. Her language is fair. Her attention span and concentration are limited, because she is still having trouble focusing and keeping her attention for long periods of time. Fund of knowledge is fair. Her mood is a little bit anxious but less depressed, and her affect is slightly constricted. MANAGEMENT PLAN: Patient will continue to be on the same medications, will continue to be under observation, and will be motivated to attend groups. She says that she did not attend the activity group today, because she could not perform the tasks that she was required to because she does not have the motor skills that are required for that, but attended 2 days ago and yesterday. The patient will continue on the same medications, and if necessary they will be readjusted accordingly. She is still pending being transferred to [facility] if they accept her there. TIME SPENT: 30 minutes.
[2016-10-14] MEDS: LEVOTHYROXINE 112MCG TABLET (0.112MG) PO SCH (06:05)
[2016-10-14 06:42] VITALS: BP_SYST 116; BP_SYST 144; BP_SYST 151; BP_DIAS 66; BP_DIAS 86
[2016-10-14] MEDS: BENZTROPINE 1 MG TAB PO SCH ×2 (08:17→20:42)
[2016-10-14] MEDS: MULTIVITAMINS/MINERALS THERAP 1 TAB PO SCH (08:17)
[2016-10-14] MEDS: GABAPENTIN 100 MG CAP PO SCH ×3 (08:17→20:42)
[2016-10-14] MEDS: QUEtiapine FUMARATE 100 MG TAB PO SCH ×3 (08:17→20:43)
[2016-10-14] MEDS: ASPIRIN 81 MG ENTERIC TAB PO SCH (08:17)
[2016-10-14] MEDS: HALOPERIDOL 10 MG TAB PO SCH ×2 (08:18→20:42)
[2016-10-14] MEDS: PYRIDOXINE 50 MG TAB PO SCH (08:18)
[2016-10-14] MEDS: PHENAZOPYRIDINE 100 MG TAB PO SCH ×2 (08:18→20:42)
[2016-10-14] MEDS: PARoxetine 25 MG CR TAB (PAXIL CR) PO SCH (08:18)
[2016-10-14] MEDS: CALCIUM/VITAMIN D 500 MG TAB PO SCH ×2 (08:18→20:42)
[2016-10-14] MEDS: DOCUSATE SODIUM 100 MG CAP PO SCH ×2 (08:21→20:42)
[2016-10-14] MEDS: ENOXAPARIN 40 MG/0.4 ML SYRINGE (J1650) SC SCH (08:21)
[2016-10-14 18:00] VITALS: BP 136/69
[2016-10-14] MEDS: ATORVASTATIN 10 MG TAB PO SCH (20:42)
[2016-10-14] MEDS: MIRTAZAPINE 15 MG TAB PO SCH (20:42)
--- NOTE | 2016-10-14 22:33 | MHIPNPDOC ---
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 VITAL SIGNS: See below. NEW TEST RESULTS: No new test results CURRENT MEDICATIONS: See below. MENTAL STATUS EXAMINATION: Patient is a 76-year old female, who is alert, cooperative, with good eye contact, good hygiene, good eye contact.. Speech: Is normal, fluid, not tangential, not circumstantial. Language skills are fair. Thought processes including: coherent. Thought content: Anxious thoughts about not being able to survive at [facility]. Abstract reasoning, and computation: Fair. Description of associations: Not loose Description of abnormal or psychotic thoughts: Denies auditory and visual hallucinations, denies delusional thoughts, denies active suicidal ideation and homicidal ideation but admits to feel helpless, anxious and worried. Judgment: Improving . Insight: Improving. Orientation: Oriented x 3. Recent and remote memory: Intact. Attention span and concentration: Fair. Language: Fair. Fund of knowledge: Fair. Mood: "Anxious". Affect: Mood congruent. DIAGNOSES: 1. Major Depressive disorder, chronic, severe. 2. Conversion Disorder 3. 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 4. Generalized Anxiety Disorder ASSESSMENT:The patient has reported to sleep better since she started taking Remeron and this has helped her with mood and anxiety. However, she is still anxious and helpless. She will continue on current treatment until stable. MANAGEMENT PLAN: Needs to continue at the [facility] until being tansferred to [facility]. TIME SPENT: 30 minutes. Vital Signs Vital Signs Date Time Temp Pulse Resp B/P (MAP) Pulse Ox O2 Delivery O2 Flow Rate FiO2 10/14/16 18:00 98.7 87 16 136/69 (91) 10/13/16 06:21 Room Air Current Medications Current Medications Acetaminophen (Tylenol Tab) 650 mg Q6HP PRN PO HEADACHE or DISCOMFORT Last administered on 10/11/16 20:19; Start 08/28/16 at 16:45; Stop 10/26/16 at 16:44 Acetaminophen/ Hydrocodone Bitart ([place], Anexsia 5/325) 1 tab Q4HP PRN PO MILD /MODERATE PAIN (PS 1-7) Last administered on 09/14/16 05:08; Start 09/12/16 at 12:45; Stop 09/14/16 at 07:52; Status DC Al Hydrox/Mg Hydrox/Simethicone (Mylanta) 30 ml Q4HP PRN PO HEARTBURN/ INDIGESTION Last administered on 09/18/16 17:12; Start 08/28/16 at 16:45; Stop 10/26/16 at 16:44 Amitriptyline HCl (Elavil) 10 mg BID PO Last administered on 09/08/16 08:18; Start 09/02/16 at 21:00; Stop 09/08/16 at 23:30; Status DC Amoxicillin/ Clavulanate Potassium (Augmentin) 500 mg Q12H PO Last administered on 09/05/16 06:07; Start 09/03/16 at 18:00; Stop 09/05/16 at 12:05 ; Status DC Aripiprazole (AbiLIFY) 5 mg QAM PO Last administered on 09/09/16 09:08; Start 09/07/16 at 09:00; Stop 09/09/16 at 16:26; Status DC Aripiprazole (AbiLIFY) 10 mg BID PO Last administered on 08/31/16 08:26; Start 08/29/16 at 21:00; Stop 08/31/16 at 13:38; Status DC Aripiprazole (AbiLIFY) 10 mg DAILY PO ; Start 08/29/16 at 09:00; Stop 08/29/16 at 10:06; Status DC Aripiprazole (AbiLIFY) 10 mg QAM PO Last administered on 09/06/16 08:20; Start 09/01/16 at 09:00; Stop 09/06/16 at 13:44; Status DC Aripiprazole (AbiLIFY) 10 mg QAM PO Last administered on 09/15/16 08:10; Start 09/10/16 at 09:00; Stop 09/15/16 at 17:38; Status DC Aripiprazole (AbiLIFY) 10 mg QAM PO Last administered on 09/21/16 10:56; Start 09/21/16 at 09:00; Stop 09/21/16 at 11:44; Status DC Aripiprazole (AbiLIFY) 10 mg QHS PO Last administered on 09/07/16 20:16; Start 09/06/16 at 21:00; Stop 09/08/16 at 23:30; Status DC Aripiprazole (AbiLIFY) 10 mg QHS PO Last administered on 09/20/16 21:37; Start 09/20/16 at 21:00; Stop 09/21/16 at 11:44; Status DC Aripiprazole (AbiLIFY) 15 mg QHS PO Last administered on 09/05/16 20:00; Start 08/31/16 at 21:00; Stop 09/06/16 at 13:42; Status DC Aripiprazole (AbiLIFY) 15 mg QHS PO Last administered on 09/19/16 20:47; Start 09/09/16 at 21:00; Stop 09/20/16 at 10:26; Status DC Aripiprazole (AbiLIFY) 20 mg QAM PO Last administered on 09/20/16 08:59; Start 09/16/16 at 09:00; Stop 09/20/16 at 10:27; Status DC Aspirin (Ecotrin) 81 mg DAILY PO Last administered on 10/14/16 08:17; Start at 09:00; Stop 10/27/16 at 08:59 Atorvastatin Calcium (Lipitor) 10 mg QHS PO Last administered on 10/14/16 20: 42; Start 08/28/16 at 21:00; Stop 10/26/16 at 20:59 Benztropine Mesylate (Cogentin) 1 mg BID PO Last administered on 10/14/16 20: 42; Start 09/20/16 at 21:00; Stop 10/20/16 at 20:59 Calcium/Vitamin D (Oscal D) 500 mg BID PO Last administered on 10/14/16 20:42 ; Start 08/28/16 at 21:00; Stop 10/27/16 at 20:59 Carbamazepine (TEGretol XR) 200 mg TID PO Last administered on 09/09/16 15:48 ; Start 09/09/16 at 09:00; Stop 09/09/16 at 16:39; Status DC Carbamazepine (TEGretol XR) 300 mg TID PO Last administered on 09/16/16 09:04 ; Start 09/09/16 at 21:00; Stop 09/16/16 at 15:11; Status DC Carbamazepine (TEGretol XR) 400 mg TID PO Last administered on 09/20/16 08:59 ; Start 09/16/16 at 16:00; Stop 09/20/16 at 10:35; Status DC Carbamazepine (TEGretol XR) 600 mg TID PO Last administered on 09/21/16 10:54 ; Start 09/20/16 at 16:00; Stop 09/21/16 at 11:38; Status DC Cefdinir (Omnicef) 300 mg BID PO Last administered on 09/08/16 08:18; Start at 09:00; Stop 09/09/16 at 08:59; Status DC Cefdinir (Omnicef) 300 mg BID PO Last administered on 09/23/16 20:08; Start at 09:00; Stop 09/23/16 at 23:59; Status DC Ciprofloxacin (Cipro) 500 mg BID@ PO Last administered on 10/13/16 06:02 ; Start 09/30/16 at 18:00; Stop 10/13/16 at 17:59; Status DC Docusate Sodium (Colace) 100 mg BID PO Last administered on 10/01/16 21:37; Start 09/02/16 at 09:00; Stop 10/02/16 at 08:59; Status DC Docusate Sodium (Colace) 100 mg BID PO Last administered on 10/14/16 20:42; Start 10/02/16 at 21:00; Stop 11/01/16 at 20:59 Enoxaparin Sodium (Lovenox) 40 mg DAILY SC Last administered on 10/07/16 13:45 ; Start 10/03/16 at 09:00; Stop 10/20/16 at 08:59 Enoxaparin Sodium (Lovenox) 40 mg DAILY SC Last administered on 09/26/16 08:50 ; Start 09/23/16 at 09:00; Stop 10/02/16 at 08:59; Status DC Gabapentin (Neurontin) 100 mg TID PO Last administered on 10/14/16 20:42; Start 10/04/16 at 16:00; Stop 11/03/16 at 15:59 Gabapentin (Neurontin) 300 mg TID PO Last administered on 09/08/16 08:17; Start 09/06/16 at 16:00; Stop 09/08/16 at 23:39; Status DC Gabapentin (Neurontin) 600 mg TID PO Last administered on 09/06/16 08:20; Start 08/28/16 at 21:00; Stop 09/06/16 at 13:42; Status DC Haloperidol (Haldol) 2 mg BID PO Last administered on 09/23/16 07:15; Start at 09:00; Stop 09/23/16 at 11:03; Status DC Haloperidol (Haldol) 2 mg QID PO Last administered on 09/26/16 17:00; Start 09/23/16 at 13:00; Stop 09/26/16 at 17:43; Status DC Haloperidol (Haldol) 2 mg TID PO ; Start 09/23/16 at 16:00; Stop 09/23/16 at 16:00 ; Status DC Haloperidol (Haldol) 10 mg BID PO Last administered on 10/14/16 20:42; Start 09/26/16 at 21:00; Stop 10/19/16 at 12:59 Home Med (Med Rec Complete!) ASDIRECTED XX ; Start 08/28/16 at 13:00; Stop at 13:00; Status DC Hydroxyzine HCl (Atarax) 75 mg BID PO Last administered on 09/19/16 08:43; Start 08/28/16 at 21:00; Stop 09/19/16 at 11:44; Status DC Ibuprofen (Advil) 400 mg Q8HP PRN PO PAIN Last administered on 09/19/16 04:39 ; Start 09/14/16 at 08:00; Stop 09/19/16 at 11:44; Status DC Ibuprofen (Advil) 600 mg Q6H PO Last administered on 09/12/16 23:17; Start at 18:00; Stop 09/13/16 at 10:06; Status DC Ibuprofen (Advil) 600 mg Q6HP PRN PO PAIN Last administered on 10/13/16 08:05 ; Start 09/19/16 at 12:00; Stop 11/12/16 at 11:59 Levothyroxine Sodium (Synthroid) 0.112 mg DAILY@06 PO Last administered on 05:57; Start 08/29/16 at 06:00; Stop 09/29/16 at 15:12; Status DC Levothyroxine Sodium (Synthroid) 112 mcg DAILY@06 PO Last administered on 06:05; Start 09/30/16 at 06:00; Stop 10/30/16 at 05:59 Lidocaine (Lidoderm Patch) 1 patch DAILY TD Last administered on 09/18/16 09: 36; Start 09/13/16 at 09:00; Stop 10/11/16 at 09:39; Status DC Lorazepam (Ativan) 0.5 mg Q12HP PRN PO ANXIETY Last administered on 10/04/16 15:36; Start 09/28/16 at 21:00; Stop 10/04/16 at 20:59; Status DC Lorazepam (Ativan) 0.5 mg Q4HP PRN PO ANXIETY Last administered on 09/26/16 15: 12; Start 09/24/16 at 16:30; Stop 09/27/16 at 13:12; Status DC Lorazepam (Ativan) 0.5 mg Q8HP PRN PO ANXIETY Last administered on 09/24/16 11: 58; Start 09/15/16 at 09:15; Stop 09/24/16 at 16:20; Status DC Lorazepam (Ativan) 0.5 mg Q8HP PRN PO ANXIETY Last administered on 09/28/16 09: 17; Start 09/27/16 at 16:00; Stop 09/28/16 at 10:57; Status DC Lorazepam (Ativan) 0.5 mg QHS PRN PO ANXIETY Last administered on 10/10/16 21: 56; Start 10/05/16 at 21:00; Stop 10/18/16 at 20:59 Lorazepam (Ativan) 1 mg Q6HP PRN PO ANXIETY Last administered on 09/15/16 02: 47; Start 08/29/16 at 09:00; Stop 09/15/16 at 09:18; Status DC Lorazepam (Ativan) 1 mg STAT STAT IV Last administered on 08/28/16 08:00; Start 08/28/16 at 07:19; Stop 08/28/16 at 07:21; Status DC Lorazepam (Ativan) 1 mg STAT STAT PO Last administered on 09/09/16 16:35; Start 09/09/16 at 16:26; Stop 09/09/16 at 16:27; Status DC Lorazepam (Ativan) 2 mg STAT STAT PO Last administered on 08/29/16 09:01; Start 08/29/16 at 08:49; Stop 08/29/16 at 08:51; Status DC Magnesium Hydroxide (Milk Of Magnesia) 30 ml DAILYPRN PRN PO CONSTIPATION Last administered on 09/03/16 11:22; Start 08/28/16 at 16:45; Stop 10/26/16 at 16:44 Mirtazapine (Remeron) 15 mg QHS PO Last administered on 09/22/16 21:19; Start 09/21/16 at 21:00; Stop 09/23/16 at 12:57; Status DC Mirtazapine (Remeron) 30 mg QHS PO Last administered on 09/20/16 21:37; Start 09/09/16 at 21:00; Stop 09/21/16 at 11:47; Status DC Mirtazapine (Remeron) 30 mg QHS PO Last administered on 09/27/16 19:59; Start 09/23/16 at 21:00; Stop 09/28/16 at 10:57; Status DC Mirtazapine (Remeron) 45 mg QHS PO Last administered on 10/14/16 20:42; Start 09/28/16 at 21:00; Stop 10/28/16 at 20:59 Miscellaneous (Unresolved Clarification Entry) SEE LABEL COMMENTS UNRESOLVED XX ; Start 10/02/16 at 00:01; Stop 10/03/16 at 13:39; Status DC Miscellaneous (Unresolved Clarification Entry) SEE LABEL COMMENTS UNRESOLVED XX ; Start 10/14/16 at 00:01; Stop 11/13/16 at 00:00 Multivitamins (Theragram-M) 1 tab DAILY PO Last administered on 10/14/16 08:17 ; Start 08/29/16 at 09:00; Stop 10/27/16 at 08:59 Nitrofurantoin Monoh/Nitrofur Macro (Macrobid) 100 mg BID PO Last administered on 09/13/16 21:47; Start 09/12/16 at 09:00; Stop 09/14/16 at 07:52; Status DC Non-Formulary Medication ( See Comment Field Below ) REMOVE LIDODERM PATCH DAILY@21 XX Last administered on 09/23/16 21:22; Start 09/13/16 at 21:00; Stop 10/11/16 at 09:41; Status DC Non-Formulary Medication ( See Comment Field Below ) SEE COMMENTS SECTION 1T @10 XX ; Start 08/31/16 at 10:00; Stop 08/31/16 at 10:00; Status DC Non-Formulary Medication ( See Comment Field Below ) SEE LABEL COMMENTS DAILY XX ; Start 08/29/16 at 09:00; Stop 09/04/16 at 08:31; Status DC Non-Formulary Medication ( See Comment Field Below ) SEE LABEL COMMENTS SECTION 1T@10 XX Last administered on 09/06/16 10:00; Start 09/06/16 at 10:00 ; Stop 09/06/16 at 23:59; Status DC Nystatin (Mycostatin Powder, Nystop) 1 dose BIDP PRN TOP RASH Last administered on 09/04/16 20:36; Start 09/04/16 at 18:30; Stop 10/17/16 at 18:29 Ondansetron HCl (Zofran Odt) 4 mg Q8HP PRN PO NAUSEA OR VOMITING Last administered on 09/22/16 08:35; Start 09/14/16 at 13:15; Stop 11/12/16 at 13:14 Ondansetron HCl (Zofran) 4 mg Q8HP PRN PO NAUSEA OR VOMITING Last administered on 09/14/16 05:08; Start 09/13/16 at 10:15; Stop 09/14/16 at 13:12; Status DC Paroxetine HCl (PAXil CR) 12.5 mg DAILY PO Last administered on 09/23/16 13:34 ; Start 09/23/16 at 09:00; Stop 09/23/16 at 16:38; Status DC Paroxetine HCl (PAXil CR) 25 mg DAILY PO Last administered on 09/24/16 09:09; Start 09/24/16 at 09:00; Stop 09/24/16 at 09:56; Status DC Paroxetine HCl (PAXil CR) 25 mg DAILY PO Last administered on 09/28/16 08:53; Start 09/24/16 at 09:56; Stop 09/28/16 at 10:57; Status DC Paroxetine HCl (PAXil CR) 37.5 mg DAILY PO Last administered on 10/14/16 08:18 ; Start 09/29/16 at 09:00; Stop 10/29/16 at 08:59 Phenazopyridine HCl (Pyridium) 100 mg BID PO Last administered on 10/14/16 20: 42; Start 09/30/16 at 21:00; Stop 10/30/16 at 20:59 Polyethylene Glycol (Miralax) 1 pkt DAILYPRN PRN PO CONSTIPATION Last administered on 09/02/16 10:26; Start 08/28/16 at 21:30; Stop 10/26/16 at 21:29 Pramipexole Dihydrochloride (Mirapex) 0.25 mg BID PO Last administered on 08:18; Start 08/28/16 at 21:00; Stop 09/08/16 at 23:41; Status DC Pyridoxine HCl (Vitamin B6) 25 mg DAILY PO Last administered on 10/14/16 08:18 ; Start 09/17/16 at 09:00; Stop 10/17/16 at 08:59 Quetiapine Fumarate (SEROquel) 50 mg BID PO Last administered on 09/26/16 08:48 ; Start 09/23/16 at 21:00; Stop 09/26/16 at 12:14; Status DC Quetiapine Fumarate (SEROquel) 100 mg BID PO Last administered on 09/28/16 08: 53; Start 09/26/16 at 21:00; Stop 09/28/16 at 10:58; Status DC Quetiapine Fumarate (SEROquel) 200 mg TID PO Last administered on 10/14/16 20: 43; Start 09/28/16 at 16:00; Stop 10/26/16 at 20:59 Sertraline HCl (Zoloft) 75 mg DAILY PO Last administered on 09/20/16 08:59; Start 09/09/16 at 09:00; Stop 09/20/16 at 10:32; Status DC Trazodone HCl (Desyrel) 150 mg QHS PO Last administered on 09/08/16 19:58; Start 08/28/16 at 21:00; Stop 09/08/16 at 23:30; Status DC Tuberculin PPD (Aplisol, Ppd) 5 units 1T@10 ID Last administered on 09/04/16 09:21; Start 09/04/16 at 10:00; Stop 09/04/16 at 23:59; Status DC Venlafaxine HCl (Effexor Xr) 300 mg DAILY PO Last administered on 08:17; Start 08/29/16 at 09:00; Stop 09/08/16 at 23:37; Status DC Vitamin B Complex/ Vitamin C (Therapeutic B Complex w/C) 1 cap DAILY PO ; Start 09/23/16 at 09:00; Stop 09/23/16 at 09:24; Status DC Zinc Oxide (Balmex Cream) 1 dose TIDP PRN TOP SEE LABEL COMMENTS Last administered on 09/15/16 16:15; Start 09/15/16 at 13:15; Stop 11/13/16 at 13:14 Allergies Coded Allergies: Codeine (Verified Adverse Reaction, Mild, NAUSEA, 07/28/12) BEATRICE SNYDER MD Oct 14, 2016 22:33
[2016-10-15 06:00] VITALS: BP 124/81
[2016-10-15] MEDS: LEVOTHYROXINE 112MCG TABLET (0.112MG) PO SCH (06:10)
[2016-10-15 07:58] LABS: MEAN CORPUSCULAR HEMOGLOBIN 30.4 pg (27.0-33.0); MEAN CORPUSCULAR HGB CONC 32.6 g/dl (32.0-36.5); MEAN CORPUSCULAR VOLUME 93.2 fl (80.0-96.0); RED CELL DISTRIBUTION WIDTH 13.4 % (11.5-14.5)
[2016-10-15] MEDS: ENOXAPARIN 40 MG/0.4 ML SYRINGE (J1650) SC SCH (08:16)
[2016-10-15] MEDS: DOCUSATE SODIUM 100 MG CAP PO SCH ×2 (08:17→20:02)
[2016-10-15] MEDS: ASPIRIN 81 MG ENTERIC TAB PO SCH (08:22)
[2016-10-15] MEDS: CALCIUM/VITAMIN D 500 MG TAB PO SCH ×2 (08:22→20:02)
[2016-10-15] MEDS: BENZTROPINE 1 MG TAB PO SCH ×2 (08:22→20:02)
[2016-10-15] MEDS: QUEtiapine FUMARATE 100 MG TAB PO SCH ×3 (08:22→20:02)
[2016-10-15] MEDS: PHENAZOPYRIDINE 100 MG TAB PO SCH ×2 (08:22→20:02)
[2016-10-15] MEDS: PYRIDOXINE 50 MG TAB PO SCH (08:22)
[2016-10-15] MEDS: MULTIVITAMINS/MINERALS THERAP 1 TAB PO SCH (08:22)
[2016-10-15] MEDS: GABAPENTIN 100 MG CAP PO SCH ×3 (08:22→20:02)
[2016-10-15] MEDS: HALOPERIDOL 10 MG TAB PO SCH ×2 (08:23→20:02)
[2016-10-15] MEDS: PARoxetine 25 MG CR TAB (PAXIL CR) PO SCH (08:23)
[2016-10-15 12:00] VITALS: BP 105/63
[2016-10-15 18:00] VITALS: BP 111/56
[2016-10-15 20:00] VITALS: BP 118/72
[2016-10-15] MEDS: MIRTAZAPINE 15 MG TAB PO SCH (20:02)
[2016-10-15] MEDS: ATORVASTATIN 10 MG TAB PO SCH (20:02)
[2016-10-16] MEDS: LEVOTHYROXINE 112MCG TABLET (0.112MG) PO SCH (05:46)
[2016-10-16 06:00] VITALS: BP_SYST 132; BP_SYST 135; BP_SYST 140; BP_DIAS 60; BP_DIAS 84
[2016-10-16] MEDS: PHENAZOPYRIDINE 100 MG TAB PO SCH ×2 (08:00→20:47)
[2016-10-16] MEDS: PARoxetine 25 MG CR TAB (PAXIL CR) PO SCH (08:00)
[2016-10-16] MEDS: GABAPENTIN 100 MG CAP PO SCH ×3 (08:00→20:48)
[2016-10-16] MEDS: HALOPERIDOL 10 MG TAB PO SCH ×2 (08:00→20:47)
[2016-10-16] MEDS: MULTIVITAMINS/MINERALS THERAP 1 TAB PO SCH (08:00)
[2016-10-16] MEDS: CALCIUM/VITAMIN D 500 MG TAB PO SCH ×2 (08:00→20:47)
[2016-10-16] MEDS: ASPIRIN 81 MG ENTERIC TAB PO SCH (08:00)
[2016-10-16] MEDS: QUEtiapine FUMARATE 100 MG TAB PO SCH ×3 (08:00→20:47)
[2016-10-16] MEDS: BENZTROPINE 1 MG TAB PO SCH ×2 (08:00→20:48)
[2016-10-16] MEDS: PYRIDOXINE 50 MG TAB PO SCH (08:01)
[2016-10-16] MEDS: DOCUSATE SODIUM 100 MG CAP PO SCH ×2 (08:03→20:47)
[2016-10-16] MEDS: ENOXAPARIN 40 MG/0.4 ML SYRINGE (J1650) SC SCH (08:04)
[2016-10-16 12:00] VITALS: BP 116/75
[2016-10-16 18:00] VITALS: BP 110/66
[2016-10-16] MEDS: ATORVASTATIN 10 MG TAB PO SCH (20:47)
[2016-10-16] MEDS: MIRTAZAPINE 15 MG TAB PO SCH (20:47)
[2016-10-17] MEDS: LEVOTHYROXINE 112MCG TABLET (0.112MG) PO SCH (06:05)
[2016-10-17 06:16] VITALS: BP 131/67
[2016-10-17] MEDS: MULTIVITAMINS/MINERALS THERAP 1 TAB PO SCH (08:03)
[2016-10-17] MEDS: BENZTROPINE 1 MG TAB PO SCH (08:03)
[2016-10-17] MEDS: PHENAZOPYRIDINE 100 MG TAB PO SCH (08:03)
[2016-10-17] MEDS: QUEtiapine FUMARATE 100 MG TAB PO SCH (08:03)
[2016-10-17] MEDS: DOCUSATE SODIUM 100 MG CAP PO SCH (08:03)
[2016-10-17] MEDS: PARoxetine 25 MG CR TAB (PAXIL CR) PO SCH (08:03)
[2016-10-17] MEDS: ASPIRIN 81 MG ENTERIC TAB PO SCH (08:03)
[2016-10-17] MEDS: GABAPENTIN 100 MG CAP PO SCH (08:03)
[2016-10-17] MEDS: HALOPERIDOL 10 MG TAB PO SCH (08:04)
[2016-10-17] MEDS: PYRIDOXINE 50 MG TAB PO SCH (08:04)
[2016-10-17] MEDS: ENOXAPARIN 40 MG/0.4 ML SYRINGE (J1650) SC SCH (08:04)
[2016-10-17] MEDS: CALCIUM/VITAMIN D 500 MG TAB PO SCH (08:04)
[2016-10-17] MEDS ORDERED: HALO10TA PO (14:02)
[2016-10-17] MEDS ORDERED: ATIV1TAB10 PO ×2 (14:02→14:46)
[2016-10-17] MEDS ORDERED: PARO25TA PO (14:02)
[2016-10-17] MEDS ORDERED: QUET1TAB8 PO (14:02)
[2016-10-17] MEDS ORDERED: MIRT15TA3 PO (14:02)
[2016-10-17] MEDS ORDERED: BENZ1TA PO (14:02)
[2016-10-17] MEDS ORDERED: VITA50TA49 PO (14:02)
[2016-10-17] MEDS ORDERED: GABA-279 PO (14:02)
--- NOTE | 2016-10-17 22:13 | DSES ---
DATE OF ADMISSION: 08/28/2016 DATE OF DISCHARGE: 10/17/2016 DISCHARGE DIAGNOSIS: 1. Major depressive disorder, recurrent, moderate. 2. Generalized anxiety disorder. 3. Conversion disorder. 4. 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 CONSULTANTS INVOLVED: Dr. March from trauma and the pain management team. HOSPITAL COURSE: The patient was admitted on 08/28/2016 because she stated that she felt extremely depressed, extremely anxious and she has suicidal ideation. The patient was not responding to treatment, not to psychotherapy, not attending groups and because her condition worsened, it was considered appropriate to send her to [facility] for long-term treatment and hospitalization, but the patient became extremely anxious because she did not want to go to [facility]. She became extremely agitated and aggressive, she suffered from regression, she lowered herself to the floor on several occasions, lost her temper, cried, screamed and yelled and it was needed to start her on Haldol 10 mg by mouth twice a day and Cogentin 1 mg by mouth twice a day. Her medications were changed. She had been on venlafaxine 150 mg by mouth twice a day and venlafaxine was discontinued and then she was started on Paxil CR 37.5 mg daily. She had lorazepam 1 mg by mouth three times a day and it was tapered down until she was discharged with 0.5 mg by mouth nightly as needed for anxiety. She was started on mirtazapine 45 mg by mouth nightly with very good results, which improved the quality of her sleep and decreased her anxiety and depression levels and she was on Seroquel 200 mg by mouth twice a day. The Seroquel was given to her with the intention of providing mood stabilization and gabapentin that had been discontinued was added to 100 mg by mouth three times a day but she receives gabapentin for her neuropathic pain since the patient has a history of pelvic fracture and neuropathy. The patient fell on the bathroom floor, and she fractured two ribs and her wrist and for that reason, trauma was consulted and Dr. March served her, reducing the fracture. The patient took off her cast, and she was placed in a splint, the fracture healed properly. Approximately 1 week ago, the patient began to show improvement, she started getting up from bed, participating in groups, going to continuous pickling line pickler her medication to the medication room. She started having showers, taking care of herself, her attire, her hygiene and her mood became pleasant, she was no longer angry or agitated. At the time, [facility] had refused to take her, but it was considered necessary to keep her at the hospital until she became stable. She was able to stabilize and upon discharge, she was no longer suicidal, her anxiety levels have decreased and her pain was less than it had ever been. She was discharged on these same medications. While at the inpatient mental health unit, she had a urinary tract infection and this was taken care of with ciprofloxacin 500 mg by mouth twice a day and Pyridium as needed for pain. Upon discharge, the patient was alert, oriented times three, cooperative, with pleasant attitude. Her speech was fluid, articulate. Her thought process was intact, her thought content was coherent. Her recent and remote memory were intact, her attention and concentration were fair. She did not endorse abnormal or psychotic thoughts, she denied suicidal or homicidal ideation, denied auditory or visual hallucinations and denied delusional thoughts. Her mood and affect were normal, euthymic. Mood was "I'm happy being able to go back home." Her affect was reactive, congruent to mood. There were no signs of depression, but there was still a little bit of anxiety. The patient will be following up as an outpatient for medication and for psychotherapy. She was discharged to her , and they picked up her medications at [facility] in [place], [place].
[2016-10-21] MEDS ORDERED: ATIV1TAB10 PO (15:19)
== END 2016-10-17 15:25 | disposition home or self-care (01) | DRG 751 ==
LOC: EDBD 03:40 → M ED 08:49 → M ED INP 14:36 → M PSY 15:35
PROVIDERS: ADMIT Psychiatry & Neurology Psychiatry; ATTEND Psychiatry & Neurology Psychiatry
DX: F33.1 Major depressive disorder, recurrent, moderate (principal); N39.0 Urinary tract infection, site not specified; R45.851 Suicidal ideations; S22.31XA Fracture of one rib, right side, initial encounter for closed fracture; S52.532A Colles' fracture of left radius, initial encounter for closed fracture; G62.9 Polyneuropathy, unspecified; Z91.19 Patient's noncompliance with other medical treatment and regimen; F44.7 Conversion disorder with mixed symptom presentation; F41.1 Generalized anxiety disorder; F60.3 Borderline personality disorder; F60.7 Dependent personality disorder; E78.5 Hyperlipidemia, unspecified; Z79.82 Long term (current) use of aspirin; Z79.899 Other long term (current) drug therapy; E03.9 Hypothyroidism, unspecified; K59.00 Constipation, unspecified; S22.32XA Fracture of one rib, left side, initial encounter for closed fracture; Z88.5 Allergy status to narcotic agent; Z85.51 Personal history of malignant neoplasm of bladder

== ENCOUNTER → 2016-11-02 | Outpatient (REF) | payer OTHER ==
[~2016-11-02] MED LIST changes: +ABIL10TA9 PO; -ABIL15TA2 PO; +ABIL1TAB11 PO; +ABIL1TAB12 PO; -ABIL5TAB5 PO; +ATIV1TAB10 PO; +BENZ-52 PO; +CALC1TAB60 PO; -CALCTAB23 PO; +HALO10TA2 PO; +HYDR-3363 PO; +HYDR-643 PO; -HYDR10T PO; -HYDR25T PO; +MIRT15TA3 PO; -MS C15TA2 PO; +MS C15TA8 PO; +PARO25TA PO; +PERC5TAB12 PO; -PERC5TAB6 PO; +QUET1TAB8 PO; -SENO8.6T2 PO; +SENO8.6T5 PO; +TRAZ1TAB14 PO; +TRAZ50TA11 PO; -TRAZ50TA4 PO; -VENL75CA PO; +VENL75CA2 PO; -VITA100037 PO; +VITA100067 PO; +VITA50TA49 PO
[2016-11-02 12:53] LABS: BASO # 0.1 K/mm3 (0.0-0.2); BASO % 1.1 % (0.0-1.0); EOS # 0.5 K/mm3 (0.0-0.50); EOS % 8.8 % (0.0-3.0); LYMPH # 1.1 K/mm3 (1.5-4.5); LYMPH % 17.3 % (24.0-44.0); MEAN CORPUSCULAR HEMOGLOBIN 30.6 pg (27.0-33.0); MEAN CORPUSCULAR HGB CONC 32.7 g/dl (32.0-36.5); MEAN CORPUSCULAR VOLUME 93.5 fl (80.0-96.0); MONO # 0.3 K/mm3 (0.0-0.8); MONO % 5.5 % (0.0-5.0); NEUTROPHILS # 3.9 K/mm3 (1.8-7.7); NEUTROPHILS % 65.8 % (36.0-66.0); RED CELL DISTRIBUTION WIDTH 13.7 % (11.5-14.5)
[2016-11-02 13:11] LABS: ALBUMIN 3.3 GM/DL (3.2-5.2); ALBUMIN/GLOBULIN RATIO 1.22 (1.00-1.93); ALKALINE PHOSPHATASE 118 U/L (45-117); ALT/SGPT 19 U/L (12-78); ANION GAP 10 MEQ/L (8-16); AST/SGOT 20 U/L (15-37); BILIRUBIN,TOTAL 0.4 MG/DL (0.2-1.0); BLOOD UREA NITROGEN 22 MG/DL (7-18); CALCIUM LEVEL 8.6 MG/DL (8.8-10.2); CARBON DIOXIDE LEVEL 24 MEQ/L (21-32); CHLORIDE LEVEL 108 MEQ/L (98-107); CHOLESTEROL LEVEL 171 MG/DL (<200); CREATININE FOR GFR 0.58 MG/DL (0.55-1.02); GLOMERULAR FILTRATION RATE > 60.0 (>39); GLUCOSE, FASTING 75 MG/DL (83-110); POTASSIUM SERUM 4.1 MEQ/L (3.5-5.1); SODIUM LEVEL 142 MEQ/L (136-145); TRIGLYCERIDES LEVEL 72 MG/DL (<150)
== END ==
LOC: M LABDRWAD 12:20
PROVIDERS: ATTEND Nurse Practitioner Family
DX: E78.2 Mixed hyperlipidemia (principal); R03.0 Elevated blood-pressure reading, without diagnosis of hypertension; R60.9 Edema, unspecified

== ENCOUNTER → 2017-05-29 | Outpatient (REF) | payer MEDICARE, OTHER ==
[2017-05-29 13:34] LABS: BASO # 0.1 10^3/uL (0.0-0.2); EOS # 0.5 10^3/uL (0.0-0.50); EOS % 10.5 % (0.0-3.0); HEMATOCRIT 41.3 % (36.0-47.0); HEMOGLOBIN 13.6 g/dl (12.0-16.0); IMMATURE GRANULOCYTE % 0.9 % (0-0); LYMPH # 1.2 10^3/uL (1.5-4.5); LYMPH % 25.6 % (24.0-44.0); MEAN CORPUSCULAR HEMOGLOBIN 29.5 pg (27.0-33.0); MEAN CORPUSCULAR HGB CONC 32.9 g/dl (32.0-36.5); MEAN CORPUSCULAR VOLUME 89.6 fl (80.0-96.0); MONO # 0.5 10^3/uL (0.0-0.8); MONO % 11.6 % (0.0-5.0); NEUTROPHILS # 2.2 10^3/uL (1.8-7.7); NEUTROPHILS % 49.4 % (36.0-66.0); PLATELET COUNT, AUTOMATED 302 10^3/uL (150-450); RED BLOOD COUNT 4.61 10^6/uL (4.00-5.40); RED CELL DISTRIBUTION WIDTH 15.4 % (11.5-14.5); WHITE BLOOD COUNT 4.5 10^3/uL (4.0-10.0)
[2017-05-29 14:10] LABS: ALBUMIN 3.8 GM/DL (3.2-5.2); ALBUMIN/GLOBULIN RATIO 1.31 (1.00-1.93); ALKALINE PHOSPHATASE 125 U/L (45-117); ALT/SGPT 32 U/L (12-78); ANION GAP 5 MEQ/L (8-16); AST/SGOT 26 U/L (7-37); BILIRUBIN,TOTAL 0.5 MG/DL (0.2-1.0); BLOOD UREA NITROGEN 29 MG/DL (7-18); CALCIUM LEVEL 8.8 MG/DL (8.8-10.2); CARBON DIOXIDE LEVEL 30 MEQ/L (21-32); CHLORIDE LEVEL 108 MEQ/L (98-107); CHOLESTEROL LEVEL 186 MG/DL (<200); CHOLESTEROL RISK RATIO 1.878 (<5); CREATININE FOR GFR 0.73 MG/DL (0.55-1.30); GLOMERULAR FILTRATION RATE > 60.0 (>39); GLUCOSE, FASTING 95 MG/DL (70-100); HDL CHOLESTEROL 99 MG/DL (>40); LDL CHOLESTEROL 73.8 MG/DL (<100); NON-HDL-C 87 MG/DL; POTASSIUM SERUM 4.5 MEQ/L (3.5-5.1); SODIUM LEVEL 143 MEQ/L (136-145); TOTAL PROTEIN 6.7 GM/DL (6.4-8.2); TRIGLYCERIDES LEVEL 66 MG/DL (<150)
== END ==
LOC: M LABDRWAD 12:23
DX: R03.0 Elevated blood-pressure reading, without diagnosis of hypertension (principal); E78.2 Mixed hyperlipidemia; E03.9 Hypothyroidism, unspecified; I25.10 Atherosclerotic heart disease of native coronary artery without angina pectoris; F32.9 Major depressive disorder, single episode, unspecified
CPT/HCPCS: 84443

== ENCOUNTER → 2018-03-23 | Outpatient (REF) | payer MEDICARE | LOC: M LAB REF 16:47 | DX: R39.89 Other symptoms and signs involving the genitourinary system (principal); R10.2 Pelvic and perineal pain | CPT/HCPCS: 87086 ==

== ENCOUNTER → 2018-07-17 | Outpatient (REF) | payer MEDICARE ==
[~2018-07-17] MED LIST changes: +CLON0.5T8 PO; +GABA-1171 PO; -GABA-279 PO; -GABA-282 PO; -GABA-283 PO; +GABA-843 PO; +GABA-845 PO; -GABA600T PO; +GABA600T4 PO; +MILK120011 PO; -MILKSUS PO; -PRAM0.252 PO; +PRAM0.255 PO; +TRAZ-160 PO; -TRAZ50TA11 PO
[2018-07-17 12:52] LABS: BASO # 0.1 10^3/uL (0.0-0.2); BASO % 1.5 % (0.0-1.0); EOS # 0.5 10^3/uL (0.0-0.50); EOS % 8.8 % (0.0-3.0); HEMATOCRIT 43.2 % (36.0-47.0); LYMPH % 16.2 % (24.0-44.0); MEAN CORPUSCULAR HEMOGLOBIN 29.9 pg (27.0-33.0); MEAN CORPUSCULAR HGB CONC 32.4 g/dl (32.0-36.5); MEAN CORPUSCULAR VOLUME 92.3 fl (80.0-96.0); MONO # 0.5 10^3/uL (0.0-0.8); MONO % 7.4 % (0.0-5.0); NEUTROPHILS % 65.6 % (36.0-66.0); PLATELET COUNT, AUTOMATED 336 10^3/uL (150-450); RED BLOOD COUNT 4.68 10^6/uL (4.00-5.40); WHITE BLOOD COUNT 6.1 10^3/uL (4.0-10.0)
[2018-07-17 13:05] LABS: ALBUMIN 4.4 GM/DL (3.2-5.2); ALT/SGPT 27 U/L (12-78); BILIRUBIN,TOTAL 0.6 MG/DL (0.2-1.0); BLOOD UREA NITROGEN 31 MG/DL (7-18); CALCIUM LEVEL 9.3 MG/DL (8.8-10.2); CARBON DIOXIDE LEVEL 28 MEQ/L (21-32); CHLORIDE LEVEL 103 MEQ/L (98-107); CHOLESTEROL LEVEL 192 MG/DL (<200); CHOLESTEROL RISK RATIO 2.042 (<5); CREATININE FOR GFR 0.75 MG/DL (0.55-1.30); GLOMERULAR FILTRATION RATE > 60.0 (>39); GLUCOSE, FASTING 91 MG/DL (70-100); HDL CHOLESTEROL 94 MG/DL (>40); LDL CHOLESTEROL 77 MG/DL (<100); NON-HDL-C 98 MG/DL; POTASSIUM SERUM 4.6 MEQ/L (3.5-5.1); SODIUM LEVEL 138 MEQ/L (136-145); TOTAL PROTEIN 7.3 GM/DL (6.4-8.2); TRIGLYCERIDES LEVEL 106 MG/DL (<150)
== END ==
LOC: M LABDRWAD 10:52
PROVIDERS: ATTEND Family Medicine
DX: E03.9 Hypothyroidism, unspecified (principal); I25.10 Atherosclerotic heart disease of native coronary artery without angina pectoris; E78.5 Hyperlipidemia, unspecified

== ENCOUNTER → 2019-01-15 | Outpatient (REF) | payer MEDICARE ==
[~2019-01-15] MED LIST changes: -/CELE20CA; -/CELE20CA OR; -/CELE20CA PO; -/DULO30CA; -/DULO30CA OR; -/ESOM40CA; -/HALO2TA OR; -/LAMO10TA; -/LAMO10TA OR; -/METO5TA PO; -/PANT40TA OR; -/QUET10TA PO; -/WARF25TA PO; -ARIP10TAB PO; -ARIP15TAB PO; +ARIP1TAB PO; +ARIP1TAB10 PO; -ASPI1TAB PO; +ASPI81TA26 PO; +CELE1CAP4; +CELE1CAP4 OR; +CELE1CAP4 PO; +COUM1TAB18 PO; +CRES10TA32 OR; +CYMB1CAP4; +CYMB1CAP5; +CYMB1CAP5 OR; -DULO1CAP3 PO; +DULO1CAP6 PO; -DULO20CA; -DULO30CA PO; +DULO30CA9 PO; +HALO1TAB19 OR; +LAMI1TAB7; +LAMI1TAB7 OR; +METO1TAB88 PO; +NEXI1CAP3; +PROT1TAB2 OR; -ROSU10TA OR; +SERO1TAB PO; -TRAZ-160 PO; +TRAZ-252 PO; +TRAZ1TAB10 PO; -TRAZO50TA PO; -VITA50TA49 PO; +VITA50TA7 PO
== END ==
LOC: M LAB REF 11:29
PROVIDERS: ATTEND Physician Assistant Medical
DX: R19.7 Diarrhea, unspecified (principal)

== ENCOUNTER → 2019-02-01 | Outpatient (REF) | payer MEDICARE ==
[2019-02-01 12:49] LABS: BASO # 0.2 10^3/uL (0.0-0.2); EOS # 0.8 10^3/uL (0.0-0.5); EOS % 14.6 % (0.0-3.0); HEMATOCRIT 40.1 % (36.0-47.0); HEMOGLOBIN 12.8 g/dl (12.0-15.5); LYMPH # 1.4 10^3/uL (1.5-5.0); LYMPH % 26.2 % (24.0-44.0); MEAN CORPUSCULAR HEMOGLOBIN 30.4 pg (27.0-33.0); MEAN CORPUSCULAR HGB CONC 31.9 g/dl (32.0-36.5); MEAN CORPUSCULAR VOLUME 95.2 fl (80.0-96.0); MONO # 0.5 10^3/uL (0.0-0.8); MONO % 8.6 % (0.0-5.0); NEUTROPHILS # 2.4 10^3/uL (1.5-8.5); NEUTROPHILS % 46.5 % (36.0-66.0); PLATELET COUNT, AUTOMATED 362 10^3/uL (150-450); RED BLOOD COUNT 4.21 10^6/uL (4.00-5.40); WHITE BLOOD COUNT 5.2 10^3/uL (4.0-10.0)
[2019-02-01 13:15] LABS: BASO % 3.3 % (0.0-1.0)
[2019-02-01 13:24] LABS: ALBUMIN 3.6 GM/DL (3.2-5.2); ALT/SGPT 38 U/L (12-78); BILIRUBIN,TOTAL 0.8 MG/DL (0.2-1.0); BLOOD UREA NITROGEN 21 MG/DL (7-18); CALCIUM LEVEL 8.8 MG/DL (8.8-10.2); CARBON DIOXIDE LEVEL 28 MEQ/L (21-32); CHLORIDE LEVEL 105 MEQ/L (98-107); CHOLESTEROL LEVEL 169 MG/DL (<200); CHOLESTEROL RISK RATIO 2.036 (<5); CREATININE FOR GFR 0.72 MG/DL (0.55-1.30); GLOMERULAR FILTRATION RATE > 60.0 (>39); GLUCOSE, FASTING 92 MG/DL (70-100); HDL CHOLESTEROL 83 MG/DL (>40); LDL CHOLESTEROL 67 MG/DL (<100); NON-HDL-C 86 MG/DL; POTASSIUM SERUM 4.6 MEQ/L (3.5-5.1); SODIUM LEVEL 140 MEQ/L (136-145); TOTAL PROTEIN 6.6 GM/DL (6.4-8.2); TRIGLYCERIDES LEVEL 94 MG/DL (<150)
[2019-02-02 18:13] LABS: CREATININE, URINE 49.5 MG/DL; MALB URINE SIEMENS 5.4 MG/L; MAU/CREAT RATIO 10.9 MCG/MG (0.0-30.0)
== END ==
LOC: M LABDRWAD 12:24
PROVIDERS: ATTEND Family Medicine
DX: E03.9 Hypothyroidism, unspecified (principal); I25.10 Atherosclerotic heart disease of native coronary artery without angina pectoris

== ENCOUNTER → 2019-05-06 | Outpatient (REF) | payer MEDICARE ==
[~2019-05-06] MED LIST changes: +CLON0.5T2 PO; -CLON0.5T8 PO; -PARO25TA PO; +PARO25TA8 PO
[2019-05-06 12:04] LABS: BASO # 0.1 10^3/uL (0.0-0.2); BASO % 1.6 % (0.0-1.0); EOS # 0.4 10^3/uL (0.0-0.5); EOS % 6.8 % (0.0-3.0); HEMATOCRIT 43.5 % (36.0-47.0); HEMOGLOBIN 13.6 g/dl (12.0-15.5); LYMPH # 1.3 10^3/uL (1.5-5.0); LYMPH % 21.3 % (24.0-44.0); MEAN CORPUSCULAR HEMOGLOBIN 29.3 pg (27.0-33.0); MEAN CORPUSCULAR HGB CONC 31.3 g/dl (32.0-36.5); MEAN CORPUSCULAR VOLUME 93.8 fl (80.0-96.0); MONO # 0.5 10^3/uL (0.0-0.8); MONO % 8.1 % (0.0-5.0); NEUTROPHILS # 3.8 10^3/uL (1.5-8.5); NEUTROPHILS % 61.2 % (36.0-66.0); PLATELET COUNT, AUTOMATED 299 10^3/uL (150-450); RED BLOOD COUNT 4.64 10^6/uL (4.00-5.40); WHITE BLOOD COUNT 6.1 10^3/uL (4.0-10.0)
[2019-05-06 12:15] LABS: ALBUMIN 3.8 GM/DL (3.2-5.2); ALT/SGPT 30 U/L (12-78); BILIRUBIN,TOTAL 0.6 MG/DL (0.2-1.0); BLOOD UREA NITROGEN 16 MG/DL (7-18); CALCIUM LEVEL 9.1 MG/DL (8.8-10.2); CARBON DIOXIDE LEVEL 25 MEQ/L (21-32); CHLORIDE LEVEL 110 MEQ/L (98-107); CHOLESTEROL LEVEL 140 MG/DL (<200); CHOLESTEROL RISK RATIO 2.121 (<5); CREATININE FOR GFR 0.63 MG/DL (0.55-1.30); FREE T4 0.88 NG/DL (0.76-1.46); GLOMERULAR FILTRATION RATE > 60.0 (>39); GLUCOSE, FASTING 82 MG/DL (70-100); HDL CHOLESTEROL 66 MG/DL (>40); LDL CHOLESTEROL 56 MG/DL (<100); NON-HDL-C 74 MG/DL; POTASSIUM SERUM 4.3 MEQ/L (3.5-5.1); SODIUM LEVEL 141 MEQ/L (136-145); TOTAL PROTEIN 6.9 GM/DL (6.4-8.2); TRIGLYCERIDES LEVEL 92 MG/DL (<150)
[2019-05-06 13:09] LABS: HEMOGLOBIN A1c 5.4 %
== END ==
LOC: M LABDRWAD 10:23
PROVIDERS: ATTEND Psychiatry & Neurology Child & Adolescent Psychiatry
DX: F33.1 Major depressive disorder, recurrent, moderate (principal); Z79.899 Other long term (current) drug therapy

== ENCOUNTER 2019-06-05 08:58 | Inpatient (IN) | payer MEDICARE ==
[~2019-06-05] VITALS: Ht 152.4 cm; Wt 81.8 kg
[~2019-06-05 08:58] MED LIST changes: +QUET100T2 PO; -QUET1TAB8 PO
[2019-06-05] MEDS: FOLIC ACID 1 MG TAB PO SCH (09:00)
[2019-06-05] MEDS: MULTIVITAMINS/MINERALS THERAP 1 TAB PO SCH (09:00)
[2019-06-05] MEDS: PARoxetine 10MG TABLET PO SCH (09:00)
[2019-06-05] MEDS ORDERED: BIMA01SOL OU (09:32)
[2019-06-05] MEDS ORDERED: NORT50CA PO (09:32)
[2019-06-05 09:38] LABS: BASO # 0.2 10^3/uL (0.0-0.2); BASO % 1.3 % (0.0-1.0); EOS # 0.1 10^3/uL (0.0-0.5); HEMATOCRIT 45.2 % (36.0-47.0); HEMOGLOBIN 14.2 g/dl (12.0-15.5); LYMPH # 0.9 10^3/uL (1.5-5.0); LYMPH % 7.8 % (24.0-44.0); MEAN CORPUSCULAR HEMOGLOBIN 29.3 pg (27.0-33.0); MEAN CORPUSCULAR HGB CONC 31.4 g/dl (32.0-36.5); MEAN CORPUSCULAR VOLUME 93.4 fl (80.0-96.0); MONO # 0.4 10^3/uL (0.0-0.8); MONO % 3.6 % (0.0-5.0); NEUTROPHILS # 10.1 10^3/uL (1.5-8.5); NEUTROPHILS % 84.5 % (36.0-66.0); PLATELET COUNT, AUTOMATED 276 10^3/uL (150-450); RED BLOOD COUNT 4.84 10^6/uL (4.00-5.40); WHITE BLOOD COUNT 11.9 10^3/uL (4.0-10.0)
--- NOTE | 2019-06-05 09:44 | REP ---
Clinical: Altered mental status. Comparison: 09/12/2016. Findings: The ventricles, sulci, and cisterns are normal in position and appearance. Burr-white differentiation is maintained. Chronic low density area in the left basal ganglia is unchanged. No acute intracranial hemorrhage, mass/mass effect, pathology or trauma/injury. No evidence for acute infarction. No extra-axial fluid collection. Calvarium is intact. Paranasal sinuses and mastoid air cells are clear. Impression: No evidence for acute intracranial pathology or trauma/injury. Electronically Signed by Humble Mckinley MD 06/05/2019 09:34 A
[2019-06-05 10:13] LABS: ALBUMIN 3.8 GM/DL (3.2-5.2); ALT/SGPT 38 U/L (12-78); BILIRUBIN,DIRECT < 0.1 MG/DL (0.0-0.2); BILIRUBIN,TOTAL 0.2 MG/DL (0.2-1.0); BLOOD UREA NITROGEN 13 MG/DL (7-18); CALCIUM LEVEL 8.6 MG/DL (8.8-10.2); CARBON DIOXIDE LEVEL 27 MEQ/L (21-32); CHLORIDE LEVEL 109 MEQ/L (98-107); CK-MB VALUE MASS 3.2 NG/ML (<3.6); CPK CREATINE PHOSPHOKINASE 96 U/L (26-192); GLOMERULAR FILTRATION RATE > 60.0 (>39); GLUCOSE, FASTING 98 MG/DL (70-100); MB/CK RELATIVE INDEX 3.33 (< OR =4); POTASSIUM SERUM 4.3 MEQ/L (3.5-5.1); SODIUM LEVEL 142 MEQ/L (136-145); TOTAL PROTEIN 7.3 GM/DL (6.4-8.2); TROPONIN I < 0.02 NG/ML (< 0.10)
[2019-06-05] MEDS ORDERED: PARO5TAB PO (10:29)
[2019-06-05] MEDS ORDERED: SERO1TAB PO ×2 (10:29)
[2019-06-05] MEDS ORDERED: GABA-843 PO (10:29)
[2019-06-05] MEDS ORDERED: PRAM0.754 PO (10:29)
[2019-06-05 11:39] LABS: INR 0.97; PROTHROMBIN TIME 12.6 SECONDS (11.8-14.0)
[2019-06-05 11:40] LABS: PARTIAL THROMBOPLASTIN TIME 25.9 SECONDS (25.0-38.4)
--- NOTE | 2019-06-05 14:06 | REP ---
MRI BRAIN WITHOUT CONTRAST: HISTORY: CVA. Comparison MRI study is from October 25, 2015. Comparison CT study is from earlier on this date. TECHNIQUE: Axial and sagittal imaging planes are utilized for T1- and T2-weighted scans. Sequences include spin-echo, fast spin echo, FLAIR, and diffusion weighted sequences. MRI FINDINGS: No bony calvarial lesion is seen. Craniocervical junction and upper cervical cord are unremarkable. There is no MR evidence of significant paranasal sinus disease. Diffusion weighted scans show no evidence of restricted diffusion. There is no evidence of acute ischemia. There is a tiny old lacunar infarct in the left basal ganglia. There are small vessel microvascular changes in the periventricular and subcortical white matter of the frontal and parietal lobes bilaterally unchanged from the 2016 prior study. There is no evidence of intracranial hemorrhage. No extra-axial fluid collection, mass or midline shift is seen. Minimal generalized atrophy. Incidental note is made of a small 4 mm low T2 slightly high T1 signal intensity nodule and in the anterior third ventricle consistent with a tiny colloid cyst. This was not apparent previously. There is a subtle hyperdensity in this location on today's CT study. 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 Ventricular system is unchanged. No evidence of hydrocephalous. No acute intracranial abnormality. Microvascular changes. Old lacunar infarct unchanged from 2016 prior study. Electronically Signed by Mario Franco MD 06/05/2019 04:07 P
--- NOTE | 2019-06-05 14:06 | REP ---
MR ANGIOGRAPHY THE BRAIN WITHOUT CONTRAST: HISTORY: CVA. Comparison MR angiography of the brain is reviewed from March 05, 2010. TECHNIQUE: 3D [id number] MR angiography of the brain is acquired in the usual fashion and maximal intensity projection images were generated in rotational format about the vertical and horizontal axes. In addition, source axial T1-weighted images are viewed in cine mode. MR ANGIOGRAPHIC FINDINGS: The distal vertebral arteries are patent. The basilar artery is unremarkable. The left posterior cerebral artery takes a persistent origin from the anterior circulation which is a normal variant. The posterior cerebral arteries are otherwise unremarkable. Superior cerebellar arteries are unremarkable and symmetric. There is diffuse ectasia of the internal carotid arteries bilaterally, left more so than right. This is felt to be unchanged from comparison MR angiography. No focal aneurysm is seen. The ICA segment on the left at the level of the cavernous sinus is more tortuous than that on the right. No definite focal briggs aneurysm is seen here or elsewhere. The middle and anterior cerebral arteries are diffusely somewhat prominent in size as well but no aneurysm is noted. There is no evidence of AV. No vessel cutoff sign is seen. IMPRESSION: Diffuse ectasia of the left internal carotid artery segment unchanged from the 2010 study. No acute abnormality. Persistent origin left posterior cerebral artery. Otherwise negative. Electronically Signed by Mario Franco MD 06/05/2019 04:07 P
[2019-06-05] MEDS ORDERED: LORazepam 2 MG TAB PO PRN (14:45)
[2019-06-05] MEDS: ACETAMINOPHEN TAB 650MG DOSE (2X325MG) PO PRN ×2 (14:48→21:05)
[2019-06-05] MEDS: ASPIRIN 81 MG ENTERIC TAB PO SCH (14:50)
[2019-06-05] MEDS ORDERED: THIAMINE 100 MG TAB PO ONE (15:00)
--- NOTE | 2019-06-05 16:02 | REP ---
Clinical: Pain with recent trauma/fall. Technique: Internal rotation, external rotation, and Y view of the right shoulder. Findings: Advanced arthritic degenerative changes are appreciated including near complete loss of the subacromial space as well as spurring along the inferior margin of the humeral head and adjacent glenoid rim. No obvious acute fracture is identified on current examination. Impression: Osteopenia and advanced arthritic changes. No definite acute fracture. If the patient remains symptomatic consider CT of the shoulder. Electronically Signed by Humble Mckinley MD 06/05/2019 03:53 P
--- NOTE | 2019-06-05 16:09 | REP ---
Clinical: Transient ischemic attack . Technique: Burr scale and color Doppler evaluation using linear high frequency transducer Findings: Examination is limited by tortuosity and respiratory motion. Moderate age-related atheromatous plaquing noted with mild narrowing through the right carotid bulb. Arterial wave patterns demonstrate spectral broadening. Normal flow direction noted through the bilateral vertebral arteries. RIGHT (cm/s) LEFT (cm/s) ICA peak systolic velocity 135.7 116.5 ICA diastolic velocity 16.8 27.3 ECA peak systolic velocity 152.1 143.8 CCA peak systolic velocity 95.9 115.7 ICA/CCA ratio 1.9 1.2 Impression: 1. Narrowing through the right carotid bulb/proximal internal carotid artery in the 50-69% range. 2. Narrowing through the left carotid bulb/proximal internal carotid artery in the less than 50% range. Electronically Signed by Humble Mckinley MD 06/05/2019 03:59 P
[2019-06-05 16:45] VITALS: BP 168/82
[2019-06-05 17:00] VITALS: BP 168/82
[2019-06-05 17:01] LABS: HEMOGLOBIN A1c 5.8 %
[2019-06-05 17:06] LABS: CHOLESTEROL RISK RATIO 1.952 (<5)
[2019-06-05 17:11] LABS: INR 0.96; PROTHROMBIN TIME 12.5 SECONDS (11.8-14.0)
[2019-06-05 17:12] LABS: PARTIAL THROMBOPLASTIN TIME 25.1 SECONDS (25.0-38.4)
[2019-06-05] MEDS ORDERED: SLF 3 ML SYR IV PRN (18:00)
[2019-06-05] MEDS ORDERED: KETOROLAC 30 MG/ML VIAL (J1885) IV PRN (19:00)
--- NOTE | 2019-06-05 19:19 | HPEPDOC ---
General Date of Admission Jun 05, 2019 at 14:07 Date of Service: Jun 05, 2019 Attending Physician: VIRAL WINN MD Chief Complaint The patient is a 78-year-old female admitted with a reason for visit of TIA. History of Present Illness 78 yo W with alcohol use disorder, history of osteoporosis with multiple prior fractures, HTN, HLD and remote history of bladder CA s/p resection, who was brought in by EMS after her found her after having fallen sitting in between the toilet and sink this morning with slurring of her speech as well as word finding difficulties and triggered EMS. In the ED she was hemodynamically stable and afebrile. There was concern for a TIA vs/ CVA given the expressive aphasia history such that she had a CT head that was negative and MRI/MRA brain that did not show an acute stroke or acute pathology. Dr. Singh consulted Dr. Corrales and medicine for admission for possible TIA. When I met ms. Garcia she reported increased urinary frequency and danyelle dysuria such that I was concerned about metabolic encephalopathy at that time and ordered a UA. She complained of R scapular and shoulder pain and I did an X-ray that was negative for a fracture. I admitted her to the PCU for pain management as well as stroke vs. TIA work up with neurology consulted. Later in the day, her UA came back grossly positive and I started her on empiric ceftriaxone and in the meantime her CBC and BMP were grossly normal, but she had an alcohol level of 0.202. On being seen by Dr. Baron, she admitted to excessive alcohol consumption including nightly vodka and wine and having fallen while she was intoxicated. I had already placed her on CIWA given the history of a fall and +alcohol on screening, but after confirmation with neurology, I decided to hold off the stroke work up and determined that her fall was likely in the setting of intoxication and possible weakness with an ongoing UTI. She is now being transferred to [facility] for treatment of a UTI, mechanical fall while being monitored for alcohol withdrawal. Home Medications Scheduled Aspirin (Aspirin EC) 81 Mg Tab, 81 MG PO DAILY, (Reported) Atorvastatin Calcium (Atorvastatin Calcium) 10 Mg Tab, 10 MG PO QHS, (Reported) Bimatoprost (Lumigan) 0.01% 2.5ML Drops, 1 DROP OU QHS, (Reported) Gabapentin (Gabapentin) 300 Mg Capsule, 300 MG PO BID, (Reported) Levothyroxine Sodium (Levothyroxine Sodium) 112 Mcg Tab, 112 MCG PO DAILY, (Reported) Nortriptyline HCl (Nortriptyline HCl) 50 Mg Capsule, 50 MG PO QHS, (Reported) Paroxetine (Paroxetine HCl) 10 Mg Tablet, 10 MG PO DAILY, (Reported) Pramipexole Di-HCl (Pramipexole Dihydrochloride) 0.75 Mg Tablet, 0.75 MG PO QHS, (Reported) Quetiapine Fumarate (Seroquel) 100 Mg Tablet, 100 MG PO BID, (Reported) Quetiapine Fumarate (Seroquel) 100 Mg Tablet, 100 MG PO QHS, (Reported) 200MG TOTAL AT BEDTIME Allergies Coded Allergies: codeine (Verified Adverse Reaction, Mild, most narcotics "THEY MAKE ME SQUIRRELY", 06/05/19) Past Medical History Medical History Remote history of bladder CA s/p resection Vit D deficiency History of multiple fractures HLD HTN osteoporosis OA hypothyroidism Depression, anxiety and panic disorder Family History Significant Family History: No pertinent family hx Social History * Smoker: Denies Alcohol: heavy Drugs: denies Recent Travel/Sick Contacts: Denies: Recent travel, Recent sick contacts Psychosocial History: Anxiety, Depression Lives at home with her A-FIB/CHADSVASC A-FIB History Current/History of A-Fib/PAF?: No Current PO Anticoag Therapy: No Age/Risk Factor Scoring CHADSVASC: CHADSVASC Response (Comments) Value Age Risk Factor Age < 65 years old 0 Gender Risk Factor Female 1 Hx of CHF No 0 Hx of HTN Yes 1 Hx of Stroke/TIA/or VTE No 0 Hx of Diabetes No 0 Hx of Vascular Disease No 0 Total 2 Treatment Treatment ordered: NONE Reason Anticoagulant not given: Not indicated/[id number] Review of Systems Constitutional: Denies: Chills, Fever, Night Sweats Eyes: Denies: Pain, Vision change ENT: Denies: Head Aches, Ear Pain, Dysphagia Skin: Denies: Rash, Lesions, Breakdown Pulmonary: Reports: Other Symptoms (chest wall and R sholder pain); Denies: Dyspnea, Cough Cardiovascular: Denies: Chest Pain, Palpitations, Orthopnea, Paroxysmal Noc. Dyspnea, Lt Headedness Gastrointestinal: Denies: Nausea, Vomiting, Abdominal Pain, Diarrhea Genitourinary: Reports: Dysuria, Frequency, Incontinence; Denies: Hematuria, Retention Hematologic: Denies: Bruising, Bleeding Excessively Endocrine: Denies: Polydipsia, Polyphagia, Polyuria, Heat Intolerance, Cold Intolerance, Other Endocrine Sx Musculoskeletal: Reports: Back Pain, Shoulder Pain (Right) Neurological: Reports: Change in speech (Word searching and initially was also slurred); Denies: Weakness, Numbness, Confusion Psych: Reports: Depression, Memory Issues (thought the fall was 2 weeks ago yet it happened this morning) Physical Examination General Exam: Positive: Alert, No Acute Distress Eye Exam: Positive: PERRLA, Conjunctiva & lids normal, EOMI; Negative: Sclera icteric Neck Exam: Positive: Supple; Negative: JVD, thyromegaly Chest Exam: Positive: Clear to auscultation, Normal air movement Heart Exam: Positive: Rate Normal, Regular Rhythm, Normal S1, Normal S2; Negative: Murmurs, Rubs Telemetry: Positive: No significant arrhythmia Abdomen Exam: Negative: Normal bowel sounds, BS Hyperactive, BS Hypoactive, Soft, Tenderness, Hepatospenomegaly, Mass, Hernia, Other Extremity Exam: Positive: Normal pulses; Negative: Clubbing, Cyanosis, Edema, Tenderness, Swelling Skin Exam: Positive: Nl turgor and temperature, Other skin issue (pale); Negative: Breakdown, Lesion Neuro Exam: Positive: Normal Speech, Strength at 5/5 X4 ext, Normal Tone, Sensation Intact, Cranial Nerves 3-12 NL Psych Exam: Positive: Anxiety; Negative: Oriented x 3 (oriented to self, spouse and place, not time) Vital Signs Vital Signs Date Time Temp Pulse Resp B/P (MAP) Pulse Ox O2 Delivery O2 Flow Rate FiO2 06/05/19 17:00 99.5 101 22 168/82 96 Room Air Laboratory Data Labs 24H Laboratory Tests 2 06/05/19 09:27: Immature Granulocyte % (Auto) 1.8, Neutrophils (%) (Auto) 84.5H, Lymphocytes (%) (Auto) 7.8L, Monocytes (%) (Auto) 3.6, Eosinophils (%) (Auto) 1.0, Basophils (%) (Auto) 1.3H, Neutrophils # (Auto) 10.1H, Lymphocytes # (Auto) 0.9L, Monocytes # (Auto) 0.4, Eosinophils # (Auto) 0.1, Basophils # (Auto) 0.2, Nucleated Red Blood Cells % (auto) 0.0, Prothrombin Time 12.6, Prothromb Time International Ratio 0.97, Activated Partial Thromboplast Time 25.9, Anion Gap 6L, Glomerular Filtration Rate > 60.0, Calcium Level 8.6L, Total Bilirubin 0.2, Direct Bilirubin < 0.1, Aspartate Amino Transf (AST/SGOT) 30, Alanine Aminotransferase (ALT/SGPT) 38, Alkaline Phosphatase 157H, Total Creatine Kinase 96, Creatine Kinase MB 3.2, Creatine Kinase MB Relative Index 3.33, Troponin I < 0.02, Total Protein 7.3, Albumin 3.8, Albumin/Globulin Ratio 1.09, Thyroid Stimulating Hormone (TSH) 7.990H, Ethyl Alcohol Level 0.202H 06/05/19 16:01: Urine Color BROWN, Urine Appearance TURBIDH, Urine pH 7.0, Urine Specific [place] 1.009, Urine Protein 2+H, Urine Glucose (UA) NEGATIVE, Urine Ketones NEGATIVE, Urine Blood 3+H, Urine Nitrite POSITIVEH, Urine Bilirubin NEGATIVE, Urine Urobilinogen 0.2, Urine Leukocyte Esterase 2+H, Urine WBC (Auto) TNTCH, Urine RBC (Auto) TNTCH, Urine Hyaline Casts (Auto) 0, Urine Bacteria (Auto) NEGATIVE, Urine Squamous Epithelial Cells 0, Urine Sperm (Auto) 06/05/19 16:31: Prothrombin Time 12.5, Prothromb Time International Ratio 0.96, Activated Partial Thromboplast Time 25.1, Estimated Mean Plasma Glucose 120H, Hemoglobin A1c 5.8, Triglycerides Level 97, Total Cholesterol 166, LDL Cholesterol 62, Non- HDL Cholesterol (LDL + VLDL) 81, Total HDL Cholesterol 85, Cholesterol/HDL Ratio 1.952, Free Thyroxine 1.01 CBC/BMP Laboratory Tests 06/05/19 09:27 Microbiology Microbiology 06/05/19 Urine Culture, Received Pending Assessment/Plan 78 yo woman who was brought in after suffering a traumatic fall in the setting of possible alcohol intoxication initially with concern for a CVA but now likely to have been the result of intoxication and an ongoing UTI. Mechanical fall with transient expressive aphasia: appears to have been while intoxicated with elevated alcohol levels in the ED that resolved -CXR pending -R shoulder XR was without fracture -CT head was without bleeding -MRI brain was without an acute stroke, bleeding or mass -pain control with toradol 15Q6 PRN for severe R scapular region and chest wall pain -AVOID OPIODS SHE HAS SEVERE DELIRIUM WHEN SHE GETS THEM -tylenol 650 PRN for mild pain -continue home gabapentin Alcohol use disorder: -CIWA protocol, with ativan -thiamine, folate UTI: -continue ceftriaxone -follow up UCx HLD: -c/w statin -ASA Hypothyroidism: -c/w synthroid Psych meds: -continue home paxil, pramipexole, seroquel, nortriptyline DVT ppx: heparin subcutaneous Diet: Regular Dispo: Medsurg, PT/OT evaluation Plan / VTE VTE Prophylaxis Ordered?: Yes VIRAL WINN MD Jun 05, 2019 19:19
[2019-06-05] MEDS: KETOROLAC 30 MG/ML VIAL (J1885) IV PRN (19:59)
[2019-06-05 20:00] VITALS: BP 143/65
[2019-06-05] MEDS: LATANOPROST 0.005% OPHTH SOLN 2.5 ML OU SCH (20:00)
[2019-06-05] MEDS: PRAMIPEXOLE 0.25 MG TAB PO SCH (20:00)
[2019-06-05] MEDS: cefTRIAXone SOD 1 GM in D5W MINI-BAG PLUS 50 ML IV SCH (20:00)
[2019-06-05] MEDS: QUEtiapine FUMARATE 100 MG TAB PO SCH (20:01)
[2019-06-05] MEDS: GABAPENTIN 300 MG CAP PO SCH (20:01)
[2019-06-05] MEDS: ATORVASTATIN 20 MG TAB PO SCH (20:01)
[2019-06-05] MEDS: DOCUSATE SODIUM 100 MG CAP PO SCH (20:01)
[2019-06-05] MEDS: NORTRIPTYLINE 25 MG CAP PO SCH (20:01)
--- NOTE | 2019-06-05 20:12 | ECGEPIP ---
[facility] - ED Test Date: 2019-06-05 Pat Name: JOHN MCCARTHY Department: Room: - Gender: Female Social Work Supervisor: KALANI : 1940 Requested By: Edgardo Patiño Order Number: [id number] Reading MD: Jacque Gonzalez Measurements Intervals [place] Rate: 75 P: 35 LA: 147 QRS: -61 QRSD: 105 T: 35 QT: 414 QTc: 463 Interpretive Statements SINUS RHYTHM PATTERN CONSISTENT WITH PULMONARY DISEASE LEFT ANTERIOR FASCICULAR BLOCK MODERATE T-WAVE ABNORMALITY, CONSIDER ANTERIOR ISCHEMIA SIMILAR 09/23/16 Electronically Signed on 06-05-2019 20:11:48 EST by Jacque Gonzalez
[2019-06-05] MEDS ORDERED: ATORVASTATIN 10 MG TAB PO SCH (21:00)
[2019-06-05] MEDS: HEPARIN SOD (PORCINE) 5000 UNITS/ML VIAL (J1644 PER 1000UNITS) SC SCH (21:05)
[2019-06-05] MEDS: SLF 3 ML SYR IV SCH (21:05)
[2019-06-05 21:18] VITALS: BP 113/63
[2019-06-05 22:00] VITALS: BP 113/63
[2019-06-06 02:00] VITALS: BP 126/63
[2019-06-06] MEDS: KETOROLAC 30 MG/ML VIAL (J1885) IV PRN ×4 (04:33→23:02)
[2019-06-06] MEDS: SLF 3 ML SYR IV SCH ×3 (05:52→20:22)
[2019-06-06] MEDS: LEVOTHYROXINE 112MCG TABLET (0.112MG) PO SCH (05:52)
[2019-06-06] MEDS: HEPARIN SOD (PORCINE) 5000 UNITS/ML VIAL (J1644 PER 1000UNITS) SC SCH ×3 (05:52→21:30)
[2019-06-06 06:00] VITALS: BP_SYST 118; BP_SYST 168; BP_DIAS 59; BP_DIAS 84
[2019-06-06] MEDS: ACETAMINOPHEN TAB 650MG DOSE (2X325MG) PO PRN ×5 (06:23→22:56)
[2019-06-06 06:25] LABS: HEMATOCRIT 39.8 % (36.0-47.0); HEMOGLOBIN 13.4 g/dl (12.0-15.5); MEAN CORPUSCULAR HEMOGLOBIN 30.6 pg (27.0-33.0); MEAN CORPUSCULAR HGB CONC 33.7 g/dl (32.0-36.5); MEAN CORPUSCULAR VOLUME 90.9 fl (80.0-96.0); PLATELET COUNT, AUTOMATED 275 10^3/uL (150-450); RED BLOOD COUNT 4.38 10^6/uL (4.00-5.40); WHITE BLOOD COUNT 8.3 10^3/uL (4.0-10.0)
[2019-06-06 06:51] LABS: BLOOD UREA NITROGEN 23 MG/DL (7-18); CALCIUM LEVEL 8.2 MG/DL (8.8-10.2); CARBON DIOXIDE LEVEL 28 MEQ/L (21-32); CHLORIDE LEVEL 107 MEQ/L (98-107); CREATININE FOR GFR 0.82 MG/DL (0.55-1.30); GLOMERULAR FILTRATION RATE > 60.0 (>39); GLUCOSE, FASTING 96 MG/DL (70-100); MAGNESIUM LEVEL 2.1 MG/DL (1.8-2.4); SODIUM LEVEL 140 MEQ/L (136-145)
--- NOTE | 2019-06-06 07:28 | REP ---
CHEST, PORTABLE: AP portable view of the chest is performed and compared to prior study 09/12/2016. There is cardiomegaly. There is some calcification of the thoracic aorta. The mediastinal silhouette is unremarkable. No infiltrate is seen. Skin fold projects over the right apex with no pneumothorax. IMPRESSION: Cardiomegaly, no acute pulmonary disease. Electronically Signed by Filipe Burr MD 06/06/2019 01:03 P
[2019-06-06] MEDS: QUEtiapine FUMARATE 100 MG TAB PO SCH ×2 (08:12→21:29)
[2019-06-06] MEDS: FOLIC ACID 1 MG TAB PO SCH (08:12)
[2019-06-06] MEDS: ASPIRIN 81 MG ENTERIC TAB PO SCH (08:12)
[2019-06-06] MEDS: GABAPENTIN 300 MG CAP PO SCH ×2 (08:12→20:23)
[2019-06-06] MEDS: MULTIVITAMINS/MINERALS THERAP 1 TAB PO SCH (08:12)
[2019-06-06] MEDS: DOCUSATE SODIUM 100 MG CAP PO SCH ×2 (08:12→20:21)
[2019-06-06] MEDS: PARoxetine 10MG TABLET PO SCH (08:13)
[2019-06-06] MEDS: THIAMINE 100 MG TAB PO SCH ×2 (08:13→20:22)
--- NOTE | 2019-06-06 08:34 | CR ---
DATE OF CONSULTATION: 06/06/2019 REFERRING PROVIDER: Dr. Miles REASON FOR CONSULTATION: Possible transient ischemic attack (TIA). HISTORY OF PRESENT ILLNESS: The patient is a 78-year-old female with a past medical history significant for major depression, history of hypertension, hyperlipidemia and chronic alcohol use. The patient has had past admissions to the hospital due to encephalopathy secondary to medications. The patient presents with being found in the bathroom, fallen off the toilet and wedged between a wall and the toilet. Her found her in the concrete boom operator and when she tried to speak she was not making any sense he stated. She was speaking words and articulating them, but would answer questions inappropriately. She is brought to [facility] and was evaluated. We were contacted to assess her for a possible transient ischemic attack (TIA). At baseline the patient was taking 81 mg aspirin, aspirin dose was increased to [address] scan of the head did not reveal any intracranial hemorrhage and MRI of the brain did not reveal any significant findings of acute stroke. Incidentally, the patient's blood alcohol level was 0.202. The patient had a significant urinary tract infection with nitrites and esterase positive with too numerous to count WBC. The patient likely had been intoxicated with alcohol which may have exacerbated some of her side effects of many of her psychotropic medications. The patient was told that she is allowed to drink two glasses of wine as per her prescribing provider in psychiatry. After review of her records I have recommended the patient avoid all alcohol in the future. It seems that this previous evening the patient drank three glasses of wine and ended up having a few shots of vodka as well to help her keep calm and try to help her sleep. This was the reason why she was intoxicated as she drank more than she usually does probably causing her symptoms. REVIEW OF SYSTEMS: 14-point review of systems is negative except as per history of present illness with the exception that the patient has pain in her right flank and right side of the ribs where she was wedged. Chest x-ray has not been completed to rule out any fracture at this point. The patient does have pain and tenderness to palpation in that region. PAST MEDICAL HISTORY: History of bladder cancer status post resection, hyperlipidemia, hypothyroidism, history of pelvic fracture, major depression, alcoholism. PAST SURGICAL HISTORY: 2015 TURBT, tonsillectomy and knee replacement on the right, bilateral cataract surgery. ALLERGIES: CODEINE. SOCIAL HISTORY: The patient drinks alcohol regularly. She is a former smoker. She lives with her . She is retired. FAMILY HISTORY: Multiple family members with history of TIA as per the patient. PHYSICAL EXAMINATION: Blood pressure is 112/56, pulse rate 94, respiratory rate 16, temperature is 97.1 degrees Fahrenheit, oxygenation is 96% on room air. The patient is awake, alert, oriented to person, place and time. Speech language comprehension, and repetition are intact. Pupils are 2.5 mm round, reactive to light. Extraocular movements are intact in all directions. Sensation V1, V2, V3 is intact to light touch. There is no facial asymmetry to activation. Palate elevates symmetrically. There is no pronator drift. Strength is 5/5 including bilateral deltoids, biceps, biceps and jerker, iliopsoas, quadriceps, anterior tibialis and extensor hallucis longus are 5/5. The patient demonstrates 2+ deep tendon reflexes throughout with reduced right patellar reflex at site of prior knee replacement surgery. Sensory is intact to light touch in all four extremities. Gait deferred. ASSESSMENT: 1. 78-year-old female found with altered mental status difficulty articulating or speech, probably secondary to alcohol intoxication rather than TIA, however, cannot exclude possible TIA given ER understood that the symptoms were aphasia. PLAN: 1. Continue aspirin 325 mg by mouth daily. Continue atorvastatin, increase dosage to of 40 mg. Followup results of MRA, head and neck carotid ultrasound, echocardiogram, continue telemetry monitoring. The patient recommended to avoid further use of alcohol. The patient has returned back to baseline at this time. According to her she is articulating very well and does not have any neuro- focal deficits at this time compared to her baseline. Continue to followup with primary care provider and psychiatry.
--- NOTE | 2019-06-06 10:49 | IPN ---
DATE: 06/06/2019 Armida is seen on [facility] [place] rounding for the hospitalist. Her speech disturbance in retrospect appears to be related to alcohol intoxication and unlikely to be acute cerebral event. Blood alcohol was 0.2 on admission and the speech difficulty is resolved with metabolism of her alcohol. She has a number of somatic complaints unrelated to her admission including vulvar itching and suprapubic intermittent puffiness and swelling for which she has previously seen a electric needle specialist and for which I recommended outpatient gynecologic assessment. PHYSICAL EXAMINATION: 118/59. Pulse 70. Respiratory rate 18. 95% O2 saturation. General Appearance: She is alert, conversant, in no distress. Speech is fluent. HEENT: Unremarkable. No facial droop or weakness. Lungs: Clear. She is tender and has ecchymosis right posterior rib cage. Heart: Regular rhythm. No murmur. Abdomen: Soft. Nontender. No masses. No peripheral edema. No intertrigo of abdominal fold. Normal strength and reflex sensation in upper and lower extremities. Normal reflexes. IMPRESSION: 1. Speech disturbance. Probably articular problems related to alcohol intoxication and unlikely transient ischemic attack (TIA). MRI scan did not show acute stroke. Carotid ultrasound did not show hemodynamically significant stenosis on either side, in fact right carotid was more affected than the left (patient is right handed). 2. Hyperlipidemia. Continue her atorvastatin and aspirin. 3. History of depression. Continue her various psychiatric medications. 4. Alcohol abuse. Does not show any signs of withdrawal at this point. 5. ? Urinary tract infection. She has urine culture pending. She is currently on Rocephin. Will stop this if the culture is negative. 6. Right rib contusion. She is not sure where this came from. It is bruised and tender. She does not have any recollection of fall, but she was intoxicated on admission. There was no abnormal finding on the chest x-ray. Apply heat and give oral analgesic for this. Anticipate discharge tomorrow.
[2019-06-06 14:00] VITALS: BP 123/63
[2019-06-06] MEDS: ATORVASTATIN 20 MG TAB PO SCH (20:21)
[2019-06-06] MEDS: PRAMIPEXOLE 0.25 MG TAB PO SCH (20:21)
[2019-06-06] MEDS: NORTRIPTYLINE 25 MG CAP PO SCH (20:21)
[2019-06-06] MEDS: cefTRIAXone SOD 1 GM in D5W MINI-BAG PLUS 50 ML IV SCH (20:21)
[2019-06-06] MEDS: LATANOPROST 0.005% OPHTH SOLN 2.5 ML OU SCH (20:22)
[2019-06-06 20:30] VITALS: BP 108/54
[2019-06-06 22:00] VITALS: BP 108/54
[2019-06-07] MEDS: LEVOTHYROXINE 112MCG TABLET (0.112MG) PO SCH (05:39)
[2019-06-07] MEDS: KETOROLAC 30 MG/ML VIAL (J1885) IV PRN (05:39)
[2019-06-07] MEDS: SLF 3 ML SYR IV SCH ×3 (05:40→20:10)
[2019-06-07] MEDS: HEPARIN SOD (PORCINE) 5000 UNITS/ML VIAL (J1644 PER 1000UNITS) SC SCH ×3 (05:41→20:09)
[2019-06-07 06:00] VITALS: BP 108/55
[2019-06-07 06:51] LABS: HEMATOCRIT 37.7 % (36.0-47.0); HEMOGLOBIN 12.3 g/dl (12.0-15.5); MEAN CORPUSCULAR HEMOGLOBIN 30.2 pg (27.0-33.0); MEAN CORPUSCULAR HGB CONC 32.6 g/dl (32.0-36.5); MEAN CORPUSCULAR VOLUME 92.6 fl (80.0-96.0); PLATELET COUNT, AUTOMATED 254 10^3/uL (150-450); RED BLOOD COUNT 4.07 10^6/uL (4.00-5.40); WHITE BLOOD COUNT 8.8 10^3/uL (4.0-10.0)
[2019-06-07 07:14] LABS: BLOOD UREA NITROGEN 37 MG/DL (7-18); CALCIUM LEVEL 7.8 MG/DL (8.8-10.2); CARBON DIOXIDE LEVEL 29 MEQ/L (21-32); CHLORIDE LEVEL 111 MEQ/L (98-107); CREATININE FOR GFR 0.89 MG/DL (0.55-1.30); GLOMERULAR FILTRATION RATE > 60.0 (>39); GLUCOSE, FASTING 104 MG/DL (70-100); POTASSIUM SERUM 3.9 MEQ/L (3.5-5.1); SODIUM LEVEL 144 MEQ/L (136-145)
[2019-06-07] MEDS: MULTIVITAMINS/MINERALS THERAP 1 TAB PO SCH (08:13)
[2019-06-07] MEDS: FOLIC ACID 1 MG TAB PO SCH (08:13)
[2019-06-07] MEDS: GABAPENTIN 300 MG CAP PO SCH ×2 (08:13→20:09)
[2019-06-07] MEDS: ACETAMINOPHEN TAB 650MG DOSE (2X325MG) PO PRN ×3 (08:13→23:34)
[2019-06-07] MEDS: THIAMINE 100 MG TAB PO SCH ×2 (08:13→20:09)
[2019-06-07] MEDS: ASPIRIN 81 MG ENTERIC TAB PO SCH (08:13)
[2019-06-07] MEDS: PARoxetine 10MG TABLET PO SCH (08:13)
[2019-06-07] MEDS: QUEtiapine FUMARATE 100 MG TAB PO SCH ×2 (08:13→20:07)
[2019-06-07] MEDS: DOCUSATE SODIUM 100 MG CAP PO SCH ×2 (08:13→20:09)
--- NOTE | 2019-06-07 13:09 | IPN ---
DATE: 06/07/2019 Armida was admitted with dysarthric speech that was most likely related to alcohol intoxication. Initially was thought to have a cerebrovascular event but that has been borne out by further workup. She possibly has a urinary tract infection. She is on Rocephin for this. They called the lab and the results will not be out until tomorrow. PHYSICAL EXAMINATION: Afebrile. Vital signs stable. Lungs: Clear. Heart: Regular rhythm. Abdomen: Soft. Nontender. Chest wall tender to palpate in the right back where she has an ecchymotic area. No costovertebral angle (CVA) tenderness. No peripheral edema. LABORATORY DATA: CBC and BMP unremarkable. IMPRESSION: 1. Altered mental status. She will be seen by neurology. Workup for cerebrovascular event has been negative. I think she was just intoxicated. 2. Prerenal azotemia. Her BUN is rising. I am stopping her ketorolac. 3. Chest wall contusion. Heating pad is advised, as well as Tylenol as needed. 4. Query urinary tract infection (UTI). She is still on Rocephin. Urine culture is pending. I was hoping to send her home today but urine culture has not resulted yet. For the altered mental status I am concerned about discharging her without better idea of what we are treating. 5. Various psychiatric conditions. Continue her current psychiatric medications for this. 6. Hypothyroidism. Continue current dose of levothyroxine 112 mcg daily. Plan for discharge tomorrow. She passed physical therapy today.
[2019-06-07 14:00] VITALS: BP 120/62
[2019-06-07] MEDS: ANALGESIC BALM CRM 120 GM TOP PRN ×2 (19:48→23:28)
[2019-06-07] MEDS: cefTRIAXone SOD 1 GM in D5W MINI-BAG PLUS 50 ML IV SCH (20:06)
[2019-06-07] MEDS: LATANOPROST 0.005% OPHTH SOLN 2.5 ML OU SCH (20:07)
[2019-06-07] MEDS: ATORVASTATIN 20 MG TAB PO SCH (20:08)
[2019-06-07] MEDS: PRAMIPEXOLE 0.25 MG TAB PO SCH (20:08)
[2019-06-07] MEDS: NORTRIPTYLINE 25 MG CAP PO SCH (20:14)
[2019-06-07 22:00] VITALS: BP 128/68
[2019-06-08] MEDS: ANALGESIC BALM CRM 120 GM TOP PRN ×4 (03:17→20:40)
[2019-06-08 06:00] VITALS: BP 124/72
[2019-06-08] MEDS: LEVOTHYROXINE 112MCG TABLET (0.112MG) PO SCH (06:12)
[2019-06-08] MEDS: SLF 3 ML SYR IV SCH ×3 (06:13→20:38)
[2019-06-08] MEDS: HEPARIN SOD (PORCINE) 5000 UNITS/ML VIAL (J1644 PER 1000UNITS) SC SCH ×3 (06:13→20:39)
[2019-06-08 06:26] LABS: HEMATOCRIT 38.3 % (36.0-47.0); HEMOGLOBIN 12.4 g/dl (12.0-15.5); MEAN CORPUSCULAR HEMOGLOBIN 30.3 pg (27.0-33.0); MEAN CORPUSCULAR HGB CONC 32.4 g/dl (32.0-36.5); MEAN CORPUSCULAR VOLUME 93.6 fl (80.0-96.0); PLATELET COUNT, AUTOMATED 240 10^3/uL (150-450); RED BLOOD COUNT 4.09 10^6/uL (4.00-5.40); WHITE BLOOD COUNT 8.3 10^3/uL (4.0-10.0)
[2019-06-08 06:46] LABS: BLOOD UREA NITROGEN 33 MG/DL (7-18); CALCIUM LEVEL 8.3 MG/DL (8.8-10.2); CARBON DIOXIDE LEVEL 27 MEQ/L (21-32); CHLORIDE LEVEL 112 MEQ/L (98-107); CREATININE FOR GFR 0.73 MG/DL (0.55-1.30); GLOMERULAR FILTRATION RATE > 60.0 (>39); GLUCOSE, FASTING 103 MG/DL (70-100); POTASSIUM SERUM 4.4 MEQ/L (3.5-5.1); SODIUM LEVEL 142 MEQ/L (136-145)
[2019-06-08] MEDS: DOCUSATE SODIUM 100 MG CAP PO SCH ×2 (09:47→20:38)
[2019-06-08] MEDS: ASPIRIN 81 MG ENTERIC TAB PO SCH (09:47)
[2019-06-08] MEDS: FOLIC ACID 1 MG TAB PO SCH (09:47)
[2019-06-08] MEDS: MULTIVITAMINS/MINERALS THERAP 1 TAB PO SCH (09:47)
[2019-06-08] MEDS: GABAPENTIN 300 MG CAP PO SCH ×2 (09:47→20:38)
[2019-06-08] MEDS: QUEtiapine FUMARATE 100 MG TAB PO SCH ×2 (09:48→20:39)
[2019-06-08] MEDS: THIAMINE 100 MG TAB PO SCH (09:48)
[2019-06-08] MEDS: PARoxetine 10MG TABLET PO SCH (09:48)
[2019-06-08] MEDS: CEPHALEXIN 250 MG CAP PO SCH ×2 (12:04→17:43)
[2019-06-08] MEDS: ACETAMINOPHEN 500 MG TAB PO PRN ×2 (13:48→20:46)
--- NOTE | 2019-06-08 13:48 | IPNPDOC ---
Text Note Date of Service The patient was seen on 06/08/19. NOTE Subjective: -Sitting up in chair -Complaining of chest wall pain from contusion -Otherwise anxious for discharge, but we agreed that she should be cleared by PT for safe discharge home and she was agreeable to staying Objective: General: sitting up comfortably in chair with heating pad on her back, NAD HEENT: NCAT, PERRLA, EOMI, MMM Neck: supple, full range of motion, no JVD, no adenopathy Pulm: CTAB, breathing comfortably on room air, has R chest wall rib pain Cardiac: RRR, no mrg Abd: obese, normoactive, NTND Ext: NO LE edema, WWP Neuro: AOx3, moving all extremities spontaneously with full strength and range of motion, clear speech labs: CBC and BMP are wnl, reviewed Micro: UCx grew pansensitive E.coli Assessment: 78 yo woman who was brought in after suffering a traumatic fall in the setting of alcohol intoxication initially with concern for a CVA but now most likely to have been the result of intoxication and an ongoing UTI. Mechanical fall with transient expressive aphasia: appears to have been while intoxicated with elevated alcohol levels in the ED that resolved -CXR without acute pathology or rib fractures -R shoulder XR was without fracture -CT head was without bleeding -MRI brain was without an acute stroke, bleeding or mass -pain control with tylenol 1g Q6H PRN for severe R scapular region and chest wall pain -AVOID OPIODS SHE HAS SEVERE DELIRIUM WHEN SHE GETS THEM -continue home gabapentin Alcohol use disorder: -thiamine, folate Pansensitive E.coli UTI: -Switched ceftriaxone to keflex today HLD: -c/w statin -ASA Hypothyroidism: -c/w synthroid Psych meds: -continue home paxil, pramipexole, seroquel, nortriptyline DVT ppx: heparin subcutaneous Diet: Regular Dispo: Medsurg, PT/OT evaluation VS,Fishbone, I+O VS, Fishbone, I+O Laboratory Tests 06/08/19 06:00 Vital Signs Date Time Temp Pulse Resp B/P (MAP) Pulse Ox O2 Delivery O2 Flow Rate FiO2 06/08/19 06:00 97.7 66 19 124/72 (89) 94 06/07/19 06:00 Room Air I&O- Last 24 Hours up to 6 AM 06/08/19 06:00 Intake Total 1290 ml Balance 1290 ml VIRAL WINN MD Jun 08, 2019 13:48
[2019-06-08 14:00] VITALS: BP 137/70
[2019-06-08] MEDS: PRAMIPEXOLE 0.25 MG TAB PO SCH (20:38)
[2019-06-08] MEDS: ATORVASTATIN 20 MG TAB PO SCH (20:38)
[2019-06-08] MEDS: NORTRIPTYLINE 25 MG CAP PO SCH (20:38)
[2019-06-08] MEDS: LATANOPROST 0.005% OPHTH SOLN 2.5 ML OU SCH (20:39)
--- NOTE | 2019-06-08 21:44 | DSES ---
DATE OF ADMISSION: 06/05/2019 DATE OF DISCHARGE: PRIMARY DIAGNOSIS: Dysarthria, probably secondary to slurred speech from alcohol intoxication. SECONDARY DIAGNOSES: 1. Hypothyroidism. 2. Alcohol abuse. 3. History of hyperlipidemia. DICTATION ENDS HERE.
[2019-06-08 22:00] VITALS: BP 153/88
[2019-06-09] MEDS: CEPHALEXIN 250 MG CAP PO SCH ×3 (00:16→12:37)
[2019-06-09 06:00] VITALS: BP 148/80
[2019-06-09] MEDS: LEVOTHYROXINE 112MCG TABLET (0.112MG) PO SCH (06:01)
[2019-06-09] MEDS: ACETAMINOPHEN 500 MG TAB PO PRN (06:01)
[2019-06-09] MEDS: ANALGESIC BALM CRM 120 GM TOP PRN (06:02)
[2019-06-09] MEDS: HEPARIN SOD (PORCINE) 5000 UNITS/ML VIAL (J1644 PER 1000UNITS) SC SCH (06:02)
[2019-06-09] MEDS: SLF 3 ML SYR IV SCH (06:03)
[2019-06-09 06:17] LABS: HEMATOCRIT 41.2 % (36.0-47.0); HEMOGLOBIN 13.1 g/dl (12.0-15.5); MEAN CORPUSCULAR HGB CONC 31.8 g/dl (32.0-36.5); MEAN CORPUSCULAR VOLUME 94.3 fl (80.0-96.0); PLATELET COUNT, AUTOMATED 268 10^3/uL (150-450); RED BLOOD COUNT 4.37 10^6/uL (4.00-5.40); WHITE BLOOD COUNT 8.9 10^3/uL (4.0-10.0)
[2019-06-09 06:39] LABS: BLOOD UREA NITROGEN 17 MG/DL (7-18); CALCIUM LEVEL 8.4 MG/DL (8.8-10.2); CARBON DIOXIDE LEVEL 29 MEQ/L (21-32); CHLORIDE LEVEL 112 MEQ/L (98-107); CREATININE FOR GFR 0.73 MG/DL (0.55-1.30); GLOMERULAR FILTRATION RATE > 60.0 (>39); GLUCOSE, FASTING 100 MG/DL (70-100); POTASSIUM SERUM 4.2 MEQ/L (3.5-5.1); SODIUM LEVEL 144 MEQ/L (136-145)
[2019-06-09] MEDS ORDERED: DICLOFENAC EPOLAMINE 1.3 % PATCH TOP SCH (09:00)
[2019-06-09] MEDS: PARoxetine 10MG TABLET PO SCH (10:28)
[2019-06-09] MEDS: ASPIRIN 81 MG ENTERIC TAB PO SCH (10:28)
[2019-06-09] MEDS: FOLIC ACID 1 MG TAB PO SCH (10:28)
[2019-06-09] MEDS: DOCUSATE SODIUM 100 MG CAP PO SCH (10:28)
[2019-06-09] MEDS: GABAPENTIN 300 MG CAP PO SCH (10:29)
[2019-06-09] MEDS: QUEtiapine FUMARATE 100 MG TAB PO SCH (10:29)
[2019-06-09] MEDS: MULTIVITAMINS/MINERALS THERAP 1 TAB PO SCH (10:29)
[2019-06-09] MEDS ORDERED: DICL1PAT TD (11:33)
[2019-06-09] MEDS ORDERED: ACET-683 PO (11:33)
--- NOTE | 2019-06-09 11:44 | REP ---
Clinical: Right chest wall pain. Technique: Four views of the right hemithorax. Findings: Evaluation is limited by osteopenia and degenerative changes. Very subtle nondisplaced fracture along the anterolateral aspect of the right sixth rib cannot be excluded. Impression: Limited examination. Cannot exclude subtle nondisplaced fracture of the right sixth rib. Electronically Signed by Humble Mckinley MD 06/09/2019 11:35 A
--- NOTE | 2019-06-09 12:36 | DS.PDOC ---
Discharge Summary General Date of Admission Jun 05, 2019 at 14:07 Date of Discharge 06/09/2019 Attending Physician: VIRAL WINN MD Discharge Summary PROCEDURES PERFORMED DURING STAY: Done ADMITTING DIAGNOSES: 1. TIA DISCHARGE DIAGNOSES: 1. Mechanical fall in the setting of alcohol intoxications 2. Possible nondisplaced fracture along the anterolateral aspect of the right sixth rib 3. Alcohol use disorder 4. Remote history of bladder CA s/p resection 5. Vit D deficiency 6. HLD 7. HTN 8. osteoporosis, with history of multiple fractures 9. OA 10. hypothyroidism 11. Depression, anxiety and panic disorder COMPLICATIONS/CHIEF COMPLAINT: TIA. HISTORY OF PRESENT ILLNESS: 78 yo W with alcohol use disorder, history of osteoporosis with multiple prior fractures, HTN, HLD and remote history of bladder CA s/p resection, who was brought in by EMS after her found her after having fallen sitting in between the toilet and sink with slurring of her speech as well as word finding difficulties and triggered EMS. HOSPITAL COURSE: In the ED she was hemodynamically stable and afebrile. There was concern for a TIA vs CVA given the expressive aphasia history such that she had a CT head that was negative and MRI/MRA brain that did not show an acute stroke or acute pathology. Dr. Singh consulted Dr. Corrales and medicine for admission for possible TIA. When I met ms. Garcia she reported increased urinary frequency and danyelle dysuria such that I was concerned about metabolic encephalopathy at that time and ordered a UA. She complained of R scapular and shoulder pain and I did an X-ray that was negative for a fracture. I admitted her to the PCU for pain management as well as stroke vs TIA work up with neurology consulted. Later in the day, her UA came back grossly positive and I started her on empiric ceftriaxone and in the meantime her CBC and BMP were grossly normal, but she had an alcohol level of 0.202. On being seen by Dr. Baron, she admitted to excessive alcohol consumption including nightly vodka and wine and having fallen while she was intoxicated. I had already placed her on CIWA given the history of a fall and +alcohol on screening, but after confirmation with neurology, I decided to hold off the stroke work up and determined that her fall was likely in the setting of intoxication and possible weakness with an ongoing UTI. She was transferred to [facility] for treatment of a UTI, mechanical fall while being monitored for alcohol withdrawal and her urine culture eventually grew pansensitive E.coli for which she was switched to Keflex and completed a 5 day course. She worked with PT and was cleared for home discharge per baseline. Her course was c/b R rib pain for which she had a dedicated rib xray that showed a possible subtle nondisplaced fracture along the anterolateral aspect of the right sixth rib. Given the history of severe delirium on opioid therapies, I am discharging her home with tylenol 1g Q6H PRN for the next 10 days for mild to moderate pain as well as diclofenac patch for her right chest wall every 12 hours for 5 days with close PCP follow up. DISCHARGE MEDICATIONS: Please see below. ALLERGIES: Please see below. PHYSICAL EXAMINATION ON DISCHARGE: VITAL SIGNS: Please see below. General: sitting up in bed, NAD HEENT: NCAT, PERRLA, EOMI, MMM Neck: supple, full range of motion, no JVD, no adenopathy Pulm: CTAB, breathing comfortably on room air, has R chest wall rib pain with twisting Cardiac: RRR, no mrg Abd: obese, normoactive, NTND Ext: NO LE edema, WWP Neuro: AOx3, moving all extremities spontaneously with full strength and range of motion, clear speech LABORATORY DATA: Please see below. IMAGING: Noncontrast head CT: No evidence for acute intracranial pathology or trauma/inj ury. MRA brain: Diffuse ectasia of the left internal carotid artery segment unchanged from the 2010 study. No acute abnormality. Persistent origin left posterior cerebral artery. Otherwise negative. MRI brain without contrast: 4 mm colloid cyst at the anterior aspect of the third ventricle. Ventricular system is unchanged. No evidence of hydrocephalous. No acute intracranial abnormality. Microvascular changes. Old lacunar infarct unchanged from 2016 prior study. Duplex carotid US: 1. Narrowing through the right carotid bulb/proximal internal carotid artery in the 50-69% range. 2. Narrowing through the left carotid bulb/proximal internal carotid artery in the less than 50% range. R shoulder XR: Osteopenia and advanced arthritic changes. No definite acute fracture. If the patient remains symptomatic consider CT of the shoulder. CXR: Cardiomegaly, no acute pulmonary disease. R ribs XR: Evaluation is limited by osteopenia and degenerative changes. Very subtle nondisplaced fracture along the anterolateral aspect of the right sixth rib cannot be excluded. PROGNOSIS: Good if she abstains from alcohol ACTIVITY: As tolerated. DIET: Regular diet DISCHARGE PLAN: Home DISPOSITION: Home DISCHARGE INSTRUCTIONS: 1. Please take tylenol as prescribed for mild to moderate pain, and when severe, please take the toradol as prescribed for us to 5 days. Please follow up with your PCP within 1 week. ITEMS TO FOLLOWUP ON ON OUTPATIENT: 1. R rib pain 2. Alcohol use disorder DISCHARGE CONDITION: Stable TIME SPENT ON DISCHARGE: 47 minutes. Vital Signs/I&Os Vital Signs Date Time Temp Pulse Resp B/P (MAP) Pulse Ox O2 Delivery O2 Flow Rate FiO2 06/09/19 06:00 98.3 81 19 148/80 (102) 94 06/08/19 22:00 Room Air I&O- Last 24 Hours up to 6 AM 06/09/19 06:00 Intake Total 1200 ml Balance 1200 ml Laboratory Data Labs 24H Laboratory Tests 2 06/09/19 05:45: Nucleated Red Blood Cells % (auto) 0.0, Anion Gap 3L, Glomerular Filtration Rate > 60.0, Calcium Level 8.4L CBC/BMP Laboratory Tests 06/09/19 05:45 Microbiology Microbiology 06/05/19 Urine Culture - Final, Complete Escherichia Coli Discharge Medications Scheduled Aspirin (Aspirin EC) 81 Mg Tab, 81 MG PO DAILY, (Reported) Atorvastatin Calcium (Atorvastatin Calcium) 10 Mg Tab, 10 MG PO QHS, (Reported) Bimatoprost (Lumigan) 0.01% 2.5ML Drops, 1 DROP OU QHS, (Reported) Diclofenac Epolamine (Diclofenac Epolamine) 1 Each Patch.td12, 1 EACH TD Q12H Gabapentin (Gabapentin) 300 Mg Capsule, 300 MG PO BID, (Reported) Levothyroxine Sodium (Levothyroxine Sodium) 112 Mcg Tab, 112 MCG PO DAILY, (Reported) Nortriptyline HCl (Nortriptyline HCl) 50 Mg Capsule, 50 MG PO QHS, (Reported) Paroxetine (Paroxetine HCl) 10 Mg Tablet, 10 MG PO DAILY, (Reported) Pramipexole Di-HCl (Pramipexole Dihydrochloride) 0.75 Mg Tablet, 0.75 MG PO QHS, (Reported) Quetiapine Fumarate (Seroquel) 100 Mg Tablet, 100 MG PO BID, (Reported) Quetiapine Fumarate (Seroquel) 100 Mg Tablet, 100 MG PO QHS, (Reported) 200MG TOTAL AT BEDTIME Scheduled PRN Acetaminophen (Acetaminophen) 500 Mg Tablet, 1,000 MG PO Q6H PRN for PAIN OR FEV ER Allergies Coded Allergies: codeine (Verified Adverse Reaction, Mild, most narcotics "THEY MAKE ME SQUIRRELY", 06/05/19) VIRAL WINN MD Jun 09, 2019 11:18
[2019-06-09] MEDS ORDERED: DICL1GEL3 TOP (13:54)
== END 2019-06-09 14:03 | disposition home health service (06) | DRG 897 ==
LOC: EDBD 08:58 → M ED 08:58 → M ED INP 14:07 → ENRESERVDT 15:09 → ENRESERVTM 15:09 → M PCU 16:40 → M MSPAV 21:13
PROVIDERS: ADMIT Internal Medicine; ATTEND Family Medicine
DX: F10.129 Alcohol abuse with intoxication, unspecified (principal); N39.0 Urinary tract infection, site not specified; S22.31XA Fracture of one rib, right side, initial encounter for closed fracture; E03.9 Hypothyroidism, unspecified; E78.5 Hyperlipidemia, unspecified; M81.0 Age-related osteoporosis without current pathological fracture; Z85.51 Personal history of malignant neoplasm of bladder; I10 Essential (primary) hypertension; Z79.82 Long term (current) use of aspirin; Z79.899 Other long term (current) drug therapy; Z88.5 Allergy status to narcotic agent; E55.9 Vitamin D deficiency, unspecified; M19.90 Unspecified osteoarthritis, unspecified site; W18.30XA Fall on same level, unspecified, initial encounter; Y92.003 Bedroom of unspecified non-institutional (private) residence as the place of occurrence of the external cause; B96.29 Other Escherichia coli [E. coli] as the cause of diseases classified elsewhere; F32.9 Major depressive disorder, single episode, unspecified; F41.9 Anxiety disorder, unspecified

== ENCOUNTER → 2019-06-19 | Outpatient (REF) | payer MEDICARE ==
[~2019-06-19] MED LIST changes: +ACET-683 PO; +BIMA01SOL OU; +DICL1GEL3 TOP; +DICL1PAT TD; +NORT50CA PO; +PARO5TAB PO; +PRAM0.754 PO
== END ==
LOC: M SMT 12:57
PROVIDERS: ATTEND Nurse Practitioner Women's Health
DX: Z85.51 Personal history of malignant neoplasm of bladder (principal)

== ENCOUNTER → 2019-10-18 | Outpatient (REF) | payer MEDICARE ==
[~2019-10-18] MED LIST changes: -DICL1PAT TD; +DICL1PAT6 TD; +GABA-282 PO; -GABA-843 PO
[2019-10-18 19:28] LABS: APPEARANCE, URINE CLEAR (CLEAR); BACTERIA, URINE AUTO NEGATIVE (NEGATIVE); BILIRUBIN, URINE AUTO NEGATIVE (NEGATIVE); BLOOD, URINE BLOOD NEGATIVE (NEGATIVE); COLOR, URINE YELLOW (YELLOW); GLUCOSE, URINE (UA) AUTO NEGATIVE (NEGATIVE); KETONE, URINE AUTO NEGATIVE (NEGATIVE); LEUKOCYTE ESTERASE, URINE AUTO NEGATIVE (NEGATIVE); MUCUS, URINE SMALL (NEGATIVE); NITRITE, URINE AUTO NEGATIVE (NEGATIVE); PROTEIN, URINE AUTO NEGATIVE (NEGATIVE); RBC, URINE AUTO 0 /HPF (0-3); SQUAMOUS EPITHELIAL CELL UR AU 1 /HPF (0-6); UROBILINOGEN, URINE AUTO 0.2 mg/dL (0.0-2.0); WBC, URINE AUTO 1 /HPF (0-3)
== END ==
LOC: M SMT 16:36
PROVIDERS: ATTEND Nurse Practitioner Family
DX: N39.41 Urge incontinence (principal)

== ENCOUNTER → 2019-10-21 | Outpatient (REF) | payer MEDICARE ==
[~2019-10-21] MED LIST changes: -GABA-282 PO; +GABA-843 PO
[2019-10-21 16:01] LABS: APPEARANCE, URINE CLEAR (CLEAR); BACTERIA, URINE AUTO NEGATIVE (NEGATIVE); BILIRUBIN, URINE AUTO NEGATIVE (NEGATIVE); BLOOD, URINE BLOOD NEGATIVE (NEGATIVE); COLOR, URINE STRAW (YELLOW); GLUCOSE, URINE (UA) AUTO NEGATIVE (NEGATIVE); KETONE, URINE AUTO NEGATIVE (NEGATIVE); LEUKOCYTE ESTERASE, URINE AUTO NEGATIVE (NEGATIVE); NITRITE, URINE AUTO NEGATIVE (NEGATIVE); PROTEIN, URINE AUTO NEGATIVE (NEGATIVE); RBC, URINE AUTO 1 /HPF (0-3); SPECIFIC GRAVITY URINE AUTO 1.004 (1.002-1.035); SQUAMOUS EPITHELIAL CELL UR AU 0 /HPF (0-6); UROBILINOGEN, URINE AUTO 0.2 mg/dL (0.0-2.0); WBC, URINE AUTO 0 /HPF (0-3)
== END ==
LOC: M SMT 15:07
PROVIDERS: ATTEND Nurse Practitioner Family
DX: N39.41 Urge incontinence (principal)

== ENCOUNTER → 2020-01-02 | Outpatient (CLI) | payer MEDICARE ==
--- NOTE | 2020-01-14 12:39 | REP ---
BILATERAL DUPLEX DOPPLER VENOUS ULTRASOUND, LOWER EXTREMITIES: 01/02/20 HISTORY: Bilateral leg edema. Real time compression and duplex Doppler interrogation of bilateral lower extremity deep venous systems is performed. Bilaterally, common femoral, superficial and popliteal veins are fully compressible with transducer pressure and demonstrate normal spontaneous and phasic flow without evidence of deep venous thrombosis. Note is made of a Bakers cyst on the left measuring 4.2 x 2.4 x 2.9cm. IMPRESSION: No evidence of DVT of bilateral lower extremity deep vein systems. Left Barlow's cyst in the popliteal fossa measures 4.2 x 2.4 x 2.9cm. MTDD
== END ==
LOC: M RAD 10:17
PROVIDERS: ATTEND Surgery
DX: M71.22 Synovial cyst of popliteal space [Baker], left knee (principal); R60.0 Localized edema

== ENCOUNTER → 2020-02-26 | Outpatient (REF) | payer MEDICARE ==
[2020-02-26 14:06] LABS: APPEARANCE, URINE CLEAR (CLEAR); BACTERIA, URINE AUTO NEGATIVE (NEGATIVE); BILIRUBIN, URINE AUTO NEGATIVE (NEGATIVE); BLOOD, URINE BLOOD NEGATIVE (NEGATIVE); COLOR, URINE STRAW (YELLOW); GLUCOSE, URINE (UA) AUTO NEGATIVE (NEGATIVE); KETONE, URINE AUTO NEGATIVE (NEGATIVE); LEUKOCYTE ESTERASE, URINE AUTO NEGATIVE (NEGATIVE); NITRITE, URINE AUTO NEGATIVE (NEGATIVE); PROTEIN, URINE AUTO NEGATIVE (NEGATIVE); RBC, URINE AUTO 0 /HPF (0-3); SPECIFIC GRAVITY URINE AUTO 1.002 (1.002-1.035); SQUAMOUS EPITHELIAL CELL UR AU 0 /HPF (0-6); UROBILINOGEN, URINE AUTO 0.2 mg/dL (0.0-2.0); WBC, URINE AUTO 0 /HPF (0-3)
== END ==
LOC: M SMT 13:16
PROVIDERS: ATTEND Nurse Practitioner Family
DX: N39.41 Urge incontinence (principal)

== ENCOUNTER → 2020-07-06 | Outpatient (CLI) | payer MEDICARE ==
[~2020-07-06] MED LIST changes: +GABA-282 PO; -GABA-843 PO; +PYRI50TA41 PO; -VITA50TA7 PO
[2020-07-06 19:59] LABS: BASO # 0.1 10^3/uL (0.0-0.2); BASO % 1.7 % (0.0-1.0); EOS # 0.6 10^3/uL (0.0-0.5); EOS % 8.1 % (0.0-3.0); HEMATOCRIT 47.4 % (36.0-47.0); LYMPH # 1.2 10^3/uL (1.5-5.0); LYMPH % 17.3 % (24.0-44.0); MEAN CORPUSCULAR HEMOGLOBIN 28.9 pg (27.0-33.0); MEAN CORPUSCULAR HGB CONC 31.6 g/dl (32.0-36.5); MEAN CORPUSCULAR VOLUME 91.3 fl (80.0-96.0); MONO # 0.6 10^3/uL (0.0-0.8); MONO % 8.7 % (2.0-8.0); NEUTROPHILS # 4.4 10^3/uL (1.5-8.5); NEUTROPHILS % 63.3 % (36.0-66.0); PLATELET COUNT, AUTOMATED 337 10^3/uL (150-450); RED BLOOD COUNT 5.19 10^6/uL (4.00-5.40); WHITE BLOOD COUNT 6.9 10^3/uL (4.0-10.0)
[2020-07-06 20:22] LABS: ALBUMIN 3.6 GM/DL (3.2-5.2); ALT/SGPT 25 U/L (12-78); BILIRUBIN,TOTAL 0.4 MG/DL (0.2-1.0); BLOOD UREA NITROGEN 24 MG/DL (7-18); CALCIUM LEVEL 8.9 MG/DL (8.8-10.2); CARBON DIOXIDE LEVEL 31 MEQ/L (21-32); CHLORIDE LEVEL 109 MEQ/L (98-107); CHOLESTEROL LEVEL 165 MG/DL (<200); CHOLESTEROL RISK RATIO 1.813 (<5); CREATININE FOR GFR 0.78 MG/DL (0.55-1.30); GLOMERULAR FILTRATION RATE > 60.0 (>39); GLUCOSE, FASTING 92 MG/DL (70-100); HDL CHOLESTEROL 91 MG/DL (>40); LDL CHOLESTEROL 60 MG/DL (<100); NON-HDL-C 74 MG/DL; POTASSIUM SERUM 5.1 MEQ/L (3.5-5.1); SODIUM LEVEL 142 MEQ/L (136-145); THYROID STIMULATING HORMONE 0.884 uIU/ML (0.358-3.740); TOTAL PROTEIN 7.1 GM/DL (6.4-8.2); TRIGLYCERIDES LEVEL 69 MG/DL (<150)
== END ==
LOC: M ADAMS 09:01
PROVIDERS: ATTEND Family Medicine
DX: M81.8 Other osteoporosis without current pathological fracture (principal); Z79.899 Other long term (current) drug therapy

== ENCOUNTER → 2020-07-24 | Outpatient (CLI) | payer MEDICARE ==
--- NOTE | 2020-07-24 17:13 | REP ---
INDICATION: PELVIC PAIN. COMPARISON: 11/27/2019. TECHNIQUE: Transabdominal and transvaginal scanning performed. FINDINGS: Uterine dimensions are 6.3 x 2.3 x 3.4 cm. Endometrial echo is 4 mm in AP dimension and centrally placed. The bladder measures 10.9 x 5.7 x 3.4cm. Transvaginal imaging is limited due to patient tolerance. On transabdominal images there is an oval cystic structure in the right adnexal region measuring about 6.4 x 5.5 x 4.0 cm. No other gross mass is seen. No free fluid is seen in the cul-de-sac. IMPRESSION: Limited exam as discussed above. On transabdominal images an oval cystic structure in the right adnexal region has a maximum diameter of 6.4 cm. This could represent an ovarian cyst or fluid-filled bowel. Further evaluation could be made with MRI of the pelvis. <Electronically signed by Filipe Burr > 07/24/20 [id number]
== END ==
LOC: M RAD 15:46
PROVIDERS: ATTEND Family Medicine
DX: R10.2 Pelvic and perineal pain (principal); R19.09 Other intra-abdominal and pelvic swelling, mass and lump

== ENCOUNTER → 2020-08-18 | Outpatient (REF) | payer MEDICARE ==
[2020-08-18 13:34] LABS: ALBUMIN 3.4 GM/DL (3.2-5.2); ALT/SGPT 26 U/L (12-78); BILIRUBIN,TOTAL 0.3 MG/DL (0.2-1.0); BLOOD UREA NITROGEN 27 MG/DL (7-18); CALCIUM LEVEL 9.2 MG/DL (8.8-10.2); CARBON DIOXIDE LEVEL 28 MEQ/L (21-32); CHLORIDE LEVEL 107 MEQ/L (98-107); CREATININE FOR GFR 0.74 MG/DL (0.55-1.30); GLOMERULAR FILTRATION RATE > 60.0 (>39); GLUCOSE, FASTING 88 MG/DL (70-100); SODIUM LEVEL 142 MEQ/L (136-145); TOTAL PROTEIN 6.7 GM/DL (6.4-8.2)
== END ==
LOC: M LABDRWAD 12:28
PROVIDERS: ATTEND Family Medicine
DX: E03.9 Hypothyroidism, unspecified (principal); E78.2 Mixed hyperlipidemia; G60.9 Hereditary and idiopathic neuropathy, unspecified; I25.10 Atherosclerotic heart disease of native coronary artery without angina pectoris; R60.9 Edema, unspecified; R03.0 Elevated blood-pressure reading, without diagnosis of hypertension

== ENCOUNTER → 2020-08-24 | Outpatient (CLI) | payer MEDICARE ==
[~2020-08-24] MED LIST changes: +PROHANCE 279.3MG/ML 15ML VIAL As Ordered ONE; +PROHANCE 279.3MG/ML 5ML VIAL As Ordered ONE
--- NOTE | 2020-08-25 11:13 | REP ---
INDICATION: OTH NONINFLAMMATORY DISORDER OF OVARY, FALLOP AND BR. COMPARISON: Ultrasound 07/24/2020. TECHNIQUE: Multiple sequences obtained in the axial, coronal and sagittal planes prior to and following the intravenous administration of 16 cc ProHance. FINDINGS: Uterine length is approximately 7.0 cm. Maximum endometrial thickness is approximately 4 mm. There are degenerative changes of the lower lumbar spine. Hemangioma is again seen in the L4 vertebral body. Old right pubic fracture deformity is again noted. No adenopathy or free fluid is seen in the pelvis. The ovaries appear atrophic and are unremarkable, with no evidence of ovarian mass. Patient has had prior right inguinal hernia repair January 2020. Along the superior aspect of the right inguinal ring there is a lobulated area of fluid which measures approximately 6.9 x 5.7 x 5.5 cm, most likely representing a postsurgical seroma. There is a thin rim of enhancement. This corresponds to the cystic area in the right pelvis seen on the ultrasound 07/24/2020. IMPRESSION: Along the superior aspect of the right inguinal ring there is a lobulated area of fluid which measures approximately 6.9 x 5.7 x 5.5 cm, most likely representing a postsurgical seroma. Otherwise no evidence of ovarian mass or adenopathy. <Electronically signed by Filipe Burr > 08/25/20 [id number]
== END ==
LOC: M RAD 09:35
PROVIDERS: ATTEND Family Medicine
DX: N83.8 Other noninflammatory disorders of ovary, fallopian tube and broad ligament (principal)
CPT/HCPCS: 72197; A9576

== ENCOUNTER → 2020-11-13 | Outpatient (CLI) | payer MEDICARE ==
[~2020-11-13] MED LIST changes: +GABA-283 PO; -GABA-845 PO; -PROHANCE 279.3MG/ML 15ML VIAL As Ordered ONE; -PROHANCE 279.3MG/ML 5ML VIAL As Ordered ONE
--- NOTE | 2020-11-13 14:41 | DEXAMM ---
INDICATION: LUMBAR STENOSIS SPONDYLOSIS. COMPARISON: 03/19/2014. TECHNIQUE: Bone density was measured using dual-energy x-ray absorptiometry (DEXA). FINDINGS: AP SPINE L1-L4 BMD 1.252 g/cm2 Young Adult T-Score 0.5 Age Matched Z-Score 2.3. LT FEMUR, TOTAL BMD 0.780 g/cm2 Young Adult T-Score -1.8 Age Matched Z-Score 0.1. LT NECK BMD 0.639 g/cm2 Young Adult T-Score -2.9 Age Matched Z-Score -0.8. RT FEMUR, TOTAL BMD 0.797 g/cm2 Young Adult T-Score -1.7 Age Matched Z-Score 0.2. RT NECK BMD 0.652 g/cm2 Young Adult T-Score -2.8 Age Matched Z-Score -0.7. IMPRESSION: There is normal bone density of the spine. There is osteoporosis of the left hip. There is osteoporosis of the right hip. The density of the spine has decreased 4.2% since the initial exam on 03/19/2014. The density of the left hip has decreased 5.5% since initial exam on 03/19/2014. The density of the right hip has increased 0.4% since the initial exam on 03/19/2014. FOLLOW-UP: Recommendation for the next bone density exam: 2 years. <Electronically signed by Filipe Burr > 11/13/20 [id number]
== END ==
LOC: M WHC 13:12
PROVIDERS: ATTEND Neurological Surgery
DX: M48.062 Spinal stenosis, lumbar region with neurogenic claudication (principal); M47.26 Other spondylosis with radiculopathy, lumbar region

== ENCOUNTER → 2020-11-13 | Outpatient (CLI) | payer MEDICARE ==
--- NOTE | 2020-11-13 17:56 | REPVR ---
PROCEDURE INFORMATION: Exam: CT Lumbar Spine Without Contrast Exam date and time: 11/13/2020 2:08 PM Age: 80 years old Clinical indication: Low back pain; Additional info: Lumbar stenosis TECHNIQUE: Imaging protocol: Computed tomography images of the lumbar spine without contrast. Radiation optimization: All CT scans at this facility use at least one of these dose optimization techniques: automated exposure control; mA and/or kV adjustment per patient size (includes targeted exams where dose is matched to clinical indication); or iterative reconstruction. COMPARISON: CT Spine, lumbar w/o contrast 09/02/2016 3:39 PM FINDINGS: Vertebrae: Bone mineralization is decreased, suggestive of osteoporosis. Chronic compression fractures are noted at T12 and L1. Moderate vertebral body height loss is present at both levels, similar to the prior exam. No new fracture is identified. Marked levoconvex scoliosis of the lumbar spine is present. Discs/Spinal canal/Neural foramina: Severe degenerative changes of the lumbar spine are noted. Moderate/severe spinal canal stenosis is present at L4-L5. No other severe spinal canal stenosis is identified. Severe left L5-S1 neural foraminal narrowing with presumed compression of the exiting left L5 nerve is noted. Additionally, there is moderate right neural foraminal narrowing at L2-L3, severe right and moderate left neural foraminal narrowing at L3-L4, and moderate/severe right and moderate left neural foraminal narrowing at L4-L5. Soft tissues: Unremarkable. IMPRESSION: 1. No acute abnormality. 2. Chronic findings as discussed above. Electronically signed by: Jabari Ybarra On 11/13/2020 17:56:27 PM
== END ==
LOC: M PLAIMG 12:49
PROVIDERS: ATTEND Physician Assistant
DX: M48.062 Spinal stenosis, lumbar region with neurogenic claudication (principal); M47.26 Other spondylosis with radiculopathy, lumbar region

== ENCOUNTER → 2020-11-23 | Outpatient (CLI) | payer MEDICARE ==
--- NOTE | 2020-11-25 00:05 | ECWPNPC ---
PATIENT NAME: JOHN MCCARTHY : 1940 GENDER: FEMALE VISIT DATE: 11/23/2020 DISCHARGE DATE: 11/23/20 1408 VISIT LOCKED DATE TIME: PHYSICIAN: GRACIELA BOCANEGRA RESOURCE: GRACIELA BOCANEGRA REASON FOR APPOINTMENT 1. BACK HISTORY OF PRESENT ILLNESS DEPRESSION SCREENING: PHQ-2 (2015 EDITION) LITTLE INTEREST OR PLEASURE IN DOING THINGS?NOT AT ALL FEELING DOWN, DEPRESSED, OR HOPELESS?SEVERAL DAYS TOTAL SCORE1 GENERAL: PLEASANT 80-YEAR-OLD FEMALE BEING REFERRED BY [facility] FOR EVALUATION OF CHRONIC LOW BACK PAIN AND BILATERAL LEG PAIN AND WEAKNESS. HAS TRIED MULTIPLE DIFFERENT MEDICATIONS OVER THE YEARS BOTH NARCOTIC AND NONNARCOTIC. REPORTS NO IMPROVEMENT DESPITE MEDICATION TRIALS. THEY HAVE AN APPOINTMENT WITH SURGEON TOMORROW. HAS CHRONIC URINARY INCONTINENCE. REPORTING SOME CONSTIPATION. DENIES SADDLE PARESTHESIAS. REVIEWED MRI OF THE LS SPINE THAT WAS DONE RECENTLY. THIS IS SHOWING MODERATE TO SEVERE DEGENERATIVE CHANGES. PAIN IS CONSTANT ACROSS HER LOWER BACK. PAIN IS AGGRAVATED BY WALKING. USES WHEELCHAIR FOR ANY DISTANCE. ACCOMPANIED IN THE EXAM ROOM WITH HER WHO IS VERY SUPPORTIVE. - - -. FALL RISK SCREENING: SCREENING TWO FALLS THIS YEAR, NO MJAOR INJURIES. PAIN SCREENING: PATIENT HAS A COMPLAINT OF ACUTE OR CHRONIC PAIN :YES LOCATION OF PAIN:LOW BACK INTENSITY OF PAIN (SCALE OF 1 TO 10):9 WHAT DOES YOUR PAIN FEEL LIKE:ACHING, BURNING, CONTINOUS, STABBING, THROBBING, SORE, SHOOTING DURATION:CONTINOUS, CONSTANT, ALL DAY PAIN IS INCREASED BY:ACTIVITIES, PROLONGED STANDING PAIN IS DECREASED BY:SITTING, OTHERS LAYING DOWN NURSING NOTE: - - -. PAIN CENTER INTAKE QUESTIONS: DO YOU HAVE A HISTORY OF MRSA? :YES OVER THE YEAR DO YOU TAKE A BLOOD THINNERS? :NO ASPIRIN 81 MG DO YOU HAVE ANY BLEEDING DISORDERS? :NO ANY NEW NUMBNESS OR WEAKNESS IN YOUR LEGS OR ARMS? :YES BOTH FEET ANY PACEMAKER,DEFIBRILLATOR, OR DORSAL COLUMN STIMULATOR? :NO DO YOU HAVE ANY RASHES OR OPEN SORES? :NO ARE YOU ALLERGIC TO IV DYE? :NO ARE YOU DIABETIC? :NO ANY NEW PROBLEMS WITH YOUR MEDICATIONS? :NO HAVE YOU RECEIVED A VACCINE IN THE PAST 30 DAYS? :NO DO YOU PLAN TO RECEIVE A VACCINE IN THE NEXT 21 DAYS? :NO DO YOU NEED ANY PRESCRIPTION? :NO DO YOU TAKE ANY IMMUNOSUPPRESSIVE MEDICATIONS? :NO IS THERE A CHANCE YOU COULD BE ? :NO ARE YOU BREAST FEEDING? :NO CURRENT MEDICATIONS TAKING ASPIRIN 81 MG TABLET 1 TABLET ORALLY ONCE A DAY TAKING LEVOTHYROXINE SODIUM 112 MCG TABLET 1 TABLET ORALLY ONCE A DAY TAKING SEROQUEL 200 MG TABLET 1 TABLET AT BEDTIME ORALLY ONCE A DAY, NOTES: 200MG AT NIGHT TAKING ATORVASTATIN CALCIUM 10 MG TABLET 1 TABLET ORALLY ONCE A DAY TAKING NORTRIPTYLINE HCL 50 MG CAPSULE 1 CAPSULE ORALLY ONCE A DAY TAKING COLACE 100 MG CAPSULE 1 CAPSULE NEEDED ORALLY ONCE A DAY TAKING NORTRIPTYLINE HCL 75 MG CAPSULE 1 CAPSULE ORALLY ONCE A DAY TAKING LYRICA 100 MG CAPSULE 3 CAPSULE ORALLY 1 CAP IN AM AND 2 CAPS PM TAKING TOVIAZ 8 MG TABLET EXTENDED RELEASE 24 HOUR 1 TABLET ORALLY ONCE A DAY TAKING FUROSEMIDE 20 MG TABLET 1 TABLET ORALLY ONCE A DAY NOT-TAKING NEURONTIN 300 MG CAPSULE ORALLY BID NOT-TAKING PRAMIPEXOLE DIHYDROCHLORIDE 0.75 MG TABLET 1 TABLET BEFORE BEDTIME ORALLY ONCE A DAY NOT-TAKING TAMSULOSIN HCL 0.4 MG CAPSULE 1 CAPSULE ORALLY BID NOT-TAKING NYSTATIN 462114 UNIT/GM POWDER 1 APPLICATION EXTERNALLY TWICE A DAY TO ABDOMEN NOT-TAKING GABAPENTIN 100 MG CAPSULE 1 CAPSULE ORALLY ONCE A DAY NOT-TAKING VITAMIN B6 50 MG TABLET 1 TABLET ORALLY NOT-TAKING MULTIVITAMINS TABLET ORALLY NOT-TAKING FLOMAX 0.4 MG CAPSULE 1 CAPSULE ORALLY ONCE A DAY NOT-TAKING OXYBUTYNIN CHLORIDE 5 MG TABLET 1 TABLET ORALLY TWICE A DAY NOT-TAKING LIDOCAINE HCL JELLY CHCF 2 % JELLY 5 ML1 APPLICATION TO AFFECTED AREA NEEDED INTRAVESICALLY TIME AT CYSTOSCOPY NOT-TAKING LIDOCAINE HCL JELLY CHCF 2 % JELLY 5 ML1 APPLICATION TO AFFECTED AREA NEEDED INTRAVESICALLY TIME AT CYSTOSCOPY NOT-TAKING MIRTAZAPINE 45 MG TABLET TAKE ONE TABLET BY MOUTH AT BEDTIME ORAL NOT-TAKING CIPRO 500 MG TABLET 1 TABLET ORALLY DIRECTED- 1 HOUR BEFORE CYSTO NOT-TAKING MYRBETRIQ 50 MG TABLET EXTENDED RELEASE 24 HOUR 1 TABLET ORALLY ONCE A DAY NOT-TAKING CALCIUM + D 600-200 MG-UNIT TABLET 1 TABLET WITH FOOD ORALLY ONCE A DAY NOT-TAKING CLONAZEPAM 1 MG TABLET 1 TABLET ORALLY TWICE A DAY NOT-TAKING CYMBALTA 60 MG CAPSULE DELAYED RELEASE PARTICLES 1 CAPSULE ORALLY ONCE A DAY NOT-TAKING ABILIFY 2 MG TABLET 1 TABLET ORALLY ONCE A DAY NOT-TAKING LIDOCAINE HCL JELLY CHCF 2 % JELLY 1 APPLICATION TO AFFECTED AREA NEEDED INTRAVESICALLY PRIOR TO PROCEDURE NOT-TAKING CIPRO 500 MG TABLET 1 TABLET ORALLY TWICE A DAY NOT-TAKING LIDOCAINE HCL JELLY CHCF 2 % JELLY 5 ML1 APPLICATION TO AFFECTED AREA NEEDED INTRAVESICALLY TIME AT CYSTOSCOPY NOT-TAKING KEFLEX 500 MG CAPSULE 1 CAPSULE ORALLY TWICE A DAY NOT-TAKING PERCOCET 5-325 MG TABLET 1 TABLET NEEDED ORALLY EVERY 4 HRS NEEDED FOR PAIN NOT-TAKING CIPRO 500 MG TABLET 1 TABLET ORALLY DIRECTED NOT-TAKING MORPHINE SULFATE 15 MG TABLET 1 TABLET NEEDED ORALLY TWICE DAILY NOT-TAKING QUETIAPINE FUMARATE 100 MG TABLET 1 TABLET AT BEDTIME ORALLY ONCE A DAY MEDICATION LIST REVIEWED AND RECONCILED WITH THE PATIENT PAST MEDICAL HISTORY HYPERLIPIDEMIA HYPOTHYROIDISM 5 PELVIC FX HEEL FX, RIGHT THUMB FX, RIGHT DEPRESSION VITAMIN D DEFICIENCY HX OF BLADDER CANCER URGE INCONTINENCE ANXIETY ARTHRITIS PSYCHIATRIC DIAGNOSIS THRYROID DISEASE ALLERGIES CODEINE PHOSPHATE (FOR ALLERGIES USE ONLY): NAUSEA/VOMITING - SIDE EFFECTS OXYCODONE HCL: NAUSEA/VOMITING - SIDE EFFECTS SURGICAL HISTORY RIGHT KNEE REPLACEMENT 2013 THYROID NODULES REMOVED 50 YEAR AGO CATARACT SURGERY BILATERAL TURBT 06/30/14 PELVIC SURGERY TO REPAIR NON HEALING FX WITH BRIDGE WORK SCREWS IN PLACE 12/05/14 CYSTOSCOPY 05/18/2018 CYSTOSCOPY 06/19/19 CYSTOSCOPY 06/03/20 SPINE SURG- NOT SURE TUMOR EXCISION HERNIA SURG 2019 FAMILY HISTORY FATHER: , PARKINSONS, PNEUMONIA MOTHER: , STROKE SIBLINGS: ALIVE, BREAST CANCER SON(S): ALIVE 1 SISTER(S) - HEALTHY. 1 SON(S) - HEALTHY. NO KNOWN FAMILY HISTORY OF ANY UROLOGICALLY RELATED DISEASES/CANCERS. SOCIAL HISTORY GENERAL: TOBACCO USE ARE YOU A:FORMER SMOKER HOW LONG HAS IT BEEN SINCE YOU LAST SMOKED?> 10 YEARS LATEX QUESTIONNAIRE LATEX ALLERGY : HAVE YOU EVER DEVELOPED ANY TYPE OF REACTION AFTER HANDLING LATEX PRODUCTS SUCH RUBBER GLOVES, CONDOMS, DIAPHRAGMS, BALLOONS, SOCKS, OR UNDERWEAR?NO LATEX ALLERGY : HAVE YOU EVER DEVELOPED ANY TYPE OF REACTION DURING OR AFTER DENTAL APPOINTMENT, VAGINAL/RECTAL EXAMINATION, SURGICAL PROCEDURE, OR ANY OTHER EXPOSURE?NO LATEX RISK : HAVE YOU EVER HAD ANY DIFFICULTY BREATHING OR HIVES AFTER EATING OR HANDLING ANY FRUITS, OR VEGETABLES; SUCH KIWI, BANANAS, STONE FRUITS, OR CHESTNUTSNO LATEX RISK : DO YOU HAVE A PREVIOUS PERSONAL HISTORY OF MORE THAN NINE SURGERIES, SPINA BIFIDA, OR REPEATED CATHERIZATIONS? NO LATEX RISK : ARE YOU FREQUENTLY EXPOSED TO LATEX PRODUCTS IN YOUR OCCUPATION?NO DATE ASKED : 11/23/2020 ALCOHOL USE: YES, A GLASS A WINE EVERY DAY. ALCOHOL SCREENING POINTS: 2, INTERPRETATION: NEGATIVE. RECREATIONAL DRUG USE DENIES. CAFFEINE 2-5/DAY. SEXUAL HX LMP:POST MENOPAUSE HAVE YOU EVER HAD AN STD?NO HAD SEX IN THE LAST 12 MONTHS (VAGINAL, ORAL, OR ANAL)?NO MANDAEISM NO YAZIDI BELIEFS THAT WOULD IMPACT HEALTH CARE. LANGUAGE ROMANSH. 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 OCCUPATION: HOUSE . DIET: REGULAR. EXERCISE: NO REGULAR EXERCISE. MARITAL STATUS: . HOSPITALIZATION/MAJOR DIAGNOSTIC PROCEDURE SURGICALY RELATED BROKEN PELVIS UTI/ BROKEN RIB 05/2019 REVIEW OF SYSTEMS CONSTITUTIONAL: ANY RECENT FEVER NO . CHILLS NO . WEIGHT CHANGE OF UNKNOWN REASONS NO . GASTROENTEROLOGY: NEW UNEXPLAINABLE CHANGES IN BOWEL CONTROL NO . CONSTIPATION NO . GENITOURINARY: ANY NEW CHANGE IN BLADDER CONTROL? NO . NEUROLOGY: NEW ONSET DIZZINESS OR NEUROLOGICAL CHANGES NOT MENTIONED NO . NEW NUMBNESS OR PAIN PATTERNS NOT MENTIONED AND PERTINENT TO TODAY'S VISIT NO . CARDIOLOGY: NEW CHEST PRESSURE NO . PATIENT DENIES NO . RESPIRATORY: UNEXPLAINABLE COUGH NO . NEW SHORTNESS OF BREATH NO . VITAL SIGNS WT 185 LBS, WT-KG 83.92 KG, HT 59 IN, BMI 37.36 INDEX, BP 152/81 MM HG, HR 73 /MIN, RR 18 /MIN, TEMP 96.8 F, OXYGEN SAT % 94, SAFE IN ENV? (Y/N) YEST.IVORY GILL. EXAMINATION GENERAL EXAMINATION: GENERALNO ACUTE DISTRESS, WELL NOURISHED AND HYDRATED. PSYCHAPPROPRIATE MOOD AND AFFECT . FACE:UNREMARKABLE. NECK:NO LYMPHADENOPATHY, SUPPLE. LUNGS:CLEAR TO AUSCULTATION BILATERALLY, NO WHEEZES, RHONCHI, RALES. HEART:NO MURMURS, REGULAR RATE AND RHYTHM. MUSCULOSKELETAL:MUSCLE STRENGTH TESTING 4/5 BILATERAL LOWER EXTREMITIES.. LUMBAR:RELATIVELY NONTENDER WITH PHYSICAL EXAM. SPECIFIC POINT TENDERNESS NOTED OVER L4-5, L5-S1 WITH FACET LOADING.. NEUROLOGIC EXAM:NORMAL SENSATION TO LIGHT TOUCH LOWER EXTREMITIES.. DIAGNOSTIC TESTS REVIEWEDMRI LS SPINE 09/16/2020.. ASSESSMENTS LUMBOSACRAL SPONDYLOSIS - M47.817 (PRIMARY) TREATMENT LUMBOSACRAL SPONDYLOSIS NOTES: BILATERAL THERAPEUTIC LUMBAR FACET BLOCK L4-5,L5-S1 PRINTED AND REVIEWED PRE PROCDURE INFORMATION, PATIENT VERBALIZED UNDERSTANDING CASEY MEDEROS PROCEDURE CODES FA211 ESTABILISHED PATIENT [facility] CHARGE DISPOSITION & COMMUNICATION FOLLOW UP POST (REASON: BILATERAL THERAPEUTIC LUMBAR FACET BLOCK L4-5,L5-S1) ELECTRONICALLY SIGNED BY SUSAN WIGGINS ON 11/24/2020 AT 10:17 AM EDT DISCLAIMER : THIS IS A VISIT SUMMARY EXTRACTED FROM THE [employer] CHART. IT IS NOT A COPY OF THE [employer] PROGRESS NOTE. EKATERINA
== END ==
LOC: M PAIN 13:00
PROVIDERS: ATTEND Nurse Practitioner Family
DX: M47.817 Spondylosis without myelopathy or radiculopathy, lumbosacral region (principal); G89.29 Other chronic pain; E03.9 Hypothyroidism, unspecified; Z86.14 Personal history of Methicillin resistant Staphylococcus aureus infection; Z86.59 Personal history of other mental and behavioral disorders; Z96.651 Presence of right artificial knee joint; Z87.891 Personal history of nicotine dependence; Z88.5 Allergy status to narcotic agent; Z79.82 Long term (current) use of aspirin; Z79.899 Other long term (current) drug therapy

== ENCOUNTER → 2020-12-10 | Outpatient (CLI) | payer MEDICARE | LOC: M LABSMTC 09:40 | PROVIDERS: ATTEND Anesthesiology | DX: Z20.822 Contact with and (suspected) exposure to COVID-19 (principal) ==

== ENCOUNTER → 2020-12-13 | Outpatient (CLI) | payer MEDICARE ==
--- NOTE | 2020-12-13 10:43 | REP ---
INDICATION: GAIT ABN/ MRI FIRST COMPARISON: None. TECHNIQUE: AP and lateral views of the thoracic spine. FINDINGS: Diffuse osteopenia, and chronic dextroconvex scoliosis. Chronic compression deformities at T12 and L1 with approximately 50% and 65% loss of vertebral body height respectively are identified and appear progressive as compared with prior CT examinations of the lumbar spine and abdomen/pelvis. IMPRESSION: Diffuse osteopenia and advanced degenerative changes. Compression deformities at T12 and L1 appear slightly progressive as compared with most recent CT of the lumbar spine dated 11/13/2020. <Electronically signed by Humble Mckinley > 12/13/20 1030
--- NOTE | 2020-12-13 10:53 | REP ---
INDICATION: GAIT ABN/ MRI FIRST COMPARISON: Correlation with CT dated 11/13/2020 TECHNIQUE: AP and lateral views of the lumbar spine. FINDINGS: Osteopenia, chronic scoliosis, and advanced multilevel degenerative spondylosis noted throughout the visualized lower thoracic and lumbosacral spine. Lateral view best demonstrates compression deformities at T12 and L1 with approximately 50% and 65% loss of vertebral body height, respectively which may be slightly progressive as compared with recent CT. IMPRESSION: Osteopenia and advanced degenerative changes. Nonacute compression deformities at T12 and L1. <Electronically signed by Humble Mckinley > 12/13/20 [id number]
--- NOTE | 2020-12-13 12:20 | REPVR ---
PROCEDURE INFORMATION: Exam: MR Cervical Spine Without Contrast Exam date and time: 12/13/2020 10:31 AM Age: 80 years old Clinical indication: Patient HX: Neck pain, unbalanced gait; Additional info: Gait abn TECHNIQUE: Imaging protocol: Multiplanar magnetic resonance images of the cervical spine without contrast. COMPARISON: US Duplex,carotid (complete) 06/05/2019 3:13 PM FINDINGS: Study is degraded by patient motion artifact. There is straightening of the normal cervical lordosis. There is 6 mm of anterolisthesis at C7-T1. No compression fractures. Severe degenerative disc disease from C2 through T1 without significant endplate edema. Within constraints of motion artifact, the cervical spinal cord has normal signal intensity. Posterior disc osteophyte complexes are present at every level throughout the cervical spine. At C2-C3, there is mild spinal canal narrowing. Moderate right and mild left neural foraminal narrowing. At C3-C4, there is moderate spinal canal narrowing. Moderate to severe bilateral neural foraminal narrowing. At C4-C5, there is severe spinal canal stenosis. Severe left and moderate to severe right neural foraminal narrowing. At C5-C6, there is mild spinal canal narrowing. Moderate bilateral neural foraminal narrowing. At C6-C7, there is mild spinal canal narrowing. Mild bilateral neural foraminal narrowing. At C7-T1, spondylolisthesis contributes to moderate spinal canal narrowing. There is likely moderate bilateral neural foraminal narrowing, assessment degraded by motion. IMPRESSION: Multilevel cervical spine degenerative change most pronounced at C4-C5 with severe spinal canal stenosis, and with moderate spinal canal narrowing at C3-C4. Grade 2 anterolisthesis at C7-T1 likely secondary to severe multilevel facet arthrosis. Electronically signed by: Garrett Correia On 12/13/2020 12:19:51 PM
--- NOTE | 2020-12-13 12:25 | REPVR ---
PROCEDURE INFORMATION: Exam: MR Thoracic Spine Without Contrast Exam date and time: 12/13/2020 10:31 AM Age: 80 years old Clinical indication: Pain in thoracic intervertebral disc disorder; Without myelpathy or radiculopathy; Patient HX: Neck pain, unbalanced gait; Additional info: Gait abn TECHNIQUE: Imaging protocol: Multiplanar magnetic resonance images of the thoracic spine without contrast. COMPARISON: CT Spine, lumbar w/o contrast 11/13/2020 1:52 PM FINDINGS: Study is degraded by patient motion artifact. There is straightening of the normal thoracic kyphosis. There is grade 2 anterolisthesis at C7-T1. Compression fractures at T12 and L1 are old, without associated marrow edema. Moderate degenerative disc disease from T1 through T3 and again from T11 through the imaged lumbar spine, without significant endplate marrow edema. Within constraints of motion artifact, the thoracic spinal cord has normal signal intensity. Multilevel degenerative change with mild spinal canal narrowing at multiple levels, most conspicuous at T1-T2, T2-T3, T7-T8, T10-T11, T11-T12, and T12-L1. There is no moderate or severe spinal canal stenosis. Within constraints of motion artifact, there is no convincing severe neural foraminal narrowing. IMPRESSION: Motion degraded study with multilevel degenerative change and old compression fractures as described above. No convincing moderate or severe thoracic spinal canal stenosis nor spinal cord abnormality. Electronically signed by: Garrett Correia On 12/13/2020 12:25:07 PM
== END ==
LOC: M RAD 08:36
PROVIDERS: ATTEND Neurological Surgery
DX: R26.9 Unspecified abnormalities of gait and mobility (principal)

== ENCOUNTER → 2020-12-14 | Outpatient (CLI) | payer MEDICARE ==
[~2020-12-14] MED LIST changes: +BUPIVACAINE HCL 0.25% 30ML VIAL As Ordered ONE; +ISOVUE-M 300 61% 15ML VIAL As Ordered ONE; +LIDOCAINE 1% SDV 30ML VIAL As Ordered ONE
--- NOTE | 2020-12-14 18:00 | REP ---
INDICATION: BILATERAL DIAGNOSTIC LUMBAR FACET #1. COMPARISON: None. TECHNIQUE: Intraoperative fluoroscopic imaging using portable C-arm technique. FINDINGS: Images demonstrate catheters and contrast overlying lumbar facet joints consistent with facet block. Total fluoroscopic time 45.8 seconds. IMPRESSION: Images consistent with lumbar facet block. <Electronically signed by Humble Mckinley > 12/14/20 1778
--- NOTE | 2020-12-20 23:17 | ECWPNPC ---
PATIENT NAME: JOHN MCCARTHY : 1940 GENDER: FEMALE VISIT DATE: 12/14/2020 DISCHARGE DATE: 12/14/201735 VISIT LOCKED DATE TIME: PHYSICIAN: REGINALD DIEHL MD RESOURCE: REGINALD DIEHL MD REASON FOR APPOINTMENT 1. BILATERAL DIAGNOSTIC LUMBAR FACET BLOCK L4-L5, L5-S1 HISTORY OF PRESENT ILLNESS GENERAL: -. FALL RISK SCREENING: SCREENING : 3 FALLS REPORTED IN THE LAST YEAR - LAST FALL 12/10/20, HIT HEAR, DID NOT LOSE CONSCIOUSNESS. PAIN SCREENING: PATIENT HAS A COMPLAINT OF ACUTE OR CHRONIC PAIN :YES LOCATION OF PAIN:LOW BACK INTENSITY OF PAIN (SCALE OF 1 TO 10):9 WHAT DOES YOUR PAIN FEEL LIKE:ACHING, THROBBING DURATION:CONTINOUS, CONSTANT, ALL DAY PAIN IS INCREASED BY:ACTIVITIES, PROLONGED STANDING PAIN IS DECREASED BY:OTHERS LAYING DOWN NURSING NOTE: -SEVERAL IV ATTEMPTS WITHOUT SUCCESS. WILL ASK DR DIEHL IF WE SHOULD GO FORWARD WITH PROCEDURE WITHOUT AN IV ACCESS WE ARE SKIPPING HER AND GOING FORWARD WITH NEXT SCHEDULED PROCEDURE TO KEEP THE PROCEDURE ROOMS MOVING. PAIN CENTER INTAKE QUESTIONS: DO YOU HAVE A HISTORY OF MRSA? :NO DO YOU TAKE A BLOOD THINNERS? :NO DO YOU HAVE ANY BLEEDING DISORDERS? :NO ANY NEW NUMBNESS OR WEAKNESS IN YOUR LEGS OR ARMS? :YES NUMBNESS/TINGLING BILATERAL FEET ANY PACEMAKER,DEFIBRILLATOR, OR DORSAL COLUMN STIMULATOR? :NO DO YOU HAVE ANY RASHES OR OPEN SORES? :YES FEW MOSQUITO BITES ARE YOU ALLERGIC TO IV DYE? :NO ARE YOU DIABETIC? :NO ANY NEW PROBLEMS WITH YOUR MEDICATIONS? :NO HAVE YOU RECEIVED A VACCINE IN THE PAST 30 DAYS? :NO DO YOU PLAN TO RECEIVE A VACCINE IN THE NEXT 21 DAYS? :NO DO YOU TAKE ANY IMMUNOSUPPRESSIVE MEDICATIONS? :NO ANY HISTORY OF SEIZURES? :NO ANY HISTORY OF CARDIAC ISSUES OR EVENTS? :NO DO YOU HAVE ANY KIDNEY OR LIVER DISEASE? :NO DO YOU HAVE SLEEP APNEA? :NO ANY RECENT HEAD INJURY? :NO DO YOU HAVE ANY NEW INFECTIONS? :NO IS THERE A CHANCE YOU COULD BE ? :NO ARE YOU BREAST FEEDING? :NO WHEN DID YOU LAST EAT? : -LAST NIGHT WHEN DID YOU LAST DRINK? : -THIS MORNING WHAT DID YOU LAST DRINK? : -WATER NAME OF PERSON DRIVING YOU HOME? : WHO IS WITH PATIENT DO YOU HAVE ANY OTHER QUESTIONS OR CONCERNS? : - CURRENT MEDICATIONS TAKING ASPIRIN 81 MG TABLET 1 TABLET ORALLY ONCE A DAY TAKING LEVOTHYROXINE SODIUM 112 MCG TABLET 1 TABLET ORALLY ONCE A DAY TAKING SEROQUEL 200 MG TABLET 1 TABLET AT BEDTIME ORALLY ONCE A DAY, NOTES: 200MG AT NIGHT TAKING ATORVASTATIN CALCIUM 10 MG TABLET 1 TABLET ORALLY ONCE A DAY TAKING NORTRIPTYLINE HCL 50 MG CAPSULE 2 CAPSULE ORALLY ONCE A DAY TAKING COLACE 100 MG CAPSULE 1 CAPSULE NEEDED ORALLY ONCE A DAY TAKING LYRICA 100 MG CAPSULE 3 CAPSULE ORALLY 1 CAP IN AM AND 1 CAP IN AFTERNOON, 1 CAP AT NIGHT TAKING TOVIAZ 8 MG TABLET EXTENDED RELEASE 24 HOUR 1 TABLET ORALLY ONCE A DAY TAKING FUROSEMIDE 20 MG TABLET 1 TABLET ORALLY ONCE A DAY NEEDED NOT-TAKING NEURONTIN 300 MG CAPSULE ORALLY BID NOT-TAKING PRAMIPEXOLE DIHYDROCHLORIDE 0.75 MG TABLET 1 TABLET BEFORE BEDTIME ORALLY ONCE A DAY NOT-TAKING TAMSULOSIN HCL 0.4 MG CAPSULE 1 CAPSULE ORALLY BID NOT-TAKING NYSTATIN 147719 UNIT/GM POWDER 1 APPLICATION EXTERNALLY TWICE A DAY TO ABDOMEN NOT-TAKING GABAPENTIN 100 MG CAPSULE 1 CAPSULE ORALLY ONCE A DAY NOT-TAKING VITAMIN B6 50 MG TABLET 1 TABLET ORALLY NOT-TAKING MULTIVITAMINS TABLET ORALLY NOT-TAKING FLOMAX 0.4 MG CAPSULE 1 CAPSULE ORALLY ONCE A DAY NOT-TAKING OXYBUTYNIN CHLORIDE 5 MG TABLET 1 TABLET ORALLY TWICE A DAY NOT-TAKING LIDOCAINE HCL JELLY SHELTER 2 % JELLY 5 ML1 APPLICATION TO AFFECTED AREA NEEDED INTRAVESICALLY TIME AT CYSTOSCOPY NOT-TAKING LIDOCAINE HCL JELLY SHELTER 2 % JELLY 5 ML1 APPLICATION TO AFFECTED AREA NEEDED INTRAVESICALLY TIME AT CYSTOSCOPY NOT-TAKING MIRTAZAPINE 45 MG TABLET TAKE ONE TABLET BY MOUTH AT BEDTIME ORAL NOT-TAKING CIPRO 500 MG TABLET 1 TABLET ORALLY DIRECTED- 1 HOUR BEFORE CYSTO NOT-TAKING MYRBETRIQ 50 MG TABLET EXTENDED RELEASE 24 HOUR 1 TABLET ORALLY ONCE A DAY NOT-TAKING CALCIUM + D 600-200 MG-UNIT TABLET 1 TABLET WITH FOOD ORALLY ONCE A DAY NOT-TAKING CLONAZEPAM 1 MG TABLET 1 TABLET ORALLY TWICE A DAY NOT-TAKING CYMBALTA 60 MG CAPSULE DELAYED RELEASE PARTICLES 1 CAPSULE ORALLY ONCE A DAY NOT-TAKING ABILIFY 2 MG TABLET 1 TABLET ORALLY ONCE A DAY NOT-TAKING LIDOCAINE HCL JELLY SHELTER 2 % JELLY 1 APPLICATION TO AFFECTED AREA NEEDED INTRAVESICALLY PRIOR TO PROCEDURE NOT-TAKING CIPRO 500 MG TABLET 1 TABLET ORALLY TWICE A DAY NOT-TAKING LIDOCAINE HCL JELLY SHELTER 2 % JELLY 5 ML1 APPLICATION TO AFFECTED AREA NEEDED INTRAVESICALLY TIME AT CYSTOSCOPY NOT-TAKING KEFLEX 500 MG CAPSULE 1 CAPSULE ORALLY TWICE A DAY NOT-TAKING PERCOCET 5-325 MG TABLET 1 TABLET NEEDED ORALLY EVERY 4 HRS NEEDED FOR PAIN NOT-TAKING CIPRO 500 MG TABLET 1 TABLET ORALLY DIRECTED NOT-TAKING MORPHINE SULFATE 15 MG TABLET 1 TABLET NEEDED ORALLY TWICE DAILY NOT-TAKING QUETIAPINE FUMARATE 100 MG TABLET 1 TABLET AT BEDTIME ORALLY ONCE A DAY NOT-TAKING NORTRIPTYLINE HCL 75 MG CAPSULE 1 CAPSULE ORALLY ONCE A DAY MEDICATION LIST REVIEWED AND RECONCILED WITH THE PATIENT PAST MEDICAL HISTORY HYPERLIPIDEMIA HYPOTHYROIDISM 5 PELVIC FX HEEL FX, RIGHT THUMB FX, RIGHT DEPRESSION VITAMIN D DEFICIENCY HX OF BLADDER CANCER URGE INCONTINENCE ANXIETY ARTHRITIS PSYCHIATRIC DIAGNOSIS THRYROID DISEASE ALLERGIES CODEINE PHOSPHATE (FOR ALLERGIES USE ONLY): NAUSEA/VOMITING - SIDE EFFECTS OXYCODONE HCL: NAUSEA/VOMITING - SIDE EFFECTS SURGICAL HISTORY RIGHT KNEE REPLACEMENT 2013 THYROID NODULES REMOVED 50 YEAR AGO CATARACT SURGERY BILATERAL TURBT 06/30/14 PELVIC SURGERY TO REPAIR NON HEALING FX WITH BRIDGE WORK SCREWS IN PLACE 12/05/14 CYSTOSCOPY 05/18/2018 CYSTOSCOPY 06/19/19 CYSTOSCOPY 06/03/20 SPINE SURG- NOT SURE TUMOR EXCISION HERNIA SURG 2020 SOCIAL HISTORY GENERAL: TOBACCO USE ARE YOU A:FORMER SMOKER HOW LONG HAS IT BEEN SINCE YOU LAST SMOKED?> 10 YEARS LATEX QUESTIONNAIRE LATEX ALLERGY : HAVE YOU EVER DEVELOPED ANY TYPE OF REACTION AFTER HANDLING LATEX PRODUCTS SUCH RUBBER GLOVES, CONDOMS, DIAPHRAGMS, BALLOONS, SOCKS, OR UNDERWEAR?NO LATEX ALLERGY : HAVE YOU EVER DEVELOPED ANY TYPE OF REACTION DURING OR AFTER DENTAL APPOINTMENT, VAGINAL/RECTAL EXAMINATION, SURGICAL PROCEDURE, OR ANY OTHER EXPOSURE?NO LATEX RISK : HAVE YOU EVER HAD ANY DIFFICULTY BREATHING OR HIVES AFTER EATING OR HANDLING ANY FRUITS, OR VEGETABLES; SUCH KIWI, BANANAS, STONE FRUITS, OR CHESTNUTSNO LATEX RISK : DO YOU HAVE A PREVIOUS PERSONAL HISTORY OF MORE THAN NINE SURGERIES, SPINA BIFIDA, OR REPEATED CATHERIZATIONS? NO LATEX RISK : ARE YOU FREQUENTLY EXPOSED TO LATEX PRODUCTS IN YOUR OCCUPATION?NO DATE ASKED : 11/23/2020 ALCOHOL USE: YES, A GLASS A WINE EVERY DAY. ALCOHOL SCREENING POINTS: 2, INTERPRETATION: NEGATIVE. RECREATIONAL DRUG USE DENIES. CAFFEINE 2-5/DAY. SEXUAL HX HAD SEX IN THE LAST 12 MONTHS (VAGINAL, ORAL, OR ANAL)?NO HAVE YOU EVER HAD AN STD?NO LMP:POST MENOPAUSE MORAVIAN NO JUDAISM BELIEFS THAT WOULD IMPACT HEALTH CARE. LANGUAGE TURKS AND [place]ER. LEARNING BARRIERS / SPECIAL NEEDS CHANGE FROM LAST VISIT?NO BARRIERS TO LEARNING?NO HEARING IMPAIRED?NO VISION IMPAIRED?YES : PT HAS VISION ISSUES COGNITIVELY IMPAIRED?YES READINESS TO LEARN?YES LEARNING PREFERENCES?NO LEARNING CAPABILITIES PRESENT?YES EMOTIONAL BARRIERS?NO SPECIAL DEVICES?YES :CANE, WALKER, WHEELCHAIR PEOPLESOFT ADMINISTRATOR NEEDED?YES DOMESTIC VIOLENCE NONE. OCCUPATION: HOUSE . DIET: REGULAR. EXERCISE: NO REGULAR EXERCISE. MARITAL STATUS: . HOSPITALIZATION/MAJOR DIAGNOSTIC PROCEDURE SURGICALY RELATED BROKEN PELVIS UTI/ BROKEN RIB 05/2019 VITAL SIGNS WT 180.4 LBS, WT-KG 81.83 KG, HT 59 IN, BMI 36.43 INDEX, BP 131/61 MM HG, HR 63 /MIN, RR 18 /MIN, TEMP 97.9 F, OXYGEN SAT % 96%, NA INITIALS AW 1307, REVIEWED BY: KG. EXAMINATION GENERAL EXAMINATION: THE PATIENT IS ALERT, ORIENTED TIMES THREE AND COOPERATIVE. LUNGS ARE CLEAR TO AUSCULTATION. HEART SHOWS REGULAR RHYTHM, NO MURMURS AND NO GALLOPS. ASSESSMENTS SPONDYLOSIS WITHOUT MYELOPATHY OR RADICULOPATHY, LUMBAR REGION - M47.816 SPONDYLOSIS WITHOUT MYELOPATHY OR RADICULOPATHY, LUMBOSACRAL REGION - M47.817 TREATMENT SPONDYLOSIS WITHOUT MYELOPATHY OR RADICULOPATHY, LUMBAR REGION [facility] FACET BLOCK (PAIN)[id number] SALINE [id number],KAREN 12/14/2020 3:15:55 PM > 1ST ATEMPT RIGHT AC NOBLE FUENTES RN 2ND AND 3RD ATTEMPT RIGHT HAND LEFT AC UNSUCCESSFUL Haroon DIAZ RN 4TH ATTEMPT LEFT AC Joselyn HOOPER RN UNSUCCESSFUL 5TH ATTEMPT RIGHT HAND Joselyn HUSSEIN RN UNSUCCESSFUL 6TH ATTEMPT BY Jeanne WOODWARD RN RIGHT AC SUCCESSFUL GEOVANNI HUNTER 12/14/2020 5:48:22 PM > IV WAS NOT SUCCESSFUL WE DID NOT OBTAIN AN IV AND DR DIEHL IS FINE WITH MOVING FORWARD WITH PROCEDURE. COMPLETION OF PROCEDURAL VISIT WHEN MEETS [id number],KAREN 12/14/2020 5:59:09 PM > CRITERIA MET OTHERS CLINICAL NOTES: PAT ATTEMPTED, PATIENT'S VOICEMAIL STATES "ROSALIO IS DOUGLAS". MESSAGE NOT LEFT TO AVOID WRONG NUMBER INCIDENT. -Haroon DIAZ RN PAT ATTEMPTED, NO ANSWER LEFT MESSAGE WITH CALL BACK NUMBER. Hernan HICKMAN DUNGEON MASTER 12/10/20 1650. 12/11/20 1208 PAT COMPLETED. Jeanne WOODWARD RN. PROCEDURES PAIN NURSING RECORD PROCEDURE IN ROOM 1430, PHYSICIAN IN ROOM 1642, START 1647, FINISH 1655, PHYSICIAN OUT OF ROOM 1656, OUT OF ROOM 1703, ECG NORMAL SINUS, PATIENT SHIELDED YES, SAFETY STRAP YES, PREP CHLOROPREP, DRESSING TEGADERM DR. DIEHL LOC: 1. ALERT, ORIENTED GEOVANNI HUNTER 12/14/2020 4:37:19 PM > RESP: 1. REGULAR, NO DYSPNEA GEOVANNI HUNTER 12/14/2020 4:37:24 PM > COLOR: 1. PINK GEOVANNI HUNTER 12/14/2020 4:37:29 PM > SKIN: 1. WARM, DRY GEOVANNI HUNTER 12/14/2020 4:37:33 PM > POSITION: 1. PRONE GEOVANNI HUNTER 12/14/2020 4:37:39 PM > VITALS: 1430 151/69 62 97% ON RA 18 RESP 1645 158/65 60 98% ON RA 18 RESP 1700 148/62 62 97% ON RA 18 RESP POST PROCEDURE 126/54 60 98%ON RA 18 RESP NOTES Darren HUNTER RN TOTAL FLORO USED 45 SECONDS POST PROCEDURE PT WAS DOING VERY WELL I EXPLAINED THE PAIN DIARY THOROUGHLY AND TO HER . INSTRUCTED HER TO TRACK HER PAIN UNTIL SHE GOES TO BED AND TO BE SURE TO BRING THE DIARY TO HER NEXT SCHEDULED FOLLOW UP APPT. COMPLETION OF PROCEDURE APPOINTMENT: POST PAIN 1, DRESSING SITE DRY AND INTACT, IV N/A, GAIT STEADY, TEACHING COMPLETED, PATIENT ACKNOWLEDGES UNDERSTANDING YES, PROCEDURE APPOINTMENT COMPLETED AT 1730 PN LUMBAR FACET BLOCK DIAGNOSTIC PRE PROCEDURE DIAGNOSIS LUMBAR SPONDYLOSIS, LUMBOSACRAL SPONDYLOSIS POST PROCEDURE DIAGNOSIS LUMBAR SPONDYLOSIS, LUMBOSACRAL SPONDYLOSIS PROCEDURE BILATERAL L4-L5 AND BILATERAL L5-S1 FACET BLOCK DIAGNOSTIC NUMBER [address] REGINALD DIEHL BOBBIN CLEANER NONE ANESTHESIA LOCAL PRE PROCEDURE NOTE THE PATIENT WITH HISTORY OF CHRONIC LOW BACK PAIN. I EVALUATED THE PATIENT AND REVIEWED THE CHART. I WENT OVER THE RISKS, ALTERNATIVES, AND BENEFITS ASSOCIATED WITH THIS PROCEDURE. THE PATIENT WOULD LIKE TO PROCEED AND GAVE CONSENT TO PERFORM THE PROCEDURE. AGREED WITH THE PATIENT, WE ARE DOING THIS PROCEDURE TO DETERMINE IF THE PATIENT IS A CANDIDATE FOR A RADIOFREQUENCY ABLATION OF THE FACETS JOINTS. THE PATIENT DENIES UNEXPLAINABLE WEIGHT LOSS, FEVER, CHILLS, OR NEW CHANGES IN URINARY OR BOWEL CONTROL. THE PATIENT IS COVID-19 NEGATIVE DESCRIPTION OF PROCEDURE THE PATIENT WAS BROUGHT TO THE PROCEDURE ROOM AND PLACED IN THE PRONE POSITION. THE LUMBOSACRAL AREA WAS CLEANED WITH CHLORAPREP SOLUTION AND DRAPED ASEPTICALLY. THE PROCEDURE WAS DONE UNDER STERILE CONDITIONS. A TIMEOUT WAS PERFORMED WHERE THE CONSENTED SITE WAS VERIFIED WITH EVERYONE IN THE ROOM. UNDER FLUOROSCOPIC GUIDANCE, TARGETS WERE SELECTED AT THE INTERSECTION OF THE RIGHT AND LEFT TRANSVERSE PROCESS OF L4, L5 AND ALA OF S1 WITH ITS RESPECTIVE SUPERIOR ARTICULAR PROCESS WITH A TARGET OF THE MEDIAN BRANCHES OF L3, L4 AND THE DORSAL RAMI OF L5. I CONFIRMED AGAIN THE SITE OF TARGET. LIDOCAINE WAS USED TO NUMB THE SKIN AND THE SUBCUTANEOUS TISSUE BELOW IT. SPINAL NEEDLE, 22-GAUGE, WAS ADVANCED UNDER FLUOROSCOPIC GUIDANCE AND FOLLOWING PATIENT FEEDBACK UNTIL THE TARGETS WERE REACHED. POSITION OF THE NEEDLES WAS VERIFIED WITH AP AND LATERAL VIEWS. AFTER PROPER POSITION OF THE NEEDLES WAS ACHIEVED, ISOVUE-M DYE 30%, 0.1 ML, WAS INJECTED AT EACH SITE SHOWING ADEQUATE SPREAD OF THE DYE. THEN, A SOLUTION OF 0.4 ML OF BUPIVACAINE 0.25% WAS INJECTED AT EACH SITE. THE MEDICATIONS WERE VERIFIED WITH THE NURSE. THERE WAS NO EVIDENCE OF BLOOD, PARESTHESIA OR CEREBROSPINAL FLUID DURING THE PROCEDURE. THE PATIENT WAS SENT TO THE RECOVERY ROOM. THE PATIENT WAS MOVING THE EXTREMITIES AND DOING WELL. THERE WERE NO COMPLICATIONS DURING THE PROCEDURE. ESTIMATED BLOOD LOSS WAS LESS THAN 5 ML. FLUOROSCOPY TIME WAS 45 SECONDS POST PROCEDURE NOTE THE PATIENT WILL DOCUMENT THE PAIN LEVEL AND RESPONSE TO THIS PROCEDURE PER PAIN DIARY. THE PATIENT WILL BE SEEN IN A FOLLOW UP IN THE NEXT FEW WEEKS. FURTHER DETERMINATION FOR THE PATIENT'S CASE WILL BE DONE AT THE NEXT VISIT. INSTRUCTIONS WERE GIVEN, QUESTIONS WERE ANSWERED, AND THE PATIENT EXPRESSED UNDERSTANDING AND AGREED WITH THE PLAN. I, MEGAN BALTAZAR, DOCUMENTED THE ABOVE INFORMATION ACTING A SCRIBE FOR DR. DIEHL. I HAVE REVIEWED THE ABOVE DOCUMENT, WRITTEN BY MEGAN BALTAZAR, POWER TOOL REPAIRER, AND I VERIFY THAT IT IS ACCURATE VISIT CODES PROCEDURE CODES 13737 INJ PARAVERT F JNT L/S 1 LEV [id number] INJ PARAVERT F JNT L/S 2 LEV DISPOSITION & COMMUNICATION FOLLOW UP FOLLOW UP WITH DESCRIPTIVE CATALOG LIBRARIAN (REASON: POST BILATERAL DIAGNOSTIC LUMBAR FACET BLOCK L4-L5, L5-S1) ELECTRONICALLY SIGNED BY RGEINALD DIEHL MD, MD ON 12/20/2020 AT 09:17 PM EDT DISCLAIMER : THIS IS A VISIT SUMMARY EXTRACTED FROM THE [employer] CHART. IT IS NOT A COPY OF THE [employer] PROGRESS NOTE. EKATERINA
== END ==
LOC: M PAIN 13:00
PROVIDERS: ATTEND Anesthesiology
DX: M47.816 Spondylosis without myelopathy or radiculopathy, lumbar region (principal); M47.817 Spondylosis without myelopathy or radiculopathy, lumbosacral region; E03.9 Hypothyroidism, unspecified; Z86.59 Personal history of other mental and behavioral disorders; Z96.651 Presence of right artificial knee joint; Z87.891 Personal history of nicotine dependence; Z88.5 Allergy status to narcotic agent; Z79.82 Long term (current) use of aspirin; Z79.899 Other long term (current) drug therapy
CPT/HCPCS: 64493; 64494; Q9967

== ENCOUNTER → 2020-12-16 | Outpatient (CLI) | payer MEDICARE ==
[~2020-12-16] MED LIST changes: -BUPIVACAINE HCL 0.25% 30ML VIAL As Ordered ONE; -ISOVUE-M 300 61% 15ML VIAL As Ordered ONE; -LIDOCAINE 1% SDV 30ML VIAL As Ordered ONE
== END ==
LOC: M PAIN 14:15
PROVIDERS: ATTEND Anesthesiology
DX: M47.816 Spondylosis without myelopathy or radiculopathy, lumbar region (principal); M47.817 Spondylosis without myelopathy or radiculopathy, lumbosacral region; G89.29 Other chronic pain; E03.9 Hypothyroidism, unspecified; Z86.59 Personal history of other mental and behavioral disorders; Z87.891 Personal history of nicotine dependence; Z88.5 Allergy status to narcotic agent; Z79.82 Long term (current) use of aspirin; Z79.899 Other long term (current) drug therapy

== ENCOUNTER → 2021-01-07 | Outpatient (CLI) | payer MEDICARE | LOC: M LABSMTC 09:37 | PROVIDERS: ATTEND Anesthesiology | DX: Z20.822 Contact with and (suspected) exposure to COVID-19 (principal) ==

== ENCOUNTER → 2021-02-18 | Outpatient (CLI) | payer MEDICARE | LOC: M LABSMTC 10:03 | DX: Z20.822 Contact with and (suspected) exposure to COVID-19 (principal) ==

== ENCOUNTER → 2021-04-16 | Outpatient (CLI) | payer MEDICARE ==
[~2021-04-16] MED LIST changes: +PARO25TA5 PO; -PARO25TA8 PO
== END ==
LOC: M LABSMTC 09:33
PROVIDERS: ATTEND Anesthesiology Pain Medicine
DX: Z20.828 Contact with and (suspected) exposure to other viral communicable diseases (principal); Z11.52 Encounter for screening for COVID-19

== ENCOUNTER → 2021-06-22 | Outpatient (REF) | payer MEDICARE ==
[2021-06-22 12:38] LABS: BASO # 0.1 10^3/uL (0.0-0.2); BASO % 2.3 % (0.0-1.0); EOS # 0.5 10^3/uL (0.0-0.5); EOS % 10.7 % (0.0-3.0); HEMATOCRIT 45.5 % (36.0-47.0); HEMOGLOBIN 14.5 g/dl (12.0-15.5); LYMPH # 1.3 10^3/uL (1.5-5.0); LYMPH % 28.5 % (24.0-44.0); MEAN CORPUSCULAR HEMOGLOBIN 29.5 pg (27.0-33.0); MEAN CORPUSCULAR HGB CONC 31.9 g/dl (32.0-36.5); MEAN CORPUSCULAR VOLUME 92.5 fl (80.0-96.0); MONO # 0.5 10^3/uL (0.0-0.8); MONO % 12.1 % (2.0-8.0); NEUTROPHILS % 45.3 % (36.0-66.0); PLATELET COUNT, AUTOMATED 268 10^3/uL (150-450); RED BLOOD COUNT 4.92 10^6/uL (4.00-5.40); WHITE BLOOD COUNT 4.4 10^3/uL (4.0-10.0)
[2021-06-22 14:08] LABS: ALBUMIN 3.4 GM/DL (3.2-5.2); ALT/SGPT 22 U/L (12-78); BILIRUBIN,TOTAL 0.6 MG/DL (0.2-1.0); BLOOD UREA NITROGEN 15 MG/DL (7-18); CALCIUM LEVEL 9.1 MG/DL (8.8-10.2); CARBON DIOXIDE LEVEL 28 MEQ/L (21-32); CHLORIDE LEVEL 108 MEQ/L (98-107); CHOLESTEROL LEVEL 162 MG/DL (<200); CREATININE FOR GFR 0.76 MG/DL (0.55-1.30); GLOMERULAR FILTRATION RATE > 60.0 (>39); GLUCOSE, FASTING 80 MG/DL (70-100); HDL CHOLESTEROL 81 MG/DL (>40); LDL CHOLESTEROL 62 MG/DL (<100); NON-HDL-C 81 MG/DL; NT-PRO BNP 74 PG/ML (<450); POTASSIUM SERUM 4.2 MEQ/L (3.5-5.1); SODIUM LEVEL 143 MEQ/L (136-145); THYROID STIMULATING HORMONE 0.175 uIU/ML (0.358-3.740); TOTAL PROTEIN 6.5 GM/DL (6.4-8.2); TRIGLYCERIDES LEVEL 95 MG/DL (<150)
== END ==
LOC: M LABDRWAD 12:12
PROVIDERS: ATTEND Nurse Practitioner
DX: R60.9 Edema, unspecified (principal); I25.10 Atherosclerotic heart disease of native coronary artery without angina pectoris; R09.89 Other specified symptoms and signs involving the circulatory and respiratory systems

== ENCOUNTER → 2021-11-16 | Outpatient (REF) | payer MEDICARE ==
[2021-11-16 14:43] LABS: APPEARANCE, URINE HAZY (CLEAR); BACTERIA, URINE AUTO 1+ (NEGATIVE); BILIRUBIN, URINE AUTO NEGATIVE (NEGATIVE); BLOOD, URINE BLOOD NEGATIVE (NEGATIVE); COLOR, URINE AMBER (YELLOW); GLUCOSE, URINE (UA) AUTO NEGATIVE (NEGATIVE); KETONE, URINE AUTO TRACE mg/dL (NEGATIVE); LEUKOCYTE ESTERASE, URINE AUTO 3+ (NEGATIVE); MUCUS, URINE SMALL (NEGATIVE); NITRITE, URINE AUTO POSITIVE (NEGATIVE); PROTEIN, URINE AUTO NEGATIVE (NEGATIVE); RBC, URINE AUTO 2 /HPF (0-3); SPECIFIC GRAVITY URINE AUTO 1.016 (1.002-1.035); SQUAMOUS EPITHELIAL CELL UR AU 0 /HPF (0-6); UROBILINOGEN, URINE AUTO 0.2 mg/dL (0.0-2.0); WBC, URINE AUTO 40 /HPF (0-3)
== END ==
LOC: M SMT 13:00
PROVIDERS: ATTEND Urology
DX: Z85.51 Personal history of malignant neoplasm of bladder (principal)

== ENCOUNTER → 2021-12-14 | Outpatient (CLI) | payer MEDICARE | LOC: M WHC 09:42 | PROVIDERS: ATTEND Nurse Practitioner Family | DX: R93.5 Abnormal findings on diagnostic imaging of other abdominal regions, including retroperitoneum (principal) ==

== ENCOUNTER → 2022-02-13 | Outpatient (CLI) | payer MEDICARE | LOC: M LABSMTC 10:45 | PROVIDERS: ATTEND Anesthesiology Pain Medicine | DX: Z01.812 Encounter for preprocedural laboratory examination (principal); Z20.822 Contact with and (suspected) exposure to COVID-19 ==

== ENCOUNTER → 2022-03-20 | Outpatient (CLI) | payer MEDICARE | LOC: M LABSMTC 11:43 | PROVIDERS: ATTEND Anesthesiology Pain Medicine | DX: Z20.828 Contact with and (suspected) exposure to other viral communicable diseases (principal); Z11.59 Encounter for screening for other viral diseases ==

== ENCOUNTER → 2022-06-30 | Outpatient (CLI) | payer MEDICARE ==
[~2022-06-30] MED LIST changes: -BENZ-52 PO; +BENZ1TAB5 PO
[2022-06-30 16:23] LABS: BASO # 0.1 10^3/uL (0.0-0.2); BASO % 1.6 % (0.0-1.0); EOS # 0.6 10^3/uL (0.0-0.5); EOS % 10.5 % (0.0-3.0); HEMATOCRIT 44.9 % (36.0-47.0); HEMOGLOBIN 14.4 g/dl (12.0-15.5); LYMPH # 1.4 10^3/uL (1.5-5.0); LYMPH % 26.1 % (24.0-44.0); MEAN CORPUSCULAR HEMOGLOBIN 30.4 pg (27.0-33.0); MEAN CORPUSCULAR HGB CONC 32.1 g/dl (32.0-36.5); MEAN CORPUSCULAR VOLUME 94.7 fl (80.0-96.0); MONO # 0.6 10^3/uL (0.0-0.8); NEUTROPHILS # 2.8 10^3/uL (1.5-8.5); NEUTROPHILS % 51.1 % (36.0-66.0); PLATELET COUNT, AUTOMATED 212 10^3/uL (150-450); RED BLOOD COUNT 4.74 10^6/uL (4.00-5.40); WHITE BLOOD COUNT 5.5 10^3/uL (4.0-10.0)
[2022-06-30 16:53] LABS: ALBUMIN 3.6 G/DL (3.2-5.2); ALKALINE PHOSPHATASE 94 U/L (46-116); ALT/SGPT 25 U/L (7.0-40); AST/SGOT 26 U/L (<34); BILIRUBIN,TOTAL 0.7 MG/DL (0.3-1.2); BLOOD UREA NITROGEN 18 MG/DL (9-23); CARBON DIOXIDE LEVEL 32 MMOL/L (20-31); CHLORIDE LEVEL 106 MMOL/L (98-107); CHOLESTEROL LEVEL 174 MG/DL (<200); CHOLESTEROL RISK RATIO 2.23 (<5); CREATININE FOR GFR 0.66 MG/DL (0.55-1.30); GLOMERULAR FILTRATION RATE > 60.0 (>39); GLUCOSE, FASTING 86 MG/DL (74-106); HDL CHOLESTEROL 77.8 MG/DL (>40); LDL CHOLESTEROL 84.8 MG/DL (<100); NON-HDL-C 96.2 MG/DL; POTASSIUM SERUM 4.8 MMOL/L (3.5-5.1); SODIUM LEVEL 144 MMOL/L (136-145); TOTAL PROTEIN 6.3 G/DL (5.7-8.2); TRIGLYCERIDES LEVEL 57 MG/DL (<150)
[2022-06-30 16:55] LABS: THYROID STIMULATING HORMONE 4.075 uIU/ML (0.55-4.78)
== END ==
LOC: M LABDRWAD 08:55
PROVIDERS: ATTEND Family Medicine
DX: I25.10 Atherosclerotic heart disease of native coronary artery without angina pectoris (principal); E03.9 Hypothyroidism, unspecified; E78.2 Mixed hyperlipidemia

== ENCOUNTER → 2022-08-26 | Outpatient (REF) | payer MEDICARE ==
[2022-08-26 17:17] LABS: AMORPHOUS SEDIMENT SMALL (NEGATIVE); APPEARANCE, URINE CLOUDY (CLEAR); BACTERIA, URINE AUTO 1+ (NEGATIVE); BILIRUBIN, URINE AUTO NEGATIVE (NEGATIVE); BLOOD, URINE BLOOD NEGATIVE (NEGATIVE); COLOR, URINE AMBER (YELLOW); GLUCOSE, URINE (UA) AUTO NEGATIVE (NEGATIVE); KETONE, URINE AUTO TRACE mg/dL (NEGATIVE); LEUKOCYTE ESTERASE, URINE AUTO 1+ (NEGATIVE); NITRITE, URINE AUTO POSITIVE (NEGATIVE); PROTEIN, URINE AUTO NEGATIVE (NEGATIVE); RBC, URINE AUTO 1 /HPF (0-3); SQUAMOUS EPITHELIAL CELL UR AU 2 /HPF (0-6); WBC, URINE AUTO 10 /HPF (0-3)
== END ==
LOC: M SMT 16:44
PROVIDERS: ATTEND Urology
DX: N32.81 Overactive bladder (principal)

== ENCOUNTER → 2022-10-11 | Outpatient (CLI) | payer MEDICARE ==
[~2022-10-11] MED LIST changes: +FESO8TAB PO; +FURO20TA2 PO; +LEVO88TA3 PO; +PREG150C PO; +TOVI8TAB PO
[2022-10-11 14:33] LABS: BASO # 0.1 10^3/uL (0.0-0.2); BASO % 2.3 % (0.0-1.0); EOS # 0.9 10^3/uL (0.0-0.5); HEMOGLOBIN 13.9 g/dl (12.0-15.5); LYMPH # 1.1 10^3/uL (1.5-5.0); LYMPH % 19.6 % (24.0-44.0); MEAN CORPUSCULAR HGB CONC 33.1 g/dl (32.0-36.5); MEAN CORPUSCULAR VOLUME 93.5 fl (80.0-96.0); MONO # 0.4 10^3/uL (0.0-0.8); MONO % 6.7 % (2.0-8.0); NEUTROPHILS # 3.2 10^3/uL (1.5-8.5); NEUTROPHILS % 55.9 % (36.0-66.0); PLATELET COUNT, AUTOMATED 227 10^3/uL (150-450); RED BLOOD COUNT 4.49 10^6/uL (4.00-5.40); WHITE BLOOD COUNT 5.7 10^3/uL (4.0-10.0)
[2022-10-11 14:34] LABS: AMORPHOUS SEDIMENT MODERATE (NEGATIVE); APPEARANCE, URINE HAZY (CLEAR); BACTERIA, URINE AUTO NEGATIVE (NEGATIVE); BILIRUBIN, URINE AUTO NEGATIVE (NEGATIVE); BLOOD, URINE BLOOD NEGATIVE (NEGATIVE); COLOR, URINE YELLOW (YELLOW); GLUCOSE, URINE (UA) AUTO NEGATIVE (NEGATIVE); KETONE, URINE AUTO NEGATIVE (NEGATIVE); LEUKOCYTE ESTERASE, URINE AUTO NEGATIVE (NEGATIVE); NITRITE, URINE AUTO NEGATIVE (NEGATIVE); PROTEIN, URINE AUTO NEGATIVE (NEGATIVE); RBC, URINE AUTO 0 /HPF (0-3); SPECIFIC GRAVITY URINE AUTO 1.016 (1.002-1.035); SQUAMOUS EPITHELIAL CELL UR AU 11 /HPF (0-6); UROBILINOGEN, URINE AUTO 0.2 mg/dL (0.0-2.0); WBC, URINE AUTO 1 /HPF (0-3)
[2022-10-11 15:09] LABS: ALBUMIN 3.7 G/DL (3.2-5.2); ALKALINE PHOSPHATASE 83 U/L (46-116); ALT/SGPT 25 U/L (7.0-40); AST/SGOT 26 U/L (<34); BILIRUBIN,TOTAL 0.9 MG/DL (0.3-1.2); BLOOD UREA NITROGEN 26 MG/DL (9-23); CARBON DIOXIDE LEVEL 28 MMOL/L (20-31); CHLORIDE LEVEL 104 MMOL/L (98-107); CREATININE FOR GFR 0.65 MG/DL (0.55-1.30); GLOMERULAR FILTRATION RATE > 60.0 (>32); GLUCOSE, FASTING 86 MG/DL (74-106); POTASSIUM SERUM 4.4 MMOL/L (3.5-5.1); SODIUM LEVEL 140 MMOL/L (136-145); THYROID STIMULATING HORMONE 2.246 uIU/ML (0.55-4.78); TOTAL PROTEIN 6.3 G/DL (5.7-8.2)
== END ==
LOC: M ADAMS 08:42
PROVIDERS: ATTEND Family Medicine
DX: I25.10 Atherosclerotic heart disease of native coronary artery without angina pectoris (principal); E03.9 Hypothyroidism, unspecified

== ENCOUNTER → 2022-10-21 | Outpatient (REF) | payer MEDICARE | LOC: M SFHCADAM 15:18 | PROVIDERS: ATTEND Urology | DX: N32.81 Overactive bladder (principal) ==

== ENCOUNTER 2022-11-14 08:06 | Day surgery (SDC) | payer MEDICARE ==
[~2022-11-14] VITALS: Ht 149.9 cm; Wt 80.6 kg
[~2022-11-14 08:06] MED LIST changes: +CEPH500C PO; +DICL100G10 TOP; -DICL1GEL3 TOP; +DULO1CAP5 PO; -GABA-283 PO; +GABA-284 PO; +ceFAZolin SOD 2 GM in IV 1 EA IV ONE
[2022-11-14] MEDS ORDERED: fentaNYL 100 MCG/2 ML INJECTION As Ordered ONE (08:09)
[2022-11-14] MEDS ORDERED: ONDANSETRON 4MG 2ML VIAL As Ordered ONE (08:10)
[2022-11-14] MEDS ORDERED: propofoL 200 MG/20 ML VIAL As Ordered ONE (08:10)
[2022-11-14] MEDS ORDERED: LIDOCAINE 2% 100MG/5ML SDV (FOR ANES.) As Ordered ONE (08:10)
[2022-11-14] MEDS ORDERED: dexmedeTOMIDine (4MCG/ML)200MCG/50ML BTL (PRECEDEX) As Ordered ONE (08:10)
[2022-11-14] MEDS ORDERED: LR 1,000 ML IV SCH (08:30)
[2022-11-14] MEDS ORDERED: ceFAZolin 1GM VIAL As Ordered ONE (11:26)
[2022-11-14] MEDS ORDERED: LIDOCAINE 1% SDV 30ML VIAL As Ordered ONE ×2 (11:26→12:11)
[2022-11-14] MEDS ORDERED: ACETAMINOPHEN 1000MG 100ML IV BAG As Ordered ONE (11:41)
[2022-11-14] MEDS ORDERED: HYDR-3715 PO (12:38)
[2022-11-14] MEDS ORDERED: CEPH500C PO (12:38)
[2022-11-14 14:16] VITALS: BP 134/67; TEMP 97.5; O2SAT 94
== END 2022-11-14 14:20 | disposition home or self-care (01) ==
LOC: M SDC 08:06
PROVIDERS: ATTEND Urology
DX: N32.81 Overactive bladder (principal); E78.5 Hyperlipidemia, unspecified; E03.9 Hypothyroidism, unspecified; E55.9 Vitamin D deficiency, unspecified; Z88.5 Allergy status to narcotic agent; F32.A Depression, unspecified; F41.9 Anxiety disorder, unspecified; Z79.82 Long term (current) use of aspirin; Z79.899 Other long term (current) drug therapy; Z85.51 Personal history of malignant neoplasm of bladder; Z79.890 Hormone replacement therapy; Z87.891 Personal history of nicotine dependence
CPT/HCPCS: 64581; 64590; 76000; C1778; C1897; J0131; J0690; J1100; J2405; J3010

== ENCOUNTER 2023-02-20 06:15 | Day surgery (SDC) | payer MEDICARE ==
[~2023-02-20] VITALS: Ht 152.4 cm; Wt 82.6 kg
[~2023-02-20 06:15] MED LIST changes: +HYDR-3715 PO; -PREG150C PO; +PREG150C2 PO
[2023-02-20] MEDS ORDERED: LR 1,000 ML IV SCH (06:30)
[2023-02-20] MEDS ORDERED: propofoL 200 MG/20 ML VIAL As Ordered ONE (06:57)
[2023-02-20] MEDS ORDERED: ONDANSETRON 4MG 2ML VIAL As Ordered ONE (06:57)
[2023-02-20] MEDS ORDERED: LIDOCAINE 2% 100MG/5ML SDV (FOR ANES.) As Ordered ONE (06:57)
[2023-02-20] MEDS ORDERED: MIDAZOLAM INJ 2MG/2ML VIAL As Ordered ONE (07:01)
[2023-02-20] MEDS ORDERED: fentaNYL 100 MCG/2 ML INJECTION As Ordered ONE (07:01)
[2023-02-20] MEDS ORDERED: LIDOCAINE 1% SDV 30ML VIAL As Ordered ONE (07:11)
[2023-02-20] MEDS ORDERED: ACETAMINOPHEN 1000MG 100ML IV BAG As Ordered ONE (07:38)
[2023-02-20] MEDS ORDERED: HYDR-3713 PO (08:43)
[2023-02-20] MEDS ORDERED: CEPH500C PO (08:43)
[2023-02-20] MEDS ORDERED: NYST10OI TOP (09:09)
[2023-02-20 09:20] VITALS: BP 154/69; TEMP 97.2; O2SAT 92
== END 2023-02-20 09:39 | disposition home or self-care (01) ==
LOC: M SDC 06:15 → EEVIPCON 06:15 → M SDC 09:39
PROVIDERS: ATTEND Urology
DX: R32 Unspecified urinary incontinence (principal); E78.5 Hyperlipidemia, unspecified; E03.9 Hypothyroidism, unspecified; M81.0 Age-related osteoporosis without current pathological fracture; F41.9 Anxiety disorder, unspecified; F32.A Depression, unspecified; Z79.899 Other long term (current) drug therapy; Z88.5 Allergy status to narcotic agent
CPT/HCPCS: 64561; 64585; 76000; 87070; 87075; 87077; 87186; 87205; C1785; C1787; C1897; J0131; J1100; J2250; J2405; J3010

== ENCOUNTER → 2023-03-29 | Outpatient (REF) | payer MEDICARE ==
[~2023-03-29] MED LIST changes: +HYDR-3713 PO; +NYST10OI TOP; -ceFAZolin SOD 2 GM in IV 1 EA IV ONE
[2023-03-29 14:04] LABS: BASO # 0.1 10^3/uL (0.0-0.2); BASO % 2.6 % (0.0-1.0); EOS # 0.5 10^3/uL (0.0-0.5); HEMATOCRIT 43.8 % (36.0-47.0); HEMOGLOBIN 14.1 g/dl (12.0-15.5); MEAN CORPUSCULAR HEMOGLOBIN 30.2 pg (27.0-33.0); MEAN CORPUSCULAR HGB CONC 32.2 g/dl (32.0-36.5); MEAN CORPUSCULAR VOLUME 93.8 fl (80.0-96.0); MONO # 0.3 10^3/uL (0.0-0.8); MONO % 8.1 % (2.0-8.0); NEUTROPHILS # 1.7 10^3/uL (1.5-8.5); NEUTROPHILS % 47.7 % (36.0-66.0); PLATELET COUNT, AUTOMATED 231 10^3/uL (150-450); RED BLOOD COUNT 4.67 10^6/uL (4.00-5.40); WHITE BLOOD COUNT 3.5 10^3/uL (4.0-10.0)
[2023-03-29 14:07] LABS: ALBUMIN 3.5 G/DL (3.2-5.2); ALKALINE PHOSPHATASE 87 U/L (46-116); ALT/SGPT 38 U/L (7.0-40); AST/SGOT 35 U/L (<34); BILIRUBIN,TOTAL 0.8 MG/DL (0.3-1.2); BLOOD UREA NITROGEN 17 MG/DL (9-23); CALCIUM LEVEL 8.8 MG/DL (8.3-10.6); CARBON DIOXIDE LEVEL 34 MMOL/L (20-31); CHLORIDE LEVEL 104 MMOL/L (98-107); CHOLESTEROL LEVEL 182 MG/DL (<200); CHOLESTEROL RISK RATIO 2.11 (<5); CREATININE FOR GFR 0.69 MG/DL (0.55-1.30); GLOMERULAR FILTRATION RATE > 60.0 (>32); GLUCOSE, FASTING 88 MG/DL (74-106); HDL CHOLESTEROL 86.2 MG/DL (>40); LDL CHOLESTEROL 82.6 MG/DL (<100); NON-HDL-C 95.8 MG/DL; POTASSIUM SERUM 4.6 MMOL/L (3.5-5.1); SODIUM LEVEL 141 MMOL/L (136-145); THYROID STIMULATING HORMONE 3.698 uIU/ML (0.55-4.78); TOTAL PROTEIN 6.3 G/DL (5.7-8.2); TRIGLYCERIDES LEVEL 66 MG/DL (<150)
== END ==
LOC: M LABDRWAD 13:02
PROVIDERS: ATTEND Family Medicine
DX: E03.9 Hypothyroidism, unspecified (principal); I65.29 Occlusion and stenosis of unspecified carotid artery; I25.10 Atherosclerotic heart disease of native coronary artery without angina pectoris

== ENCOUNTER → 2023-10-09 | Outpatient (REF) | payer MEDICARE ==
[~2023-10-09] MED LIST changes: -KLON1TAB PO; +KLON1TAB13 PO; +NYST100084 TOP; -NYST10OI TOP
[2023-10-09 13:40] LABS: ALBUMIN 3.8 G/DL (3.2-5.2); ALKALINE PHOSPHATASE 81 U/L (46-116); ALT/SGPT 32 U/L (7.0-40); AST/SGOT 27 U/L (<34); BILIRUBIN,TOTAL 0.8 MG/DL (0.3-1.2); BLOOD UREA NITROGEN 20 MG/DL (9-23); CARBON DIOXIDE LEVEL 32 MMOL/L (20-31); CHLORIDE LEVEL 105 MMOL/L (98-107); CHOLESTEROL LEVEL 156 MG/DL (<200); CHOLESTEROL RISK RATIO 2.09 (<5); CREATININE FOR GFR 0.63 MG/DL (0.55-1.30); GLOMERULAR FILTRATION RATE > 60.0 (>32); GLUCOSE, FASTING 89 MG/DL (74-106); HDL CHOLESTEROL 74.3 MG/DL (>40); LDL CHOLESTEROL 68.9 MG/DL (<100); NON-HDL-C 81.7 MG/DL; POTASSIUM SERUM 4.5 MMOL/L (3.5-5.1); SODIUM LEVEL 140 MMOL/L (136-145); TOTAL PROTEIN 6.2 G/DL (5.7-8.2); TRIGLYCERIDES LEVEL 64 MG/DL (<150)
[2023-10-09 13:42] LABS: THYROID STIMULATING HORMONE 2.008 uIU/ML (0.55-4.78)
[2023-10-09 13:47] LABS: BASO # 0.1 10^3/uL (0.0-0.2); BASO % 1.8 % (0.0-1.0); EOS # 0.2 10^3/uL (0.0-0.5); EOS % 6.3 % (0.0-3.0); HEMATOCRIT 42.8 % (36.0-47.0); LYMPH # 1.1 10^3/uL (1.5-5.0); MEAN CORPUSCULAR HGB CONC 32.7 g/dl (32.0-36.5); MEAN CORPUSCULAR VOLUME 94.9 fl (80.0-96.0); MONO # 0.5 10^3/uL (0.0-0.8); MONO % 12.6 % (2.0-8.0); NEUTROPHILS # 1.9 10^3/uL (1.5-8.5); NEUTROPHILS % 50.5 % (36.0-66.0); PLATELET COUNT, AUTOMATED 210 10^3/uL (150-450); RED BLOOD COUNT 4.51 10^6/uL (4.00-5.40); WHITE BLOOD COUNT 3.8 10^3/uL (4.0-10.0)
== END ==
LOC: M LABDRWAD 12:43
PROVIDERS: ATTEND Family Medicine
DX: I25.10 Atherosclerotic heart disease of native coronary artery without angina pectoris (principal); E03.9 Hypothyroidism, unspecified; E78.2 Mixed hyperlipidemia

== ENCOUNTER → 2023-11-16 | Outpatient (CLI) | payer MEDICARE | LOC: M WHC 11:25 | PROVIDERS: ATTEND Family Medicine | DX: M81.0 Age-related osteoporosis without current pathological fracture (principal) ==

== ENCOUNTER → 2024-01-01 | Outpatient (CLI) | payer MEDICARE ==
[~2024-01-01] MED LIST changes: +GABA-1490 PO; -GABA600T4 PO
== END ==
LOC: M PLAIMG 09:09
PROVIDERS: ATTEND Family Medicine
DX: M51.26 Other intervertebral disc displacement, lumbar region (principal); M47.816 Spondylosis without myelopathy or radiculopathy, lumbar region; M48.061 Spinal stenosis, lumbar region without neurogenic claudication; M51.35 Other intervertebral disc degeneration, thoracolumbar region

== ENCOUNTER → 2024-12-26 | Outpatient (REF) | payer MEDICARE ==
[~2024-12-26] MED LIST changes: -AMBI10TA PO; +GABA-1172 PO; -GABA-282 PO; +SENN-225 PO; -SENO8.6T5 PO; +ZOLP-533 PO
[2024-12-26 15:23] LABS: ALT/SGPT 32.0 U/L (7.0-40); AST/SGOT 34.0 U/L (<34); CALCIUM LEVEL 9.1 MG/DL (8.3-10.6); CARBON DIOXIDE LEVEL 33.0 MMOL/L (20-31); CHLORIDE LEVEL 104.0 MMOL/L (98-107); CREATININE FOR GFR 0.87 MG/DL (0.55-1.30); GLOMERULAR FILTRATION RATE 66.5 (>32); POTASSIUM SERUM 4.9 MMOL/L (3.5-5.1); SODIUM LEVEL 146.0 MMOL/L (136-145)
== END ==
LOC: M LABDRWAD 13:14
PROVIDERS: ATTEND Family Medicine
DX: I25.10 Atherosclerotic heart disease of native coronary artery without angina pectoris (principal); R03.0 Elevated blood-pressure reading, without diagnosis of hypertension

== ENCOUNTER → 2025-01-21 | Outpatient (CLI) | payer MEDICARE ==
[2025-01-21 15:04] LABS: ALT/SGPT 42.0 U/L (7.0-40); AST/SGOT 38.0 U/L (<34); CALCIUM LEVEL 8.9 MG/DL (8.3-10.6); CARBON DIOXIDE LEVEL 31.0 MMOL/L (20-31); CHLORIDE LEVEL 104.0 MMOL/L (98-107); CREATININE FOR GFR 0.82 MG/DL (0.55-1.30); GLOMERULAR FILTRATION RATE 71.4 (>32); POTASSIUM SERUM 4.5 MMOL/L (3.5-5.1); SODIUM LEVEL 143.0 MMOL/L (136-145)
[2025-01-21 15:08] LABS: BASO # 0.1 10^3/uL (0.0-0.2); BASO % 1.8 % (0.0-1.0); EOS # 0.4 10^3/uL (0.0-0.5); EOS % 9.4 % (0.0-3.0); LYMPH # 1.1 10^3/uL (1.5-5.0); LYMPH % 23.9 % (24.0-44.0); MONO # 0.4 10^3/uL (0.0-0.8); MONO % 9.2 % (2.0-8.0); NEUTROPHILS # 2.5 10^3/uL (1.5-8.5); NEUTROPHILS % 55.0 % (36.0-66.0); PLATELET COUNT, AUTOMATED 221 10^3/uL (150-450)
== END ==
LOC: M LABDRWAD 09:17
PROVIDERS: ATTEND Family Medicine
DX: R03.0 Elevated blood-pressure reading, without diagnosis of hypertension (principal); R60.9 Edema, unspecified; E03.9 Hypothyroidism, unspecified; I25.10 Atherosclerotic heart disease of native coronary artery without angina pectoris